=== PATIENT | male | born 1940 | race Caucasian/White ===

== ENCOUNTER 2022-02-01 17:57 | Inpatient (IN) | payer MEDICARE, OTHER ==
[~2022-02-01] VITALS: Ht 170.2 cm; Wt 46.7 kg
[~2022-02-01 17:57] MED LIST: TERA2CAP4 PO; VALS1TAB7 PO
[2022-02-01] MEDS ORDERED: ACETAMINOPHEN 650 MG/SUPP.RECT RC ONE ×2 (18:13→18:30)
--- NOTE | 2022-02-01 18:15 | NUR ---
Covid swab done and sent to lab.
[2022-02-01] MEDS ORDERED: COLL30OI TP (18:21)
[2022-02-01] MEDS ORDERED: MAGN400O6 GT (18:21)
[2022-02-01] MEDS ORDERED: HYDR-4077 GT (18:21)
[2022-02-01] MEDS ORDERED: ACET-868 GT (18:21)
[2022-02-01] MEDS ORDERED: NUT.237L31 GT (18:21)
[2022-02-01] MEDS ORDERED: ASCO-352 GT (18:21)
[2022-02-01] MEDS ORDERED: MULT-447 GT (18:21)
[2022-02-01] MEDS ORDERED: ZINC1CAP2 GT (18:21)
[2022-02-01] MEDS ORDERED: LEVA1.2528 IH (18:21)
[2022-02-01] MEDS ORDERED: LOSA100T31 GT (18:21)
[2022-02-01] MEDS ORDERED: BISA10SU11 RC (18:21)
[2022-02-01] MEDS ORDERED: CHOL100043 GT (18:21)
[2022-02-01] MEDS ORDERED: METO-295 GT (18:21)
[2022-02-01] MEDS ORDERED: NA P133E RC (18:21)
[2022-02-01] MEDS ORDERED: ASPI-1169 GT (18:21)
[2022-02-01] MEDS ORDERED: EZET10TA16 GT (18:21)
[2022-02-01 18:28] LABS: BASOPHILS # (AUTO) 0.1 K/uL (0.0-0.2); BASOPHILS % (AUTO) 0.5 % (0.0-2.0); EOSINOPHILS % (AUTO) 0.2 % (0.0-6.0); HEMATOCRIT 33 % (39-51); HEMOGLOBIN 9.9 g/dL (13.5-17.5); LYMPHOCYTES # (AUTO) 1.4 K/uL (0.8-4.8); LYMPHOCYTES % (AUTO) 11.2 % (20.0-44.0); MEAN CORPUSCULAR HGB CONC 31 g/dl (31.0-36.0); MEAN CORPUSCULAR VOLUME 81 fL (80-96); MONOCYTES # (AUTO) 0.7 K/uL (0.1-1.30); MONOCYTES % (AUTO) 5.7 % (2.0-12.0); NEUTROPHILS # (AUTO) 10.5 K/uL (1.8-8.9); NEUTROPHILS % (AUTO) 82.4 % (43.0-81.0); PLATELET COUNT (AUTO) 814 K/uL (150-450); RED BLOOD CELL COUNT(AUTO) 3.99 MIL/uL (4.5-6.0); WHITE BLOOD COUNT (AUTO) 12.7 K/uL (4.3-11.0)
[2022-02-01] MEDS ORDERED: VANCOMYCIN 1 GM in IV D5W 250 ML IV ONE (18:30)
[2022-02-01] MEDS ORDERED: CEFEPIME 1 GM in IV D5W 50 ML IV ONE (18:30)
--- NOTE | 2022-02-01 18:30 | NUR ---
IV LINE ESTABLISHED ON RFA #18, BLOOD DRAWN AND SENT TO LAB
--- NOTE | 2022-02-01 18:35 | NUR ---
URINE SAMPLE COLLECTED AND SENT TO LAB
[2022-02-01 18:42] LABS: CALCIUM, SERUM 9.4 mg/dL (8.5-10.1); CARBON DIOXIDE 26 mmol/L (21-32); CHLORIDE 110 mmol/L (98-107); CREATININE 1.5 mg/dL (0.6-1.3); GLUCOSE 131 mg/dL (74-106); POTASSIUM 5.7 mmol/L (3.5-5.1); SODIUM SERUM 146 mmol/L (136-145)
[2022-02-01 18:43] LABS: UREA NITROGEN, BLOOD 82 mg/dL (7-18)
[2022-02-01 18:53] LABS: ALANINE AMINOTRANSFERASE 55 U/L (12-78); ALBUMIN 2.1 g/dL (3.4-5.0); ALKALINE PHOSPHATASE 128 U/L (46-116); ASPARTATE AMINOTRANSFERASE 39 U/L (15-37); BILIRUBIN,DIRECT 0.1 mg/dL (0.0-0.2); BILIRUBIN,TOTAL 0.3 mg/dL (0.2-1.0); TOTAL PROTEIN, SERUM 7.4 g/dL (6.4-8.2)
[2022-02-01] MEDS ORDERED: CEFEPIME 1 GM VIAL ONE (19:12)
--- NOTE | 2022-02-01 19:30 | NUR ---
EMT AT BEDSIDE FOR EKG
--- NOTE | 2022-02-01 19:31 | NUR ---
[id number] FROM [facility] FOR DESATURATION (88% WITH 2L/MIN) AND FEVER 100.4F. PT ON MONITIOR AND PULSE OX , 15LPM NRB SATTING 98%.
--- NOTE | 2022-02-01 19:37 | NUR ---
RT AT BEDSIDE FOR ABG
[2022-02-01 19:47] LABS: ABG PCO2 30.7 mmHg (35.0-45.0); ABG PH 7.457 (7.350-7.450); ABG PO2 89.5 mmHg (75.0-100.0); COHb 0.3 % (0.5-1.5); MetHb 0.5 % (0.0-1.5); O2Hb 95.8 % (94.0-97.0); SITE, ABG Right Radial
[2022-02-01 19:53] LABS: BILIRUBIN,URINE NEGATIVE (NEGATIVE); COLOR,URINE YELLOW (YELLOW); LEUKOCYTE ESTERASE ,URINE NEGATIVE (NEGATIVE); NITRITE, URINE NEGATIVE (NEGATIVE); PROTEIN,URINE 30 mg/dl (NEGATIVE); UGLUCOSE NEGATIVE (NEGATIVE); UROBILINOGEN,URINE 0.2 EU/dL (0.2)
[2022-02-01] MEDS ORDERED: VANCOMYCIN 1 GM VIAL ONE (20:13)
--- NOTE | 2022-02-01 20:13 | NUR ---
EPIC PAGED PER DR NEGRO.
[2022-02-01] MEDS ORDERED: IV D5/0.45 NACL 1,000 ML IV ONE (21:00)
[2022-02-01] MEDS ORDERED: ACETAMINOPHEN 325 MG TABLET PO PRN ×2 (21:00)
[2022-02-01] MEDS ORDERED: BISACODYL SUPP (10 MG) 10 MG/SUPP.RECT SUPP.RECT RC PRN (21:00)
[2022-02-01] MEDS ORDERED: ACETAMINOPHEN 650 MG/SUPP.RECT RC PRN (21:00)
[2022-02-01] MEDS ORDERED: METOCLOPRAMIDE HCL 10 MG TABLET GT PRN (21:00)
[2022-02-01] MEDS ORDERED: ONDANSETRON HCL/PF 4 MG/2 ML VIAL IVP PRN (21:00)
--- NOTE | 2022-02-01 21:28 | NUR ---
CALLED FOR REPORT. RN WILL CALL BACK
--- NOTE | 2022-02-01 21:51 | NUR ---
REPORT GIVEN TO KATELYN
--- NOTE | 2022-02-01 22:19 | NUR ---
PT TRANSFERRED TO ROOM 113-1 ON ANIMAL SKINNER ACLS PROTCOL. ALL V/S WNL AT TIME OF TRANSFER.
[2022-02-01] MEDS ORDERED: LEVALBUTEROL HCL NEB 1.25 MG/0.5 ML VIAL.NEB IH PRN (22:30)
--- NOTE | 2022-02-01 22:30 | NUR ---
RN NOTE RECEIVED REPORT FOR PT DENITA FROM ER NURSE DIAMOND. ARRIVED AT 2210 IN EDD VIA GURNEY WITH THE DIAGNOSIS OF RESPIRATORY FAILURE SECONDARY TO SEPSIS. PT IN NRB MASK AT 100% WITH O2 SAT OF 100% UPON ASSESSMENT. PT IS AWAKE BUT DISORIENTED. UNABLE TO RESPOND TO QUESTIONS. TELE MONITOR SHOW SR WITH HR OF 77 BPM. IV ACCES NOTED IN RFA #18G, SL.GT IN PLACE, CLAMPED. FC NOTED DRAINING YELLOW URINE VIA GRAVITY. PT CURRENTLY NPO. WOUNDS NOTED IN LEFT FOREHEAD AND SACRUM. PHOTOS TAKEN AND IN PT'S CHART. ALL SAFETY PRECAUTIONS IN PLACE: BED LOCKED IN LOW POSITION, BED ALARM ON. SR X 3, CALL LIGHT WITHIN REACH. WILL CONTINUE TO MONITOR PT.
[2022-02-01] MEDS: EZETIMIBE 10 MG TABLET GT SCH (23:14)
[2022-02-02] VITALS: BP 125/69
[2022-02-02] MEDS ORDERED: methylPREDNISolone SOD SUCC 40 MG/ML VIAL IV ONE (00:30)
--- NOTE | 2022-02-02 02:15 | NUR ---
RN NOTE PT STARTED TO BE RESTLESS IN BED. PULLED OUT HIS NRB MASK AND PULSE OX SEVERAL TIMES. SOFT WRIST RESTRAINTS ON BILATERAL HANDS ORDERED AND CARRIED OUT. WILL CONTINUE TO MONITOR PT CLOSELY.
[2022-02-02 04:00] VITALS: BP 114/69
--- NOTE | 2022-02-02 06:14 | NUR ---
RN CLOSING NOTE NO SIGNIFICANT CHANGE THROUGHOUT THE NIGHT. VSS. PT REMAINS IN NPO STATUS. WILL ENDORSE TO AM SHIFT NURSE FOR CARLOS.
[2022-02-02 07:05] LABS: ALANINE AMINOTRANSFERASE 49 U/L (12-78); ALBUMIN 1.9 g/dL (3.4-5.0); ALKALINE PHOSPHATASE 106 U/L (46-116); ASPARTATE AMINOTRANSFERASE 31 U/L (15-37); BASOPHILS % (AUTO) 0.4 % (0.0-2.0); BILIRUBIN,TOTAL 0.4 mg/dL (0.2-1.0); CALCIUM, SERUM 8.6 mg/dL (8.5-10.1); CARBON DIOXIDE 25 mmol/L (21-32); CHLORIDE 111 mmol/L (98-107); CREATININE 1.4 mg/dL (0.6-1.3); EOSINOPHILS % (AUTO) 0.2 % (0.0-6.0); GLUCOSE 157 mg/dL (74-106); HEMATOCRIT 28 % (39-51); HEMOGLOBIN 8.7 g/dL (13.5-17.5); LYMPHOCYTES # (AUTO) 0.8 K/uL (0.8-4.8); LYMPHOCYTES % (AUTO) 9.2 % (20.0-44.0); MAGNESIUM 3.1 mg/dL (1.8-2.4); MEAN CORPUSCULAR HGB CONC 32 g/dl (31.0-36.0); MEAN CORPUSCULAR VOLUME 84 fL (80-96); MONOCYTES # (AUTO) 0.2 K/uL (0.1-1.30); MONOCYTES % (AUTO) 1.9 % (2.0-12.0); NEUTROPHILS # (AUTO) 7.8 K/uL (1.8-8.9); NEUTROPHILS % (AUTO) 88.3 % (43.0-81.0); PLATELET COUNT (AUTO) 691 K/uL (150-450); POTASSIUM 5.4 mmol/L (3.5-5.1); RED BLOOD CELL COUNT(AUTO) 3.27 MIL/uL (4.5-6.0); SODIUM SERUM 144 mmol/L (136-145); TOTAL PROTEIN, SERUM 6.6 g/dL (6.4-8.2); WHITE BLOOD COUNT (AUTO) 8.8 K/uL (4.3-11.0)
[2022-02-02 07:15] LABS: THYROID STIMULATING HORMONE 0.254 uIU/mL (0.358-3.74)
[2022-02-02 07:18] LABS: UREA NITROGEN, BLOOD 88 mg/dL (7-18)
[2022-02-02] MEDS ORDERED: ALBUTEROL FS 2.5 MG/0.5 ML VIAL.NEB IH PRN (07:30)
[2022-02-02] MEDS ORDERED: ALBUTEROL FS 2.5 MG/0.5 ML VIAL.NEB NEB SCH (07:35)
--- NOTE | 2022-02-02 07:35 | NUR ---
RN NOTE PT RECEIVED IN BED, LETHARGIC, EYES CLOSED. PT ON 15L NRB WITH SOME LABORED BREATHING, RR 28. DELA CRUZ CATH IN PLACE, PATENT. GTUBE IN PLACE, NO FEEDING RUNNING, PT NPO EXCEPT MEDS AT THIS TIME. RIGHT FA 18G IN PLACE RUNNING D51/2NS AT 50ML/HR. BILATERAL SOFT WRIST RESTRAINS IN PLACE, SKIN WARM AND INTACT. BED LOCKED AND IN LOWEST POSITION, CALL LIGHT WITHIN REACH, 3 SIDE RAILS UP.
[2022-02-02 08:00] VITALS: BP 129/47
[2022-02-02] MEDS: ZINC SULFATE 220 MG CAPSULE GT SCH (08:38)
[2022-02-02] MEDS: MULTIVIT W/MINERALS 1 TAB TABLET GT SCH (08:38)
[2022-02-02] MEDS: ASPIRIN 81 MG TAB.CHEW GT SCH (08:38)
[2022-02-02] MEDS: CEFEPIME 2 GM in IV D5W 100 ML IV SCH (08:38)
[2022-02-02] MEDS: THERAHONEY GEL 1.5 OZ TUBE TP SCH (08:38)
[2022-02-02] MEDS: ASCORBIC ACID 500 MG TABLET GT SCH (08:39)
[2022-02-02] MEDS: CHOLECALCIFEROL 1,000 UNIT TABLET (VIT D3) GT SCH (08:39)
[2022-02-02] MEDS ORDERED: PANTOPRAZOLE 40 MG VIAL IV SCH (09:00)
[2022-02-02] MEDS ORDERED: CEFEPIME 1 GM in IV D5W 50 ML IV SCH (09:00)
--- NOTE | 2022-02-02 11:13 | NUR ---
RN NOTE PT SATING 99% ON 5L O2 NC.
[2022-02-02 12:00] VITALS: BP 113/56
[2022-02-02] MEDS: ENOXAPARIN SODIUM 30 MG/0.3 ML DISP.SYRIN SQ SCH (12:42)
[2022-02-02] MEDS ORDERED: DEXTROSE 50%-WATER 50 ML DISP.SYRIN IV PRN (15:00)
[2022-02-02 16:00] VITALS: BP 137/47
[2022-02-02] MEDS ORDERED: VANCOMYCIN 0.75 GM in IV D5W 250 ML IV SCH (16:00)
[2022-02-02] MEDS: GLUCERNA 1.2 1,000 ML BOTTLE NG PRN (17:38)
[2022-02-02] MEDS: BLOOD SUGAR DIAGNOSTIC 1 EACH STRIP IN SCH ×2 (17:38→23:29)
[2022-02-02] MEDS: INSULIN REGULAR, HUMAN 100 UNIT/ML 3 ML VIAL SQ PRN ×2 (17:39→23:30)
--- NOTE | 2022-02-02 19:20 | NUR ---
RN NOTES RECEIVED PT FOR CONTINUITY OF CARE. PATIENT A/OX1 IN NO S/SX OF ACUTE DISTRESS AT THIS TIME; CURRENTLY ON 4L OF 02 VIA SIMPLE MASK; WITH 02 SAT >95% AT THIS TIME.WITH IV ACCESS ON R FA#18 PATENT, INTACT AND FLUSHING WELL. WITH GTUBE FEEDING RUNNING PRESCRIBED. WILL ENSURE SAFETY MEASURES WITHIN THE SHIFT. PATIENT BED ALARM IS ON. HEAD OF BED ELEVATED. BED IS LOCKED, IN LOWEST POSITION AND SIDE RAILS UP. CALL LIGHT WITHIN REACH OF THE PATIENT. APPLICABLE ISOLATION PRECAUTIONS IN PLACE. WILL CONTINUE TO MONITOR AND REASSESS FOR ANY CHANGES AND WILL CARRY OUT ANY ONGOING AND ACTIVE MD ORDER. Addendum: 02/02/22 at 2214 by BARBRA ORTIZ RN CORRECTION PT ON NASAL CANNULA
[2022-02-02] MEDS: ALBUTEROL FS 2.5 MG/0.5 ML VIAL.NEB NEB SCH (19:30)
[2022-02-02] MEDS: IPRATROPIUM NEB FS 0.5 MG/2.5 ML AMPUL.NEB NEB SCH (19:30)
[2022-02-02 20:00] VITALS: BP 125/50
[2022-02-02] MEDS: EZETIMIBE 10 MG TABLET GT SCH (21:18)
[2022-02-03] VITALS: BP 132/48
[2022-02-03 04:00] VITALS: BP 91/55
--- NOTE | 2022-02-03 04:00 | NUR ---
RN NOTES PATIENT REMAINED TO BE IN NO SIGNS OF ACUTE RESPIRATORY DISTRESS ,SAFE ENVIRONMENT MAINTAINED FOR PT. AM PATIENT CARE RENDERED. WILL CONTINUE TO MONITOR AND REASSESS FOR ANY CHANGES THROUGHOUT THE SHIFT.
[2022-02-03] MEDS: BLOOD SUGAR DIAGNOSTIC 1 EACH STRIP IN SCH ×4 (05:56→23:24)
[2022-02-03] MEDS: INSULIN REGULAR, HUMAN 100 UNIT/ML 3 ML VIAL SQ PRN ×2 (05:57→23:24)
[2022-02-03 05:58] LABS: BASOPHILS % (AUTO) 0.2 % (0.0-2.0); HEMATOCRIT 27 % (39-51); HEMOGLOBIN 8.4 g/dL (13.5-17.5); LYMPHOCYTES # (AUTO) 1.3 K/uL (0.8-4.8); LYMPHOCYTES % (AUTO) 15.6 % (20.0-44.0); MEAN CORPUSCULAR HGB CONC 32 g/dl (31.0-36.0); MEAN CORPUSCULAR VOLUME 83 fL (80-96); MONOCYTES # (AUTO) 0.8 K/uL (0.1-1.30); NEUTROPHILS # (AUTO) 6.3 K/uL (1.8-8.9); NEUTROPHILS % (AUTO) 75.2 % (43.0-81.0); PLATELET COUNT (AUTO) 701 K/uL (150-450); WHITE BLOOD COUNT (AUTO) 8.4 K/uL (4.3-11.0)
[2022-02-03 06:04] LABS: CALCIUM, SERUM 8.6 mg/dL (8.5-10.1); CARBON DIOXIDE 26 mmol/L (21-32); CHLORIDE 111 mmol/L (98-107); CREATININE 1.1 mg/dL (0.6-1.3); GLUCOSE 128 mg/dL (74-106); MAGNESIUM 2.9 mg/dL (1.8-2.4); POTASSIUM 4.7 mmol/L (3.5-5.1); SODIUM SERUM 145 mmol/L (136-145); UREA NITROGEN, BLOOD 73 mg/dL (7-18)
[2022-02-03 06:22] LABS: IRON, SERUM 33 ug/dl (50-175); TOTAL IRON BINDING CAPACITY 128 ug/dl (250-450)
[2022-02-03 06:36] LABS: FERRITIN 777 ng/mL (8-388)
--- NOTE | 2022-02-03 06:40 | NUR ---
RN CLOSING NOTE: PATIENT REMAINS IN ROOM IN NO SIGNS OF RESPIRATORY DISTRESS, PATIENT STILL A/OX1-2 MORE ALERT COMPARED FROM THE START OF THE SHIFT. NOW ON 3L OF 02 VIA NC ; TOLERATING WELL SATURATING @ >95% SP02. SAFETY MEASURES IMPLEMENTED, BED IN LOWEST POSITION, LOCKED, SIDE RAILS UP, CALL LIGHT WITHIN REACH. ALL NEEDS AND ORDERS ADDRESSED DURING THE SHIFT. IV ACCESS MAINTAINED INTACT, SECURED AND FLUSHING WELL. ALL DUE MEDS GIVEN ORDERED & SCHEDULED ; PATIENT TOLERATED WELL. PATIENT KEPT CLEAN AND COMFORTABLE WITHIN THE SHIFT. PATIENT ENDORSED TO INCOMING SHIFT RN WITH STABLE VITAL SIGN AND FOR CONTINUITY OF CARE.
--- NOTE | 2022-02-03 07:33 | NUR ---
EDD TELE OPENING NOTES: RECEIVED PATIENT IN BED, AWAKE,ALERT ORIENTED X 1 WITH PERIODS OF CONFUSION. NO SOB NOTED, ON OXYGEN @ 3 L/MN VIA N/C SATURATION OF 97%. SR ON TELE MONITOR WITH HR OF 67. IV ACCESS ON RIGHT FOREARM INTAC, FLUSHING WELL, NO S/S INFILTRATION. GTUBE INTACT, DRESSING CLEAN AND DRY, RUNNING WITH GLUCERNA 1.2 @ 70 CC/HR. DELA CRUZ CATHETER INTACT, DRAINING WELL, WITH YELLOW CLEAR URINE, NO HEMATURIA AND NO SEDIMENTATION PRESENT. HOB KEPT ELEVATED, BED LOCKED AND IN LOWEST POSITION, CALL LIGHT WITHIN REACH. ALL SAFETY MEASURES IMPLEMENTED. WILL CONTINUE TO MONITOR PATIENT THROUGHOUT SHIFT.
[2022-02-03] MEDS: IPRATROPIUM NEB FS 0.5 MG/2.5 ML AMPUL.NEB NEB SCH ×4 (07:35→20:05)
[2022-02-03] MEDS: ALBUTEROL FS 2.5 MG/0.5 ML VIAL.NEB NEB SCH ×4 (07:35→20:05)
--- NOTE | 2022-02-03 07:54 | NUR ---
RT NOTE HHN pending negative PCR for COVID-19
[2022-02-03 08:00] VITALS: BP 102/62
--- NOTE | 2022-02-03 08:23 | NUR ---
WOUND CARE CONSULT: REVIEWED CHART, NURSING DOCUMENTATION AND PHOTOS WHICH INDICATE LESION TO SCALP AND SACRAL DEEP TISSUE INJURY IN EVOLUTION, PRESENT ON ADMISSION. RECOMMENDATIONS MADE FOR SKIN PROTECTION AND WOUND CARE. DISCUSSED WITH NURSING STAFF. DR GONZALEZ NOTIFIED OF SURGICAL CONSULT REQUEST. MD IN AGREEMENT WITH PLAN OF CARE.
[2022-02-03] MEDS ORDERED: Z GUARD REMEDY 4 OZ OINT TP PRN (08:30)
[2022-02-03] MEDS: PANTOPRAZOLE 40 MG/PACK PACK GT SCH (09:59)
[2022-02-03] MEDS: ASPIRIN 81 MG TAB.CHEW GT SCH (09:59)
[2022-02-03] MEDS: CEFEPIME 2 GM in IV D5W 100 ML IV SCH (10:00)
[2022-02-03] MEDS: ZINC SULFATE 220 MG CAPSULE GT SCH (10:00)
[2022-02-03] MEDS: ASCORBIC ACID 500 MG TABLET GT SCH (10:00)
[2022-02-03] MEDS: MULTIVIT W/MINERALS 1 TAB TABLET GT SCH (10:00)
[2022-02-03] MEDS: CHOLECALCIFEROL 1,000 UNIT TABLET (VIT D3) GT SCH (10:00)
[2022-02-03] MEDS: Z GUARD REMEDY 4 OZ OINT TP SCH (10:01)
[2022-02-03] MEDS: THERAHONEY GEL 1.5 OZ TUBE TP SCH ×2 (10:01→21:40)
[2022-02-03] MEDS: ENOXAPARIN SODIUM 30 MG/0.3 ML DISP.SYRIN SQ SCH (10:51)
[2022-02-03 12:00] VITALS: BP 139/47
[2022-02-03 12:00] LABS: BASOPHILS % (MANUAL) 0 % (0.0-2.0); EOSINOPHILS % (MANUAL) 0 % (0-4); LYMPHOCYTES % (MANUAL) 16 % (16-48); MONOCYTES % (MANUAL) 8 % (0-11.0); NEUTROPHILS % (MANUAL) 76 (42-76)
--- NOTE | 2022-02-03 12:29 | NUR ---
RT NOTE Tx not given at this time due to COVID-19 test results still pending. Pt was assessed, SpO2 92% HR 71 and no SOB or resp distress noted and all WNL, breath sounds clear/diminished. Will continue to monitor.
[2022-02-03] MEDS: GLUCERNA 1.5 1,000 ML BOTTLE GT SCH (13:35)
[2022-02-03] MEDS: VANCOMYCIN 500 MG in IV D5W 100 ML IV SCH (14:53)
[2022-02-03 16:00] VITALS: BP 99/53
--- NOTE | 2022-02-03 19:05 | NUR ---
RN CLOSING NOTES: RECEIVED PATIENT IN BED, AWAKE, OBTUNDED. ON MECHANICAL VENT SETTING ORDERED. NO SOB NOTED. ON SR WITH HR OF 67. IV ACCESS ON LEFT THUMB RUNNING WITH 1/2 NS @ 100ML/HR. HAS SALINE LOCK ON RIGHT HAND. GTUBE INTACT, WITH GLUCERNA RUNNING AT 80 ML/HR. DELA CRUZ CATHETER DRAINING WITH YELLOW URINE, NO HEMATURIA AND NO SEDIMENTATION NOTED. HOB KEPT ELEVATED, BED LOCKED AND IN LOWEST POSITION. CALL LIGHT WITHIN REACH. WILL ENDORSE TO NEXT SHIFT NURSE.
--- NOTE | 2022-02-03 19:18 | NUR ---
RN NOTES RECEIVED PT FOR CONTINUITY OF CARE. PATIENT A/OX1 IN NO S/SX OF ACUTE DISTRESS AT THIS TIME; CURRENTLY ON 3L OF 02 VIA NC; WITH 02 SAT >95% AT THIS TIME.WITH IV ACCESS ON R FA#18 PATENT, INTACT AND FLUSHING WELL. WITH GTUBE FEEDING RUNNING PRESCRIBED; 70CC/HR, TOLERATING WELL. WILL ENSURE SAFETY MEASURES WITHIN THE SHIFT. PATIENT BED ALARM IS ON. HEAD OF BED ELEVATED. BED IS LOCKED, IN LOWEST POSITION AND SIDE RAILS UP. CALL LIGHT WITHIN REACH OF THE PATIENT. WILL CONTINUE TO MONITOR AND REASSESS FOR ANY CHANGES AND WILL CARRY OUT ANY ONGOING AND ACTIVE MD ORDER.
[2022-02-03 20:00] VITALS: BP 132/59
--- NOTE | 2022-02-03 20:10 | NUR ---
RN NOTES AUTHORIZATION/CONSENT OBTAINED FROM PT'S FAMILY KENNETH BARGER FOR SERIAL DEBRIDEMENT OF SACRUM VIA PHONE ([phone]), PHONE VERIFIED BY ANOTHER NURSE DIEGO LIMA. POLICE RADIO DISPATCHER MADE AWARE.
[2022-02-03] MEDS: EZETIMIBE 10 MG TABLET GT SCH (21:39)
[2022-02-04] VITALS: BP 122/60
--- NOTE | 2022-02-04 02:15 | NUR ---
RN NOTES VANCO 500MG IN IV D5W NOT AVAILABLE IN PT'S MEDICATION BOX, MEDICATION PULLED OUT BY CLIMATOLOGY TEACHER FROM [facility], 1GM IN 250ML, WILL GIVE DESIRED DOSE (500MG) ORDERED. CLIMATOLOGY TEACHER WELL AWARE.
[2022-02-04] MEDS: VANCOMYCIN 500 MG in IV D5W 100 ML IV SCH (02:22)
[2022-02-04] MEDS ORDERED: VANCOMYCIN 1 GM VIAL ONE (02:22)
[2022-02-04 04:00] VITALS: BP 131/57
--- NOTE | 2022-02-04 04:00 | NUR ---
RN NOTES PATIENT REMAINED TO BE IN NO SIGNS OF ACUTE RESPIRATORY DISTRESS 0O2 LEVEL DECREASED TO 2L; O2 SAT STILL >95%,SAFE ENVIRONMENT MAINTAINED FOR PT. AM PATIENT CARE AND WOUND CARE RENDERED. WILL CONTINUE TO MONITOR AND REASSESS FOR ANY CHANGES THROUGHOUT THE SHIFT.
[2022-02-04] MEDS: BLOOD SUGAR DIAGNOSTIC 1 EACH STRIP IN SCH ×4 (05:19→23:45)
[2022-02-04] MEDS: INSULIN REGULAR, HUMAN 100 UNIT/ML 3 ML VIAL SQ PRN ×2 (05:19→23:45)
[2022-02-04] MEDS: GLUCERNA 1.2 1,000 ML BOTTLE NG PRN (05:23)
--- NOTE | 2022-02-04 06:45 | NUR ---
RN CLOSING NOTE: PATIENT REMAINS IN ROOM IN NO SIGNS OF RESPIRATORY DISTRESS, PATIENT STILL A/OX1-2;CONFUSED. NOW ON 2L OF 02 VIA NC; TOLERATING WELL SATURATING @ >95% SP02. STILL ON TUBE FEEDING ORDERED; TOLERATING WELL. CONSENT SECURED FOR WOUND DEBRIDEMENT OF SACRAL WOUND; IN PT'S CHART. SAFETY MEASURES IMPLEMENTED, BED IN LOWEST POSITION, LOCKED, SIDE RAILS UP, CALL LIGHT WITHIN REACH. ALL NEEDS AND ORDERS ADDRESSED DURING THE SHIFT. IV ACCESS MAINTAINED INTACT, SECURED AND FLUSHING WELL. ALL DUE MEDS GIVEN ORDERED & SCHEDULED ; PATIENT TOLERATED WELL. PATIENT KEPT CLEAN AND COMFORTABLE WITHIN THE SHIFT. PATIENT ENDORSED TO INCOMING SHIFT RN WITH STABLE VITAL SIGN AND FOR CONTINUITY OF CARE.
[2022-02-04 06:48] LABS: BASOPHILS % (AUTO) 0.1 % (0.0-2.0); EOSINOPHILS % (AUTO) 0.2 % (0.0-6.0); HEMATOCRIT 31 % (39-51); HEMOGLOBIN 9.7 g/dL (13.5-17.5); LYMPHOCYTES # (AUTO) 1.2 K/uL (0.8-4.8); LYMPHOCYTES % (AUTO) 12.5 % (20.0-44.0); MEAN CORPUSCULAR HGB CONC 31 g/dl (31.0-36.0); MEAN CORPUSCULAR VOLUME 83 fL (80-96); MONOCYTES # (AUTO) 0.7 K/uL (0.1-1.30); MONOCYTES % (AUTO) 6.9 % (2.0-12.0); NEUTROPHILS # (AUTO) 7.8 K/uL (1.8-8.9); NEUTROPHILS % (AUTO) 80.3 % (43.0-81.0); PLATELET COUNT (AUTO) 818 K/uL (150-450); RED BLOOD CELL COUNT(AUTO) 3.79 MIL/uL (4.5-6.0); WHITE BLOOD COUNT (AUTO) 9.8 K/uL (4.3-11.0)
[2022-02-04 06:55] LABS: CALCIUM, SERUM 9.5 mg/dL (8.5-10.1); CARBON DIOXIDE 29 mmol/L (21-32); CHLORIDE 111 mmol/L (98-107); CREATININE 1.1 mg/dL (0.6-1.3); GLUCOSE 128 mg/dL (74-106); MAGNESIUM 2.8 mg/dL (1.8-2.4); POTASSIUM 4.8 mmol/L (3.5-5.1); SODIUM SERUM 146 mmol/L (136-145); UREA NITROGEN, BLOOD 58 mg/dL (7-18)
[2022-02-04] MEDS: IPRATROPIUM NEB FS 0.5 MG/2.5 ML AMPUL.NEB NEB SCH ×5 (07:23→19:35)
[2022-02-04] MEDS: ALBUTEROL FS 2.5 MG/0.5 ML VIAL.NEB NEB SCH ×5 (07:23→19:35)
[2022-02-04 08:00] VITALS: BP 128/65
[2022-02-04] MEDS: ASPIRIN 81 MG TAB.CHEW GT SCH (08:07)
[2022-02-04] MEDS: PANTOPRAZOLE 40 MG/PACK PACK GT SCH (08:09)
[2022-02-04] MEDS: CEFEPIME 2 GM in IV D5W 100 ML IV SCH (08:09)
[2022-02-04] MEDS: CHOLECALCIFEROL 1,000 UNIT TABLET (VIT D3) GT SCH (08:09)
[2022-02-04] MEDS: MULTIVIT W/MINERALS 1 TAB TABLET GT SCH (08:09)
[2022-02-04] MEDS: ZINC SULFATE 220 MG CAPSULE GT SCH (08:09)
[2022-02-04] MEDS: ASCORBIC ACID 500 MG TABLET GT SCH (08:09)
[2022-02-04] MEDS: ENOXAPARIN SODIUM 30 MG/0.3 ML DISP.SYRIN SQ SCH (08:12)
[2022-02-04] MEDS: THERAHONEY GEL 1.5 OZ TUBE TP SCH ×2 (08:59→09:00)
[2022-02-04] MEDS: Z GUARD REMEDY 4 OZ OINT TP SCH (08:59)
--- NOTE | 2022-02-04 11:45 | NUR ---
RN NOTE PT RECEIVED IN BED, RESPONSIVE TO STIMULI. CONT IN O2 VIA NC @2L. NOT IN DISTRESS. PT IS SR. GT IN PLACE WITH FEEDING GLUCERNA @70/HR. IV ACCESS ON RGA G18. PATENT AND INTACT. SAFETY MEASURES FOLLOWED. WILL CONT TO MONITOR.
[2022-02-04 12:00] VITALS: BP 125/62
--- NOTE | 2022-02-04 13:52 | NUR ---
RN NOTE VANCO TROUGH RESULT-21. PHARMACY MADE AWARE.
[2022-02-04 16:00] VITALS: BP 109/66
--- NOTE | 2022-02-04 19:25 | NUR ---
RN NOTES RECEIVED PT FOR CONTINUITY OF CARE. PATIENT A/OX1 IN NO S/SX OF ACUTE DISTRESS AT THIS TIME; CURRENTLY ON 2L OF 02 VIA NC; WITH 02 SAT >95% AT THIS TIME.WITH IV ACCESS ON R FA#18 PATENT, INTACT AND FLUSHING WELL. WITH GTUBE FEEDING RUNNING PRESCRIBED; 70CC/HR, TOLERATING WELL. WILL ENSURE SAFETY MEASURES WITHIN THE SHIFT. PATIENT BED ALARM IS ON. HEAD OF BED ELEVATED. BED IS LOCKED, IN LOWEST POSITION AND SIDE RAILS UP. CALL LIGHT WITHIN REACH OF THE PATIENT. WILL CONTINUE TO MONITOR AND REASSESS FOR ANY CHANGES AND WILL CARRY OUT ANY ONGOING AND ACTIVE MD ORDER.
--- NOTE | 2022-02-04 19:31 | NUR ---
RN NOTE PT RESTING IN BED, RESPONSIVE TO STIMULI. CONT IN O2 VIA NC @2L. NOT IN DISTRESS. PT IS SR. GT IN PLACE WITH FEEDING GLUCERNA @70/HR. IV ACCESS ON RGA G18. PATENT AND INTACT. SAFETY MEASURES FOLLOWED. WILL CONT TO MONITOR. DUE MEDICATIONS GIVEN, AM/PM CARE RENDERED.
--- NOTE | 2022-02-04 19:42 | NUR ---
RT NOTE RECEIVED PT ON ROOM AIR. PT REFUSED TX. NO SOB NOTED. NO INCREASED WOB NOTED. NO S/S OF ACUTE RESPIRATORY DISTRESS NOTED. RN NOTIFIED. Addendum: 02/04/22 at 2005 by CHASE MARSH RT PT CHANGED HIS MIND HE DECIDED TO TAKE TX.
[2022-02-04 20:00] VITALS: BP 122/56
--- NOTE | 2022-02-04 20:03 | NUR ---
RT NOTE. PT CHANGED HIS MIND AND TOOK TX. RASHEL TX WELL. NO S/S OF ACUTE RESPIRATORY DISTRESS NOTED. Addendum: 02/04/22 at 2006 by CHASE MARSH RT Amended: Links added.
[2022-02-04] MEDS: VANCOMYCIN 0.75 GM in IV D5W 250 ML IV SCH (21:02)
[2022-02-04] MEDS: EZETIMIBE 10 MG TABLET GT SCH (21:02)
--- NOTE | 2022-02-04 23:00 | NUR ---
RN NOTES NEW IV ACCESS SECURED ON THE L HAND #22, INTACT, PATENT AND FLUSHING WELL. SPECIAL NEEDS BABYSITTER MADE AWARE.
[2022-02-05] VITALS: BP 124/59
--- NOTE | 2022-02-05 04:00 | NUR ---
RN NOTES PATIENT REMAINED TO BE IN NO SIGNS OF ACUTE RESPIRATORY DISTRESS ,SAFE ENVIRONMENT MAINTAINED FOR PT. REGULAR REPOSITION DONE Q2H. AM PATIENT CARE RENDERED. WILL CONTINUE TO MONITOR AND REASSESS FOR ANY CHANGES THROUGHOUT THE SHIFT.
[2022-02-05] MEDS: GLUCERNA 1.5 1,000 ML BOTTLE GT SCH (04:16)
[2022-02-05 05:00] VITALS: BP 125/59
[2022-02-05] MEDS: BLOOD SUGAR DIAGNOSTIC 1 EACH STRIP IN SCH ×4 (05:36→23:22)
[2022-02-05] MEDS: INSULIN REGULAR, HUMAN 100 UNIT/ML 3 ML VIAL SQ PRN ×2 (05:36→23:33)
--- NOTE | 2022-02-05 06:39 | NUR ---
RN CLOSING NOTE: PATIENT REMAINS IN ROOM IN NO SIGNS OF RESPIRATORY DISTRESS, PATIENT STILL A/OX1-2;CONFUSED. NOW ON 2L OF 02 VIA NC; TOLERATING WELL SATURATING @ >95% SP02. STILL ON TUBE FEEDING ORDERED; TOLERATING WELL. CSAFETY MEASURES IMPLEMENTED, BED IN LOWEST POSITION, LOCKED, SIDE RAILS UP, CALL LIGHT WITHIN REACH. ALL NEEDS AND ORDERS ADDRESSED DURING THE SHIFT. IV ACCESS MAINTAINED INTACT, SECURED AND FLUSHING WELL. ALL DUE MEDS GIVEN ORDERED & SCHEDULED ; PATIENT TOLERATED WELL. PATIENT KEPT CLEAN AND COMFORTABLE WITHIN THE SHIFT. PATIENT ENDORSED TO INCOMING SHIFT RN WITH STABLE VITAL SIGN AND FOR CONTINUITY OF CARE.
[2022-02-05 06:53] LABS: BASOPHILS % (AUTO) 0.3 % (0.0-2.0); EOSINOPHILS % (AUTO) 0.3 % (0.0-6.0); HEMATOCRIT 30 % (39-51); HEMOGLOBIN 9.3 g/dL (13.5-17.5); LYMPHOCYTES # (AUTO) 1.8 K/uL (0.8-4.8); LYMPHOCYTES % (AUTO) 17.6 % (20.0-44.0); MEAN CORPUSCULAR HGB CONC 31 g/dl (31.0-36.0); MEAN CORPUSCULAR VOLUME 86 fL (80-96); MONOCYTES # (AUTO) 0.5 K/uL (0.1-1.30); MONOCYTES % (AUTO) 5.1 % (2.0-12.0); NEUTROPHILS # (AUTO) 7.7 K/uL (1.8-8.9); NEUTROPHILS % (AUTO) 76.7 % (43.0-81.0); PLATELET COUNT (AUTO) 745 K/uL (150-450); RED BLOOD CELL COUNT(AUTO) 3.45 MIL/uL (4.5-6.0)
[2022-02-05 07:07] LABS: CALCIUM, SERUM 8.9 mg/dL (8.5-10.1); CREATININE 1.1 mg/dL (0.6-1.3); MAGNESIUM 2.6 mg/dL (1.8-2.4); POTASSIUM 4.5 mmol/L (3.5-5.1)
--- NOTE | 2022-02-05 07:44 | NUR ---
RN NOTE PT RECEIVED IN BED, RESPONSIVE TO STIMULI. CONT IN O2 VIA NC @2L. NOT IN DISTRESS. PT IS SR. GT IN PLACE WITH FEEDING GLUCERNA @70/HR. IV ACCESS ON L HAND G22. PATENT AND INTACT. SAFETY MEASURES FOLLOWED. WILL CONT TO MONITOR.
[2022-02-05 08:00] VITALS: BP 132/54
[2022-02-05] MEDS: PANTOPRAZOLE 40 MG/PACK PACK GT SCH (09:45)
[2022-02-05] MEDS: ASPIRIN 81 MG TAB.CHEW GT SCH (09:45)
[2022-02-05] MEDS: ASCORBIC ACID 500 MG TABLET GT SCH (09:45)
[2022-02-05] MEDS: CEFEPIME 2 GM in IV D5W 100 ML IV SCH (09:45)
[2022-02-05] MEDS: ZINC SULFATE 220 MG CAPSULE GT SCH (09:45)
[2022-02-05] MEDS: CHOLECALCIFEROL 1,000 UNIT TABLET (VIT D3) GT SCH (09:46)
[2022-02-05] MEDS: MULTIVIT W/MINERALS 1 TAB TABLET GT SCH (09:46)
[2022-02-05] MEDS: ENOXAPARIN SODIUM 30 MG/0.3 ML DISP.SYRIN SQ SCH (09:49)
[2022-02-05 10:37] LABS: BASOPHILS % (MANUAL) 0 % (0.0-2.0); EOSINOPHILS % (MANUAL) 0 % (0-4); LYMPHOCYTES % (MANUAL) 19 % (16-48); MONOCYTES % (MANUAL) 2 % (0-11.0); NEUTROPHILS % (MANUAL) 79 (42-76)
[2022-02-05] MEDS: ALBUTEROL FS 2.5 MG/0.5 ML VIAL.NEB NEB SCH ×3 (11:30→19:53)
[2022-02-05] MEDS: IPRATROPIUM NEB FS 0.5 MG/2.5 ML AMPUL.NEB NEB SCH ×3 (11:30→19:53)
[2022-02-05 12:00] VITALS: BP 101/61
[2022-02-05] MEDS: Z GUARD REMEDY 4 OZ OINT TP SCH (13:10)
[2022-02-05] MEDS: THERAHONEY GEL 1.5 OZ TUBE TP SCH ×2 (13:11)
[2022-02-05 16:00] VITALS: BP 94/58
--- NOTE | 2022-02-05 18:18 | NUR ---
RN NOTE PT RESTING IN BED, RESPONSIVE TO STIMULI. IN ROOM AIR. NOT IN DISTRESS. PT IS SR. GT IN PLACE WITH FEEDING GLUCERNA @70/HR. IV ACCESS ON LHAND G22. PATENT AND INTACT. SAFETY MEASURES FOLLOWED. WILL CONT TO MONITOR. DUE MEDICATIONS GIVEN, AM/PM CARE RENDERED
--- NOTE | 2022-02-05 19:30 | NUR ---
RN OPENING NOTE RECEIVED PT FOR CONTINUITY OF CARE. PATIENT A/O X 1, CURRENTLY ON RA, TOLERATING WELL. NO S/SX OF ACUTE DISTRESS NOTED AT THIS TIME. 02 SAT >95%. IV ACCESS NOTED ON LEFT HAND, #22G, PATENT, INTACT AND FLUSHING WELL. SOFT WRIST RESTRAINS ON BILATERAL HANDS IN PLACE. NO CIRCULATION ISSUES AT THIS TIME. GTUBE FEEDING RUNNING PRESCRIBED; 70CC/HR, TOLERATING WELL. DELA CRUZ CATHETER IN PLACE, DRAINING YELLOW URINE BY GRAVITY. ALL SAFETY MEASURES IN PLACE: BED ALARM ON. HEAD OF BED ELEVATED. BED LOCKED, IN LOWEST POSITION. SIDE RAILS UP X 3. CALL LIGHT WITHIN REACH. WILL CONTINUE TO MONITOR AND REASSESS FOR ANY CHANGES AND WILL CARRY OUT ANY ONGOING AND ACTIVE MD ORDER.
[2022-02-05 20:00] VITALS: BP 110/50
[2022-02-05] MEDS: VANCOMYCIN 0.75 GM in IV D5W 250 ML IV SCH (21:05)
[2022-02-05] MEDS: EZETIMIBE 10 MG TABLET GT SCH (21:05)
[2022-02-06] VITALS: BP 106/60
[2022-02-06 04:00] VITALS: BP 116/65
[2022-02-06] MEDS: BLOOD SUGAR DIAGNOSTIC 1 EACH STRIP IN SCH ×4 (05:36→23:18)
[2022-02-06] MEDS: INSULIN REGULAR, HUMAN 100 UNIT/ML 3 ML VIAL SQ PRN ×2 (05:36→23:30)
[2022-02-06] MEDS: GLUCERNA 1.2 1,000 ML BOTTLE NG PRN ×2 (05:52→22:40)
--- NOTE | 2022-02-06 06:18 | NUR ---
RN CLOSING NOTE NO SIGNIFICANT CHANGE THROUGHOUT THE NIGHT. PT TOLERATING RA, O2 SAT >95%. TELE MONITOR SHOWS SR. ALL DUE MEDS GIVEN, NEEDS ATTENDED TO. AM/PM CARE DONE. TURNED AND REPOSITIONED. ALL SAFETY MEASURES IN PLACE. WILL ENDORSE TO AM SHIFT NURSE FOR CARLOS.
[2022-02-06 06:40] LABS: BASOPHILS % (AUTO) 0.4 % (0.0-2.0); EOSINOPHILS % (AUTO) 0.5 % (0.0-6.0); HEMATOCRIT 29 % (39-51); HEMOGLOBIN 9.2 g/dL (13.5-17.5); LYMPHOCYTES # (AUTO) 1.8 K/uL (0.8-4.8); LYMPHOCYTES % (AUTO) 14.4 % (20.0-44.0); MEAN CORPUSCULAR HGB CONC 32 g/dl (31.0-36.0); MEAN CORPUSCULAR VOLUME 82 fL (80-96); MONOCYTES # (AUTO) 0.9 K/uL (0.1-1.30); MONOCYTES % (AUTO) 7.2 % (2.0-12.0); NEUTROPHILS # (AUTO) 9.7 K/uL (1.8-8.9); NEUTROPHILS % (AUTO) 77.5 % (43.0-81.0); PLATELET COUNT (AUTO) 719 K/uL (150-450); RED BLOOD CELL COUNT(AUTO) 3.52 MIL/uL (4.5-6.0); WHITE BLOOD COUNT (AUTO) 12.5 K/uL (4.3-11.0)
[2022-02-06 07:06] LABS: MAGNESIUM 2.4 mg/dL (1.8-2.4); PHOSPHORUS 3.5 mg/dL (2.5-4.9); POTASSIUM 4.5 mmol/L (3.5-5.1)
--- NOTE | 2022-02-06 07:20 | NUR ---
director telemetry opening note patient is alert and oriented x1.patient is confused. patient is on tele monitor currently sinus rhythm.patient is on room air saturating at 93%. patient has Reddy catheter. yellow/guilherme color draining to gravity.patient has sacral wound and wound on forehead. patient is fall risk. patient has bilateral soft wrist restraints. no circulation issues noted at this time. patient is on Glucerna @ 70 cc/hr.gtube patent and intact. patient has left hand 22 gauge.iv patent and flushing well. all safety measures in place. call light with reach.bed locked at lowest position.side rails up x2.
[2022-02-06] MEDS: ALBUTEROL FS 2.5 MG/0.5 ML VIAL.NEB NEB SCH ×4 (07:44→19:23)
[2022-02-06] MEDS: IPRATROPIUM NEB FS 0.5 MG/2.5 ML AMPUL.NEB NEB SCH ×4 (07:44→19:23)
[2022-02-06 07:54] LABS: BAND % (MANUAL) 4 % (0.0-5.0); LYMPHOCYTES % (MANUAL) 12 % (16-48); METAMYELOCYTES % 1 % (0-0); MONOCYTES % (MANUAL) 4 % (0-11.0); MYELOCYTES % 1 % (0-0); NEUTROPHILS % (MANUAL) 78 (42-76)
[2022-02-06 08:00] VITALS: BP 115/53
[2022-02-06] MEDS: THERAHONEY GEL 1.5 OZ TUBE TP SCH ×2 (09:00→10:20)
[2022-02-06] MEDS: MULTIVIT W/MINERALS 1 TAB TABLET GT SCH (09:27)
[2022-02-06] MEDS: ASPIRIN 81 MG TAB.CHEW GT SCH (09:27)
[2022-02-06] MEDS: PANTOPRAZOLE 40 MG/PACK PACK GT SCH (09:27)
[2022-02-06] MEDS: ASCORBIC ACID 500 MG TABLET GT SCH (09:27)
[2022-02-06] MEDS: ZINC SULFATE 220 MG CAPSULE GT SCH (09:28)
[2022-02-06] MEDS: CHOLECALCIFEROL 1,000 UNIT TABLET (VIT D3) GT SCH (09:28)
[2022-02-06] MEDS: ENOXAPARIN SODIUM 30 MG/0.3 ML DISP.SYRIN SQ SCH (09:33)
[2022-02-06] MEDS: CEFEPIME 2 GM in IV D5W 100 ML IV SCH (09:34)
[2022-02-06] MEDS: Z GUARD REMEDY 4 OZ OINT TP SCH (10:19)
[2022-02-06 12:00] VITALS: BP 157/66
--- NOTE | 2022-02-06 12:00 | NUR ---
FAMILY AT BEDSIDE
[2022-02-06 16:00] VITALS: BP 146/69
--- NOTE | 2022-02-06 19:29 | NUR ---
SWEET DOUGH MIXER CLOSING NOTE PATIENT IS ALERT AND ORIENTED X1, CONFUSED ABLE TO OPEN EYES WHEN CALLING HIS NAME. PATIENT IS ON ROOM AIR CURRENT OXYGEN SATURATION AT 94%. PATIENT IS TELE MONITOR CURRENTLY SINUS RHYTHM AT 83. PATIENT HAS WOUND IN SACRAL AREA AND LEFT FOREHEAD. KEPT CLEAN AND DRY.PATIENT HAS BILATERAL SOFT RESTRAINTS. NO SKIN OR CIRCULATION ISSUES NOTED AT THIS TIME. PATIENT IS ON GLUCERNA AT 70ML/HR.GTUBE INTACT AND PATENT. PATIENT HAS IV ON LEFT HAND 22 GAUGE. IV PATENT AND FLUSHING WELL. ALL SAFETY MEASURES IN PLACE.CALL LIGHT WITH REACH. BED LOCKED AND IN LOWEST POSITION. SIDE RAILS UP X2. BED ALARM ON.
--- NOTE | 2022-02-06 19:30 | NUR ---
RN OPENING NOTE RECEIVED PT FOR CONTINUITY OF CARE. PATIENT A/O X 1, CURRENTLY ON RA, TOLERATING WELL. NO S/SX OF ACUTE DISTRESS NOTED AT THIS TIME. 02 SAT >95%. IV ACCESS NOTED ON LEFT HAND, #22G, SL, PATENT, INTACT AND FLUSHING WELL. SOFT WRIST RESTRAINTS ON BILATERAL HANDS IN PLACE. NO CIRCULATION ISSUES AT THIS TIME. GTUBE FEEDING RUNNING PRESCRIBED; NS AT 70CC/HR, TOLERATING WELL. DELA CRUZ CATHETER IN PLACE, DRAINING YELLOW URINE BY GRAVITY. ALL SAFETY MEASURES IN PLACE: BED ALARM ON. HEAD OF BED ELEVATED. BED LOCKED, IN LOWEST POSITION. SIDE RAILS UP X 3. CALL LIGHT WITHIN REACH. WILL CONTINUE TO MONITOR AND REASSESS FOR ANY CHANGES AND WILL CARRY OUT ANY ONGOING AND ACTIVE MD ORDER.
[2022-02-06 20:00] VITALS: BP 140/64
[2022-02-06] MEDS: EZETIMIBE 10 MG TABLET GT SCH (21:07)
[2022-02-06] MEDS: VANCOMYCIN 0.75 GM in IV D5W 250 ML IV SCH (21:07)
[2022-02-07] VITALS: BP 155/64
[2022-02-07 04:00] VITALS: BP 139/58
[2022-02-07] MEDS: BLOOD SUGAR DIAGNOSTIC 1 EACH STRIP IN SCH ×4 (05:17→23:56)
[2022-02-07] MEDS: INSULIN REGULAR, HUMAN 100 UNIT/ML 3 ML VIAL SQ PRN ×2 (05:18→23:57)
[2022-02-07] MEDS ORDERED: LIDOCAINE 1%-EPI 1:100,000 20 ML VIAL IJ ONE (06:00)
[2022-02-07] MEDS ORDERED: SILVER NITRATE APPLICATOR 1 EA BOX TP PRN (06:00)
[2022-02-07] MEDS: ALBUTEROL FS 2.5 MG/0.5 ML VIAL.NEB NEB SCH ×4 (07:12→19:49)
[2022-02-07] MEDS: IPRATROPIUM NEB FS 0.5 MG/2.5 ML AMPUL.NEB NEB SCH ×4 (07:12→19:49)
--- NOTE | 2022-02-07 07:15 | NUR ---
RN OPENING NOTES RECEIVED PATIENT RESTING IN BED, EASILY AROUSES ALERT/ORIENTED X 1, CURRENTLY ON RA, TOLERATING WELL. NO S/SX OF ACUTE DISTRESS NOTED AT THIS TIME. IV ACCESS NOTED ON LEFT HAND, #22G, SL, PATENT, INTACT AND FLUSHING WELL. SOFT WRIST RESTRAINTS ON BILATERAL HANDS IN PLACE. NO CIRCULATION/SKIN INTEGRITY ISSUES AT THIS TIME. GTUBE FEEDING RUNNING GLUCERNA AT 70CC/HR, TOLERATING WELL. DELA CRUZ CATHETER IN PLACE, DRAINING YELLOW URINE BY GRAVITY. ALL SAFETY MEASURES IN PLACE: BED ALARM ON. HEAD OF BED ELEVATED. BED LOCKED, IN LOWEST POSITION. SIDE RAILS UP X 3. CALL LIGHT WITHIN REACH. WILL CONTINUE TO MONITOR THROUGHOUT SHIFT.
[2022-02-07 07:20] LABS: BASOPHILS % (AUTO) 0.3 % (0.0-2.0); HEMATOCRIT 27 % (39-51); HEMOGLOBIN 8.4 g/dL (13.5-17.5); LYMPHOCYTES # (AUTO) 2.1 K/uL (0.8-4.8); LYMPHOCYTES % (AUTO) 16.9 % (20.0-44.0); MEAN CORPUSCULAR HGB CONC 31 g/dl (31.0-36.0); MEAN CORPUSCULAR VOLUME 82 fL (80-96); MONOCYTES # (AUTO) 0.8 K/uL (0.1-1.30); MONOCYTES % (AUTO) 6.2 % (2.0-12.0); NEUTROPHILS # (AUTO) 9.5 K/uL (1.8-8.9); NEUTROPHILS % (AUTO) 75.6 % (43.0-81.0); PLATELET COUNT (AUTO) 642 K/uL (150-450); RED BLOOD CELL COUNT(AUTO) 3.31 MIL/uL (4.5-6.0); WHITE BLOOD COUNT (AUTO) 12.6 K/uL (4.3-11.0)
[2022-02-07 07:49] LABS: CALCIUM, SERUM 8.9 mg/dL (8.5-10.1); CREATININE 0.9 mg/dL (0.6-1.3); MAGNESIUM 2.4 mg/dL (1.8-2.4); POTASSIUM 4.4 mmol/L (3.5-5.1)
[2022-02-07 08:00] VITALS: BP 142/61
[2022-02-07] MEDS: MULTIVIT W/MINERALS 1 TAB TABLET GT SCH (09:08)
[2022-02-07] MEDS: ASCORBIC ACID 500 MG TABLET GT SCH (09:08)
[2022-02-07] MEDS: ASPIRIN 81 MG TAB.CHEW GT SCH (09:08)
[2022-02-07] MEDS: CEFEPIME 2 GM in IV D5W 100 ML IV SCH (09:08)
[2022-02-07] MEDS: PANTOPRAZOLE 40 MG/PACK PACK GT SCH (09:09)
[2022-02-07] MEDS: CHOLECALCIFEROL 1,000 UNIT TABLET (VIT D3) GT SCH (09:09)
[2022-02-07] MEDS: ZINC SULFATE 220 MG CAPSULE GT SCH (09:09)
[2022-02-07] MEDS: ENOXAPARIN SODIUM 30 MG/0.3 ML DISP.SYRIN SQ SCH (09:11)
[2022-02-07] MEDS: Z GUARD REMEDY 4 OZ OINT TP SCH (09:11)
[2022-02-07] MEDS: THERAHONEY GEL 1.5 OZ TUBE TP SCH ×2 (09:11→09:12)
--- NOTE | 2022-02-07 10:50 | NUR ---
RN NOTE PATIENT LEFT UNIT FOR CT SCAN. PATIENT AWAKE, ALERT/ORIENTED. NO SOB OR ANY RESPIRATORY DISTRESS NOTED AT THE TIME.
--- NOTE | 2022-02-07 11:10 | NUR ---
RN NOTE PATIENT BACK IN UNIT FROM CT SCAN.
[2022-02-07 12:00] VITALS: BP 136/66
[2022-02-07 16:00] VITALS: BP 139/64
[2022-02-07 16:02] LABS: BAND % (MANUAL) 1 % (0.0-5.0)
[2022-02-07 16:03] LABS: EOSINOPHILS % (MANUAL) 1 % (0-4); MONOCYTES % (MANUAL) 4 % (0-11.0); NEUTROPHILS % (MANUAL) 76 (42-76)
[2022-02-07 16:05] LABS: LYMPHOCYTES % (MANUAL) 18 % (16-48)
--- NOTE | 2022-02-07 19:00 | NUR ---
RN CLOSING NOTES NO SIGNIFICANT CHANGES ON PATIENT CONDITION THROUGHOUT SHIFT. PATIENT RESTING IN BED, EASILY AROUSES ALERT/ORIENTED X 1, CURRENTLY ON RA, TOLERATING WELL. NO S/SX OF ACUTE DISTRESS NOTED AT THIS TIME. IV ACCESS NOTED ON LEFT HAND, #22G, SL, PATENT, INTACT AND FLUSHING WELL. SOFT WRIST RESTRAINTS ON BILATERAL HANDS IN PLACE. NO CIRCULATION/SKIN INTEGRITY ISSUES THROUGHOUT SHIFT. GTUBE FEEDING RUNNING GLUCERNA AT 70CC/HR, TOLERATING WELL. DELA CRUZ CATHETER IN PLACE, DRAINING YELLOW URINE BY GRAVITY. ALL DUE MEDS GIVEN ORDERED. KEPT PATIENT CLEAN DRY AND COMFORTABLE. WOUND CARE RENDERED AND TOLERATED WELL. ALL NEEDS ATTENDED. ALL SAFETY MEASURES IN PLACE: BED ALARM ON. HEAD OF BED ELEVATED. BED LOCKED, IN LOWEST POSITION. SIDE RAILS UP X 3. CALL LIGHT WITHIN REACH. WILL ENDORSE TO GLASS CHECKER NURSE FOR CONTINUITY OF CARE.
[2022-02-07] MEDS: GLUCERNA 1.2 1,000 ML BOTTLE NG PRN (19:33)
--- NOTE | 2022-02-07 19:47 | NUR ---
RN OPENING NOTES, RECEIVED PATIENT IN BED, EASILY AWAKE, ALERT/ORIENTED X 1, RESPONSIVE TO PAINFUL STIMULI. ON ROOM AIR AND TOLERATING WELL. BREATHING EVEN AND UNLABORED. IV ACCESS NOTED ON LEFT HAND, #22G, INTACT AND PATENT. NO S/S OF INFILTRATIONS. BILATERAL SOFT WRIST RESTRAINTS ON. GTUBE FEEDING RUNNING AT GLUCERNA 1.2 AT 70CC/HR X20 HOURS. PT TOLERATING WELL. DELA CRUZ CATHETER IN PLACE, DRAINING BY GRAVITY. NOTED YELLOW/CLEAR URINE. ALL SAFETY MEASURES IN PLACE. BED ALARM ON. HEAD OF BED ELEVATED. BED IN LOWEST POSITION AND LOCKED. SIDE RAILS UP X 3. PLACE CALL LIGHT WITHIN REACH. WILL CONTINUE TO MONITOR.
[2022-02-07 20:00] VITALS: BP 151/72
[2022-02-07] MEDS: VANCOMYCIN 0.75 GM in IV D5W 250 ML IV SCH (21:07)
[2022-02-07] MEDS: EZETIMIBE 10 MG TABLET GT SCH (21:07)
[2022-02-08] VITALS: BP 155/68
--- NOTE | 2022-02-08 00:02 | NUR ---
RN NOTES: PT'S BLOOD SUGAR 95. NO COVERAGE NEEDED. NO S/S OF INFILTRATIONS. WILL CONTINUE TO MONITOR
[2022-02-08 04:00] VITALS: BP 135/61
[2022-02-08] MEDS: BLOOD SUGAR DIAGNOSTIC 1 EACH STRIP IN SCH ×2 (05:54→12:01)
[2022-02-08] MEDS: INSULIN REGULAR, HUMAN 100 UNIT/ML 3 ML VIAL SQ PRN (05:55)
[2022-02-08] MEDS ORDERED: LIDOCAINE 1%-EPI 1:100,000 50 ML VIAL IJ ONE (06:00)
[2022-02-08] MEDS ORDERED: SILVER NITRATE APPLICATOR 1 EA BOX TP SCH (06:00)
[2022-02-08 06:20] LABS: BASOPHILS % (AUTO) 0.4 % (0.0-2.0); EOSINOPHILS % (AUTO) 0.8 % (0.0-6.0); HEMATOCRIT 29 % (39-51); HEMOGLOBIN 8.7 g/dL (13.5-17.5); LYMPHOCYTES # (AUTO) 1.9 K/uL (0.8-4.8); LYMPHOCYTES % (AUTO) 13.9 % (20.0-44.0); MEAN CORPUSCULAR HGB CONC 31 g/dl (31.0-36.0); MEAN CORPUSCULAR VOLUME 83 fL (80-96); MONOCYTES # (AUTO) 0.8 K/uL (0.1-1.30); MONOCYTES % (AUTO) 5.8 % (2.0-12.0); NEUTROPHILS # (AUTO) 10.6 K/uL (1.8-8.9); NEUTROPHILS % (AUTO) 79.1 % (43.0-81.0); PLATELET COUNT (AUTO) 662 K/uL (150-450); RED BLOOD CELL COUNT(AUTO) 3.45 MIL/uL (4.5-6.0); WHITE BLOOD COUNT (AUTO) 13.4 K/uL (4.3-11.0)
[2022-02-08 06:43] LABS: CALCIUM, SERUM 8.6 mg/dL (8.5-10.1); CREATININE 0.9 mg/dL (0.6-1.3); MAGNESIUM 2.3 mg/dL (1.8-2.4); PHOSPHORUS 3.1 mg/dL (2.5-4.9); POTASSIUM 4.6 mmol/L (3.5-5.1)
--- NOTE | 2022-02-08 06:46 | NUR ---
RN CLOSING NOTES, PATIENT IN BED, EASILY AWAKE, ALERT/ORIENTED X 1, RESPONSIVE TO PAINFUL STIMULI. ON ROOM AIR AND TOLERATING WELL. O2 SAT 95%. BREATHING EVEN AND UNLABORED. IV ACCESS NOTED ON LEFT HAND, #22G, INTACT AND PATENT. NO S/S OF INFILTRATIONS. BILATERAL SOFT WRIST RESTRAINTS ON. RELEASED Q 2 HOURS TO CHECK CIRCULATIONS. GTUBE FEEDING RUNNING AT GLUCERNA 1.2 AT 70CC/HR X20 HOURS. PT TOLERATING WELL. DELA CRUZ CATHETER IN PLACE, DRAINING BY GRAVITY. NOTED YELLOW/CLEAR URINE. ALL DUE MEDS GIVEN ORDERED. PT'S BLOOD SUGAR 109. NO COVERAGE GIVEN. NO S/S OF HYPER/HYPOGLYCEMIA. ALL SAFETY MEASURES IN PLACE. BED ALARM ON. HEAD OF BED ELEVATED. BED IN LOWEST POSITION AND LOCKED. SIDE RAILS UP X 3. PLACE CALL LIGHT WITHIN REACH. WILL ENDORSE TO MORNING SHIFT NURSE. Addendum: 02/08/22 at 0654 by OMEGA GARCIA RN IV ACCESS ON LEFT HAND#22G AND RAC#20G INTACT AND PATENT.
[2022-02-08] MEDS: ALBUTEROL FS 2.5 MG/0.5 ML VIAL.NEB NEB SCH ×3 (07:56→15:52)
[2022-02-08] MEDS: IPRATROPIUM NEB FS 0.5 MG/2.5 ML AMPUL.NEB NEB SCH ×3 (07:56→15:52)
[2022-02-08 08:00] VITALS: BP 130/63
--- NOTE | 2022-02-08 09:02 | NUR ---
RN /NOTE MEDICATION (XYLOCAINE 1% 1:100,000 20ML) WAS NOT GIVEN BECAUSE IT WAS FOR WOUND DEBRIDEMENT.
[2022-02-08] MEDS: ASPIRIN 81 MG TAB.CHEW GT SCH (09:05)
[2022-02-08] MEDS: ASCORBIC ACID 500 MG TABLET GT SCH (09:05)
[2022-02-08] MEDS: ZINC SULFATE 220 MG CAPSULE GT SCH (09:05)
[2022-02-08] MEDS: MULTIVIT W/MINERALS 1 TAB TABLET GT SCH (09:06)
[2022-02-08] MEDS: PANTOPRAZOLE 40 MG/PACK PACK GT SCH (09:06)
[2022-02-08] MEDS: CHOLECALCIFEROL 1,000 UNIT TABLET (VIT D3) GT SCH (09:07)
[2022-02-08] MEDS: CEFEPIME 2 GM in IV D5W 100 ML IV SCH (09:08)
[2022-02-08] MEDS: THERAHONEY GEL 1.5 OZ TUBE TP SCH ×4 (09:10→10:57)
[2022-02-08] MEDS: ENOXAPARIN SODIUM 30 MG/0.3 ML DISP.SYRIN SQ SCH (09:10)
[2022-02-08] MEDS: Z GUARD REMEDY 4 OZ OINT TP SCH ×2 (09:10→10:58)
[2022-02-08 09:50] LABS: BAND % (MANUAL) 2 % (0.0-5.0); BASOPHILS % (MANUAL) 0 % (0.0-2.0); EOSINOPHILS % (MANUAL) 0 % (0-4); LYMPHOCYTES % (MANUAL) 14 % (16-48); MONOCYTES % (MANUAL) 6 % (0-11.0); NEUTROPHILS % (MANUAL) 78 (42-76)
[2022-02-08] MEDS: GLUCERNA 1.2 1,000 ML BOTTLE NG PRN (11:30)
[2022-02-08] MEDS ORDERED: CEFE1PIG3 IV (12:22)
--- NOTE | 2022-02-08 14:15 | NUR ---
RN/NOTE [facility] WAS CALLED AND REPORT WAS GIVEN TO ELMER . PATIENT IS DUE TO BE TRANSFERRED AT 1600 VIA AMBULANCE.
[2022-02-08 16:08] VITALS: BP 135/70
--- NOTE | 2022-02-08 17:09 | NUR ---
RN/DISCHARGE NOTE PATIENT LEFT AT 1700 WITH THE AMBULANCE TO [facility] WAS CALLED AND REPORT WAS GIVEN TO ELMER . PATIENT'S VSS. NON LABORED BREATHING. NO SINGS OF DISTRESS..
== END 2022-02-08 16:55 | DRG 853 ==
LOC: ER 18:00 → TELE-TD 21:39 → TELE1 02-03 15:37 → MEDSG1 02-08 09:46
PROVIDERS: ADMIT Registered Nurse; ATTEND Student in an Organized Health Care Education/Training Program
PROC: 0KBP0ZZ Excision of Left Hip Muscle, Open Approach (ICD-10-PCS; principal; 2022-02-08)
PROC: 0KBN0ZZ Excision of Right Hip Muscle, Open Approach (ICD-10-PCS; 2022-02-08)
DX: A41.9 Sepsis, unspecified organism (principal); G92.8 Other toxic encephalopathy; L89.154 Pressure ulcer of sacral region, stage 4; J96.21 Acute and chronic respiratory failure with hypoxia; J69.0 Pneumonitis due to inhalation of food and vomit; N17.0 Acute kidney failure with tubular necrosis; E87.2 Acidosis; E87.0 Hyperosmolality and hypernatremia; E86.0 Dehydration; Z20.822 Contact with and (suspected) exposure to COVID-19; F03.90 Unspecified dementia, unspecified severity, without behavioral disturbance, psychotic disturbance, mood disturbance, and anxiety; I10 Essential (primary) hypertension; E11.9 Type 2 diabetes mellitus without complications; E78.5 Hyperlipidemia, unspecified; Z86.16 Personal history of COVID-19; D63.8 Anemia in other chronic diseases classified elsewhere; Z79.899 Other long term (current) drug therapy; Z79.82 Long term (current) use of aspirin; Z79.51 Long term (current) use of inhaled steroids; E87.5 Hyperkalemia; R13.10 Dysphagia, unspecified; Z93.1 Gastrostomy status; F09 Unspecified mental disorder due to known physiological condition; R65.20 Severe sepsis without septic shock; Y95 Nosocomial condition; Z87.442 Personal history of urinary calculi; D75.839 Thrombocytosis, unspecified
CPT/HCPCS: 36415; 36600; 71045-TC; 71250-TC; 76770-TC; 80048-TC; 80053-TC; 80076-TC; 80202-TC; 82607-TC; 82728-TC; 82803-TC; 82962-TC; 83540-TC; 83605-TC; 83735-TC; 83880; 84100-TC; 84443-TC; 84484-TC; 85025-TC; 85730-TC; 87040-TC; 87081-TC; 87086-TC; 94799-TC; A6253; C9113; C9803; G0378; J0692; J1650; J1815; J2920; J3370; J3490; J7050; J7060; J8597; U0003

== ENCOUNTER 2022-02-13 18:27 | Inpatient (IN) | payer MEDICARE, OTHER ==
[~2022-02-13] VITALS: Ht 170.2 cm; Wt 58.1 kg
[~2022-02-13 18:27] MED LIST changes: +ACET-868 GT; +ASCO-352 GT; +ASPI-1169 GT; +BISA10SU11 RC; +CEFE1PIG3 IV; +CHOL100043 GT; +COLL30OI TP; +EZET10TA16 GT; +HYDR-4077 GT; +LEVA1.2528 IH; +LOSA100T31 GT; +MAGN400O6 GT; +METO-295 GT; +MULT-447 GT; +NA P133E RC; +NUT.237L31 GT; -TERA2CAP4 PO; -VALS1TAB7 PO; +ZINC1CAP2 GT
--- NOTE | 2022-02-13 18:45 | NUR ---
bibpa, c/o sob 85% on 2lpm via NC, 94% on 6 lpm via NRB. PLACED ON BED, NOT RESPONDING TO VERBAL STIMULI, ON NON REBREATHING MASK AT 15LIT O2 SATURATING AT 98%
--- NOTE | 2022-02-13 19:00 | NUR ---
LINK WIRE FABRIC MACHINE OPERATOR AT BED SIDE
[2022-02-13] MEDS ORDERED: NUT.250L18 GT (19:06)
[2022-02-13] MEDS ORDERED: ACET-868 GT (19:06)
[2022-02-13] MEDS ORDERED: NYST15CR2 TP (19:06)
[2022-02-13] MEDS ORDERED: NEOM1OIN15 TP (19:06)
--- NOTE | 2022-02-13 19:25 | NUR ---
X-RAY TECH. AT BED SIDE
--- NOTE | 2022-02-13 19:35 | NUR ---
COVID SWAB COLLECTED AND SENT TO LAB
[2022-02-13 20:06] LABS: BASOPHILS # (AUTO) 0.1 K/uL (0.0-0.2); BASOPHILS % (AUTO) 0.4 % (0.0-2.0); EOSINOPHILS % (AUTO) 0.3 % (0.0-6.0); HEMATOCRIT 29 % (39-51); HEMOGLOBIN 8.6 g/dL (13.5-17.5); LYMPHOCYTES # (AUTO) 1.5 K/uL (0.8-4.8); LYMPHOCYTES % (AUTO) 8.8 % (20.0-44.0); MEAN CORPUSCULAR HGB CONC 30 g/dl (31.0-36.0); MEAN CORPUSCULAR VOLUME 82 fL (80-96); MONOCYTES # (AUTO) 0.5 K/uL (0.1-1.30); MONOCYTES % (AUTO) 2.8 % (2.0-12.0); NEUTROPHILS % (AUTO) 87.7 % (43.0-81.0); PLATELET COUNT (AUTO) 530 K/uL (150-450); RED BLOOD CELL COUNT(AUTO) 3.49 MIL/uL (4.5-6.0); WHITE BLOOD COUNT (AUTO) 17.1 K/uL (4.3-11.0)
[2022-02-13 20:40] LABS: ALANINE AMINOTRANSFERASE 44 U/L (12-78); ALBUMIN 1.7 g/dL (3.4-5.0); ALKALINE PHOSPHATASE 112 U/L (46-116); ASPARTATE AMINOTRANSFERASE 49 U/L (15-37); BILIRUBIN,DIRECT 0.1 mg/dL (0.0-0.2); BILIRUBIN,TOTAL 0.4 mg/dL (0.2-1.0); CALCIUM, SERUM 9.4 mg/dL (8.5-10.1); CARBON DIOXIDE 22 mmol/L (21-32); CHLORIDE 111 mmol/L (98-107); CREATININE 4.7 mg/dL (0.6-1.3); GLUCOSE 109 mg/dL (74-106); POTASSIUM 5.7 mmol/L (3.5-5.1); SODIUM SERUM 147 mmol/L (136-145); TOTAL PROTEIN, SERUM 6.9 g/dL (6.4-8.2)
[2022-02-13 20:44] LABS: UREA NITROGEN, BLOOD 140 mg/dL (7-18)
[2022-02-13] MEDS ORDERED: IV NS 0.9% 1,000 ML BAG IV ONE (21:00)
[2022-02-13] MEDS ORDERED: DEXTROSE 50%-WATER 50 ML DISP.SYRIN IV ONE (21:00)
[2022-02-13] MEDS ORDERED: CALCIUM CHLORIDE 1,000 MG/10 ML DISP.SYRIN IV ONE (21:00)
[2022-02-13] MEDS ORDERED: INSULIN REGULAR, HUMAN 100 UNIT/ML 10 ML VIAL IV ONE (21:00)
[2022-02-13] MEDS ORDERED: CEFEPIME 1 GM in IV D5W 50 ML IV ONE (21:00)
[2022-02-13] MEDS ORDERED: VANCOMYCIN 1 GM in IV D5W 250 ML IV ONE (21:00)
--- NOTE | 2022-02-13 21:13 | NUR ---
PATIENT TAKEN TO CT VIA [facility]
[2022-02-13] MEDS ORDERED: INSULIN REGULAR, HUMAN 100 UNIT/ML 10 ML VIAL ONE (21:19)
[2022-02-13] MEDS ORDERED: CALCIUM CHLORIDE 1,000 MG/10 ML DISP.SYRIN ONE (21:19)
[2022-02-13] MEDS ORDERED: DEXTROSE 50%-WATER 50 ML DISP.SYRIN ONE (21:19)
[2022-02-13] MEDS ORDERED: SODIUM BICARBONATE SYR 50 MEQ/50 ML DISP.SYRIN IV ONE (21:30)
--- NOTE | 2022-02-13 21:45 | NUR ---
FELISA CATH. INSERTED FR16 DRAINING TO YELLOW COLOR URINE OUPUT- CLEAR, URINE SAMPLE SENT TO LAB
[2022-02-13] MEDS ORDERED: CEFEPIME 1 GM VIAL ONE (21:50)
[2022-02-13] MEDS ORDERED: VANCOMYCIN 1 GM VIAL ONE (21:50)
[2022-02-13] MEDS ORDERED: ONDANSETRON HCL/PF 4 MG/2 ML VIAL IVP PRN (22:30)
[2022-02-13] MEDS ORDERED: DEXTROSE 50%-WATER 50 ML DISP.SYRIN IV PRN (22:30)
[2022-02-13] MEDS ORDERED: Z GUARD REMEDY 4 OZ OINT TP PRN (22:30)
[2022-02-13] MEDS ORDERED: ACETAMINOPHEN 325 MG TABLET PO PRN (22:30)
[2022-02-13 22:47] LABS: BILIRUBIN,URINE NEGATIVE (NEGATIVE); COLOR,URINE YELLOW (YELLOW); LEUKOCYTE ESTERASE ,URINE TRACE (NEGATIVE); NITRITE, URINE NEGATIVE (NEGATIVE); PROTEIN,URINE 100 mg/dl (NEGATIVE); UGLUCOSE NEGATIVE (NEGATIVE); UROBILINOGEN,URINE 0.2 EU/dL (0.2)
[2022-02-13 23:06] LABS: BACTERIA,URINE Moderate /HPF (None Seen); SQUAMOUS EPITHELIAL CELL,UR Rare /HPF (None Seen); WBC,URINE 51-80 /HPF (0-3)
--- NOTE | 2022-02-13 23:55 | NUR ---
ROOM 254
[2022-02-14] VITALS (47 sets, daily range): BP systolic 76–127; BP diastolic 39–72
--- NOTE | 2022-02-14 00:25 | NUR ---
REPORT GIVEN TO THEODORE CORTEZ FOR CARLOS
[2022-02-14 00:40] LABS: ABG OXYGEN SATURATION 92.9 % (92.0-98.5); ABG PCO2 27.7 mmHg (35.0-45.0); ABG PO2 66.4 mmHg (75.0-100.0); AaDO2 474.9 mmHg; COHb 0.1 % (0.5-1.5); MetHb 0.1 % (0.0-1.5); O2Hb 92.7 % (94.0-97.0); SITE, ABG Left Brachial; VENT MODE, BG 15L NRB
[2022-02-14] MEDS: IV NS 0.9% 1,000 ML IV PRN ×2 (01:18→14:02)
[2022-02-14] MEDS: EZETIMIBE 10 MG TABLET GT SCH ×2 (01:18→21:27)
--- NOTE | 2022-02-14 01:25 | NUR ---
PT TRANSPORTED TO ICU 235 ON CASCADE OPERATOR PER ACLS PROTOCOL. ICT PROJECT MANAGER AT BEDSIDE AT TIME OF TRANSFER.
--- NOTE | 2022-02-14 01:30 | NUR ---
RN/ICU-ADMITTED THIS 81 Y/O MALE FROM ER ACCOMPANIED BY ER STAFF PER ACLS PROTOCOL.DX:BRIDGER.ROUTINE ICU ADMISSION CARE INITIATED. OPENS EYES TO PAIN ,NON-INTERACTIVE W/ GENERALIZED WEAKNESS. EKG ST W/ HR-113, BP-104/53, BREATHING COMES EASY W/ O2 SUPPORT OF NRB, SATS.-100%, PT. WITH MULTIPLE WDS. SEE SKIN PROBLEM ASSESSMENT INTERVENTION AND WD. PHOTO FOR DETAIL. INITIAL WOUND CARE INITIATED PER PROTOCOL. WOUND NURSE CONSULTED. FIRST STEP MATTRESS ORDERED PER MD. REPOSITIONED TO SIDE NOW AND Q2HRS PT. CONDITION PERMITS, PHILIPPE. HEELS OFFLOADED.FEVERISH, TEMPT. 100.5, COOLING MEASURES INITIATED.NO S/S OF PAIN OR DISTRESS. PT. NOTED TO HAVE POLST STATED"DNR". WILL NOTIFY .
[2022-02-14] MEDS: BLOOD SUGAR DIAGNOSTIC 1 EACH STRIP IN SCH ×4 (01:35→17:33)
[2022-02-14 03:40] LABS: BASOPHILS % (AUTO) 0.1 % (0.0-2.0); HEMATOCRIT 25 % (39-51); HEMOGLOBIN 7.6 g/dL (13.5-17.5); LYMPHOCYTES # (AUTO) 0.9 K/uL (0.8-4.8); LYMPHOCYTES % (AUTO) 2.7 % (20.0-44.0); MEAN CORPUSCULAR HGB CONC 31 g/dl (31.0-36.0); MEAN CORPUSCULAR VOLUME 82 fL (80-96); MONOCYTES # (AUTO) 1.2 K/uL (0.1-1.30); MONOCYTES % (AUTO) 3.7 % (2.0-12.0); NEUTROPHILS # (AUTO) 30.2 K/uL (1.8-8.9); NEUTROPHILS % (AUTO) 93.5 % (43.0-81.0); PLATELET COUNT (AUTO) 452 K/uL (150-450); RED BLOOD CELL COUNT(AUTO) 3.04 MIL/uL (4.5-6.0)
[2022-02-14 03:49] LABS: WHITE BLOOD COUNT (AUTO) 32.3 K/uL (4.3-11.0)
[2022-02-14 03:54] LABS: BAND % (MANUAL) 4 % (0.0-5.0); LYMPHOCYTES % (MANUAL) 4 % (16-48)
[2022-02-14 03:55] LABS: MONOCYTES % (MANUAL) 3 % (0-11.0); NEUTROPHILS % (MANUAL) 79 (42-76)
[2022-02-14 03:59] LABS: CALCIUM, SERUM 9.4 mg/dL (8.5-10.1); CARBON DIOXIDE 22 mmol/L (21-32); CHLORIDE 111 mmol/L (98-107); CREATININE 4.2 mg/dL (0.6-1.3); GLUCOSE 120 mg/dL (74-106); PHOSPHORUS 4.9 mg/dL (2.5-4.9); SODIUM SERUM 145 mmol/L (136-145)
[2022-02-14 04:10] LABS: UREA NITROGEN, BLOOD 123 mg/dL (7-18)
--- NOTE | 2022-02-14 06:08 | NUR ---
RN/ICU-PT. AHMET OPEN, NON-INTERACTIVE, REMAINS ON NRB, NO S/S OF PAIN OR DISTRESS. FULL CODE FOR NOW. LATEST TEMPT.97.2/F.
--- NOTE | 2022-02-14 07:08 | NUR ---
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 PT IS CACHECTIC. RECOMMENDATIONS MADE FOR SKIN PROTECTION. DISCUSSED WITH NURSING STAFF. DR GONZALEZ TO BE CALLED THIS AM FOR SURGICAL CONSULT. FIRST STEP LOW AIRLOSS MATTRESS IS ON ORDER. IN AGREEMENT WITH PLAN OF CARE. Addendum: 02/14/22 at 0710 by MONICA VAZQUEZ WNDNU Amended: Links added.
[2022-02-14] MEDS ORDERED: ZOSYN IVPB 2.25 G in IV D5W 50ml IV SCH (07:24)
--- NOTE | 2022-02-14 08:00 | NUR ---
rn notes Received patient confused, not responding name, aphasiac when rubbing in the chest, gag reflex is present, unable to open eyes. patient has multiple wounds, very skinny, on non-rebreather mask 15L. Bedside monitor shows FIO2-100%, HR-80 sinus rhythm. GT intact, get order from tank car cleaner Glucerna 1.2 @70ml/hr within 20hr, order taken and carried out. Reddy draining via gravity. lab values reviewed, MD aware of lab values. assist turn and reposition q 2 hr. due medication administered. iv access on LAC, and LFA, and right hand intact infusing ns @ 100ml/hr intact. will follow up.
[2022-02-14] MEDS: NEOMY SULF/BACITRAC ZN/POLY 15 GM TUBE TP SCH ×2 (08:42→09:14)
[2022-02-14] MEDS: THERAHONEY GEL 1.5 OZ TUBE TP SCH ×2 (08:42→09:14)
[2022-02-14] MEDS: hydrALAZINE HCL 50 MG TABLET GT SCH ×3 (09:00→17:00)
[2022-02-14] MEDS: ZOSYN IVPB 2.25 G in IV D5W 50ml IV SCH ×4 (09:10→23:55)
[2022-02-14] MEDS: MULTIVITAMIN/LUTEIN/MINERALS 1 TAB PO SCH (09:11)
[2022-02-14] MEDS: CHOLECALCIFEROL 1,000 UNIT TABLET (VIT D3) PO SCH (09:11)
[2022-02-14] MEDS: ASPIRIN 81 MG TAB.CHEW GT SCH (09:11)
[2022-02-14] MEDS: ZINC SULFATE 220 MG CAPSULE PO SCH (09:11)
[2022-02-14] MEDS: ASCORBIC ACID 500 MG TABLET GT SCH (09:13)
[2022-02-14] MEDS: GLUCERNA 1.2 1,000 ML BOTTLE NG SCH (10:11)
[2022-02-14] MEDS: HEPARIN SODIUM, PORCINE 5000 UNITS/1 ML VIAL SQ SCH ×2 (12:52→17:32)
--- NOTE | 2022-02-14 13:00 | NUR ---
rn notes bs-136mg/dl, coverage given, due medication administered, patient still confused, family next to the bed. Dr Tovar speaking with the family about patient condition, and progresses. patient DNR/DNI at this time.
[2022-02-14] MEDS: NYSTATIN/TRIAMCIN CREAM 15 GM TUBE TP SCH (14:01)
[2022-02-14] MEDS: INSULIN REGULAR, HUMAN 100 UNIT/ML 3 ML VIAL SQ PRN (14:02)
--- NOTE | 2022-02-14 14:21 | NUR ---
rn notes per hospitalist Dr Paz get new order to get patient H/P from [facility], and [facility]. order taken and carried out.
--- NOTE | 2022-02-14 18:30 | NUR ---
RN NOTES PM CARE DONE, MOUTH CARE, DUE MEDICATION ADMINISTERED, VSS, NO ACUTE RESPIRATORY DISTRESS. PATIENT TOLERATING FEEDING WELL, NOT RESPONDING CALLS, EYES IS CLOSE ALL THE TIME, URINE OUTPUT WAS 440 ML, BMX1. FAMILY NEXT TO THE BED. ENDORSED ONCOMING NURSE CARLOS.
--- NOTE | 2022-02-14 19:51 | NUR ---
RN NOTE RECEIVED PT IN BED, NON INTERACTIVE. NOT IN ANY DISTRESS. ON O2 AT 5L VIA NC SATING 95%. NO SIGNS OF PAIN NOTED. SR ON TELE MONITOR. GT PATENT AND INPLACE, ON GLUCERNA AT 70ML/HR, NO RESIDUALS NOTED. KEPT HOB ELEVATED. NS AT 100ML/HR. IV LINES ON RH LFA LAC PATENT AND INTACT. DELA CRUZ DRAINING YELLOW URINE. AFEBRILE. WILL CONTINUE TO MONITOR.
[2022-02-14] MEDS: DAKINS QUARTER STRENGTH (0.125%) 480 ML BOTTLE TOP SCH (22:00)
[2022-02-15] VITALS (54 sets, daily range): BP systolic 104–146; BP diastolic 36–73
[2022-02-15] MEDS: BLOOD SUGAR DIAGNOSTIC 1 EACH STRIP IN SCH ×4 (00:01→18:12)
[2022-02-15] MEDS: INSULIN REGULAR, HUMAN 100 UNIT/ML 3 ML VIAL SQ PRN ×3 (00:15→12:19)
[2022-02-15] MEDS: IV NS 0.9% 1,000 ML IV PRN (01:09)
[2022-02-15] MEDS: GLUCERNA 1.2 1,000 ML BOTTLE NG SCH (03:34)
[2022-02-15 05:09] LABS: CALCIUM, SERUM 8.7 mg/dL (8.5-10.1); CARBON DIOXIDE 23 mmol/L (21-32); CHLORIDE 116 mmol/L (98-107); CREATININE 3.8 mg/dL (0.6-1.3); GLUCOSE 165 mg/dL (74-106); POTASSIUM 4.7 mmol/L (3.5-5.1); SODIUM SERUM 149 mmol/L (136-145)
[2022-02-15] MEDS: ZOSYN IVPB 2.25 G in IV D5W 50ml IV SCH ×4 (05:20→23:59)
[2022-02-15 05:39] LABS: UREA NITROGEN, BLOOD 134 mg/dL (7-18)
--- NOTE | 2022-02-15 05:40 | NUR ---
RN NOTE BUN 134. REPORTED TO MAIL SORTER AND DELIVERY ARCHANA. PT WITH URINE OUTPUT.
--- NOTE | 2022-02-15 07:20 | NUR ---
REMOTE RECRUITER OPENING NOTE: RECEIVED PT. IN BED, AOX0, OPENS EYES TO PAINFUL STIMULI. NO S/S OF DISTRESS AT THIS TIME. ON 5L NC. SATURATING AT 100%. NO S/S OF RESPIRATORY DISTRESS. CREDIT PORTFOLIO ADVISOR READS NSR AT 78 BPM AT THIS TIME. PT. IS ON G-TUBE FEEDING BUT OFF AT THIS TIME. WILL RESUME AT 1000. ON DELA CRUZ CATH DRAINING CLEAR YELLOW URINE VIA GRAVITY.IV ACCESS IN L AC #20G WITH NS RUNNING AT 100 ML/HR. ALSO HAS R HAND #20G AND L WRIST #20G, BOTH PATENT AND SALINE LOCKED. IV SITE DRESSINGS C/D/I. NO S/S OF INFILTRATION. MULTIPLE SKIN ISSUES NOTED, WILL DO WOUND TREATMENT ORDERED. SAFETY MEASURES IN PLACE: BED IN LOWEST AND LOCKED POSITION, HOB ELEVATED AT 30 DEGREES, CALL LIGHT WITHIN REACH, BED ALARM ON, WILL TURN AND REPOSITION AT LEAST Q2H. WILL CONTINUE TO MONITOR PT. FOR ANY CHANGES.
[2022-02-15 07:34] LABS: BASOPHILS % (AUTO) 0.3 % (0.0-2.0); EOSINOPHILS % (AUTO) 0.1 % (0.0-6.0); HEMATOCRIT 23 % (39-51); LYMPHOCYTES # (AUTO) 1.3 K/uL (0.8-4.8); LYMPHOCYTES % (AUTO) 8.2 % (20.0-44.0); MEAN CORPUSCULAR HGB CONC 30 g/dl (31.0-36.0); MEAN CORPUSCULAR VOLUME 84 fL (80-96); MONOCYTES # (AUTO) 1.2 K/uL (0.1-1.30); MONOCYTES % (AUTO) 7.8 % (2.0-12.0); NEUTROPHILS # (AUTO) 12.8 K/uL (1.8-8.9); NEUTROPHILS % (AUTO) 83.6 % (43.0-81.0); PLATELET COUNT (AUTO) 386 K/uL (150-450); RED BLOOD CELL COUNT(AUTO) 2.73 MIL/uL (4.5-6.0); WHITE BLOOD COUNT (AUTO) 15.3 K/uL (4.3-11.0)
--- NOTE | 2022-02-15 07:36 | NUR ---
RN NOTE' NO SIGNIFICANT CHANGES NOTED. PT OPEN EYES, NOT FOLLOWING ANY COMMANDS, NOT IN ANY DISTRESS. TOLERATES O2 AT 5L, NO SOB NOTED. TOLERATES TUBE FEEDING. STOPPED AT 0600 FOR ORDER OF TUBE FEEDING FOR 20HOURS. NO RESIDUALS NOTED. DELA CRUZ DRAINING WELL. CONTINUE ON NS AT 100ML/HR. REMAIN AFEBRILE. ENDORSE TO NEXT SHIFT NURSE FOR CARLOS.
[2022-02-15 07:52] LABS: HEMOGLOBIN 6.9 g/dL (13.5-17.5)
--- NOTE | 2022-02-15 08:10 | NUR ---
TEAM MANAGER NOTE: LAB REPORTED HGB OF 6.[address] ARCOS AT 0800 AND ORDERED 1 UNIT OF PRBC AND TO STOP ANTICOAGULATION. WILL CONTINUE TO MONITOR PT.'S HEMODYNAMIC STATUS.
[2022-02-15] MEDS: HEPARIN SODIUM, PORCINE 5000 UNITS/1 ML VIAL SQ SCH ×2 (08:20→17:00)
[2022-02-15] MEDS: hydrALAZINE HCL 50 MG TABLET GT SCH ×2 (08:42→17:54)
[2022-02-15] MEDS: ASPIRIN 81 MG TAB.CHEW GT SCH (08:43)
[2022-02-15] MEDS: NYSTATIN/TRIAMCIN CREAM 15 GM TUBE TP SCH (08:43)
[2022-02-15] MEDS: DAKINS QUARTER STRENGTH (0.125%) 480 ML BOTTLE TOP SCH (08:43)
[2022-02-15] MEDS: CHOLECALCIFEROL 1,000 UNIT TABLET (VIT D3) PO SCH (08:44)
[2022-02-15] MEDS: ZINC SULFATE 220 MG CAPSULE PO SCH (08:44)
[2022-02-15] MEDS: ASCORBIC ACID 500 MG TABLET GT SCH (08:44)
[2022-02-15] MEDS: MULTIVITAMIN/LUTEIN/MINERALS 1 TAB PO SCH (08:44)
[2022-02-15] MEDS: VANCOMYCIN 0.75 GM in IV D5W 250 ML IV SCH (10:43)
[2022-02-15 11:36] LABS: BAND % (MANUAL) 4 % (0.0-5.0); BASOPHILS % (MANUAL) 0 % (0.0-2.0); EOSINOPHILS % (MANUAL) 0 % (0-4); LYMPHOCYTES % (MANUAL) 9 % (16-48); MONOCYTES % (MANUAL) 4 % (0-11.0); NEUTROPHILS % (MANUAL) 83 (42-76)
[2022-02-15] MEDS ORDERED: PIPERACILLIN /TAZOBACTAM 3.375 G in IV D5W 100 ML IV SCH (13:00)
[2022-02-15] MEDS: IV 1/2NS 1000 ML 1,000 ML IV PRN (14:43)
--- NOTE | 2022-02-15 16:05 | NUR ---
HOMEOPATHIC DOCTOR NOTE: TRANSFUSION OF 1 UNIT PRBC STARTED AT 1301 AND NOW DONE. PT. VS REMAINED STABLE THROUGHOUT TRANSFUSION. WILL CONTINUE TO MONITOR FOR ANY S/S OF BLOOD TRANSFUSION REACTION.
--- NOTE | 2022-02-15 17:52 | NUR ---
LAY UP OPERATOR NOTE: HEPARIN SCHEDULED AT 1700 HELD DUE TO HGB OF 6.9 PER MED ORDER.
[2022-02-15] MEDS: EZETIMIBE 10 MG TABLET GT SCH (22:11)
--- NOTE | 2022-02-15 23:15 | NUR ---
EXTERMINATOR CLOSING NOTE: PT. REMAINS IN BED, AOX0, OPENS EYES TO PAINFUL STIMULI. NO S/S OF DISTRESS AT THIS TIME. ON 5L NC. SATURATING AT 100%. BREATHING EVEN AND UNLABORED. MARKETING ACCOUNT MANAGER READS NSR AT 74 BPM AT THIS TIME BUT HAD EPISODES OF TACHYCARDIA AT 120'S. PT. IS ON G-TUBE FEEDING WITH GLUCERNA RUNNING AT 70ML/HR X 20 HRS. WILL STOP AT 0600. NO GASTRIC RESIDUAL NOTED. ON DELA CRUZ CATH DRAINING CLEAR YELLOW URINE WITH SEDIMENTS VIA GRAVITY. U/O THROUGHOUT THE DAY SHIFT IS 650 ML. IV ACCESS IN L AC #20G WITH 1/2 NS RUNNING AT 100 ML/HR. ALSO HAS R HAND #20G AND L WRIST #20G, BOTH PATENT AND SALINE LOCKED. IV SITE DRESSINGS C/D/I. NO S/S OF INFILTRATION. WOUND TREATMENT DONE ORDERED. SAFETY MEASURES MAINTAINED: BED IN LOWEST AND LOCKED POSITION, HOB ELEVATED AT 30 DEGREES, CALL LIGHT WITHIN REACH, BED ALARM ON, TURNED AND REPOSITIONED AT LEAST Q2H. WILL ENDORSE CONTINUITY OF CARE TO LIGHTER RN.
[2022-02-16] VITALS (37 sets, daily range): BP systolic 115–162; BP diastolic 45–75
[2022-02-16] MEDS: BLOOD SUGAR DIAGNOSTIC 1 EACH STRIP IN SCH ×4 (00:02→17:56)
[2022-02-16] MEDS: GLUCERNA 1.2 1,000 ML BOTTLE NG SCH (01:10)
[2022-02-16] MEDS: IV 1/2NS 1000 ML 1,000 ML IV PRN ×2 (02:25→13:28)
[2022-02-16 05:23] LABS: CALCIUM, SERUM 8.4 mg/dL (8.5-10.1); CARBON DIOXIDE 25 mmol/L (21-32); CHLORIDE 112 mmol/L (98-107); CREATININE 2.9 mg/dL (0.6-1.3); GLUCOSE 120 mg/dL (74-106); POTASSIUM 4.3 mmol/L (3.5-5.1); SODIUM SERUM 144 mmol/L (136-145)
[2022-02-16] MEDS: ZOSYN IVPB 2.25 G in IV D5W 50ml IV SCH ×3 (05:45→17:56)
[2022-02-16] MEDS ORDERED: LIDOCAINE 1%-EPI 1:100,000 20 ML VIAL TP ONE (06:00)
[2022-02-16] MEDS ORDERED: SILVER NITRATE APPLICATOR 1 EA BOX TP PRN (06:00)
[2022-02-16 06:40] LABS: UREA NITROGEN, BLOOD 116 mg/dL (7-18)
--- NOTE | 2022-02-16 07:10 | NUR ---
RN NOTE PT REMAIN AFEBRILE. OPEN EYES TO STIMULI. GT FEEDING STOPPED AT 0600 TO RESTART AT 1000. ENDORSED TO NEST SHIFT NURSE FOR CARLOS.
[2022-02-16 07:29] LABS: BASOPHILS # (AUTO) 0.1 K/uL (0.0-0.2); BASOPHILS % (AUTO) 0.8 % (0.0-2.0); EOSINOPHILS % (AUTO) 0.7 % (0.0-6.0); HEMATOCRIT 29 % (39-51); LYMPHOCYTES # (AUTO) 1.6 K/uL (0.8-4.8); LYMPHOCYTES % (AUTO) 14.1 % (20.0-44.0); MEAN CORPUSCULAR HGB CONC 31 g/dl (31.0-36.0); MEAN CORPUSCULAR VOLUME 84 fL (80-96); MONOCYTES # (AUTO) 0.9 K/uL (0.1-1.30); MONOCYTES % (AUTO) 8.2 % (2.0-12.0); NEUTROPHILS # (AUTO) 8.5 K/uL (1.8-8.9); NEUTROPHILS % (AUTO) 76.2 % (43.0-81.0); PLATELET COUNT (AUTO) 378 K/uL (150-450); RED BLOOD CELL COUNT(AUTO) 3.49 MIL/uL (4.5-6.0); WHITE BLOOD COUNT (AUTO) 11.1 K/uL (4.3-11.0)
[2022-02-16] MEDS: CHOLECALCIFEROL 1,000 UNIT TABLET (VIT D3) PO SCH (08:39)
[2022-02-16] MEDS: ASPIRIN 81 MG TAB.CHEW GT SCH (08:39)
[2022-02-16] MEDS: ZINC SULFATE 220 MG CAPSULE PO SCH (08:39)
[2022-02-16] MEDS: MULTIVITAMIN/LUTEIN/MINERALS 1 TAB PO SCH (08:39)
[2022-02-16] MEDS: ASCORBIC ACID 500 MG TABLET GT SCH (08:39)
[2022-02-16] MEDS: hydrALAZINE HCL 50 MG TABLET GT SCH ×2 (08:40→17:25)
[2022-02-16] MEDS: HEPARIN SODIUM, PORCINE 5000 UNITS/1 ML VIAL SQ SCH ×2 (08:45→17:00)
[2022-02-16] MEDS: DAKINS QUARTER STRENGTH (0.125%) 480 ML BOTTLE TOP SCH (08:46)
[2022-02-16] MEDS: NYSTATIN/TRIAMCIN CREAM 15 GM TUBE TP SCH (08:46)
[2022-02-16] MEDS: THERAHONEY GEL 1.5 OZ TUBE TP SCH (08:47)
[2022-02-16] MEDS: NEOMY SULF/BACITRAC ZN/POLY 15 GM TUBE TP SCH (08:47)
--- NOTE | 2022-02-16 14:00 | NUR ---
icu transferred to varun tele grout sewer line repairer note patient is stable. patient is awake, alert and oriented. patient can open eyes. patient is on nasal cannula 2-4 L tolerating at 100%. patient has iv intact and patent. flushing well. patient has amador cathehter. yellow/red color draining to gravity. bed locked in lowest position. call light within reach.bed locked at lowest position. side rails up x2
--- NOTE | 2022-02-16 17:26 | NUR ---
held heparin due to bloody urine from blood transfusion
--- NOTE | 2022-02-16 19:40 | NUR ---
RN NOTES RECEIVED REPORT FROM MORNING SHIFT. PATIENT IN BED RESPONSIVE TO TACTILE STIMULI. WITH OXYGEN INHALATION AT 5 LPM VIA NASAL CANULA TOLERATING WELL SATING 98%. NO SOB NO DISTRESS NOTED AT THIS TIME. WITH GT PATENT CONNECTED TO CONTINUOS TF GLUCERNA AT 70ML/HR TOLERATING WELL NO GASTRIC RESIDUAL NOTED. WITH L AC #20 PATENT ON CONTINUOS IVF 1/2 NS @ 100CC/HR. DELA CRUZ CATHETER CONNECTED TO URINE BAG WITH PINKISH URINE OUTPUT. ALL SAFETY MEASURES IN PLACE AT ALL TIMES. HOB ELEVATED. CALL LIGHT WITHIN REACH. WILL CLOSELY MONITOR THE PATIENT
--- NOTE | 2022-02-16 20:21 | NUR ---
RN NOTE TELEPHONE CALL FROM LAB, STATED PT POSITIVE FOR MRSA AT [facility]. DR MAGAÑA NOTIFIED, ORDER RECEIVED FOR BACTROBAN 2% OINTMENT AT [facility] BID FOR 7 DAYS. PHARMACY MADE AWARE.
--- NOTE | 2022-02-16 21:09 | NUR ---
supervisor telephone information closing note patient is stable. patient is awake, alert and oriented. patient can open eyes. patient is on nasal cannula 2-4 L tolerating at 100%. changed wounds. kept clean and dry. gtube intact and patent. patient has iv intact and patent. flushing well. patient has Amador catheter. yellow/red color draining to gravity. bed locked in lowest position. call light within reach.bed locked at lowest position. side rails up x2 Addendum: 02/16/22 at 2110 by JULIEN MCCOLLUM RN amador cathether is back to yellow/orange draining to gravity
[2022-02-16] MEDS: MUPIROCIN OINT 2% 22 GM TUBE NS SCH (21:31)
[2022-02-16] MEDS: EZETIMIBE 10 MG TABLET GT SCH (21:31)
[2022-02-16] MEDS: MEROPENEM 500 MG in IV NS 0.9% 100 ML IV SCH (21:31)
[2022-02-16] MEDS: VANCOMYCIN 0.75 GM in IV D5W 250 ML IV SCH (22:27)
[2022-02-17] VITALS: BP 148/59
[2022-02-17] MEDS: BLOOD SUGAR DIAGNOSTIC 1 EACH STRIP IN SCH ×4 (01:18→18:09)
[2022-02-17] MEDS: INSULIN REGULAR, HUMAN 100 UNIT/ML 3 ML VIAL SQ PRN ×2 (01:19→06:07)
[2022-02-17] MEDS: GLUCERNA 1.2 1,000 ML BOTTLE NG SCH (01:33)
[2022-02-17 04:00] VITALS: BP 155/59
--- NOTE | 2022-02-17 06:56 | NUR ---
RN NOTES PT. REMAINS IN BED, AOX0, OPENS EYES TO PAINFUL STIMULI. NO S/S OF DISTRESS AT THIS TIME. ON 5L NC. SATURATING AT 100%. BREATHING EVEN AND UNLABORED. LINUX PROGRAMMER READS NSR AT 74 BPM AT THIS TIME BUT HAD EPISODES OF TACHYCARDIA AT 120'S. PT. IS ON G-TUBE FEEDING WITH GLUCERNA RUNNING AT 70ML/HR X 20 HRS. WILL STOP AT 0600. NO GASTRIC RESIDUAL NOTED. ON DELA CRUZ CATH DRAINING PINKISH URINE URINE WITH SEDIMENTS VIA GRAVITY. U/O THROUGHOUT THE DAY SHIFT IS 650 ML. IV ACCESS IN L AC #20G WITH 1/2 NS RUNNING AT 100 ML/HR. ALSO HAS R HAND #20G AND L WRIST #20G, BOTH PATENT AND SALINE LOCKED. IV SITE DRESSINGS C/D/I. NO S/S OF INFILTRATION. WOUND TREATMENT DONE ORDERED. SAFETY MEASURES MAINTAINED: BED IN LOWEST AND LOCKED POSITION, HOB ELEVATED AT 30 DEGREES, CALL LIGHT WITHIN REACH, BED ALARM ON, TURNED AND REPOSITIONED AT LEAST Q2H. WILL ENDORSE CONTINUITY OF CARE TO AM SHIFT RN.
--- NOTE | 2022-02-17 07:20 | NUR ---
television actor opening note patient is awake and alert. patient is nonverbal but can open eyes. patient is on nasal cannula 2-4 L tolerating at 100%. patient has iv on left arm. iv patent and intact patient has gtube intact and patent. flushing well. patient has Reddy catheter. patient has wounds on sacral area and both hips. yellow color draining to gravity. all safety measures in place. bed locked in lowest position. call light within reach.bed locked at lowest position. side rails up x2
[2022-02-17 07:26] LABS: CALCIUM, SERUM 8.2 mg/dL (8.5-10.1); CARBON DIOXIDE 22 mmol/L (21-32); CHLORIDE 110 mmol/L (98-107); CREATININE 2.4 mg/dL (0.6-1.3); GLUCOSE 124 mg/dL (74-106); POTASSIUM 4.2 mmol/L (3.5-5.1); SODIUM SERUM 142 mmol/L (136-145)
[2022-02-17 07:33] LABS: UREA NITROGEN, BLOOD 100 mg/dL (7-18)
[2022-02-17 08:00] VITALS: BP 158/71
[2022-02-17] MEDS: ASPIRIN 81 MG TAB.CHEW GT SCH (10:22)
[2022-02-17] MEDS: hydrALAZINE HCL 50 MG TABLET GT SCH ×2 (10:22→16:59)
[2022-02-17] MEDS: CHOLECALCIFEROL 1,000 UNIT TABLET (VIT D3) PO SCH (10:23)
[2022-02-17] MEDS: ZINC SULFATE 220 MG CAPSULE PO SCH (10:23)
[2022-02-17] MEDS: MEROPENEM 500 MG in IV NS 0.9% 100 ML IV SCH ×2 (10:23→21:17)
[2022-02-17] MEDS: MULTIVITAMIN/LUTEIN/MINERALS 1 TAB PO SCH (10:23)
[2022-02-17] MEDS: ASCORBIC ACID 500 MG TABLET GT SCH (10:23)
[2022-02-17] MEDS: HEPARIN SODIUM, PORCINE 5000 UNITS/1 ML VIAL SQ SCH ×2 (10:24→16:58)
[2022-02-17] MEDS: IV NS 0.9% 1,000 ML IV SCH (10:53)
[2022-02-17] MEDS: THERAHONEY GEL 1.5 OZ TUBE TP SCH (11:38)
[2022-02-17] MEDS: DAKINS QUARTER STRENGTH (0.125%) 480 ML BOTTLE TOP SCH (11:38)
[2022-02-17] MEDS: NYSTATIN/TRIAMCIN CREAM 15 GM TUBE TP SCH (11:39)
[2022-02-17] MEDS: NEOMY SULF/BACITRAC ZN/POLY 15 GM TUBE TP SCH (11:41)
[2022-02-17] MEDS: MUPIROCIN OINT 2% 22 GM TUBE NS SCH ×2 (11:47→21:20)
[2022-02-17 12:00] VITALS: BP 174/82
--- NOTE | 2022-02-17 12:00 | NUR ---
family at bedside. patient iv site swollen on left arm. elevated arm on pillows
--- NOTE | 2022-02-17 12:30 | NUR ---
telephone lines repairer note patient bp 174/82.notifed if order can be given for hydralazaline. said no new orders and asked about swelling. swelling elevated both extremites
--- NOTE | 2022-02-17 12:30 | NUR ---
said no new orders for hydralazine
--- NOTE | 2022-02-17 14:30 | NUR ---
notified nursing day care supervisor that family of patient requesting midline for patient for easier access for blood draws. patient is hard stick and has multiple bruises on arms. said they would try new iv line, nurse placed a new iv on right upper arm. iv patent and flushing well removed swollen iv site. and elevated arms with pillows
[2022-02-17 16:00] VITALS: BP 164/69
--- NOTE | 2022-02-17 19:10 | NUR ---
RN NOTES RECEIVED REPORT FROM MORNING SHIFT. PATIENT IN BED RESPONSIVE TO TACTILE STIMULI. WITH OXYGEN INHALATION AT 5 LPM VIA NASAL CANULA TOLERATING WELL SATING 98%. NO SOB NO DISTRESS NOTED AT THIS TIME. WITH GT PATENT CONNECTED TO CONTINUOS TF GLUCERNA AT 70ML/HR TOLERATING WELL NO GASTRIC RESIDUAL NOTED. WITH R FA #20 PATENT ON CONTINUOS IVF NS @ 100CC/HR. DELA CRUZ CATHETER CONNECTED TO URINE BAG WITH YELLOWISH URINE OUTPUT. ALL SAFETY MEASURES IN PLACE AT ALL TIMES. HOB ELEVATED. CALL LIGHT WITHIN REACH. WILL CLOSELY MONITOR THE PATIENT
[2022-02-17 20:00] VITALS: BP 143/59
--- NOTE | 2022-02-17 20:35 | NUR ---
teletype clerk closing note patient is awake and alert. patient is nonverbal but can open eyes. patient is on nasal cannula 2-4 L tolerating at 100%. patient has iv on left upper arm. iv patent and intact patient has gtube intact and patent. flushing well. patient has Reddy catheter yellow color draining to gravity. patient has wounds on sacral area and both hips. kept clean and dry. all safety measures in place. bed locked in lowest position. call light within reach.bed locked at lowest position. side rails up x2
[2022-02-17] MEDS: EZETIMIBE 10 MG TABLET GT SCH (21:19)
[2022-02-18] VITALS: BP 136/64
[2022-02-18] MEDS: BLOOD SUGAR DIAGNOSTIC 1 EACH STRIP IN SCH ×4 (00:22→17:42)
[2022-02-18] MEDS: GLUCERNA 1.2 1,000 ML BOTTLE NG SCH (00:23)
[2022-02-18] MEDS: IV NS 0.9% 1,000 ML IV SCH (03:22)
[2022-02-18 04:00] VITALS: BP 150/58
[2022-02-18] MEDS: INSULIN REGULAR, HUMAN 100 UNIT/ML 3 ML VIAL SQ PRN (06:15)
[2022-02-18 06:40] LABS: CALCIUM, SERUM 7.7 mg/dL (8.5-10.1); CARBON DIOXIDE 18 mmol/L (21-32); CHLORIDE 111 mmol/L (98-107); CREATININE 1.9 mg/dL (0.6-1.3); GLUCOSE 107 mg/dL (74-106); POTASSIUM 4.9 mmol/L (3.5-5.1); SODIUM SERUM 138 mmol/L (136-145)
[2022-02-18 06:47] LABS: UREA NITROGEN, BLOOD 80 mg/dL (7-18)
--- NOTE | 2022-02-18 06:48 | NUR ---
RN NOTES PT. REMAINS IN BED, AOX0, OPENS EYES TO PAINFUL STIMULI. NO S/S OF DISTRESS AT THIS TIME. ON 5L NC. SATURATING AT 100%. BREATHING EVEN AND UNLABORED. TRIAGE CLINICIAN READS NSR AT 74 BPM PT. IS ON G-TUBE FEEDING WITH GLUCERNA RUNNING AT 70ML/HR X 20 HRS. WILL STOP AT 0600. NO GASTRIC RESIDUAL NOTED. ON DELA CRUZ CATH DRAINING YELLOWISH URINE URINE WITH SEDIMENTS VIA GRAVITY. IV ACCESS IN R FA #20G WITH 1/2 NS RUNNING AT 100 ML/HR. ALSO HAS R HAND #20G AND L WRIST #20G, BOTH PATENT AND SALINE LOCKED. IV SITE DRESSINGS C/D/I. NO S/S OF INFILTRATION. WOUND TREATMENT DONE ORDERED. SAFETY MEASURES MAINTAINED: BED IN LOWEST AND LOCKED POSITION, HOB ELEVATED AT 30 DEGREES, CALL LIGHT WITHIN REACH, BED ALARM ON, TURNED AND REPOSITIONED AT LEAST Q2H. WILL ENDORSE CONTINUITY OF CARE TO AM SHIFT RN.
--- NOTE | 2022-02-18 07:25 | NUR ---
APPLICATION HELPER OPENING NOTE RECEIVED PATIENT IN BED, ALERT AND ORIENTED X0. OPENS EYES. NO SIGNS OF PAIN OR DISCOMFORT AT THIS TIME. PATIENT IS ON 5L NASAL CANNULA AT 98%. PATIENT ON TELE MONITOR AT SINUS RHYTHM. PATIENT HAS GTUBE. GTUBE INTACT AND PATENT. PATIENT HAS DELA CRUZ CATHETER. YELLOW COLOR DRAINING TO GRAVITY. PATIENT HAS IV ACCESS ON RIGHT FOREARM AND RIGHT HAND. IV PATENT AND FLUSHES WELL.. ALL SAFETY MEASURES IN PLACE. BED LOCKED AND AT LOWEST POSITION. BED ALARM ON.
[2022-02-18 08:00] VITALS: BP 144/55
[2022-02-18] MEDS: hydrALAZINE HCL 50 MG TABLET GT SCH ×2 (09:51→18:33)
[2022-02-18] MEDS: ASPIRIN 81 MG TAB.CHEW GT SCH (09:51)
[2022-02-18] MEDS: ASCORBIC ACID 500 MG TABLET GT SCH (09:51)
[2022-02-18] MEDS: CHOLECALCIFEROL 1,000 UNIT TABLET (VIT D3) PO SCH (09:52)
[2022-02-18] MEDS: MEROPENEM 500 MG in IV NS 0.9% 100 ML IV SCH ×2 (09:52→20:50)
[2022-02-18] MEDS: MULTIVITAMIN/LUTEIN/MINERALS 1 TAB PO SCH (09:52)
[2022-02-18] MEDS: ZINC SULFATE 220 MG CAPSULE PO SCH (09:52)
[2022-02-18] MEDS ORDERED: IV NS 0.9% 1,000 ML IV PRN (09:55)
[2022-02-18] MEDS: DAKINS QUARTER STRENGTH (0.125%) 480 ML BOTTLE TOP SCH (09:56)
[2022-02-18] MEDS: NYSTATIN/TRIAMCIN CREAM 15 GM TUBE TP SCH (09:56)
[2022-02-18] MEDS: THERAHONEY GEL 1.5 OZ TUBE TP SCH (09:57)
[2022-02-18] MEDS: MUPIROCIN OINT 2% 22 GM TUBE NS SCH ×2 (09:57→20:51)
[2022-02-18] MEDS: HEPARIN SODIUM, PORCINE 5000 UNITS/1 ML VIAL SQ SCH ×2 (10:07→18:34)
[2022-02-18] MEDS: VANCOMYCIN 0.75 GM in IV D5W 250 ML IV SCH (10:16)
[2022-02-18] MEDS: NEOMY SULF/BACITRAC ZN/POLY 15 GM TUBE TP SCH (10:54)
[2022-02-18 12:00] VITALS: BP 152/63
--- NOTE | 2022-02-18 15:50 | NUR ---
DOPPLER ULTRASOUND DONE NEGATIVE FOR DVT PER MANAGER INFRASTRUCTURE PRELIM REPORT.
[2022-02-18 16:00] VITALS: BP 151/69
--- NOTE | 2022-02-18 16:00 | NUR ---
telephoto engineer note notified dr. ku that patient has swelling on both feet and both arms. md ordered to decrease fluids and ordered DVT
--- NOTE | 2022-02-18 16:21 | NUR ---
PER LIDA PT. POSITIVE VRE BLOOD ,NERA ID NOTIFIED ,ON CONTACT PRECAUTION.
[2022-02-18 20:00] VITALS: BP 134/70
[2022-02-18] MEDS: LINEZOLID 600 MG TABLET PO SCH (20:50)
--- NOTE | 2022-02-18 21:08 | NUR ---
ENGINE WIPER CLOSING NOTE PATIENT IN BED. PATIENT ALERT AND ORIENTED X0. PATIENT IS ABLE TO OPEN EYES. NO SIGNS OF PAIN OR DISCOMFORT AT THIS TIME. PATIENT IS ON 5L NASAL CANNULA AT 95%. PATIENT ON TELE MONITOR AT [facility]. PATIENT HAS GTUBE. GTUBE INTACT AND PATENT. PATIENT HAS DELA CRUZ CATHETHER. YELLOW COLOR DRAINING TO GRAVITY. PATIENT HAS WOUNDS ON FOREHEAD, HIP AND SACRAL AREA. KEPT CLEAN AND DRY. PATIENT HAS SWELLING IN BOTH HANDS AND FEET. ELEVATED EXTREMITIES ON PILLOWS. PATIENT HAS IV ACCESS ON RIGHT FOREARM AND RIGHT HAND. IV PATENT AND FLUSHES WELL.. ALL SAFETY MEASURES IN PLACE. BED LOCKED AND AT LOWEST POSITION. BED ALARM ON.
[2022-02-18] MEDS: EZETIMIBE 10 MG TABLET GT SCH (21:09)
[2022-02-19] VITALS: BP 112/75
[2022-02-19] MEDS: BLOOD SUGAR DIAGNOSTIC 1 EACH STRIP IN SCH ×5 (00:24→23:50)
[2022-02-19] MEDS: GLUCERNA 1.2 1,000 ML BOTTLE NG SCH ×2 (03:26→23:49)
[2022-02-19 04:00] VITALS: BP 120/68
[2022-02-19] MEDS: INSULIN REGULAR, HUMAN 100 UNIT/ML 3 ML VIAL SQ PRN (06:07)
--- NOTE | 2022-02-19 06:33 | NUR ---
RN NOTES PT. REMAINS IN BED, AOX0, OPENS EYES TO PAINFUL STIMULI. NO S/S OF DISTRESS AT THIS TIME. ON 5L NC. SATURATING AT 100%. BREATHING EVEN AND UNLABORED. ASSOCIATE PROFESSOR OF MATHEMATICS READS NSR AT 74 BPM PT. IS ON G-TUBE FEEDING WITH GLUCERNA RUNNING AT 70ML/HR X 20 HRS. WILL STOP AT 0600. NO GASTRIC RESIDUAL NOTED. ON DELA CRUZ CATH DRAINING YELLOWISH URINE URINE WITH SEDIMENTS VIA GRAVITY. IV ACCESS IN L UA MIDLINE #20 WITH NS RUNNING AT 70 ML/HR. NO S/S OF INFILTRATION. WOUND TREATMENT DONE ORDERED. SAFETY MEASURES MAINTAINED: BED IN LOWEST AND LOCKED POSITION, HOB ELEVATED AT 30 DEGREES, CALL LIGHT WITHIN REACH, BED ALARM ON, TURNED AND REPOSITIONED AT LEAST Q2H. WILL ENDORSE CONTINUITY OF CARE TO AM SHIFT RN.
--- NOTE | 2022-02-19 07:20 | NUR ---
RN NOTE RECEIVED PATIENT IN BED A/O X1 OPEN EYES WHEN TALK TO HIM AND RESPONDING BY EYE BLINKING,ON 3L OXYGEN VIA NASAL CANNULA O2:96% BILATERAL UPPER EXTERMITIES AND PERIANAL AREA EDEMA,ON G-TUBE FEEDING GLUCERNA 1.2 70CC/HR FOR 20 HOURS WILL ON ON 1000 AM[address] IN PL[address] NO RESIDUAL NOTED,IV SITE IS ON RIGHT UPPER ARM MIDLINE,ON NS 70CC/HR.DELA CRUZ CATH IN PLACE URINE DRAINING YELLOW BY GRAVITY,SAFETY MEASURE IMPLEMENT BED IN LOW POSITION AND LOCKED HEAD OF THE BED ELEVATED,CONTINUE TO MONITOR
[2022-02-19 08:00] VITALS: BP 151/62
[2022-02-19 08:34] LABS: BASOPHILS # (AUTO) 0.1 K/uL (0.0-0.2); BASOPHILS % (AUTO) 0.7 % (0.0-2.0); HEMATOCRIT 29 % (39-51); HEMOGLOBIN 9.1 g/dL (13.5-17.5); LYMPHOCYTES # (AUTO) 1.5 K/uL (0.8-4.8); LYMPHOCYTES % (AUTO) 15.4 % (20.0-44.0); MEAN CORPUSCULAR HGB CONC 31 g/dl (31.0-36.0); MEAN CORPUSCULAR VOLUME 82 fL (80-96); MONOCYTES # (AUTO) 0.6 K/uL (0.1-1.30); NEUTROPHILS # (AUTO) 7.4 K/uL (1.8-8.9); NEUTROPHILS % (AUTO) 75.9 % (43.0-81.0); PLATELET COUNT (AUTO) 439 K/uL (150-450); RED BLOOD CELL COUNT(AUTO) 3.56 MIL/uL (4.5-6.0); WHITE BLOOD COUNT (AUTO) 9.7 K/uL (4.3-11.0)
[2022-02-19] MEDS: CHOLECALCIFEROL 1,000 UNIT TABLET (VIT D3) PO SCH (09:03)
[2022-02-19] MEDS: MEROPENEM 500 MG in IV NS 0.9% 100 ML IV SCH ×2 (09:03→21:22)
[2022-02-19] MEDS: MULTIVITAMIN/LUTEIN/MINERALS 1 TAB PO SCH (09:03)
[2022-02-19] MEDS: hydrALAZINE HCL 50 MG TABLET GT SCH ×2 (09:04→17:00)
[2022-02-19] MEDS: LINEZOLID 600 MG TABLET PO SCH ×2 (09:04→21:21)
[2022-02-19] MEDS: ASCORBIC ACID 500 MG TABLET GT SCH (09:04)
[2022-02-19] MEDS: ASPIRIN 81 MG TAB.CHEW GT SCH (09:04)
[2022-02-19 09:05] LABS: CALCIUM, SERUM 8.2 mg/dL (8.5-10.1); CARBON DIOXIDE 23 mmol/L (21-32); CHLORIDE 112 mmol/L (98-107); CREATININE 1.7 mg/dL (0.6-1.3); GLUCOSE 92 mg/dL (74-106); POTASSIUM 4.2 mmol/L (3.5-5.1); SODIUM SERUM 145 mmol/L (136-145); UREA NITROGEN, BLOOD 66 mg/dL (7-18)
[2022-02-19] MEDS: ZINC SULFATE 220 MG CAPSULE PO SCH (09:06)
[2022-02-19] MEDS: MUPIROCIN OINT 2% 22 GM TUBE NS SCH ×2 (09:07→21:22)
[2022-02-19] MEDS: THERAHONEY GEL 1.5 OZ TUBE TP SCH (09:08)
[2022-02-19] MEDS: DAKINS QUARTER STRENGTH (0.125%) 480 ML BOTTLE TOP SCH (09:08)
[2022-02-19] MEDS: NEOMY SULF/BACITRAC ZN/POLY 15 GM TUBE TP SCH (09:10)
[2022-02-19] MEDS: HEPARIN SODIUM, PORCINE 5000 UNITS/1 ML VIAL SQ SCH ×2 (09:11→17:01)
[2022-02-19] MEDS: NYSTATIN/TRIAMCIN CREAM 15 GM TUBE TP SCH (09:12)
[2022-02-19 12:00] VITALS: BP 120/57
[2022-02-19] MEDS: IV NS 0.9% 1,000 ML IV PRN (14:39)
[2022-02-19 16:00] VITALS: BP 131/60
--- NOTE | 2022-02-19 18:44 | NUR ---
RN NOTE PATIENT REMAINS ALERT ORIENTED X1 OPEN EYES,ANSWER QUESTION BY NOTED HEAD,ON 3L OXYGEN VIA NASAL CANNULA, O2;96% NO SOB NOT ACUTE DISTRESS NOTED,REPOSITIONED AND TURNED EVERY 2 HOURS,ON G-TUBE FEEDING GLUCERNA 1.2 70CC/HR FOR [address],HEAD OF THE BED ELEVATED ALL THE TIME,KEPT CLEAN AND DRY ALL THE TIME,ENDORSE NEXT COMING SHIFT FOR CONTINUATION OF CARE.
--- NOTE | 2022-02-19 19:45 | NUR ---
FIRST HELPER OPENING NOTE RECEIVED PATIENT IN BED. A/O X0, PATIENT IS ABLE TO OPEN EYES. NO SIGNS OF PAIN OR DISCOMFORT AT THIS TIME. PATIENT ON O2 VIA NC AT 5LPM. TOLERATING WELL, PATIENT ON TELE MONITORING CURRENTLY READING SINUS RHYTM. PATIENT HAS GTUBE IN PLACED RUNNING GLUCERNA AT 70 ML/HR. PATIENT HAS IV ACCESS ON ELLEN MIDLINE RUNNING NS AT 70 ML/HR. NOTED WITH DELA CRUZ CATHETER DRAINING TO GRAVITY WITH YELLOW COLORED URINE,PATIENT NOTED WITH SWELLING IN BOTH HANDS AND FEET. ELEVATED EXTREMITIES ON PILLOWS. ALL SAFETY MEASURES IN PLACE. BED LOCKED AND AT LOWEST POSITION. BED ALARM ON. CALL LIGHT WITHIN REACH, WILL CONTINUE TO MONITOR THROUGHOUT THE SHIFT.
[2022-02-19 20:00] VITALS: BP 151/80
[2022-02-19] MEDS: EZETIMIBE 10 MG TABLET GT SCH (21:21)
[2022-02-20] VITALS: BP 156/81
--- NOTE | 2022-02-20 | NUR ---
RN NOTE BS CHECKED AT 102 MG/DL, NO COVERAGE GIVEN PER SLIDING SCALE. WILL CONT TO MONITOR PATIENT.
[2022-02-20] MEDS: IV NS 0.9% 1,000 ML IV PRN ×2 (03:50→23:40)
[2022-02-20 04:00] VITALS: BP 114/70
[2022-02-20] MEDS: BLOOD SUGAR DIAGNOSTIC 1 EACH STRIP IN SCH ×4 (06:36→23:40)
--- NOTE | 2022-02-20 06:36 | NUR ---
RN NOTE BS CHECKED AT 84 MG/DL, NO COVERAGE GIVEN PER SLIDING SCALE. WILL CONT TO MONITOR PATIENT.
--- NOTE | 2022-02-20 06:37 | NUR ---
BUGGY OPERATOR CLOSING NOTE PATIENT REMAINS IN BED. A/O X0, PATIENT IS ABLE TO OPEN EYES RESPONSIVE TO TACTILE STIMULI. NO SIGNS OF PAIN OR DISCOMFORT AT THIS TIME. PATIENT ON O2 VIA NC AT 3LPM. TOLERATING WELL, PATIENT ON TELE MONITORING CURRENTLY READING SINUS RHYTM AT 67. PATIENT HAS GTUBE IN PLACED RUNNING GLUCERNA AT 70 ML/HR. OFF AT 0600, WILL BE RESUMED AT 1000, PATIENT HAS IV ACCESS ON ALEXSANDER MIDLINE RUNNING NS AT 70 ML/HR AND ELLEN SL #22G. NOTED WITH DELA CRUZ CATHETER DRAINING TO GRAVITY WITH YELLOW COLORED URINE,PATIENT NOTED WITH SWELLING IN BOTH HANDS AND FEET. ELEVATED EXTREMITIES ON PILLOWS. ALL SAFETY MEASURES IN PLACE. ALL DUE MEDS GIVEN, KEPT DRY AND CLEAN, BED LOCKED AND AT LOWEST POSITION. BED ALARM ON. CALL LIGHT WITHIN REACH, WILL ENDORSE TO AM SHIFT NURSE. .
[2022-02-20 06:41] LABS: CALCIUM, SERUM 7.7 mg/dL (8.5-10.1); CARBON DIOXIDE 23 mmol/L (21-32); CHLORIDE 116 mmol/L (98-107); CREATININE 1.5 mg/dL (0.6-1.3); GLUCOSE 104 mg/dL (74-106); POTASSIUM 4.3 mmol/L (3.5-5.1); SODIUM SERUM 147 mmol/L (136-145); UREA NITROGEN, BLOOD 57 mg/dL (7-18)
--- NOTE | 2022-02-20 07:10 | NUR ---
RECEPTIONIST AIRLINE LOUNGE OPENING NOTE RECEIVED PATIENT IN BED. PATIENT IS ALERT AND ORIENTED X 0. NO SIGNS OF PAIN OR DISCOMOFT. PATIENT IS ON 02 NASAL CANNULA VIA 3 l SATURATING AT 97%. PATIENT IS ON TELE MONITOR AT [facility]. PATIENT HAS GTUBE IN. GLUCERNA AT 70 ML/HR. PATIENT HAS RIGHT UPPER ARM MIDLINE. IV INTACT AND PATENT. PATIENT HAS DELA CRUZ CATHETHER DRAINING YELLOW COLOR OUTPUT. PATIENT HAS SWELLING IN BOTH HANDS AND FEET. ELEVATED EXTREMITIES ON PILLOWS.
[2022-02-20 08:00] VITALS: BP 180/73
[2022-02-20] MEDS: hydrALAZINE HCL 50 MG TABLET GT SCH ×2 (09:26→16:38)
[2022-02-20] MEDS: ASPIRIN 81 MG TAB.CHEW GT SCH (09:26)
[2022-02-20] MEDS: ASCORBIC ACID 500 MG TABLET GT SCH (09:26)
[2022-02-20] MEDS: MULTIVITAMIN/LUTEIN/MINERALS 1 TAB PO SCH (09:26)
[2022-02-20] MEDS: ZINC SULFATE 220 MG CAPSULE PO SCH (09:26)
[2022-02-20] MEDS: CHOLECALCIFEROL 1,000 UNIT TABLET (VIT D3) PO SCH (09:26)
[2022-02-20] MEDS: LINEZOLID 600 MG TABLET PO SCH ×2 (09:27→20:57)
[2022-02-20] MEDS: MEROPENEM 500 MG in IV NS 0.9% 100 ML IV SCH (09:54)
[2022-02-20] MEDS: HEPARIN SODIUM, PORCINE 5000 UNITS/1 ML VIAL SQ SCH ×2 (10:14→16:43)
[2022-02-20] MEDS: THERAHONEY GEL 1.5 OZ TUBE TP SCH (10:23)
[2022-02-20] MEDS: NYSTATIN/TRIAMCIN CREAM 15 GM TUBE TP SCH (10:23)
[2022-02-20] MEDS: MUPIROCIN OINT 2% 22 GM TUBE NS SCH ×2 (10:24→20:57)
[2022-02-20] MEDS: NEOMY SULF/BACITRAC ZN/POLY 15 GM TUBE TP SCH (10:29)
[2022-02-20] MEDS: DAKINS QUARTER STRENGTH (0.125%) 480 ML BOTTLE TOP SCH (10:30)
[2022-02-20 12:00] VITALS: BP 176/73
--- NOTE | 2022-02-20 12:00 | NUR ---
COMPLIANCE ASSISTANT NOTE NOTIFIED ABOUT PATIENT HYPERTENSION. MD ORDERED AMLODIPLINE 10 MG DAILY. MD ASKED TO CONSULT DR. SCHWARTZ ABOUT CONTRAINDICATIONS IF PATIENT HAS STENT AND ABLE TO GET MRI.
[2022-02-20] MEDS: AMLODIPINE BESYLATE 10 MG TABLET PO SCH (12:45)
--- NOTE | 2022-02-20 15:00 | NUR ---
NOTIFIED XRAY SAID TO FOLLOW UP WITH
[2022-02-20 16:00] VITALS: BP 169/64
--- NOTE | 2022-02-20 16:30 | NUR ---
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 NOTIFIED DR. DOOLEY'S OFFICE BUT NO CALL BACK.
--- NOTE | 2022-02-20 19:30 | NUR ---
POLICE OFFICER BOOKING CLOSING NOTE PATIENT IN BED ASLEEP. PATIENT IS ALERT AND ORIENTED X 0.PATIENT IS ABLE TO OPEN EYES. KEPT CLEAN AND DRY. ALL NEEDS MET. PATIENT GTUBE AND IV INTACT AND FLUSHING WELL. PATIENT HAS DELA CRUZ CATHETHER YELLOW COLOR DRAINING TO GRAVITY. ALL SAFETY MEASURES IN PLACE.BED LOCKED AT LOWEST POSITION.
--- NOTE | 2022-02-20 19:58 | NUR ---
GSA COORDINATOR OPENING NOTE RECEIVED PATIENT IN BED. A/O X0, PATIENT IS ABLE TO OPEN EYES. NO SIGNS OF PAIN OR DISCOMFORT AT THIS TIME. PATIENT ON O2 VIA NC AT 3LPM. TOLERATING WELL, PATIENT ON TELE MONITORING CURRENTLY READING SINUS RHYTM. PATIENT HAS GTUBE IN PLACED RUNNING GLUCERNA AT 70 ML/HR. PATIENT HAS IV ACCESS ON ELLEN MIDLINE RUNNING NS AT 70 ML/HR. NOTED WITH DELA CRUZ CATHETER DRAINING TO GRAVITY WITH YELLOW COLORED URINE,PATIENT NOTED WITH SWELLING IN BOTH HANDS AND FEET. ELEVATED EXTREMITIES ON PILLOWS. ALL SAFETY MEASURES IN PLACE. BED LOCKED AND AT LOWEST POSITION. BED ALARM ON. CALL LIGHT WITHIN REACH, WILL CONTINUE TO MONITOR THROUGHOUT THE SHIFT.
[2022-02-20 20:00] VITALS: BP 117/62
--- NOTE | 2022-02-20 20:13 | NUR ---
NOTIFIED XRAY SAID TO FOLLOW UP WITH
[2022-02-20] MEDS: MEROPENEM 1 G in IV NS 0.9% 100 ML IV SCH (20:57)
[2022-02-20] MEDS: EZETIMIBE 10 MG TABLET GT SCH (21:00)
[2022-02-20] MEDS: GLUCERNA 1.2 1,000 ML BOTTLE NG SCH (23:40)
[2022-02-21] VITALS: BP 157/85
--- NOTE | 2022-02-21 | NUR ---
RN NOTE BS CHECKED AT 91 MG/DL, NO COVERAGE GIVEN PER SLIDING SCALE. WILL CONT TO MONITOR PATIENT.
[2022-02-21 04:00] VITALS: BP 158/77
--- NOTE | 2022-02-21 05:49 | NUR ---
RN NOTE BS CHECKED AT 97 MG/DL, NO COVERAGE GIVEN PER SLIDING SCALE.
[2022-02-21] MEDS: BLOOD SUGAR DIAGNOSTIC 1 EACH STRIP IN SCH ×3 (06:12→17:46)
--- NOTE | 2022-02-21 06:35 | NUR ---
SUPPLY CHAIN DEVELOPMENT MANAGER CLOSING NOTE PATIENT REMAINS IN BED. A/O X0, PATIENT ABLE TO OPEN EYES AND RESPONSIVE TO TACTILE STIMULI. NO SIGNS OF PAIN OR DISCOMFORT AT THIS TIME. PATIENT ON O2 VIA NC AT 3LPM. TOLERATING WELL, PATIENT ON TELE MONITORING CURRENTLY READING SINUS RHYTM AT 64. PATIENT HAS GTUBE IN PLACED RUNNING GLUCERNA AT 70 ML/HR. OFF AT 0600, WILL BE RESUMED AT 1000, PATIENT HAS IV ACCESS ON ALEXSANDER MIDLINE RUNNING NS AT 70 ML/HR AND ELLEN SL #22G. NOTED WITH DELA CRUZ CATHETER DRAINING TO GRAVITY WITH YELLOW COLORED URINE, NOTED WITH SWELLING IN BOTH HANDS AND FEET. ELEVATED EXTREMITIES ON PILLOWS. ALL SAFETY MEASURES IN PLACE. ALL DUE MEDS GIVEN, KEPT DRY AND CLEAN, BED LOCKED AND AT LOWEST POSITION. BED ALARM ON. CALL LIGHT WITHIN REACH, WILL ENDORSE TO AM SHIFT NURSE. .
--- NOTE | 2022-02-21 07:10 | NUR ---
MI[employer] DY[employer] AX CONSULTANT OPENING NOTE: RECEIVED PT. AWAKE IN BED, A/O X 0, OPENS EYES WITH VOICE. NO VISIBLE SIGNS OF OF PAIN/DISCOMFORT AT THIS TIME. ON O2 VIA NC AT 3LPM, TOLERATING WELL, NO S/S OF RESPIRATORY DISTRESS, ON TELE MONITORING CURRENTLY READING NSR WITH HR AT 65 BPM AT THIS TIME. PT. HAS G-TUBE WITH GLUCERNA AT 70 ML/HR BUT OFF AT THIS TIME. DRESSING C/D/I. PT. HAS F/C WITH CLEAR YELLOW URINE DRAINING VIA GRAVITY. IV LINE AT ALEXSANDER MIDLINE RUNNING NS AT 40 ML/HR. ALSO HAS ELLEN #22G, PATENT AND SALINE LOCKED, BOTH IV SITE DRESSINGS C/D/I, NO S/S OF INFECTION OR INFILTRATION. SAFETY MEASURES IN PLACE: BED IN LOWEST AND LOCKED POSITION, BED ALARM ON, HOB ELEVATED AT 30 DEGREES, SIDE RAILS UP X 2, CALL LIGHT WITHIN REACH OF PATIENT. WILL CONTINUE TO MONITOR PT. FOR ANY CHANGES.
[2022-02-21 08:00] VITALS: BP 180/78
[2022-02-21] MEDS: MEROPENEM 1 G in IV NS 0.9% 100 ML IV SCH ×2 (08:41→20:30)
[2022-02-21] MEDS: MUPIROCIN OINT 2% 22 GM TUBE NS SCH ×2 (08:41→20:32)
[2022-02-21] MEDS: ASPIRIN 81 MG TAB.CHEW GT SCH (08:42)
[2022-02-21] MEDS: CHOLECALCIFEROL 1,000 UNIT TABLET (VIT D3) PO SCH (08:42)
[2022-02-21] MEDS: LINEZOLID 600 MG TABLET PO SCH ×2 (08:42→21:24)
[2022-02-21] MEDS: ASCORBIC ACID 500 MG TABLET GT SCH (08:42)
[2022-02-21] MEDS: ZINC SULFATE 220 MG CAPSULE PO SCH (08:42)
[2022-02-21] MEDS: MULTIVITAMIN/LUTEIN/MINERALS 1 TAB PO SCH (08:42)
[2022-02-21] MEDS: AMLODIPINE BESYLATE 10 MG TABLET PO SCH (08:43)
[2022-02-21] MEDS: hydrALAZINE HCL 50 MG TABLET GT SCH ×3 (08:44→17:45)
[2022-02-21] MEDS: HEPARIN SODIUM, PORCINE 5000 UNITS/1 ML VIAL SQ SCH (08:45)
[2022-02-21] MEDS: NYSTATIN/TRIAMCIN CREAM 15 GM TUBE TP SCH (08:46)
[2022-02-21] MEDS: DAKINS QUARTER STRENGTH (0.125%) 480 ML BOTTLE TOP SCH (08:46)
[2022-02-21] MEDS: THERAHONEY GEL 1.5 OZ TUBE TP SCH (08:47)
[2022-02-21] MEDS: NEOMY SULF/BACITRAC ZN/POLY 15 GM TUBE TP SCH (08:47)
[2022-02-21 12:00] VITALS: BP 144/77
[2022-02-21] MEDS ORDERED: HYDR-4077 GT (12:10)
[2022-02-21] MEDS ORDERED: MINOXIDIL (2.5MG) 2.5 MG TABLET GT ONE (12:30)
[2022-02-21 16:00] VITALS: BP 112/64
--- NOTE | 2022-02-21 19:10 | NUR ---
DIRECTOR LEARNING AND DEVELOPMENT CLOSING NOTE: PT. REMAINS IN BED, A/O X 0, AWAKE. OPENS EYES WITH VOICE. FAMILY AT BEDSIDE. NO VISIBLE SIGNS OF OF PAIN/DISCOMFORT AT THIS TIME. REMAINS ON O2 VIA NC AT 3LPM, TOLERATING WELL, NO S/S OF RESPIRATORY DISTRESS. TELE MONITORING READING THIS SHIFT IS NSR WITH HR 70-97 BPM. G-TUBE PRESENT WITH GLUCERNA RUNNING AT 70 ML/HR. NO GASTRIC RESIDUAL NOTED AND FLUSHED ORDERED. DRESSING C/D/I. PT. HAS F/C WITH OUTPUT OF 1,100 ML CLEAR YELLOW URINE THIS SHIFT. IV LINE AT ALEXSANDER MIDLINE WITH NS RUNNING AT 40 ML/HR. ALSO HAS ELLEN #22G, PATENT AND SALINE LOCKED, BOTH IV SITE DRESSINGS C/D/I, NO S/S OF INFECTION OR INFILTRATION.WOUND TREATMENT DONE ORDERED. SACRAL WOUND DEBRIDEMENT ALSO DONE AT BEDSIDE TODAY, PT. TOLERATED PROCEDURE WELL. SAFETY MEASURES MAINTAINED: BED IN LOWEST AND LOCKED POSITION, BED ALARM ON, HOB ELEVATED AT 30 DEGREES, SIDE RAILS UP X 2, CALL LIGHT WITHIN REACH OF PATIENT, TURNED AND REPOSITIONED Q2H. WILL ENDORSE CONTINUITY OF CARE TO CREDIT CONTROL OFFICER RN.
[2022-02-21 20:00] VITALS: BP 124/63
[2022-02-21] MEDS: EZETIMIBE 10 MG TABLET GT SCH (21:24)
[2022-02-21] MEDS: GLUCERNA 1.2 1,000 ML BOTTLE NG SCH (21:32)
[2022-02-22] VITALS: BP 152/63
[2022-02-22] MEDS: BLOOD SUGAR DIAGNOSTIC 1 EACH STRIP IN SCH ×5 (00:11→23:59)
[2022-02-22 04:00] VITALS: BP 154/67
[2022-02-22 06:40] LABS: CALCIUM, SERUM 8.3 mg/dL (8.5-10.1); CARBON DIOXIDE 25 mmol/L (21-32); CHLORIDE 116 mmol/L (98-107); CREATININE 1.3 mg/dL (0.6-1.3); GLUCOSE 135 mg/dL (74-106); POTASSIUM 4.9 mmol/L (3.5-5.1); SODIUM SERUM 148 mmol/L (136-145); UREA NITROGEN, BLOOD 50 mg/dL (7-18)
--- NOTE | 2022-02-22 06:47 | NUR ---
CLOSING NOTES: ALERT / ORIENTATED X1 S/P DEBRIDMENT SACRAL AREA 02/21 DRESSING CHANGED X3 NOTED CONTINOUS OOZING FROM THE BOTTOM OF THE WOUND, CHARGE NURSE IN TO SEE MADE A CALL TO ALANNAH GÓMEZ AND MADE HIM AWARE OF THE LARGE AMOUNT BLEEDING CONSTITE OOZING PACKED WITH A LARGE DRESSING AND ORDERED LABS FOR THE am 02/22
[2022-02-22 07:33] LABS: BASOPHILS # (AUTO) 0.1 K/uL (0.0-0.2); HEMATOCRIT 26 % (39-51); HEMOGLOBIN 7.9 g/dL (13.5-17.5); LYMPHOCYTES # (AUTO) 1.6 K/uL (0.8-4.8); MEAN CORPUSCULAR HGB CONC 31 g/dl (31.0-36.0); MEAN CORPUSCULAR VOLUME 84 fL (80-96); MONOCYTES # (AUTO) 0.4 K/uL (0.1-1.30); MONOCYTES % (AUTO) 3.2 % (2.0-12.0); NEUTROPHILS # (AUTO) 11.1 K/uL (1.8-8.9); NEUTROPHILS % (AUTO) 82.8 % (43.0-81.0); PLATELET COUNT (AUTO) 443 K/uL (150-450); RED BLOOD CELL COUNT(AUTO) 3.03 MIL/uL (4.5-6.0); WHITE BLOOD COUNT (AUTO) 13.4 K/uL (4.3-11.0)
[2022-02-22 08:00] VITALS: BP 135/81
--- NOTE | 2022-02-22 08:00 | NUR ---
RN OPENING NOTE PT IS A/O X 0, OPENS EYES. ON 3L VIA NC SATING AT 97%. TELE READS SR. GTF RUNNING GLUCERNA AT 70ML/HR. IV ACCESS AT ALEXSANDER MIDLINE RUNNING NS AT 40ML/HR. ALSO NOTED RA 22G SL. ALL SAFETY MEASURES IN PLACE, FALL PRECAUTIONS IN PLACE. WILL CONT. TO MONITOR THROUGHOUT SHIFT.
[2022-02-22] MEDS: ASPIRIN 81 MG TAB.CHEW GT SCH (08:13)
[2022-02-22] MEDS: CHOLECALCIFEROL 1,000 UNIT TABLET (VIT D3) PO SCH (08:13)
[2022-02-22] MEDS: MULTIVITAMIN/LUTEIN/MINERALS 1 TAB PO SCH (08:14)
[2022-02-22] MEDS: LINEZOLID 600 MG TABLET PO SCH ×2 (08:14→21:37)
[2022-02-22] MEDS: ZINC SULFATE 220 MG CAPSULE PO SCH (08:14)
[2022-02-22] MEDS: ASCORBIC ACID 500 MG TABLET GT SCH (08:14)
[2022-02-22] MEDS: AMLODIPINE BESYLATE 10 MG TABLET PO SCH (08:15)
[2022-02-22] MEDS: hydrALAZINE HCL 50 MG TABLET GT SCH ×3 (08:15→16:11)
[2022-02-22] MEDS: MUPIROCIN OINT 2% 22 GM TUBE NS SCH ×2 (08:16→21:38)
[2022-02-22] MEDS: NEOMY SULF/BACITRAC ZN/POLY 15 GM TUBE TP SCH (08:16)
[2022-02-22] MEDS: DAKINS QUARTER STRENGTH (0.125%) 480 ML BOTTLE TOP SCH (08:16)
[2022-02-22] MEDS: NYSTATIN/TRIAMCIN CREAM 15 GM TUBE TP SCH (08:16)
[2022-02-22] MEDS: THERAHONEY GEL 1.5 OZ TUBE TP SCH (08:17)
[2022-02-22] MEDS: MEROPENEM 1 G in IV NS 0.9% 100 ML IV SCH ×2 (08:18→21:37)
[2022-02-22] MEDS: INSULIN REGULAR, HUMAN 100 UNIT/ML 3 ML VIAL SQ PRN ×2 (11:32→23:59)
[2022-02-22 12:00] VITALS: BP 156/68
--- NOTE | 2022-02-22 12:46 | NUR ---
Pt is Covid positive, currently asymptomatic. Dr. Ab Sarah agrees to cont dc with decadron included in med list.
[2022-02-22 16:00] VITALS: BP 146/65
--- NOTE | 2022-02-22 18:42 | NUR ---
RN CLOSING NOTE PT IS A/O X 0, OPENS EYES. ON 3L VIA NC SATING AT 97%. TELE READS SR. GTF RUNNING GLUCERNA AT 70ML/HR. IV ACCESS AT ALEXSANDER MIDLINE RUNNING NS AT 40ML/HR. ALSO NOTED RA 22G SL. ALL SAFETY MEASURES IN PLACE, FALL PRECAUTIONS IN PLACE. PT TO BE D/C' D TO [facility] TOMORROW 02/23/22 AT 10AM. WILL ENDORSE TO HOTEL CLERK RN FOR CARLOS.
--- NOTE | 2022-02-22 19:54 | NUR ---
RN OPENING NOTES: RECEIVED PT IN BED, A/O X 0, OPENS BOTH EYES. ON O2 AT 3L/MIN VIA N/C AND PT TOLERATED WELL. IV ACCESS ON ALEXSANDER MIDLINE AND RT UPPER ARM#22G INTACT AND PATENT. NO S/S OF INFILTRATIONS. RUNNING NS AT 40ML/HR. G-TUBE FEEDING WELL TOLERATED WELL. RUNNING GLUCERNA AT 70ML/HR X20 HOURS. NO FACIAL GRIMACING NOTED. NO ACUTE DISTRESS0. ALL SAFETY MEASURES IN PLACE. SIDE RAILS UP X3, BED IN LOWEST POSITION AND LOCKED. PLACE CALL LIGHT WITH IN REACH. WILL CONTINUE TO MONITOR.
[2022-02-22 20:00] VITALS: BP 139/53
[2022-02-22] MEDS: EZETIMIBE 10 MG TABLET GT SCH (21:37)
[2022-02-22] MEDS: GLUCERNA 1.2 1,000 ML BOTTLE NG SCH (21:38)
[2022-02-23] VITALS: BP 134/64
--- NOTE | 2022-02-23 | NUR ---
RN NOTES: PT'S BLOOD SUGAR 104. NO COVERAGE GIVEN. NO S/S OF HYPER/HYPOGLYCEMIA. WILL CONTINUE TO MONITOR
[2022-02-23 04:00] VITALS: BP 123/97
[2022-02-23] MEDS: INSULIN REGULAR, HUMAN 100 UNIT/ML 3 ML VIAL SQ PRN (05:49)
[2022-02-23] MEDS: BLOOD SUGAR DIAGNOSTIC 1 EACH STRIP IN SCH (05:49)
[2022-02-23] MEDS: IV NS 0.9% 1,000 ML IV PRN (06:01)
--- NOTE | 2022-02-23 06:35 | NUR ---
RN CLOSING NOTES: PT IN BED, A/O X 0, OPENS BOTH EYES. ON O2 AT 3L/MIN VIA N/C AND PT TOLERATED WELL. O2 SAT 98%. IV ACCESS ON ALEXSANDER MIDLINE AND RT UPPER ARM#22G INTACT AND PATENT. NO S/S OF INFILTRATIONS. RUNNING NS AT 40ML/HR. G-TUBE FEEDING WELL TOLERATED WELL. RUNNING GLUCERNA AT 70ML/HR X20 HOURS. NO FACIAL GRIMACING NOTED. NO ACUTE DISTRESS. WOUND CARE DONE. ALL DUE MEDS GIVEN ORDERED. ALL SAFETY MEASURES IN PLACE. SIDE RAILS UP X3, BED IN LOWEST POSITION AND LOCKED. PLACE CALL LIGHT WITH IN REACH. WILL ENDORSE TO MORNING SHIFT NURSE.
--- NOTE | 2022-02-23 08:00 | NUR ---
RN Opening Note Not able to assess pts mental status, only opens eyes but does not try communicating. Using FLACC, pts pain is 1/10. Patient shows no signs of distress or discomfort. Repositioned pt assured Mid Line is working properly. No signs of infiltration or pain reported at line site. Fluids running as ordered. All safety precautions taken call light and table within reach, bed at lowest position.
[2022-02-23 09:00] VITALS: BP 100/61
[2022-02-23] MEDS: hydrALAZINE HCL 50 MG TABLET GT SCH (09:00)
[2022-02-23] MEDS: MUPIROCIN OINT 2% 22 GM TUBE NS SCH (09:00)
[2022-02-23] MEDS: AMLODIPINE BESYLATE 10 MG TABLET PO SCH (09:00)
[2022-02-23] MEDS: DAKINS QUARTER STRENGTH (0.125%) 480 ML BOTTLE TOP SCH (09:00)
[2022-02-23] MEDS: THERAHONEY GEL 1.5 OZ TUBE TP SCH (09:00)
[2022-02-23] MEDS: NEOMY SULF/BACITRAC ZN/POLY 15 GM TUBE TP SCH (09:00)
[2022-02-23] MEDS: NYSTATIN/TRIAMCIN CREAM 15 GM TUBE TP SCH (09:00)
[2022-02-23] MEDS: CHOLECALCIFEROL 1,000 UNIT TABLET (VIT D3) PO SCH (10:01)
[2022-02-23] MEDS: MULTIVITAMIN/LUTEIN/MINERALS 1 TAB PO SCH (10:01)
[2022-02-23] MEDS: ASPIRIN 81 MG TAB.CHEW GT SCH (10:01)
[2022-02-23] MEDS: ZINC SULFATE 220 MG CAPSULE PO SCH (10:02)
[2022-02-23] MEDS: ASCORBIC ACID 500 MG TABLET GT SCH (10:02)
[2022-02-23] MEDS: LINEZOLID 600 MG TABLET PO SCH (10:02)
[2022-02-23] MEDS: MEROPENEM 1 G in IV NS 0.9% 100 ML IV SCH (10:11)
--- NOTE | 2022-02-23 11:15 | NUR ---
weatherization director Note. Not able to assess pts mental status, not able to communicate his needs. Transportation in unit picking up pt, per CM family and facility aware. Pt transporting to [facility] [phone], called and spoke with Brendan, provided nursing report. Pt stable BP 105/57, RR 20, HR 82, T 98.2, O2 99, on 3 lt/min. Pt shows no signs of distress, provided report to transportation crew and pts current status. All safety precautions taken, pt left unit safely,no incidents to report.
== END 2022-02-23 11:00 | DRG 853 ==
LOC: ER 18:29 → TRANSITION 23:08 → ICU 23:57 → TELE1 02-16 12:25
PROVIDERS: ADMIT Nurse Practitioner Acute Care; ATTEND Nurse Practitioner Acute Care
PROC: 30233N1 Transfusion of Nonautologous Red Blood Cells into Peripheral Vein, Percutaneous Approach (ICD-10-PCS; 2022-02-15)
PROC: 05HA33Z Insertion of Infusion Device into Left Brachial Vein, Percutaneous Approach (ICD-10-PCS; 2022-02-19)
PROC: 0KBP0ZZ Excision of Left Hip Muscle, Open Approach (ICD-10-PCS; principal; 2022-02-21)
PROC: 0KBN0ZZ Excision of Right Hip Muscle, Open Approach (ICD-10-PCS; 2022-02-21)
DX: A41.51 Sepsis due to Escherichia coli [E. coli] (principal); G92.8 Other toxic encephalopathy; L89.154 Pressure ulcer of sacral region, stage 4; J69.0 Pneumonitis due to inhalation of food and vomit; J96.21 Acute and chronic respiratory failure with hypoxia; N17.0 Acute kidney failure with tubular necrosis; U07.1 COVID-19; E87.0 Hyperosmolality and hypernatremia; N13.6 Pyonephrosis; Z16.12 Extended spectrum beta lactamase (ESBL) resistance; B95.2 Enterococcus as the cause of diseases classified elsewhere; R65.20 Severe sepsis without septic shock; D64.9 Anemia, unspecified; E86.0 Dehydration; F03.90 Unspecified dementia, unspecified severity, without behavioral disturbance, psychotic disturbance, mood disturbance, and anxiety; R13.10 Dysphagia, unspecified; Z66 Do not resuscitate; Z86.16 Personal history of COVID-19; Z93.1 Gastrostomy status; E11.9 Type 2 diabetes mellitus without complications; Z79.51 Long term (current) use of inhaled steroids; Z79.82 Long term (current) use of aspirin; Z79.899 Other long term (current) drug therapy; E78.5 Hyperlipidemia, unspecified; B96.89 Other specified bacterial agents as the cause of diseases classified elsewhere; E87.5 Hyperkalemia; I10 Essential (primary) hypertension; F09 Unspecified mental disorder due to known physiological condition; L89.616 Pressure-induced deep tissue damage of right heel; M62.50 Muscle wasting and atrophy, not elsewhere classified, unspecified site; Z87.442 Personal history of urinary calculi; L89.216 Pressure-induced deep tissue damage of right hip
CPT/HCPCS: 36410; 36415; 36600; 70450-TC; 71045-TC; 76770-TC; 80048-TC; 80076-TC; 80202-TC; 81001; 82803-TC; 82962-TC; 83605-TC; 83735-TC; 84100-TC; 84484-TC; 85025-TC; 85730-TC; 86850-TC; 87040-TC; 87081-TC; 87086-TC; 87186-TC; 93970-TC; 94760-TC; 94799-TC; A6253; A6403; C9803; G0378; J0692; J1644; J1815; J2185; J2405; J2543; J3370; J3490; J7030; J7050; J7060; P9016

== ENCOUNTER 2022-03-02 08:58 | Inpatient (IN) | payer MEDICARE, OTHER ==
[~2022-03-02] VITALS: Ht 165.1 cm; Wt 58.1 kg
[~2022-03-02 08:58] MED LIST changes: -CEFE1PIG3 IV; +NEOM1OIN15 TP; -NUT.237L31 GT; +NUT.250L18 GT; +NYST15CR2 TP
--- NOTE | 2022-03-02 09:10 | NUR ---
TECH AT BEDSIDE FOR EKG
--- NOTE | 2022-03-02 09:20 | NUR ---
RECEVED PT 81 YRS MALE came from SNF BY JESUS FOR LOW O2 SAT AND ELEVATED TEMP AWAKE CONFUSED NOT FALLOW COMMAND RESPIRTION SPONT AND EASY fio2 100% NRM O2 SAT 96% HOB 45 % ALL TIME
--- NOTE | 2022-03-02 09:25 | NUR ---
BLOOD DROW BY LAB TACH BLOOD CUTLURE
[2022-03-02] MEDS ORDERED: INSU100V3 IJ (09:27)
[2022-03-02] MEDS ORDERED: IV NS 0.9% 1,000 ML BAG IV ONE ×2 (09:30→11:30)
--- NOTE | 2022-03-02 09:30 | NUR ---
COVED SWAB SENT TO LAB
--- NOTE | 2022-03-02 09:35 | NUR ---
ADITI SWAB SEENT TO LAB
[2022-03-02 10:04] LABS: BASOPHILS # (AUTO) 0.1 K/uL (0.0-0.2); BASOPHILS % (AUTO) 0.4 % (0.0-2.0); EOSINOPHILS % (AUTO) 0.6 % (0.0-6.0); HEMATOCRIT 24 % (39-51); HEMOGLOBIN 7.2 g/dL (13.5-17.5); LYMPHOCYTES # (AUTO) 2.6 K/uL (0.8-4.8); LYMPHOCYTES % (AUTO) 11.7 % (20.0-44.0); MEAN CORPUSCULAR HGB CONC 30 g/dl (31.0-36.0); MEAN CORPUSCULAR VOLUME 88 fL (80-96); MONOCYTES # (AUTO) 1.1 K/uL (0.1-1.30); MONOCYTES % (AUTO) 4.8 % (2.0-12.0); NEUTROPHILS # (AUTO) 18.5 K/uL (1.8-8.9); NEUTROPHILS % (AUTO) 82.5 % (43.0-81.0); PLATELET COUNT (AUTO) 641 K/uL (150-450); RED BLOOD CELL COUNT(AUTO) 2.68 MIL/uL (4.5-6.0); WHITE BLOOD COUNT (AUTO) 22.5 K/uL (4.3-11.0)
[2022-03-02 10:08] LABS: BILIRUBIN,URINE NEGATIVE (NEGATIVE); COLOR,URINE YELLOW (YELLOW); LEUKOCYTE ESTERASE ,URINE LARGE (NEGATIVE); NITRITE, URINE NEGATIVE (NEGATIVE); PH,URINE 6.5 (5.0-8.0); PROTEIN,URINE 30 mg/dl (NEGATIVE); UGLUCOSE NEGATIVE (NEGATIVE); UROBILINOGEN,URINE 0.2 EU/dL (0.2)
[2022-03-02 10:18] LABS: CALCIUM, SERUM 9.4 mg/dL (8.5-10.1); CARBON DIOXIDE 24 mmol/L (21-32); CHLORIDE 119 mmol/L (98-107); CREATININE 1.3 mg/dL (0.6-1.3); GLUCOSE 106 mg/dL (74-106); POTASSIUM 5.9 mmol/L (3.5-5.1); SODIUM SERUM 151 mmol/L (136-145); UREA NITROGEN, BLOOD 52 mg/dL (7-18)
[2022-03-02 10:31] LABS: ALANINE AMINOTRANSFERASE 34 U/L (12-78); ALBUMIN 2.1 g/dL (3.4-5.0); ALKALINE PHOSPHATASE 130 U/L (46-116); ASPARTATE AMINOTRANSFERASE 22 U/L (15-37); BILIRUBIN,DIRECT 0.1 mg/dL (0.0-0.2); BILIRUBIN,TOTAL 0.3 mg/dL (0.2-1.0); TOTAL PROTEIN, SERUM 7.1 g/dL (6.4-8.2)
--- NOTE | 2022-03-02 10:40 | NUR ---
[facility] LACTIC ACID 3.0 DR. ELI NUNNFED
[2022-03-02] MEDS ORDERED: DEXTROSE 50%-WATER 50 ML DISP.SYRIN IV ONE (11:30)
[2022-03-02] MEDS ORDERED: INSULIN REGULAR, HUMAN 100 UNIT/ML 10 ML VIAL IV ONE (11:30)
[2022-03-02] MEDS ORDERED: Calcium Gluconate 1GM/10ML 4.65 MEQ in IV NS 0.9% 100 ML IV ONE (11:30)
[2022-03-02] MEDS ORDERED: ALBUTEROL FS 2.5 MG/3 ML VIAL.NEB NEB ONE (11:30)
[2022-03-02] MEDS ORDERED: AZITHROMYCIN 500 MG in IV D5W 250 ML IV ONE (11:30)
[2022-03-02] MEDS ORDERED: CEFTRIAXONE 1GM BAG (ER ONLY) 50 ML IV ONE (11:30)
[2022-03-02 11:48] LABS: RBC,URINE 0-2 /HPF (0-2); WBC,URINE 21-50 /HPF (0-3)
[2022-03-02 11:49] LABS: BACTERIA,URINE Moderate /HPF (None Seen); SQUAMOUS EPITHELIAL CELL,UR Moderate /HPF (None Seen)
--- NOTE | 2022-03-02 12:00 | NUR ---
CONTRERAS HINES VS
[2022-03-02] MEDS ORDERED: DEXTROSE 50%-WATER 50 ML DISP.SYRIN ONE (12:04)
[2022-03-02] MEDS ORDERED: INSULIN REGULAR, HUMAN 100 UNIT/ML 10 ML VIAL ONE (12:04)
[2022-03-02] MEDS ORDERED: CALCIUM CHLORIDE 1,000 MG/10 ML DISP.SYRIN ONE (12:04)
--- NOTE | 2022-03-02 13:00 | NUR ---
CHANGE FIO2 TO 10 L SIMPLE FACE MASK
[2022-03-02] MEDS ORDERED: ALBUTEROL FS 2.5 MG/3 ML VIAL.NEB ONE (13:02)
[2022-03-02 13:11] LABS: ABG BASE EXCESS -3.1 mmol/L; ABG PCO2 36.7 mmHg (35.0-45.0); ABG PH 7.386 (7.350-7.450); ABG PO2 26.2 mmHg (75.0-100.0); COHb 0.2 % (0.5-1.5); MetHb 0.8 % (0.0-1.5); O2Hb 39.3 % (94.0-97.0); SITE, ABG Right Radial; VENT MODE, BG 15L NRB
--- NOTE | 2022-03-02 13:23 | NUR ---
TX AND ABG NOT DONE TIME DUE MY LUNCH BREAK. Addendum: 03/02/22 at 1323 by ABBY CHIANG RT Amended: Links added.
[2022-03-02] MEDS ORDERED: ACETAMINOPHEN 650 MG/SUPP.RECT RC PRN (14:00)
[2022-03-02] MEDS ORDERED: IV D5/ 0.9% NACL 1,000 ML IV PRN (14:00)
[2022-03-02] MEDS ORDERED: ONDANSETRON HCL/PF 4 MG/2 ML VIAL IVP PRN (14:00)
--- NOTE | 2022-03-02 14:00 | NUR ---
SON AT BED SIDE MENDY [phone]
[2022-03-02] MEDS ORDERED: MAGNESIUM HYDROXIDE 30 ML UDC GT PRN (14:30)
[2022-03-02] MEDS ORDERED: DEXTROSE 50%-WATER 50 ML DISP.SYRIN IV PRN (14:30)
[2022-03-02] MEDS ORDERED: ACETAMINOPHEN 325 MG TABLET PO PRN ×2 (14:30)
[2022-03-02] MEDS ORDERED: BISACODYL SUPP (10 MG) 10 MG/SUPP.RECT SUPP.RECT RC PRN (14:30)
[2022-03-02] MEDS ORDERED: INSULIN REGULAR, HUMAN 100 UNIT/ML 3 ML VIAL SQ PRN (14:30)
[2022-03-02] MEDS ORDERED: METOCLOPRAMIDE HCL 10 MG TABLET GT PRN (14:30)
--- NOTE | 2022-03-02 14:30 | NUR ---
WATING FOR TELMETRY BED
--- NOTE | 2022-03-02 15:19 | NUR ---
pt going to rm 105
--- NOTE | 2022-03-02 15:23 | NUR ---
Report given to DIEGO Simms, continue plan of care
--- NOTE | 2022-03-02 16:15 | NUR ---
PATIENT WAS ADMITTED TO THE TELE UNIT FROM ER WITH PRIMARY DIAGNOSIS OF SOB AND DESATURATION ,UPON ADMISSION PATIENT IS ON O2 10 L SIMPLE MASK, O2 SAT 97%.PATIENT HAS IV ACCESS ON THE RIGHT WRIST 20 G , RIGHT FOREARM 22 G , FLUSHED FREELY , PATIENT ALSO HAS G TUBE IN PLACE , MULTIPLE SATGE 1 PRESSURE SORE AND STAGE 3 PRESSURE SORE ON THE SACRUM AREA ,WOUND CONSULT ORDERED . BED IS AT LOWEST POSITION , SIDE RAILS ARE UP , CALL LIGHT WITHIN REACH.WILL CONTINUE TO MONITOR
[2022-03-02] MEDS ORDERED: CEFEPIME 1 GM in IV D5W 50 ML IV SCH (17:00)
[2022-03-02] MEDS ORDERED: ALBUTEROL HALF STRENGTH 1.25 MG/3 ML VIAL.NEB NEB PRN (17:00)
[2022-03-02 17:05] VITALS: BP 138/70
[2022-03-02 17:26] LABS: BAND % (MANUAL) 4 % (0.0-5.0); EOSINOPHILS % (MANUAL) 1 % (0-4); LYMPHOCYTES % (MANUAL) 13 % (16-48); MONOCYTES % (MANUAL) 6 % (0-11.0); NEUTROPHILS % (MANUAL) 76 (42-76)
[2022-03-02] MEDS: HEPARIN SODIUM, PORCINE 5000 UNITS/1 ML VIAL SQ SCH (17:51)
[2022-03-02] MEDS: BLOOD SUGAR DIAGNOSTIC 1 EACH STRIP IN SCH ×2 (18:03→21:33)
[2022-03-02] MEDS: THERAHONEY GEL 1.5 OZ TUBE TP SCH (18:04)
--- NOTE | 2022-03-02 18:37 | NUR ---
RN CLOSING NOTE PATIENT IS ON O2 10 L SIMPLE MASK, O2 SAT 97%.PATIENT HAS IV ACCESS ON THE RIGHT WRIST 20 G , RIGHT FOREARM 22 G , FLUSHED FREELY , PATIENT ALSO HAS G TUBE IN PLACE , MULTIPLE STAGE 1 PRESSURE SORE AND STAGE 3 PRESSURE SORE ON THE SACRUM AREA ,WOUND CONSULT ORDERED .ALL MEDICATION WERE ADMINISTERD ALL NEEDS WERE MET .BED IS AT LOWEST POSITION , SIDE RAILS ARE UP , CALL LIGHT WITHIN REACH.WILL CONTINUE TO MONITOR
[2022-03-02] MEDS: ACETAMINOPHEN 325 MG TABLET PO PRN (18:40)
--- NOTE | 2022-03-02 19:10 | NUR ---
RN NOTE Patient in bed, lethargic, family at bedside, in no acute distress, saturation at 100% on 10L via simple mask, SR on the monitor, HR is 98. IV line at LAC 20g, and L hand 20g patent and flushing well with D5NS infusing at 75 ml/hr. Reddy catheter draining to a clear yellow output. Safety measures in place, bed is locked and at lowest position, bed alarm is on, side rails up x 2, call light within reach of patient. Will cont to monitor and reassess
[2022-03-02 20:00] VITALS: BP 132/66
[2022-03-02] MEDS ORDERED: VANCOMYCIN 1 GM in IV D5W 250 ML IV ONE (20:00)
[2022-03-02] MEDS ORDERED: LINEZOLID 600 MG TABLET PO SCH (21:00)
[2022-03-02] MEDS: MEROPENEM 500 MG in IV NS 0.9% 50 ML IV SCH (21:30)
[2022-03-02] MEDS: EZETIMIBE 10 MG TABLET GT SCH (21:31)
[2022-03-02] MEDS: LINEZOLID 600 MG TABLET GT SCH (21:31)
[2022-03-03] VITALS (9 sets, daily range): BP systolic 100–136; BP diastolic 46–90
--- NOTE | 2022-03-03 02:20 | NUR ---
RN NOTE NOTED CRACKLES AND CONGESTION ON PATIENT'S RESPIRATION, SUCTIONED ORALLY, SMALL AMOUNT OF SECRETIONS NOTED, RT WAS NOTIFIED, RT REMOVED A LARGE MUCUS PLUG AND LARGE AMOUNT OF SECRETIONS ON NASOPHARYNGEAL SUCTION. WILL CONT TO MONITOR PATIENT
--- NOTE | 2022-03-03 04:53 | NUR ---
RN NOTE SACRAL WOUND AND PCR SWAB COLLECTED, SENT TO LAB
[2022-03-03] MEDS: MEROPENEM 500 MG in IV NS 0.9% 50 ML IV SCH ×3 (05:04→21:08)
[2022-03-03] MEDS: BLOOD SUGAR DIAGNOSTIC 1 EACH STRIP IN SCH ×3 (05:11→18:30)
[2022-03-03] MEDS ORDERED: DEXTROSE 50%-WATER 50 ML DISP.SYRIN IV PRN (06:00)
[2022-03-03 06:57] LABS: BASOPHILS # (AUTO) 0.1 K/uL (0.0-0.2); BASOPHILS % (AUTO) 0.3 % (0.0-2.0); LYMPHOCYTES # (AUTO) 1.4 K/uL (0.8-4.8); LYMPHOCYTES % (AUTO) 9.1 % (20.0-44.0); MEAN CORPUSCULAR HGB CONC 30 g/dl (31.0-36.0); MEAN CORPUSCULAR VOLUME 88 fL (80-96); MONOCYTES # (AUTO) 0.4 K/uL (0.1-1.30); MONOCYTES % (AUTO) 2.6 % (2.0-12.0); NEUTROPHILS # (AUTO) 13.7 K/uL (1.8-8.9); PLATELET COUNT (AUTO) 469 K/uL (150-450); WHITE BLOOD COUNT (AUTO) 15.6 K/uL (4.3-11.0)
[2022-03-03 07:17] LABS: ALBUMIN 1.6 g/dL (3.4-5.0); BILIRUBIN,TOTAL 0.4 mg/dL (0.2-1.0); CALCIUM, SERUM 8.8 mg/dL (8.5-10.1); CREATININE 1.3 mg/dL (0.6-1.3); MAGNESIUM 2.1 mg/dL (1.8-2.4); PHOSPHORUS 3.9 mg/dL (2.5-4.9); POTASSIUM 4.4 mmol/L (3.5-5.1)
[2022-03-03 07:40] LABS: HEMOGLOBIN 6.2 g/dL (13.5-17.5)
[2022-03-03 07:41] LABS: HEMATOCRIT 20 % (39-51)
[2022-03-03] MEDS ORDERED: VANCOMYCIN 500 MG in IV D5W 100 ML IV SCH (08:00)
--- NOTE | 2022-03-03 08:22 | NUR ---
RN NOTE RECEIVED A CALL FROM LAB PATIENT HEMOGLOBIN 6.2 DR AYALA NOTIFIED. STAT H&H ORDERED ASKED DR. AYALA BY TEXT TO HOLD THE ASPIRIN AND HEPARIN SHE REPLIED YES.
[2022-03-03 08:31] LABS: THYROID STIMULATING HORMONE 0.646 uIU/mL (0.358-3.74)
--- NOTE | 2022-03-03 08:40 | NUR ---
WOUND CARE CONSULT: REVIEWED CHART, NURSING DOCUMENTATION AND PHOTOS WHICH INDICATE SACRAL PRESSURE ULCER, RT HIP DEEP TISSUE INJURY, AREAS OF DISCOLORATION AND HEEL/ANKLE DEEP TISSUE INJURIES, ALL PRESENT ON ADMISSION. RECOMMENDATIONS MADE FOR SKIN PROTECTION. DISCUSSED WITH NURSING STAFF. PT IS ON ALEXANDRA ISOFLEX LOW AIRLOSS BED. DR GONZALEZ CALLED FOR SURGICAL/DPM CONSULT REQUESTS. IN AGREEMENT WITH PLAN OF CARE.
[2022-03-03] MEDS ORDERED: LINEZOLID 600 MG TABLET GT SCH ×2 (09:00→21:00)
[2022-03-03] MEDS: HEPARIN SODIUM, PORCINE 5000 UNITS/1 ML VIAL SQ SCH ×2 (09:00→17:00)
[2022-03-03] MEDS: ASPIRIN 81 MG TAB.CHEW GT SCH (09:00)
[2022-03-03] MEDS: MULTIVIT W/MINERALS 1 TAB TABLET GT SCH (09:07)
[2022-03-03] MEDS: ZINC SULFATE 220 MG CAPSULE GT SCH (09:07)
[2022-03-03] MEDS: CHOLECALCIFEROL 1,000 UNIT TABLET (VIT D3) GT SCH (09:07)
[2022-03-03] MEDS: PANTOPRAZOLE 40 MG VIAL IV SCH (09:07)
[2022-03-03] MEDS: LINEZOLID 600 MG TABLET GT SCH ×2 (09:07→21:09)
[2022-03-03] MEDS: ASCORBIC ACID 500 MG TABLET GT SCH (09:07)
[2022-03-03] MEDS: THERAHONEY GEL 1.5 OZ TUBE TP SCH (09:08)
[2022-03-03] MEDS: Z GUARD REMEDY 4 OZ OINT TP SCH (09:08)
[2022-03-03] MEDS ORDERED: IV D5/0.45 NACL 1,000 ML IV ONE (10:30)
[2022-03-03] MEDS: IPRATROPIUM NEB FS 0.5 MG/2.5 ML AMPUL.NEB NEB SCH ×3 (11:30→19:30)
[2022-03-03] MEDS: ALBUTEROL FS 2.5 MG/0.5 ML VIAL.NEB NEB SCH ×3 (11:30→19:30)
[2022-03-03] MEDS: METOPROLOL TARTRATE 25 MG TABLET PO SCH ×2 (12:35→21:10)
--- NOTE | 2022-03-03 13:56 | NUR ---
RT 1130 breathing tx not given Addendum: 03/03/22 at 1401 by TANNER PEREA RT Breathing tx deferred, due to heavy workload.
[2022-03-03 13:58] LABS: HEMOGLOBIN 6.2 g/dL (13.5-17.5)
--- NOTE | 2022-03-03 17:30 | NUR ---
RN NOTE PATIENT HGB 6.2 AND GOING TO HAVE A BLOOD TRANSFUSION, HEPARIN FOR 1700 IS HELD.
[2022-03-03] MEDS ORDERED: COLLAGENASE 30 GM TUBE TP SCH (18:00)
--- NOTE | 2022-03-03 19:00 | NUR ---
RN CLOSING NOTE PATIENT IS ON O2 10 L SIMPLE MASK, O2 SAT 92%.PATIENT HAS IV ACCESS ON THE RIGHT WRIST 20 G , RIGHT FOREARM 22 G , FLUSHED FREELY , PATIENT ALSO HAS G TUBE IN PLACE, BUT NPO DUE TO ASPIRATION BY DR'S ORDER, MULTIPLE STAGE 1 PRESSURE SORE AND STAGE 3 PRESSURE SORE ON THE SACRUM AREA .ALL MEDICATION WERE ADMINISTERD VIA G TUBE. ALL NEEDS WERE MET .BED IS AT LOWEST POSITION , SIDE RAILS ARE UP , CALL LIGHT WITHIN REACH.WILL ENDORSE THE PATIENT TO THE SENIOR CORE JAVA DEVELOPER NURSE TO CARLOS.
--- NOTE | 2022-03-03 19:15 | NUR ---
RN NOTE Patient in bed, AO x 1, fin no acute distress, saturation at 100% on 15L via non rebreather mask, ST on the monitor, HR is 103. IV line at LAC 20g, and R wrist 22g patent and flushing well with D51/2NS infusing at 50 ml/hr. Reddy catheter draining to a clear yellow output. Safety measures in place, bed is locked and at lowest position, bed alarm is on, side rails up x 2, call light within reach of patient. Will cont to monitor and reassess
--- NOTE | 2022-03-03 19:57 | NUR ---
breathing tx not given due to pending pcr covid test result. hunter gandhi notified.
[2022-03-03] MEDS: DAKINS QUARTER STRENGTH (0.125%) 480 ML BOTTLE TOP SCH (21:09)
[2022-03-03] MEDS: EZETIMIBE 10 MG TABLET GT SCH (21:09)
[2022-03-03 21:50] LABS: BAND % (MANUAL) 8 % (0.0-5.0); LYMPHOCYTES % (MANUAL) 11 % (16-48); MONOCYTES % (MANUAL) 5 % (0-11.0); NEUTROPHILS % (MANUAL) 76 (42-76)
[2022-03-04] VITALS (8 sets, daily range): BP systolic 119–148; BP diastolic 48–94
[2022-03-04] MEDS: BLOOD SUGAR DIAGNOSTIC 1 EACH STRIP IN SCH ×4 (00:48→17:47)
[2022-03-04] MEDS: MEROPENEM 500 MG in IV NS 0.9% 50 ML IV SCH ×3 (05:40→21:45)
[2022-03-04] MEDS: IPRATROPIUM NEB FS 0.5 MG/2.5 ML AMPUL.NEB NEB SCH ×4 (07:35→19:30)
[2022-03-04] MEDS: ALBUTEROL FS 2.5 MG/0.5 ML VIAL.NEB NEB SCH ×4 (07:35→19:30)
[2022-03-04 07:41] LABS: BASOPHILS # (AUTO) 0.1 K/uL (0.0-0.2); BASOPHILS % (AUTO) 0.5 % (0.0-2.0); EOSINOPHILS % (AUTO) 0.1 % (0.0-6.0); HEMATOCRIT 22 % (39-51); LYMPHOCYTES # (AUTO) 1.5 K/uL (0.8-4.8); LYMPHOCYTES % (AUTO) 11.2 % (20.0-44.0); MEAN CORPUSCULAR HGB CONC 31 g/dl (31.0-36.0); MEAN CORPUSCULAR VOLUME 89 fL (80-96); MONOCYTES # (AUTO) 0.5 K/uL (0.1-1.30); NEUTROPHILS % (AUTO) 84.2 % (43.0-81.0); PLATELET COUNT (AUTO) 415 K/uL (150-450); RED BLOOD CELL COUNT(AUTO) 2.46 MIL/uL (4.5-6.0)
--- NOTE | 2022-03-04 07:47 | NUR ---
RN CLOSING NOTE PATIENT IS ON O2 10 L SIMPLE MASK, O2 SAT 92%.PATIENT HAS IV ACCESS ON THE RIGHT WRIST 20 G , RIGHT FOREARM 22 G , FLUSHED FREELY , PATIENT ALSO HAS G TUBE IN PLACE, BUT NPO DUE TO ASPIRATION BY DR'S ORDER, MULTIPLE STAGE 1 PRESSURE SORE AND STAGE 3 PRESSURE SORE ON THE SACRUM AREA .ALL MEDICATION WERE ADMINISTERD VIA G TUBE. ALL NEEDS WERE MET .BED IS AT LOWEST POSITION , SIDE RAILS ARE UP , CALL LIGHT WITHIN REACH.WILL WILL CONTINUE TO MONITOR
[2022-03-04 07:49] LABS: HEMOGLOBIN 6.8 g/dL (13.5-17.5)
--- NOTE | 2022-03-04 08:00 | NUR ---
PT RECEIVED STABLE ON NRB. PT IS COVID PENDING AND TX HAS BEEN PUT ON HOLD UNTIL NEGATIVE RESULT. RECOMMENDED MDI TO NURSE FOR FUTURE TX.
[2022-03-04 08:32] LABS: CALCIUM, SERUM 8.8 mg/dL (8.5-10.1); CARBON DIOXIDE 22 mmol/L (21-32); CHLORIDE 125 mmol/L (98-107); CREATININE 1.5 mg/dL (0.6-1.3); GLUCOSE 94 mg/dL (74-106); MAGNESIUM 2.2 mg/dL (1.8-2.4); PHOSPHORUS 4.2 mg/dL (2.5-4.9); POTASSIUM 4.2 mmol/L (3.5-5.1); SODIUM SERUM 155 mmol/L (136-145); UREA NITROGEN, BLOOD 49 mg/dL (7-18)
[2022-03-04] MEDS: ZINC SULFATE 220 MG CAPSULE GT SCH (08:35)
[2022-03-04] MEDS: LINEZOLID 600 MG TABLET GT SCH ×2 (08:35→21:45)
[2022-03-04] MEDS: ASPIRIN 81 MG TAB.CHEW GT SCH (08:36)
[2022-03-04] MEDS: MULTIVIT W/MINERALS 1 TAB TABLET GT SCH (08:37)
[2022-03-04] MEDS: PANTOPRAZOLE 40 MG VIAL IV SCH (08:37)
[2022-03-04] MEDS: METOPROLOL TARTRATE 25 MG TABLET PO SCH ×2 (08:37→21:46)
[2022-03-04] MEDS: CHOLECALCIFEROL 1,000 UNIT TABLET (VIT D3) GT SCH (08:39)
[2022-03-04] MEDS: ASCORBIC ACID 500 MG TABLET GT SCH (08:39)
[2022-03-04] MEDS: HEPARIN SODIUM, PORCINE 5000 UNITS/1 ML VIAL SQ SCH (08:41)
[2022-03-04] MEDS: Z GUARD REMEDY 4 OZ OINT TP PRN (08:54)
[2022-03-04] MEDS: DAKINS QUARTER STRENGTH (0.125%) 480 ML BOTTLE TOP SCH (08:55)
[2022-03-04] MEDS: Z GUARD REMEDY 4 OZ OINT TP SCH (08:55)
[2022-03-04] MEDS: THERAHONEY GEL 1.5 OZ TUBE TP SCH ×2 (08:56→12:00)
[2022-03-04 10:06] LABS: LYMPHOCYTES % (MANUAL) 16 % (16-48); MONOCYTES % (MANUAL) 3 % (0-11.0); NEUTROPHILS % (MANUAL) 81 (42-76)
[2022-03-04 14:18] LABS: ABG BASE EXCESS -4.9 mmol/L; ABG OXYGEN SATURATION 96.4 % (92.0-98.5); ABG PCO2 28.5 mmHg (35.0-45.0); ABG PH 7.433 (7.350-7.450); ABG PO2 88.2 mmHg (75.0-100.0); AaDO2 596.3 mmHg; COHb 0.3 % (0.5-1.5); MetHb 0.3 % (0.0-1.5); O2Hb 95.8 % (94.0-97.0); SITE, ABG Right Radial; VENT MODE, BG NRB 100%
[2022-03-04] MEDS: AZITHROMYCIN 500 MG in IV D5W 250 ML IV SCH (17:35)
[2022-03-04] MEDS: DEXAMETHASONE SOD PHOSPHATE 10 MG/ML VIAL IV SCH (17:35)
[2022-03-04 18:25] LABS: HEMOGLOBIN 8.2 g/dL (13.5-17.5)
--- NOTE | 2022-03-04 18:45 | NUR ---
RN CLOSING NOTE PATIENT IS ON O2 15 L NRB MASK O2 SAT 100%.PATIENT HAS IV ACCESS ON THE RIGHT WRIST 20 G , RIGHT FOREARM 22 G , FLUSHED FREELY , PATIENT ALSO HAS G TUBE IN PLACE, BUT NPO DUE TO ASPIRATION BY DR'S ORDER, MULTIPLE STAGE 1 PRESSURE SORE AND STAGE 3 PRESSURE SORE ON THE SACRUM AREA .ONE UNIT OF BLOOD WAS TRANSFUSED .ALL MEDICATION WERE ADMINISTER VIA G TUBE. ALL NEEDS WERE MET .BED IS AT LOWEST POSITION , SIDE RAILS ARE UP , CALL LIGHT WITHIN REACH.WILL WILL CONTINUE TO MONITOR
--- NOTE | 2022-03-04 19:20 | NUR ---
RN NOTE Patient in bed, AO x 1, in no acute distress, saturation at 100% on 15L via non rebreather mask, SR on the monitor, HR is 72. IV line at LAC 20g, LFA 20g and R wrist 22g patent and flushing well with D5 1/2NS infusing at 50 ml/hr. Reddy catheter draining to a clear yellow output. Safety measures in place, bed is locked and at lowest position, bed alarm is on, side rails up x 2, call light within reach of patient. Will cont to monitor and reassess
[2022-03-04] MEDS ORDERED: GLUCERNA 1.2 1,000 ML BOTTLE GT SCH (19:30)
[2022-03-04] MEDS: EZETIMIBE 10 MG TABLET GT SCH (21:45)
[2022-03-05] VITALS: BP 128/68
[2022-03-05] MEDS: BLOOD SUGAR DIAGNOSTIC 1 EACH STRIP IN SCH ×4 (00:15→17:17)
[2022-03-05] MEDS: INSULIN REGULAR, HUMAN 100 UNIT/ML 3 ML VIAL SQ PRN ×4 (00:16→17:28)
[2022-03-05 04:00] VITALS: BP 115/61
[2022-03-05] MEDS: MEROPENEM 500 MG in IV NS 0.9% 50 ML IV SCH ×3 (05:06→21:10)
[2022-03-05 07:00] LABS: BASOPHILS % (AUTO) 0.1 % (0.0-2.0); HEMATOCRIT 33 % (39-51); LYMPHOCYTES # (AUTO) 0.8 K/uL (0.8-4.8); LYMPHOCYTES % (AUTO) 10.6 % (20.0-44.0); MEAN CORPUSCULAR HGB CONC 32 g/dl (31.0-36.0); MEAN CORPUSCULAR VOLUME 88 fL (80-96); MONOCYTES # (AUTO) 0.2 K/uL (0.1-1.30); MONOCYTES % (AUTO) 1.9 % (2.0-12.0); NEUTROPHILS # (AUTO) 6.9 K/uL (1.8-8.9); NEUTROPHILS % (AUTO) 87.4 % (43.0-81.0); PLATELET COUNT (AUTO) 527 K/uL (150-450); RED BLOOD CELL COUNT(AUTO) 3.71 MIL/uL (4.5-6.0)
[2022-03-05 07:22] LABS: HEMOGLOBIN 10.4 g/dL (13.5-17.5)
[2022-03-05 07:29] LABS: CALCIUM, SERUM 9.3 mg/dL (8.5-10.1); CARBON DIOXIDE 21 mmol/L (21-32); CHLORIDE 118 mmol/L (98-107); CREATININE 1.4 mg/dL (0.6-1.3); GLUCOSE 195 mg/dL (74-106); MAGNESIUM 2.3 mg/dL (1.8-2.4); PHOSPHORUS 4.4 mg/dL (2.5-4.9); POTASSIUM 4.3 mmol/L (3.5-5.1); SODIUM SERUM 152 mmol/L (136-145); UREA NITROGEN, BLOOD 51 mg/dL (7-18)
--- NOTE | 2022-03-05 07:34 | NUR ---
RN OPENING NOTE Patient in bed, AO x 1, in no acute distress, saturation at 100% on 15L via non rebreather mask, SR on the monitor, HR is 72. IV line at LAC 20g, LFA 20g and R wrist 22g patent and flushing well with D5 1/2NS infusing at 50 ml/hr. Reddy catheter draining to a clear yellow output. Safety measures in place, bed is locked and at lowest position, bed alarm is on, side rails up x 2, call light within reach of patient. Will continue plan of care and anticipate needs.
[2022-03-05] MEDS: IPRATROPIUM NEB FS 0.5 MG/2.5 ML AMPUL.NEB NEB SCH ×4 (07:35→19:30)
[2022-03-05] MEDS: ALBUTEROL FS 2.5 MG/0.5 ML VIAL.NEB NEB SCH ×4 (07:35→19:30)
[2022-03-05 08:00] VITALS: BP 143/88
[2022-03-05] MEDS: PANTOPRAZOLE 40 MG VIAL IV SCH (09:11)
[2022-03-05] MEDS: MULTIVIT W/MINERALS 1 TAB TABLET GT SCH (09:11)
[2022-03-05] MEDS: DEXAMETHASONE SOD PHOSPHATE 10 MG/ML VIAL IV SCH (09:11)
[2022-03-05] MEDS: ASPIRIN 81 MG TAB.CHEW GT SCH (09:11)
[2022-03-05] MEDS: ZINC SULFATE 220 MG CAPSULE GT SCH (09:11)
[2022-03-05] MEDS: LINEZOLID 600 MG TABLET GT SCH ×2 (09:12→21:11)
[2022-03-05] MEDS: CHOLECALCIFEROL 1,000 UNIT TABLET (VIT D3) GT SCH (09:12)
[2022-03-05] MEDS: ASCORBIC ACID 500 MG TABLET GT SCH (09:12)
[2022-03-05] MEDS: METOPROLOL TARTRATE 25 MG TABLET PO SCH ×2 (09:12→21:11)
[2022-03-05] MEDS: DAKINS QUARTER STRENGTH (0.125%) 480 ML BOTTLE TOP SCH (09:13)
[2022-03-05] MEDS: Z GUARD REMEDY 4 OZ OINT TP SCH (09:13)
[2022-03-05] MEDS: THERAHONEY GEL 1.5 OZ TUBE TP SCH (09:14)
[2022-03-05 12:00] VITALS: BP 134/66
[2022-03-05] MEDS: FLUCONAZOLE (100 MG) 100 MG TABLET PO SCH (12:41)
--- NOTE | 2022-03-05 15:47 | NUR ---
TX NOT GIVEN DUE TO PATIENT TESTED POSITIVE FOR COVID. Addendum: 03/05/22 at 1548 by ABBY CHIANG RT Amended: Links added.
[2022-03-05 16:00] VITALS: BP 129/66
[2022-03-05] MEDS: AZITHROMYCIN 500 MG in IV D5W 250 ML IV SCH (17:17)
[2022-03-05] MEDS: GLUCERNA 1.2 1,000 ML BOTTLE GT PRN (18:10)
--- NOTE | 2022-03-05 18:44 | NUR ---
RN CLOSING NOTE Patient in bed, AO x 1, in no acute distress, saturation ranging from 97-99% on 6L via non rebreather mask, SR on the monitor. IV line at LAC 20g, LFA 20g and R wrist 22g patent and flushing well. Reddy catheter draining to a clear yellow output. Safety measures in place, bed is locked and at lowest position, bed alarm is on, side rails up x 2, call light within reach of patient. Will endorse to nightshift rn for continuation of care.
--- NOTE | 2022-03-05 19:48 | NUR ---
CISTERN ROOM WORKING SUPERVISOR OPENING NOTE RECEIVED PATIENT AWAKE ON BED, A/O X1, FRENCH SPEAKING, ON O2 VIA SIMPLE MASK AT 6L SAT 98%. PATIENT HAS IV ACCESS ON THE RIGHT WRIST #20 G AND LAC #20G INTACT, PATENT AND FLUSHING WELL, PATIENT ALSO HAS G TUBE IN PLACE RUNNING GLUCERNA AT 70 ML/ HR. ALL MEDICATION WERE ADMINISTER VIA G TUBE. SAFETY PRECAUTIONS IN PLACE; BED IS AT LOWEST AND LOCKED POSITION , SIDE RAILS UP, CALL LIGHT WITHIN REACH. WILL CONTINUE TO MONITOR THROUGHOUT THE SHIFT.
[2022-03-05 20:00] VITALS: BP 133/62
[2022-03-05] MEDS: EZETIMIBE 10 MG TABLET GT SCH (21:11)
[2022-03-06] VITALS (7 sets, daily range): BP systolic 106–160; BP diastolic 57–78
--- NOTE | 2022-03-06 | NUR ---
RN NOTE BS CHECKED AT 130 MG/DL, NO COVERAGE GIVEN PER SLIDING SCALE, WILL CONT TO MONITOR.
[2022-03-06] MEDS: BLOOD SUGAR DIAGNOSTIC 1 EACH STRIP IN SCH ×5 (00:44→23:06)
[2022-03-06] MEDS: MEROPENEM 500 MG in IV NS 0.9% 50 ML IV SCH ×2 (04:10→16:50)
[2022-03-06] MEDS: INSULIN REGULAR, HUMAN 100 UNIT/ML 3 ML VIAL SQ PRN (05:37)
--- NOTE | 2022-03-06 05:54 | NUR ---
RN NOTE BS CHECKED AT 155 MG/DL, 2 UNITS OF INSULIN GIVEN PER SLIDING SCALE, WILL CONT TO MONITOR.
[2022-03-06 06:13] LABS: BASOPHILS % (AUTO) 0.2 % (0.0-2.0); HEMATOCRIT 30 % (39-51); HEMOGLOBIN 9.4 g/dL (13.5-17.5); LYMPHOCYTES # (AUTO) 1.1 K/uL (0.8-4.8); LYMPHOCYTES % (AUTO) 17.2 % (20.0-44.0); MEAN CORPUSCULAR HGB CONC 31 g/dl (31.0-36.0); MEAN CORPUSCULAR VOLUME 91 fL (80-96); MONOCYTES # (AUTO) 0.3 K/uL (0.1-1.30); MONOCYTES % (AUTO) 4.7 % (2.0-12.0); NEUTROPHILS # (AUTO) 5.1 K/uL (1.8-8.9); NEUTROPHILS % (AUTO) 77.9 % (43.0-81.0); PLATELET COUNT (AUTO) 473 K/uL (150-450); RED BLOOD CELL COUNT(AUTO) 3.33 MIL/uL (4.5-6.0); WHITE BLOOD COUNT (AUTO) 6.5 K/uL (4.3-11.0)
--- NOTE | 2022-03-06 06:36 | NUR ---
YARD CLEANER CLOSING NOTE PT REMAINS ON BED SLEEPING BUT EASILY AROUSABLE TO TOUCH AND VOICE, A/O X1, SOMALI SPEAKING, ON O2 VIA NC AT 5L TOLERATING WELL, CURRENTLY SATING SAT 99%. ON TELEMONITORING CURRENTLY READING SR AT 75. PATIENT HAS IV ACCESS ON THE RIGHT WRIST #20 G, LAC #20G AND LFA #20G INTACT, PATENT AND FLUSHING WELL, PATIENT ALSO HAS G TUBE IN PLACE RUNNING GLUCERNA AT 70 ML/ HR. ALL DUE MEDS GIVEN, KEPT DRY AND CLEAN. SAFETY PRECAUTIONS IN PLACE; BED AT LOWEST AND LOCKED POSITION , SIDE RAILS UP X3, CALL LIGHT WITHIN REACH. WILL ENDORSE TO AM SHIFT NURSE FOR CONTINUITY OF CARE.
[2022-03-06 06:37] LABS: CALCIUM, SERUM 8.7 mg/dL (8.5-10.1); CREATININE 1.2 mg/dL (0.6-1.3); MAGNESIUM 2.3 mg/dL (1.8-2.4); PHOSPHORUS 3.7 mg/dL (2.5-4.9); POTASSIUM 4.7 mmol/L (3.5-5.1)
[2022-03-06] MEDS: ALBUTEROL FS 2.5 MG/0.5 ML VIAL.NEB NEB SCH ×4 (07:29→19:30)
[2022-03-06] MEDS: IPRATROPIUM NEB FS 0.5 MG/2.5 ML AMPUL.NEB NEB SCH ×4 (07:29→19:30)
--- NOTE | 2022-03-06 07:29 | NUR ---
RT Tx not given due to positive COVID-19 test
--- NOTE | 2022-03-06 07:31 | NUR ---
MOLD CAR PUSHER OPEN NOTE PT REMAINS ON BED SLEEPING BUT EASILY AROUSALS TO TOUCH AND VOICE, A/O X1, GREEK SPEAKING, ON O2 VIA NC AT 5L TOLERATING WELL, CURRENTLY SATING SAT 99%. ON TELEMONITORING CURRENTLY READING SR AT 76 PATIENT HAS IV ACCESS ON THE RIGHT WRIST #20 G, LAC #20G AND LFA #20G INTACT, PATENT AND FLUSHING WELL, PATIENT ALSO HAS G TUBE IN PLACE RUNNING GLUCERNA AT 70 ML/ HR. ALL DUE MEDS GIVEN, KEPT DRY AND CLEAN. SAFETY PRECAUTIONS IN PLACE; BED AT LOWEST AND LOCKED POSITION , SIDE RAILS UP X3, CALL LIGHT WITHIN REACH. WILL CONTINUE TO FALLOW CARLOS
[2022-03-06] MEDS: DEXAMETHASONE SOD PHOSPHATE 10 MG/ML VIAL IV SCH (08:35)
[2022-03-06] MEDS: PANTOPRAZOLE 40 MG VIAL IV SCH (08:35)
[2022-03-06] MEDS: MULTIVIT W/MINERALS 1 TAB TABLET GT SCH (08:35)
[2022-03-06] MEDS: METOPROLOL TARTRATE 25 MG TABLET PO SCH ×2 (08:36→21:27)
[2022-03-06] MEDS: FLUCONAZOLE (100 MG) 100 MG TABLET PO SCH (08:37)
[2022-03-06] MEDS: ZINC SULFATE 220 MG CAPSULE GT SCH (08:37)
[2022-03-06] MEDS: CHOLECALCIFEROL 1,000 UNIT TABLET (VIT D3) GT SCH (08:37)
[2022-03-06] MEDS: LINEZOLID 600 MG TABLET GT SCH ×2 (08:37→21:27)
[2022-03-06] MEDS: ASCORBIC ACID 500 MG TABLET GT SCH (08:37)
[2022-03-06] MEDS: ASPIRIN 81 MG TAB.CHEW GT SCH (08:39)
[2022-03-06] MEDS: DAKINS QUARTER STRENGTH (0.125%) 480 ML BOTTLE TOP SCH (08:48)
[2022-03-06] MEDS: Z GUARD REMEDY 4 OZ OINT TP PRN (08:48)
[2022-03-06] MEDS: Z GUARD REMEDY 4 OZ OINT TP SCH (08:49)
[2022-03-06] MEDS: THERAHONEY GEL 1.5 OZ TUBE TP SCH (08:55)
[2022-03-06] MEDS: GLUCERNA 1.2 1,000 ML BOTTLE GT PRN (15:35)
[2022-03-06] MEDS: AZITHROMYCIN 500 MG in IV D5W 250 ML IV SCH (16:51)
--- NOTE | 2022-03-06 18:24 | NUR ---
RN CLOSING NOTE Patient in bed, AO x 1, in no acute distress, saturation ranging from 97-99% on 5 LOF O2 via N/C, SR on the monitor. IV line at LAC 20g, LFA 20g and R wrist 22g patent and flushing well. Reddy catheter draining to a clear yellow output. All medications were administered, all needs are met . Safety measures in place, bed is locked and at lowest position, bed alarm is on, side rails up x 2, call light within reach of patient. Will endorse to nightshift rn for continuation of care.
--- NOTE | 2022-03-06 19:40 | NUR ---
MANAGER TRANSFUSION OPENING NOTE RECEIVED PATIENT AWAKE ON BED, A/O X1, NON-VERBAL, ON O2 VIA NC AT 5L SAT 98%. PATIENT HAS IV ACCESS ON THE RIGHT WRIST #20 G AND LAC #20G AND LFA #20G INTACT, PATENT AND FLUSHING WELL, WITH G TUBE IN PLACE RUNNING GLUCERNA AT 70 ML/ HR. ALL MEDICATION WERE ADMINISTER VIA G TUBE. SAFETY PRECAUTIONS IN PLACE; BED AT LOWEST AND LOCKED POSITION , SIDE RAILS UP, CALL LIGHT WITHIN REACH. WILL CONTINUE TO MONITOR THROUGHOUT THE SHIFT.
[2022-03-06] MEDS: EZETIMIBE 10 MG TABLET GT SCH (21:27)
--- NOTE | 2022-03-06 23:06 | NUR ---
RN NOTE BS CHECKED AT 106 MG/DL, NO COVERAGE GIVEN PER SLIDING SCALE, WILL CONT TO MONITOR.
[2022-03-07] VITALS: BP 176/79
--- NOTE | 2022-03-07 00:26 | NUR ---
RN NOTE NOTED PT BP AT 176/79, INFORMED COP DOC GIRMA, NO PRN ORDER FOR HIGH BP, HE THEN ORDERED 10 MG IV HYDRALAZINE Q4H PRN FOR BP >160. ORDER TAKEN AND CARRIED OUT, WILL CONT TO MONITOR.
[2022-03-07] MEDS: hydrALAZINE HCL IV 20 MG VIAL IV PRN ×2 (00:39→20:58)
[2022-03-07 04:00] VITALS: BP 132/65
[2022-03-07] MEDS: MEROPENEM 500 MG in IV NS 0.9% 50 ML IV SCH ×2 (05:03→17:56)
[2022-03-07] MEDS: GLUCERNA 1.2 1,000 ML BOTTLE GT PRN (05:03)
[2022-03-07] MEDS: BLOOD SUGAR DIAGNOSTIC 1 EACH STRIP IN SCH ×3 (05:03→18:10)
[2022-03-07] MEDS: INSULIN REGULAR, HUMAN 100 UNIT/ML 3 ML VIAL SQ PRN ×2 (05:23→18:10)
--- NOTE | 2022-03-07 05:45 | NUR ---
RN NOTE BS CHECKED AT 142 MG/DL, 2 UNITS OF INSULIN GIVEN PER SLIDING SCALE, BP GOES DOWN TO 132/65, WILL CONT TO MONITOR.
--- NOTE | 2022-03-07 06:34 | NUR ---
ICT SUPPORT TECHNICIANS CLOSING NOTE PT AWAKE SITTING ON BED , A/O X1, NON VERBAL, ON O2 VIA NC AT 5L TOLERATING WELL, CURRENTLY SATING SAT 95%. ON TELEMONITORING CURRENTLY READING SR AT 70. PATIENT HAS IV ACCESS ON THE RIGHT WRIST #20 G AND LAC #20G INTACT, PATENT AND FLUSHING WELL, PATIENT ALSO HAS G TUBE IN PLACE RUNNING GLUCERNA AT 70 ML/ HR. ALL DUE MEDS GIVEN, KEPT DRY AND CLEAN. SAFETY PRECAUTIONS IN PLACE; BED AT LOWEST AND LOCKED POSITION , SIDE RAILS UP X3, CALL LIGHT WITHIN REACH. WILL ENDORSE TO AM SHIFT NURSE FOR CONTINUITY OF CARE.
[2022-03-07 07:11] LABS: CALCIUM, SERUM 8.6 mg/dL (8.5-10.1); CHLORIDE 117 mmol/L (98-107); CREATININE 1.1 mg/dL (0.6-1.3); GLUCOSE 150 mg/dL (74-106); POTASSIUM 4.9 mmol/L (3.5-5.1); SODIUM SERUM 148 mmol/L (136-145); UREA NITROGEN, BLOOD 62 mg/dL (7-18)
[2022-03-07 07:16] LABS: CARBON DIOXIDE 23 mmol/L (21-32)
--- NOTE | 2022-03-07 07:27 | NUR ---
AM BODY SHOP MANAGER OPENING NOTES: RECEIVED PATIENT IN BED, ASLEEP BUT EASILY AROUSES TO VOICE AND SOUND. NO SOB NOTED, BREATHING EVEN AND UNLABORED. ON OXYGEN @ 5L/MIN VIA N/C WITH OXYGEN SATURATION OF 100%. ON SR WITH HR OF 62 ON TELE MONITOR. IV ACCESS ON RIGHT WRIST INTACT, FLUSHES WELL AND ALSO ON LEFT ANTECUBITAL AREA, SALINE LOCK, PATENT AND NO S/S INFILTRATION NOTED. G-TUBE FEEDING OF GLUCERNA @ 70 ML/HR, G-TUBE SITE PATENT, IN PLACE, NO RESIDUAL NOTED, FLUSHES WELL. DELA CRUZ CATHETER IN PLACE, DRAINING WITH YELLOW COLORED URINE, NO BLOOD AND NO SEDIMENTATION NOTED. HOB KEPT ELEVATED. CALL LIGHT WITHIN REACH. BED LOCKED AND IN LOWEST POSITION. ALL SAFETY MEASURES IN PLACE. WILL CONTINUE TO MONITOR PATIENT THROUGHOUT SHIFT.
[2022-03-07] MEDS: ALBUTEROL FS 2.5 MG/0.5 ML VIAL.NEB NEB SCH ×5 (07:35→19:30)
[2022-03-07] MEDS: IPRATROPIUM NEB FS 0.5 MG/2.5 ML AMPUL.NEB NEB SCH ×5 (07:35→19:30)
[2022-03-07] MEDS: PANTOPRAZOLE 40 MG/PACK PACK GT SCH (07:47)
[2022-03-07 08:00] VITALS: BP 144/69
[2022-03-07 08:07] LABS: OCCULT BLOOD STOOL NEGATIVE (NEGATIVE)
[2022-03-07] MEDS: THERAHONEY GEL 1.5 OZ TUBE TP SCH (09:00)
[2022-03-07] MEDS: DAKINS QUARTER STRENGTH (0.125%) 480 ML BOTTLE TOP SCH (09:00)
[2022-03-07] MEDS: Z GUARD REMEDY 4 OZ OINT TP SCH (09:00)
[2022-03-07] MEDS: DEXAMETHASONE SOD PHOSPHATE 10 MG/ML VIAL IV SCH (10:15)
[2022-03-07] MEDS: ZINC SULFATE 220 MG CAPSULE GT SCH (10:15)
[2022-03-07] MEDS: MULTIVIT W/MINERALS 1 TAB TABLET GT SCH (10:15)
[2022-03-07] MEDS: FLUCONAZOLE (100 MG) 100 MG TABLET PO SCH (10:15)
[2022-03-07] MEDS: ASCORBIC ACID 500 MG TABLET GT SCH (10:16)
[2022-03-07] MEDS: LINEZOLID 600 MG TABLET GT SCH ×2 (10:16→20:58)
[2022-03-07] MEDS: CHOLECALCIFEROL 1,000 UNIT TABLET (VIT D3) GT SCH (10:16)
[2022-03-07] MEDS: ASPIRIN 81 MG TAB.CHEW GT SCH (10:16)
[2022-03-07] MEDS: METOPROLOL TARTRATE 25 MG TABLET PO SCH ×2 (10:19→20:59)
[2022-03-07 12:00] VITALS: BP 156/70
[2022-03-07 16:00] VITALS: BP 155/76
[2022-03-07] MEDS: AZITHROMYCIN 250 MG TABLET PO SCH (17:56)
[2022-03-07] MEDS: PROSOURCE / PROSTAT (PYXIS) 30 ML UDC GT SCH (17:56)
--- NOTE | 2022-03-07 18:51 | NUR ---
QUALITY ASSURANCE AUDITOR CLOSING NOTES: PATIENT IN BED, ASLEEP BUT EASILY AROUSES TO VOICE AND TACTILE STIMULI. NO RESPIRATORY DISTRESS AT THIS TIME. ON OXYGEN @ 5L/MIN VIA N/C WITH OXYGEN SATURATION OF 100%. ON SB WITH HR OF 58 PER TELE MONITOR. PATIENT HAS SALINE LOCKS ON RIGHT WRIST INTACT, AND ON LEFT ANTECUBITAL AREA, BOTH FLUSHES WELL, INTACT AND NO S/S INFILTRATION NOTED. G-TUBE FEEDING OF GLUCERNA ON HOLD PER MD'S ORDER G-TUBE PATENT AND INPLACE, NO RESIDUAL NOTED. DELA CRUZ CATHETER IN PLACE, EMPTIED 1000 ML OF YELLOW COLORED URINE, NO BLOOD AND NO SEDIMENTATION NOTED. BED LOCKED AND IN LOWEST POSITION. HOB KEPT ELEVATED. CALL LIGHT WITHIN REACH. ALL SAFETY MEASURES IN PLACE. WILL ENDORSE TO NEXT SHIFT NURSE FOR CONTINUATION OF CARE.
--- NOTE | 2022-03-07 19:30 | NUR ---
DIRECT MAIL MARKETER OPEN NOTE: AWAKE AND RESPONSIVE TO VERBAL STIMULI. MOIST ORAL MUCOSA. UNLABORED BREATHING WITH O2 5 LITERS NASAL CANNULA. IV ON RT WRIST 22G WITH NO S/S OF COMPLICATIONS SALINE LOCKED. IV ON LEFT AC DISLODGED. GT IN PLACE PATENT NO RESIDUAL TELE MONITOR ON WITH A READING OF SINUS RHYTHM PARVEZ. REPOSITIONED WITH PILLOWS. CLEAN DRESSINGS ON RIGHT MALLEOLUS AND LEFT HEEL. PRESSURE OFF AND OFFLOADING. HOB ELEVATED AT SEMI-FOWLERS POSITION. BILATERAL HALF SIDE RAILS UPX2. BED IN LOW POSITION, LOCKED, EXIT ALARM ON AND CALL LIGHT IN REACH. KEPT CLEAN AND COMFORTABLE. NO S/S OF PAIN OR DISCOMFORT.
[2022-03-07 20:00] VITALS: BP 169/74
[2022-03-07] MEDS: EZETIMIBE 10 MG TABLET GT SCH (22:55)
[2022-03-08] VITALS: BP 155/70
[2022-03-08] MEDS: BLOOD SUGAR DIAGNOSTIC 1 EACH STRIP IN SCH ×4 (01:05→18:45)
[2022-03-08] MEDS: INSULIN REGULAR, HUMAN 100 UNIT/ML 3 ML VIAL SQ PRN ×2 (01:10→18:47)
[2022-03-08] MEDS: GLUCERNA 1.2 1,000 ML BOTTLE GT PRN (03:56)
[2022-03-08 04:00] VITALS: BP 156/74
--- NOTE | 2022-03-08 07:00 | NUR ---
HEAD START TEACHER CLOSE NOTE: AWAKE AND RESPONSIVE TO VERBAL STIMULI. MOIST ORAL MUCOSA. UNLABORED BREATHING WITH O2 5 LITERS NASAL CANNULA. IV ON RT WRIST 22G NOT PATENT. NO IV ACCESS, WITH ORDERS FOR MIDLINE INSERTION, MERREN 0500 DOSE IV NOT ABLE TO GIVE DUE TO NO IV ACCESS. ATTEMPTED TO INSERT IV TIMES TIMES BY CHARGE WITH NO SUCCESS. CLINICAL ACADEMIC ALLERGIST UNABLE TO DRAW BLOOD DUE TO POOR IV ACCESS. GT IN PLACE PATENT NO RESIDUAL TELE MONITOR ON WITH A READING OF SINUS 60. WOUND CARE PROVIDED. TOTAL CARE PROVIDED. BLOOD GLUCOSE CHECKED WITH NO S/S OF COMPLICATIONS. REPOSITIONED WITH PILLOWS. CLEAN DRESSINGS ON RIGHT MALLEOLUS AND LEFT HEEL. PRESSURE OFF AND OFFLOADING. HOB ELEVATED AT SEMI-FOWLERS POSITION. BILATERAL HALF SIDE RAILS UPX2. BED IN LOW POSITION, LOCKED, EXIT ALARM ON AND CALL LIGHT IN REACH. KEPT CLEAN AND COMFORTABLE. NO S/S OF PAIN OR DISCOMFORT.
--- NOTE | 2022-03-08 07:15 | NUR ---
RN OPENING NOTE RECEIVED PATIENT IN BED, ALERT AND ORIENTED X1. PATIENT HAS NO IV ACCESS CURRENTLY. MD AWARE. WAITING FOR MIDLINE INSERTION. GTUBE IN PLACE, INTACT, NO RESIDUAL VOLUME NOTED. NO SIGNS OF PAIN OR DISCOMOFRT NOTED AT THIS TIME. PATIENT IS ON TELE MONITOR CURRENTLY SINUS RHYTM. PATIENT IS ON O2 NASAL CANNULA 5 L TOLERATING AT ABOVE 94%. PATIENT IS ISOLATION PRECAUTIONS DUE TO COVID.
[2022-03-08] MEDS: ALBUTEROL FS 2.5 MG/0.5 ML VIAL.NEB NEB SCH ×4 (07:35→19:30)
[2022-03-08] MEDS: IPRATROPIUM NEB FS 0.5 MG/2.5 ML AMPUL.NEB NEB SCH ×4 (07:35→19:30)
[2022-03-08 08:00] VITALS: BP 151/75
--- NOTE | 2022-03-08 09:00 | NUR ---
DR. GODINEZ MADE ROUNDS AND REDUCED TO 02 TO 3 L TO SEE IF PATIENT CAN TOLERATE IT AND POSSIBLE DISCHARGE
--- NOTE | 2022-03-08 10:00 | NUR ---
MIDLINE INSERTED ON LEFT UPPER ARM.
[2022-03-08] MEDS: ASPIRIN 81 MG TAB.CHEW GT SCH (10:28)
[2022-03-08] MEDS: PANTOPRAZOLE 40 MG/PACK PACK GT SCH (10:28)
[2022-03-08] MEDS: PROSOURCE / PROSTAT (PYXIS) 30 ML UDC GT SCH ×2 (10:29→16:40)
[2022-03-08] MEDS: MULTIVIT W/MINERALS 1 TAB TABLET GT SCH (10:29)
[2022-03-08] MEDS: FLUCONAZOLE (100 MG) 100 MG TABLET PO SCH (10:30)
[2022-03-08] MEDS: CHOLECALCIFEROL 1,000 UNIT TABLET (VIT D3) GT SCH (10:30)
[2022-03-08] MEDS: ZINC SULFATE 220 MG CAPSULE GT SCH (10:31)
[2022-03-08] MEDS: DEXAMETHASONE SOD PHOSPHATE 10 MG/ML VIAL IV SCH (10:31)
[2022-03-08] MEDS: METOPROLOL TARTRATE 25 MG TABLET PO SCH ×2 (10:31→21:00)
[2022-03-08] MEDS: LINEZOLID 600 MG TABLET GT SCH ×2 (10:35→21:58)
[2022-03-08] MEDS: MEROPENEM 500 MG in IV NS 0.9% 50 ML IV SCH ×2 (10:36→16:40)
[2022-03-08] MEDS: ASCORBIC ACID 500 MG TABLET GT SCH (10:36)
[2022-03-08 12:00] VITALS: BP 170/78
[2022-03-08] MEDS: DAKINS QUARTER STRENGTH (0.125%) 480 ML BOTTLE TOP SCH (12:17)
[2022-03-08 15:17] LABS: CALCIUM, SERUM 8.5 mg/dL (8.5-10.1); CREATININE 0.9 mg/dL (0.6-1.3); POTASSIUM 5.3 mmol/L (3.5-5.1)
[2022-03-08 15:38] LABS: BASOPHILS % (AUTO) 0.1 % (0.0-2.0); EOSINOPHILS % (AUTO) 0.7 % (0.0-6.0); HEMATOCRIT 37 % (39-51); HEMOGLOBIN 10.8 g/dL (13.5-17.5); LYMPHOCYTES # (AUTO) 1.2 K/uL (0.8-4.8); LYMPHOCYTES % (AUTO) 13.4 % (20.0-44.0); MEAN CORPUSCULAR HGB CONC 29 g/dl (31.0-36.0); MEAN CORPUSCULAR VOLUME 94 fL (80-96); MONOCYTES # (AUTO) 0.3 K/uL (0.1-1.30); MONOCYTES % (AUTO) 3.6 % (2.0-12.0); NEUTROPHILS # (AUTO) 7.6 K/uL (1.8-8.9); NEUTROPHILS % (AUTO) 82.2 % (43.0-81.0); PLATELET COUNT (AUTO) 405 K/uL (150-450); RED BLOOD CELL COUNT(AUTO) 3.93 MIL/uL (4.5-6.0); WHITE BLOOD COUNT (AUTO) 9.3 K/uL (4.3-11.0)
[2022-03-08 16:00] VITALS: BP 154/75
[2022-03-08] MEDS: AZITHROMYCIN 250 MG TABLET PO SCH (16:40)
[2022-03-08] MEDS: THERAHONEY GEL 1.5 OZ TUBE TP SCH (16:40)
[2022-03-08] MEDS: Z GUARD REMEDY 4 OZ OINT TP SCH (16:54)
--- NOTE | 2022-03-08 19:32 | NUR ---
RT NOTE TX WITHHELD DUE TO POSITIVE PCR RESULTS. SPO2 99%, HR 57, RR 18 AT THIS TIME. NO RESPIRATORY DISTRESS NOTED. WILL MONITOR.
[2022-03-08 20:00] VITALS: BP 153/74
--- NOTE | 2022-03-08 20:15 | NUR ---
RN CLOSING NOTE PATIENT AWAKE, ALERT AND ORIENTED X1. PATIENT HAS LEFT UPPER ARM MIDLINE, INTACT AND PATENT. PATIENT IS ON 3 NASAL CANNULA TOLERATING AT 99%. PATIENT IS ON TELE MONITOR SINUS RHYTM. NO SIGNS OF PAIN OR DISCOMOFRT. KEPT CLEAN AND DRY. GTUBE INTACT AND PATENT. ALL SAFETY MEASURES IN PLACE. CALL LIGHT WITHIN REACH.BED LOCKED AT LOWEST POSITION.
[2022-03-08 21:21] LABS: BAND % (MANUAL) 1 % (0.0-5.0); LYMPHOCYTES % (MANUAL) 19 % (16-48); MONOCYTES % (MANUAL) 1 % (0-11.0); NEUTROPHILS % (MANUAL) 79 (42-76)
[2022-03-08] MEDS: ACETAMINOPHEN 325 MG TABLET PO PRN (21:58)
[2022-03-08] MEDS: EZETIMIBE 10 MG TABLET GT SCH (22:03)
[2022-03-09] VITALS (7 sets, daily range): BP systolic 144–171; BP diastolic 71–79
[2022-03-09] MEDS: BLOOD SUGAR DIAGNOSTIC 1 EACH STRIP IN SCH ×5 (01:19→23:58)
[2022-03-09] MEDS: GLUCERNA 1.2 1,000 ML BOTTLE GT PRN ×2 (01:22→16:15)
[2022-03-09] MEDS: hydrALAZINE HCL IV 20 MG VIAL IV PRN (04:57)
[2022-03-09] MEDS: MEROPENEM 500 MG in IV NS 0.9% 50 ML IV SCH ×2 (04:57→16:31)
--- NOTE | 2022-03-09 06:00 | NUR ---
TRAFFIC WORKFORCE REPRESENTATIVE CLOSE NOTE: AWAKE AND RESPONSIVE TO VERBAL STIMULI. MOIST ORAL MUCOSA. UNLABORED BREATHING WITH O2 3 LITERS NASAL CANNULA. LEFT UPPER ARM MIDLINE PATENT WITH NO S/S OF COMPLICATIONS. GT IN PLACE PATENT NO RESIDUAL TELE MONITOR ON WITH A READING OF SINUS PARVEZ 57-60 THROUGHOUT SHIFT. CONTINUES ON ABX IV ORDERED WITH NO A/R. WOUND CARE PROVIDED. TOTAL CARE PROVIDED. BLOOD GLUCOSE CHECKED WITH NO S/S HYPO OR HYPERGLYCEMIA. REPOSITIONED WITH PILLOWS. CLEAN DRESSINGS ON RIGHT MALLEOLUS AND LEFT HEEL. PRESSURE OFF AND OFFLOADING. HOB ELEVATED AT SEMI-FOWLERS POSITION. ASPIRATION PRECAUTION MAINTAINED AT ALL TIMES. BILATERAL HALF SIDE RAILS UPX2. BED IN LOW POSITION, LOCKED, EXIT ALARM ON AND CALL LIGHT IN REACH. KEPT CLEAN AND COMFORTABLE. NO S/S OF PAIN OR DISCOMFORT.
[2022-03-09 07:19] LABS: BASOPHILS % (AUTO) 0.1 % (0.0-2.0); EOSINOPHILS % (AUTO) 0.8 % (0.0-6.0); HEMATOCRIT 29 % (39-51); HEMOGLOBIN 9.1 g/dL (13.5-17.5); LYMPHOCYTES # (AUTO) 1.9 K/uL (0.8-4.8); LYMPHOCYTES % (AUTO) 15.9 % (20.0-44.0); MEAN CORPUSCULAR HGB CONC 32 g/dl (31.0-36.0); MEAN CORPUSCULAR VOLUME 87 fL (80-96); MONOCYTES # (AUTO) 0.8 K/uL (0.1-1.30); MONOCYTES % (AUTO) 6.3 % (2.0-12.0); NEUTROPHILS # (AUTO) 9.4 K/uL (1.8-8.9); NEUTROPHILS % (AUTO) 76.9 % (43.0-81.0); PLATELET COUNT (AUTO) 496 K/uL (150-450); RED BLOOD CELL COUNT(AUTO) 3.33 MIL/uL (4.5-6.0); WHITE BLOOD COUNT (AUTO) 12.2 K/uL (4.3-11.0)
[2022-03-09] MEDS: ALBUTEROL FS 2.5 MG/0.5 ML VIAL.NEB NEB SCH ×4 (07:35→19:30)
[2022-03-09] MEDS: IPRATROPIUM NEB FS 0.5 MG/2.5 ML AMPUL.NEB NEB SCH ×4 (07:35→19:30)
[2022-03-09 07:40] LABS: CALCIUM, SERUM 8.5 mg/dL (8.5-10.1); CREATININE 0.9 mg/dL (0.6-1.3); POTASSIUM 4.8 mmol/L (3.5-5.1)
--- NOTE | 2022-03-09 07:49 | NUR ---
RN OPENING NOTE RECEIVED PATIENT IN BED, ALERT AND ORIENTED X1. PATIENT HAS RIGHT UPPER ARM MIDLINE .IV PATENT AND INTACT .GTUBE IN PLACE, INTACT, NO RESIDUAL VOLUME NOTED. NO SIGNS OF PAIN OR DISCOMFORT NOTED AT THIS TIME. PATIENT IS ON TELE MONITOR CURRENTLY SINUS RHYTHM. PATIENT IS ON O2 NASAL CANNULA 3 L TOLERATING AT ABOVE 94%. PATIENT IS ISOLATION.ALL SAFETY MEASURES IN PLACE. CALL LIGHT WITHIN REACH. BED LOCKED AT LOWEST POSITION. SIDE RAILS UP X2.BED ALARM ON
--- NOTE | 2022-03-09 07:54 | NUR ---
TX NOT GIVEN DUE TO COVID POSITIVE Addendum: 03/09/22 at 0755 by ABBY CHIANG RT Amended: Links added.
[2022-03-09] MEDS: PANTOPRAZOLE 40 MG/PACK PACK GT SCH (08:08)
[2022-03-09] MEDS: ASPIRIN 81 MG TAB.CHEW GT SCH (08:08)
[2022-03-09] MEDS: LINEZOLID 600 MG TABLET GT SCH ×2 (08:09→21:01)
[2022-03-09] MEDS: ZINC SULFATE 220 MG CAPSULE GT SCH (08:09)
[2022-03-09] MEDS: FLUCONAZOLE (100 MG) 100 MG TABLET PO SCH (08:09)
[2022-03-09] MEDS: ASCORBIC ACID 500 MG TABLET GT SCH (08:09)
[2022-03-09] MEDS: CHOLECALCIFEROL 1,000 UNIT TABLET (VIT D3) GT SCH (08:09)
[2022-03-09] MEDS: DEXAMETHASONE SOD PHOSPHATE 10 MG/ML VIAL IV SCH (08:09)
[2022-03-09] MEDS: MULTIVIT W/MINERALS 1 TAB TABLET GT SCH (08:09)
[2022-03-09] MEDS: METOPROLOL TARTRATE 25 MG TABLET PO SCH ×2 (08:10→21:02)
[2022-03-09] MEDS: Z GUARD REMEDY 4 OZ OINT TP SCH (09:00)
[2022-03-09] MEDS: PROSOURCE / PROSTAT (PYXIS) 30 ML UDC GT SCH ×2 (11:47→16:15)
[2022-03-09] MEDS: THERAHONEY GEL 1.5 OZ TUBE TP SCH (11:56)
[2022-03-09] MEDS: DAKINS QUARTER STRENGTH (0.125%) 480 ML BOTTLE TOP SCH (11:56)
[2022-03-09 13:11] LABS: BAND % (MANUAL) 1 % (0.0-5.0); LYMPHOCYTES % (MANUAL) 17 % (16-48); MONOCYTES % (MANUAL) 7 % (0-11.0); MYELOCYTES % 3 % (0-0); NEUTROPHILS % (MANUAL) 72 (42-76)
--- NOTE | 2022-03-09 16:00 | NUR ---
RN NOTE PROVIDED FAMILY WITH UPDATES.
--- NOTE | 2022-03-09 17:00 | NUR ---
RN NOTE NOTIFIED THAT PATIENT SON WANTS DISCHARGE TO BE HELD. DOESN'T LIKE THE FACILITY CAME FROM. SON WANTS PCR TEST, SPEECH EVAL TO BE ORDERED, AND WANTS TO SPEAK WITH MD. CHARGE NURSE NOTIFIED. PAYABLE MANAGER NOTFIED.
[2022-03-09] MEDS ORDERED: Linezolid GT (17:26)
[2022-03-09] MEDS ORDERED: FLUC100T8 PO (17:26)
[2022-03-09] MEDS ORDERED: MERO500V23 IV (17:26)
[2022-03-09] MEDS ORDERED: DEXA4TAB68 PO (17:27)
[2022-03-09] MEDS: INSULIN REGULAR, HUMAN 100 UNIT/ML 3 ML VIAL SQ PRN (17:51)
--- NOTE | 2022-03-09 19:00 | NUR ---
RN NOTE Patient in bed, AO x 1, in no acute distress, saturation at 100% on 3L via nc, SR on the monitor, HR is 62. ALEXSANDER midline patent and flushing well, saline locked. Gtube in place, positive placement noted, clamped at the moment, will resume tube feeding of Glucerna at 70 ml/hr at 2100. Reddy catheter draining to a clear yellow output. Safety measures in place, bed is locked and at lowest position, bed alarm is on, side rails up x 2, call light within reach of patient. Will cont to monitor and reassess
--- NOTE | 2022-03-09 20:40 | NUR ---
RN CLOSING NOTE PATIENT IN BED, ALERT AND ORIENTED X1. PATIENT HAS RIGHT UPPER ARM MIDLINE .IV PATENT AND INTACT .GTUBE IN PLACE, INTACT, NO RESIDUAL VOLUME NOTED. NO SIGNS OF PAIN OR DISCOMFORT NOTED AT THIS TIME. PATIENT IS ON TELE MONITOR CURRENTLY SINUS RHYTHM. ALL NEEDS MET. KEPT WOUND CLEAN AND DRY. PATIENT IS ON O2 NASAL CANNULA 3 L TOLERATING AT ABOVE 96%. PATIENT IS ISOLATION.ALL SAFETY MEASURES IN PLACE. CALL LIGHT WITHIN REACH. BED LOCKED AT LOWEST POSITION. SIDE RAILS UP X2.BED ALARM ON
[2022-03-09] MEDS: EZETIMIBE 10 MG TABLET GT SCH (21:01)
[2022-03-10] VITALS: BP 156/85
[2022-03-10 04:00] VITALS: BP 159/82
[2022-03-10] MEDS: MEROPENEM 500 MG in IV NS 0.9% 50 ML IV SCH ×2 (06:06→16:32)
[2022-03-10] MEDS: BLOOD SUGAR DIAGNOSTIC 1 EACH STRIP IN SCH ×3 (06:15→18:01)
[2022-03-10 07:01] LABS: BASOPHILS # (AUTO) 0.1 K/uL (0.0-0.2); BASOPHILS % (AUTO) 0.5 % (0.0-2.0); EOSINOPHILS % (AUTO) 0.6 % (0.0-6.0); HEMATOCRIT 30 % (39-51); HEMOGLOBIN 9.4 g/dL (13.5-17.5); LYMPHOCYTES # (AUTO) 2.6 K/uL (0.8-4.8); LYMPHOCYTES % (AUTO) 19.3 % (20.0-44.0); MEAN CORPUSCULAR HGB CONC 32 g/dl (31.0-36.0); MEAN CORPUSCULAR VOLUME 87 fL (80-96); MONOCYTES # (AUTO) 0.8 K/uL (0.1-1.30); MONOCYTES % (AUTO) 5.9 % (2.0-12.0); NEUTROPHILS # (AUTO) 9.8 K/uL (1.8-8.9); NEUTROPHILS % (AUTO) 73.7 % (43.0-81.0); PLATELET COUNT (AUTO) 486 K/uL (150-450); RED BLOOD CELL COUNT(AUTO) 3.39 MIL/uL (4.5-6.0); WHITE BLOOD COUNT (AUTO) 13.3 K/uL (4.3-11.0)
--- NOTE | 2022-03-10 07:15 | NUR ---
RN OPENING NOTE PATIENT IN BED, ALERT AND ORIENTED X1. PATIENT HAS RIGHT UPPER ARM MIDLINE .IV PATENT AND INTACT .GTUBE IN PLACE, INTACT, NO RESIDUAL VOLUME NOTED. NO SIGNS OF PAIN OR DISCOMFORT NOTED AT THIS TIME. TELE MONITOR CURRENTLY SINUS RHYTHM. PATIENT IS BREATHING ON 2L NASAL CANNULA WITH 02SAT OF 97%. PATIENT IS ON ISOLATION PRECAUTIONS. ALL SAFETY MEASURES IN PLACE. CALL LIGHT WITHIN REACH. BED LOCKED AT LOWEST POSITION. SIDE RAILS UP X2.BED ALARM ON. WILL CONTINUE TO MONITOR THROUGHOUT SHIFT.
[2022-03-10 07:32] LABS: CALCIUM, SERUM 8.5 mg/dL (8.5-10.1); CREATININE 0.8 mg/dL (0.6-1.3); POTASSIUM 5.3 mmol/L (3.5-5.1)
[2022-03-10] MEDS: ALBUTEROL FS 2.5 MG/0.5 ML VIAL.NEB NEB SCH ×3 (07:35→15:30)
[2022-03-10] MEDS: IPRATROPIUM NEB FS 0.5 MG/2.5 ML AMPUL.NEB NEB SCH ×3 (07:35→15:30)
[2022-03-10] MEDS: Z GUARD REMEDY 4 OZ OINT TP SCH (09:00)
[2022-03-10] MEDS: ASPIRIN 81 MG TAB.CHEW GT SCH (09:21)
[2022-03-10] MEDS: PROSOURCE / PROSTAT (PYXIS) 30 ML UDC GT SCH ×2 (09:21→16:32)
[2022-03-10] MEDS: PANTOPRAZOLE 40 MG/PACK PACK GT SCH (09:21)
[2022-03-10] MEDS: ZINC SULFATE 220 MG CAPSULE GT SCH (09:22)
[2022-03-10] MEDS: LINEZOLID 600 MG TABLET GT SCH (09:22)
[2022-03-10] MEDS: CHOLECALCIFEROL 1,000 UNIT TABLET (VIT D3) GT SCH (09:22)
[2022-03-10] MEDS: METOPROLOL TARTRATE 25 MG TABLET PO SCH (09:23)
[2022-03-10] MEDS: DEXAMETHASONE SOD PHOSPHATE 10 MG/ML VIAL IV SCH (09:23)
[2022-03-10] MEDS: MULTIVIT W/MINERALS 1 TAB TABLET GT SCH (09:23)
[2022-03-10] MEDS: FLUCONAZOLE (100 MG) 100 MG TABLET PO SCH (09:23)
[2022-03-10] MEDS: ASCORBIC ACID 500 MG TABLET GT SCH (09:39)
[2022-03-10] MEDS ORDERED: AMLO-212 PO (09:57)
[2022-03-10] MEDS ORDERED: SODIUM POLYSTYRENE SULFONATE 15 G/60 ML BOTTLE PO ONE (10:00)
[2022-03-10] MEDS ORDERED: AMLODIPINE BESYLATE 5 MG TABLET PO SCH (10:00)
[2022-03-10] MEDS: Z GUARD REMEDY 4 OZ OINT TP PRN (10:02)
[2022-03-10] MEDS: THERAHONEY GEL 1.5 OZ TUBE TP SCH (10:02)
[2022-03-10] MEDS: DAKINS QUARTER STRENGTH (0.125%) 480 ML BOTTLE TOP SCH (10:02)
[2022-03-10 13:19] VITALS: BP 160/66
[2022-03-10] MEDS: GLUCERNA 1.2 1,000 ML BOTTLE GT PRN ×2 (13:55→15:35)
== END 2022-03-10 20:22 | DRG 871 ==
LOC: ER 09:04 → TELE1 15:22
PROVIDERS: ADMIT Registered Nurse; ATTEND Internal Medicine
PROC: 30233N1 Transfusion of Nonautologous Red Blood Cells into Peripheral Vein, Percutaneous Approach (ICD-10-PCS; 2022-03-03)
PROC: 05HC33Z Insertion of Infusion Device into Left Basilic Vein, Percutaneous Approach (ICD-10-PCS; principal; 2022-03-08)
DX: A41.89 Other specified sepsis (principal); G92.8 Other toxic encephalopathy; L89.154 Pressure ulcer of sacral region, stage 4; J96.01 Acute respiratory failure with hypoxia; U07.1 COVID-19; J15.9 Unspecified bacterial pneumonia; N17.0 Acute kidney failure with tubular necrosis; J69.0 Pneumonitis due to inhalation of food and vomit; E87.29 Other acidosis; E87.0 Hyperosmolality and hypernatremia; N39.0 Urinary tract infection, site not specified; E78.5 Hyperlipidemia, unspecified; Z93.1 Gastrostomy status; Z79.4 Long term (current) use of insulin; Z79.51 Long term (current) use of inhaled steroids; Z79.82 Long term (current) use of aspirin; Z79.899 Other long term (current) drug therapy; I48.91 Unspecified atrial fibrillation; N18.9 Chronic kidney disease, unspecified; I12.9 Hypertensive chronic kidney disease with stage 1 through stage 4 chronic kidney disease, or unspecified chronic kidney disease; R13.10 Dysphagia, unspecified; D63.1 Anemia in chronic kidney disease; E11.22 Type 2 diabetes mellitus with diabetic chronic kidney disease; E86.0 Dehydration; E87.5 Hyperkalemia; F03.90 Unspecified dementia, unspecified severity, without behavioral disturbance, psychotic disturbance, mood disturbance, and anxiety; Z66 Do not resuscitate; Z86.19 Personal history of other infectious and parasitic diseases; Z87.442 Personal history of urinary calculi; Y95 Nosocomial condition; E88.09 Other disorders of plasma-protein metabolism, not elsewhere classified; L89.516 Pressure-induced deep tissue damage of right ankle; L89.616 Pressure-induced deep tissue damage of right heel; B96.89 Other specified bacterial agents as the cause of diseases classified elsewhere; Z86.16 Personal history of COVID-19
CPT/HCPCS: 36410; 36415; 36600; 71045-TC; 80048-TC; 80053-TC; 80076-TC; 80202-TC; 81001; 82272-TC; 82803-TC; 82962-TC; 83605-TC; 83735-TC; 84100-TC; 84443-TC; 84484-TC; 85025-TC; 85027-TC; 85730-TC; 86850-TC; 87040-TC; 87070-TC; 87081-TC; 87086-TC; 87186-TC; 93970-TC; 94762-TC; 94799-TC; A6403; C9113; C9803; G0378; J0360; J0456; J0610; J0692; J0696; J1100; J1644; J1815; J2185; J3370; J3490; J7030; J7042; J7050; J7060; P9016; U0003

== ENCOUNTER 2022-03-29 10:29 | Inpatient (IN) | payer MEDICARE, OTHER ==
[~2022-03-29] VITALS: Ht 165.1 cm; Wt 56.7 kg
[~2022-03-29 10:29] MED LIST changes: +AMLO-212 PO; +DEXA4TAB68 PO; +FLUC100T8 PO; +INSU100V3 SQ; +Linezolid GT; +MERO500V23 IV; -NEOM1OIN15 TP; -NYST15CR2 TP
--- NOTE | 2022-03-29 10:45 | NUR ---
CHEST X RAY TAKEN
--- NOTE | 2022-03-29 10:59 | NUR ---
COVID SWAB AND URINE COLLECTED AND SENT TO LAB
[2022-03-29] MEDS ORDERED: IV NS 0.9% 1,000 ML IV ONE ×2 (11:00→12:00)
[2022-03-29] MEDS ORDERED: VANCOMYCIN 1 GM in IV D5W 250 ML IV ONE (11:00)
--- NOTE | 2022-03-29 11:00 | NUR ---
LAB COLLECTED BLOOD CULTURES
--- NOTE | 2022-03-29 11:15 | NUR ---
WOUNDS DRESSING CHANGED ANC CLEAN
[2022-03-29 11:35] LABS: CALCIUM, SERUM 8.7 mg/dL (8.5-10.1); CARBON DIOXIDE 25 mmol/L (21-32); CHLORIDE 98 mmol/L (98-107); CREATININE 0.9 mg/dL (0.6-1.3); GLUCOSE 135 mg/dL (74-106); POTASSIUM 5.3 mmol/L (3.5-5.1); SODIUM SERUM 129 mmol/L (136-145); UREA NITROGEN, BLOOD 46 mg/dL (7-18)
[2022-03-29 11:39] LABS: BASOPHILS % (AUTO) 0.4 % (0.0-2.0); EOSINOPHILS % (AUTO) 0.1 % (0.0-6.0); HEMATOCRIT 26 % (39-51); HEMOGLOBIN 8.3 g/dL (13.5-17.5); LYMPHOCYTES # (AUTO) 1.6 K/uL (0.8-4.8); LYMPHOCYTES % (AUTO) 14.2 % (20.0-44.0); MEAN CORPUSCULAR HGB CONC 32 g/dl (31.0-36.0); MEAN CORPUSCULAR VOLUME 90 fL (80-96); MONOCYTES # (AUTO) 0.3 K/uL (0.1-1.30); NEUTROPHILS # (AUTO) 9.2 K/uL (1.8-8.9); NEUTROPHILS % (AUTO) 82.3 % (43.0-81.0); PLATELET COUNT (AUTO) 397 K/uL (150-450); RED BLOOD CELL COUNT(AUTO) 2.87 MIL/uL (4.5-6.0); WHITE BLOOD COUNT (AUTO) 11.2 K/uL (4.3-11.0)
[2022-03-29 11:41] LABS: ALANINE AMINOTRANSFERASE 24 U/L (12-78); ALKALINE PHOSPHATASE 130 U/L (46-116); ASPARTATE AMINOTRANSFERASE 18 U/L (15-37); BILIRUBIN,DIRECT 0.1 mg/dL (0.0-0.2); BILIRUBIN,TOTAL 0.3 mg/dL (0.2-1.0); TOTAL PROTEIN, SERUM 6.6 g/dL (6.4-8.2)
[2022-03-29 11:42] LABS: BILIRUBIN,URINE NEGATIVE (NEGATIVE); COLOR,URINE YELLOW (YELLOW); LEUKOCYTE ESTERASE ,URINE NEGATIVE (NEGATIVE); NITRITE, URINE NEGATIVE (NEGATIVE); PROTEIN,URINE TRACE mg/dl (NEGATIVE); UGLUCOSE NEGATIVE (NEGATIVE); UROBILINOGEN,URINE 0.2 EU/dL (0.2)
[2022-03-29] MEDS ORDERED: ACETAMINOPHEN 650 MG/20.3 ML UDC ONE (11:42)
[2022-03-29] MEDS ORDERED: CRAN3875 GT (11:47)
[2022-03-29] MEDS ORDERED: ACET-868 GT (11:47)
[2022-03-29] MEDS ORDERED: AMLO-213 GT (11:47)
[2022-03-29] MEDS ORDERED: CLON0.1T GT ×2 (11:47)
[2022-03-29] MEDS ORDERED: LACT1CAP7 GT (11:47)
[2022-03-29] MEDS ORDERED: NUT.237L30 GT (11:47)
[2022-03-29] MEDS ORDERED: POVI480S2 TP (11:47)
[2022-03-29] MEDS ORDERED: LOPE-195 TD (11:47)
[2022-03-29] MEDS ORDERED: CRAN425C6 GT (11:47)
[2022-03-29] MEDS ORDERED: CLOT15CR5 TP (11:47)
[2022-03-29] MEDS ORDERED: ACET-2605 GT (11:47)
[2022-03-29] MEDS ORDERED: HYDR100T27 GT (11:47)
[2022-03-29] MEDS ORDERED: AMIN30LI2 GT (11:47)
--- NOTE | 2022-03-29 11:59 | NUR ---
LAC ACID 3.5; DR HUERTA MADE AWARE
[2022-03-29] MEDS ORDERED: PIPERACILLIN /TAZOBACTAM 3.375 G in IV D5W 50 ML IV SCH (12:00)
[2022-03-29] MEDS ORDERED: ACETAMINOPHEN ES 500 MG TABLET GT ONE (12:00)
--- NOTE | 2022-03-29 12:27 | NUR ---
[facility] PAGED
[2022-03-29] MEDS ORDERED: IOHEXOL-300 100 ML VIAL IV ONE (12:38)
[2022-03-29] MEDS ORDERED: IV NS 0.9% 250 ML IV ONE (12:38)
[2022-03-29] MEDS ORDERED: CT SWABBABLE VALVE TRANS SET 1 EA INFUS.SET MC ONE (12:38)
--- NOTE | 2022-03-29 12:57 | NUR ---
BED 103
--- NOTE | 2022-03-29 13:10 | NUR ---
REPORT GIVEN TO RUT CORTEZ FOR CARLOS
--- NOTE | 2022-03-29 13:42 | NUR ---
PT TRANSFERRED TO 103 VIA [facility] ACLS PROTOCOL. WARM HANDOFF GIVEN TO DIEGO MORALES
--- NOTE | 2022-03-29 14:00 | NUR ---
RN OPENING NOTES PATIENT ARRIVED FROM EMERGENCY DEPARTMENT. ON 6 LITERS SUPPLEMENTAL OXYGEN VIA NASAL CANULA, OXYGEN SATURATION IN THE HIGH 90S. ON TELEMETRY MONITORING READING NORMAL SINUS WITH HEART RATE IN THE 70S. IV ACCESS ON RIGHT FOREARM 20 GAUGE, AND LEFT UPPER ARM MIDLINE A8 GAUGE RUNNING FLUIDS PRESCRIBED. GASTRIC TUBE NOTED, CLAMPED. DELA CRUZ CATHETER DRAINING URINE BY GRAVITY. SAFETY MEASURES IMPLEMENTED. WILL CONTINUE PLAN OF CARE AND ANTICIPATE NEEDS.
[2022-03-29] MEDS ORDERED: MAGNESIUM HYDROXIDE 30 ML UDC PO PRN (14:30)
[2022-03-29] MEDS ORDERED: ONDANSETRON HCL/PF 4 MG/2 ML VIAL IVP PRN (14:30)
[2022-03-29] MEDS ORDERED: ACETAMINOPHEN 325 MG TABLET PO PRN (14:30)
[2022-03-29] MEDS ORDERED: MAG HYDROX/AL HYDROX/SIMETH 30 ML UDC PO PRN (14:30)
[2022-03-29] MEDS ORDERED: Z GUARD REMEDY 4 OZ OINT TP PRN (14:30)
[2022-03-29] MEDS: IV NS 0.9% 1,000 ML IV PRN (14:45)
[2022-03-29] MEDS ORDERED: LOPERAMIDE HCL (2 MG CAP) 2 MG CAPSULE GT PRN (15:00)
[2022-03-29] MEDS ORDERED: GLUCERNA 1.2 1,000 ML BOTTLE NG PRN (15:00)
[2022-03-29] MEDS ORDERED: CLONIDINE HCL 0.1 MG TABLET GT PRN (15:00)
[2022-03-29] MEDS ORDERED: MAGNESIUM HYDROXIDE 30 ML UDC GT PRN (15:00)
[2022-03-29] MEDS ORDERED: METOCLOPRAMIDE HCL 10 MG TABLET GT PRN (15:00)
[2022-03-29] MEDS ORDERED: ACETAMINOPHEN ES 500 MG TABLET GT PRN (15:00)
[2022-03-29] MEDS ORDERED: NA PHOS,M-B/NA PHOS,DI-BA 1 EA ENEMA RC PRN (15:00)
[2022-03-29] MEDS ORDERED: ACETAMINOPHEN 325 MG TABLET MC PRN (15:00)
[2022-03-29] MEDS ORDERED: BISACODYL SUPP (10 MG) 10 MG/SUPP.RECT SUPP.RECT RC PRN (15:00)
[2022-03-29 16:00] VITALS: BP 120/56
[2022-03-29] MEDS: CLONIDINE HCL 0.1 MG TABLET GT SCH (17:33)
[2022-03-29] MEDS: hydrALAZINE HCL 50 MG TABLET GT SCH (17:33)
--- NOTE | 2022-03-29 18:50 | NUR ---
RN CLOSING NOTES PATIENT ARRIVED FROM EMERGENCY DEPARTMENT. ON 6 LITERS SUPPLEMENTAL OXYGEN VIA NASAL CANULA, OXYGEN SATURATION IN THE HIGH 90S. ON TELEMETRY MONITORING READING NORMAL SINUS WITH HEART RATE IN THE 70S. IV ACCESS ON RIGHT FOREARM 20 GAUGE, AND LEFT UPPER ARM MIDLINE A8 GAUGE RUNNING FLUIDS PRESCRIBED. GASTRIC TUBE RUNNING FEEDING ORDERED. DELA CRUZ CATHETER DRAINING URINE BY GRAVITY. SAFETY MEASURES IMPLEMENTED. WILL ENDORSE TO NIGHTSHIFT RN FOR CONTINUATION OF CARE.
[2022-03-29] MEDS ORDERED: PIPERACILLIN /TAZOBACTAM 3.375 G in IV D5W 100 ML IV SCH (19:00)
--- NOTE | 2022-03-29 19:49 | NUR ---
RN NOTE RECEIVED PT, OPEN EYES TO STIMULI, IS NONVERBAL, REPORTED PTS BASELINE. ON O2 AT 6L VIA NC, NO SIGNS OF DISTRESS NOTED. GT PATENT AND IN PLACE, ON GLUCERNA AT 50ML/HR, NO RESIDUALS NOTED. KEPT HOB ELEVATED. WOUND DRESSING INTACT. TURNED AND REPOSITIONED. WILL CONTINUE TO MONITOR.
[2022-03-29 20:00] VITALS: BP 111/47
[2022-03-29] MEDS ORDERED: MEROPENEM 500 MG in IV NS 0.9% 50 ML IV SCH (21:00)
[2022-03-29] MEDS: EZETIMIBE 10 MG TABLET GT SCH (21:19)
[2022-03-29] MEDS: MEROPENEM 1 G in IV NS 0.9% 100 ML IV SCH (21:19)
[2022-03-29] MEDS: DAKINS QUARTER STRENGTH (0.125%) 480 ML BOTTLE TOP SCH (22:00)
[2022-03-29] MEDS: THERAHONEY GEL 1.5 OZ TUBE TP SCH (22:00)
[2022-03-29] MEDS: VANCOMYCIN HCL 0.75 GM in IV D5W 250 ML IV SCH (23:41)
[2022-03-30] VITALS (10 sets, daily range): BP systolic 105–134; BP diastolic 41–58
[2022-03-30] MEDS: IV NS 0.9% 1,000 ML IV PRN (06:16)
--- NOTE | 2022-03-30 06:46 | NUR ---
RN NOTE TITRATED O2 TO 2L, TOLERATING. NOT IN ANY DISTRESS. NO SOB NOTED. PT TOLERATES GT FEEDING, NO RESIDUALS NOTED. HOB REMAIN ELEVATED. CONTINUE WITH NS AT 75ML/HR. AFEBRILE. DELA CRUZ DRAINING URINE BY GRAVITY WITH 200ML OUTPUT. 2 BM. PLACED ON LOW AIRLOSS MATTRESS. TURNED AND REPOSITIONED. WILL ENDORSE TO AM SHIFT NURSE FOR CARLOS.
[2022-03-30 06:49] LABS: BASOPHILS % (AUTO) 0.5 % (0.0-2.0); EOSINOPHILS % (AUTO) 1.4 % (0.0-6.0); LYMPHOCYTES # (AUTO) 1.1 K/uL (0.8-4.8); LYMPHOCYTES % (AUTO) 13.7 % (20.0-44.0); MEAN CORPUSCULAR HGB CONC 33 g/dl (31.0-36.0); MEAN CORPUSCULAR VOLUME 88 fL (80-96); MONOCYTES # (AUTO) 0.3 K/uL (0.1-1.30); MONOCYTES % (AUTO) 3.8 % (2.0-12.0); NEUTROPHILS # (AUTO) 6.5 K/uL (1.8-8.9); NEUTROPHILS % (AUTO) 80.6 % (43.0-81.0); PLATELET COUNT (AUTO) 310 K/uL (150-450); RED BLOOD CELL COUNT(AUTO) 2.16 MIL/uL (4.5-6.0); WHITE BLOOD COUNT (AUTO) 8.1 K/uL (4.3-11.0)
--- NOTE | 2022-03-30 07:10 | NUR ---
[employer] FIELD COORDINATOR OPENING NOTES: RECEIVED PT IN BED AWAKE ONLY OPEN HIS EYES AND LOOK AT THE NURSE, ON 2 LITERS SUPPLEMENTAL OXYGEN VIA NASAL CANULA, OXYGEN SATURATION IN THE HIGH 90S. ON TELEMETRY MONITORING READING NORMAL SINUS WITH HEART RATE IN THE 70S. IV ACCESS ON RIGHT FOREARM 20 GAUGE, AND LEFT UPPER ARM MIDLINE A8 GAUGE RUNNING FLUIDS PRESCRIBED. GT FEEDING RUNNING ORDERED. DELA CRUZ CATHETER DRAINING URINE BY GRAVITY. SAFETY MEASURES IMPLEMENTED. WILL CONTINUE PLAN OF CARE AND ANTICIPATE NEEDS.
[2022-03-30 07:26] LABS: HEMATOCRIT 19 % (39-51); HEMOGLOBIN 6.3 g/dL (13.5-17.5)
[2022-03-30 07:38] LABS: CALCIUM, SERUM 8.3 mg/dL (8.5-10.1); CREATININE 0.7 mg/dL (0.6-1.3); MAGNESIUM 2.1 mg/dL (1.8-2.4); PHOSPHORUS 2.9 mg/dL (2.5-4.9); POTASSIUM 3.8 mmol/L (3.5-5.1)
--- NOTE | 2022-03-30 07:59 | NUR ---
RN NOTES: CALLED THE SON YESI COOPER TO OBTAIN CONSENT FOR BLOOD TRANSFUSION SON AGREED, ALSO ASKED FOR CONSENT FOR WOUND DEBRIDEMENT HE REFUSED
[2022-03-30] MEDS: hydrALAZINE HCL 50 MG TABLET GT SCH ×3 (09:00→16:49)
[2022-03-30] MEDS: CLONIDINE HCL 0.1 MG TABLET GT SCH ×2 (09:00→16:50)
[2022-03-30] MEDS: MEROPENEM 1 G in IV NS 0.9% 100 ML IV SCH ×2 (09:11→21:06)
[2022-03-30] MEDS: DAKINS QUARTER STRENGTH (0.125%) 480 ML BOTTLE TOP SCH (09:12)
[2022-03-30] MEDS: THERAHONEY GEL 1.5 OZ TUBE TP SCH (09:12)
[2022-03-30] MEDS: CLOTRIMAZOLE/BETAMETASONE DIPROPIONATE 15 GM TUBE TP SCH (09:12)
[2022-03-30] MEDS: ASPIRIN 81 MG TAB.CHEW GT SCH (09:13)
[2022-03-30] MEDS: AMLODIPINE BESYLATE 10 MG TABLET GT SCH (09:13)
--- NOTE | 2022-03-30 09:42 | NUR ---
WOUND CARE CONSULT: PT FOLLOWED BY SURGICAL TEAM FOR MULTIPLE PRESSURE ULCERS, PRESENT ON ADMISSION. RECOMMEND DPM CONSULT FOR DEEP TISSUE INJURIES (INTACT) TO BILATERAL FEET, PRESENT ON ADMISSION. DR MAY CALLED. DISCUSSED SKIN PRORTECTION WITH NURSING STAFF. PT IS ON FIRST STEP [facility].
[2022-03-30] MEDS: VANCOMYCIN HCL 0.75 GM in IV D5W 250 ML IV SCH (11:04)
[2022-03-30 12:59] LABS: BAND % (MANUAL) 20 % (0.0-5.0); EOSINOPHILS % (MANUAL) 3 % (0-4); LYMPHOCYTES % (MANUAL) 14 % (16-48); MONOCYTES % (MANUAL) 8 % (0-11.0); NEUTROPHILS % (MANUAL) 53 (42-76)
--- NOTE | 2022-03-30 19:10 | NUR ---
RN NOTE PATIENT IN BED, AO X 1, IN NO ACUTE DISTRESS, SATURATION AT 99% ON 2L VIA NC, SR ON THE MONITOR HR IS 82. RFA 20G AND ALEXSANDER MIDLINE PATENT AND FLUSHING WELL, WITH NS AT 75 ML/HR. DELA CRUZ CATHETER DRAINING TO A CLEAR, YELLOW OUTPUT. GTUBE IN PLACE, PLACEMENT VERIFIED, NO RESIDUAL, WITH GLUCERNA AT 70 ML/HR. SAFETY MEASURES IN PLACE, BED IS LOCKED AND AT LOWEST POSITION, HOB ELEVATED, WILL CONT TO MONITOR AND REASSESS.
[2022-03-30] MEDS: GLUCERNA 1.2 1,000 ML BOTTLE NG PRN (19:26)
--- NOTE | 2022-03-30 20:06 | NUR ---
IAP DISPLAYS ANALYST CLOSING NOTE: PT IN BED AWAKE OPEN HIS EYES, NO VERBAL . O2 AT 2L VIA NASAL CANULA, TOLERATING. NOT IN ANY DISTRESS. NO SOB NOTED. PT TOLERATES GT FEEDING, NO RESIDUALS NOTED. HOB REMAIN ELEVATED. CONTINUE WITH NS AT 75ML/HR. AFEBRILE. DELA CRUZ DRAINING URINE BY GRAVITY WITH 900ML OUTPUT. 2 BM. PLACED ON LOW AIRLOSS MATTRESS. TURNED AND REPOSITIONED. WILL ENDORSE TO MEDICAL CHARGE ENTRY SPECIALIST NURSE FOR CARLOS.
[2022-03-30] MEDS: EZETIMIBE 10 MG TABLET GT SCH (21:05)
[2022-03-31] VITALS (7 sets, daily range): BP systolic 106–154; BP diastolic 46–72
[2022-03-31] MEDS: IV NS 0.9% 1,000 ML IV PRN (02:49)
[2022-03-31] MEDS: VANCOMYCIN HCL 0.75 GM in IV D5W 250 ML IV SCH ×3 (03:50→22:27)
[2022-03-31 07:04] LABS: BASOPHILS % (AUTO) 0.3 % (0.0-2.0); HEMATOCRIT 28 % (39-51); HEMOGLOBIN 9.3 g/dL (13.5-17.5); LYMPHOCYTES % (AUTO) 13.8 % (20.0-44.0); MEAN CORPUSCULAR HGB CONC 34 g/dl (31.0-36.0); MEAN CORPUSCULAR VOLUME 88 fL (80-96); MONOCYTES # (AUTO) 0.4 K/uL (0.1-1.30); MONOCYTES % (AUTO) 5.9 % (2.0-12.0); NEUTROPHILS # (AUTO) 5.5 K/uL (1.8-8.9); PLATELET COUNT (AUTO) 364 K/uL (150-450); RED BLOOD CELL COUNT(AUTO) 3.16 MIL/uL (4.5-6.0)
[2022-03-31 07:25] LABS: CALCIUM, SERUM 8.5 mg/dL (8.5-10.1); CARBON DIOXIDE 23 mmol/L (21-32); CHLORIDE 106 mmol/L (98-107); CREATININE 0.6 mg/dL (0.6-1.3); GLUCOSE 137 mg/dL (74-106); POTASSIUM 3.9 mmol/L (3.5-5.1); SODIUM SERUM 137 mmol/L (136-145); UREA NITROGEN, BLOOD 29 mg/dL (7-18)
[2022-03-31] MEDS: MEROPENEM 1 G in IV NS 0.9% 100 ML IV SCH ×2 (08:52→21:18)
[2022-03-31] MEDS: CLONIDINE HCL 0.1 MG TABLET GT SCH ×2 (08:53→16:49)
[2022-03-31] MEDS: ASPIRIN 81 MG TAB.CHEW GT SCH (08:53)
[2022-03-31] MEDS: AMLODIPINE BESYLATE 10 MG TABLET GT SCH (08:54)
[2022-03-31] MEDS: hydrALAZINE HCL 50 MG TABLET GT SCH ×3 (08:54→16:48)
--- NOTE | 2022-03-31 09:00 | NUR ---
AEROTRIANGULATION SPECIALIST OPENING NOTES: RECEIVED PT IN BED AWAKE ONLY OPEN HIS EYES AND LOOK AT THE NURSE, ON 2 LITERS SUPPLEMENTAL OXYGEN VIA NASAL CANULA, OXYGEN SATURATION 96%. ON TELEMETRY MONITORING READING NORMAL SINUS WITH HEART RATE OF 77. IV ACCESS ON RIGHT FOREARM 20 GAUGE, AND LEFT UPPER ARM MIDLINE RUNNING FLUIDS @75ML/HR 0.9 NS, TOLERATING WELL, PATENT AND INTACT, FLUSHES WELL. ON GT FEEDING TURN ON AND RUNNING ORDERED, TOLERATING WELL, NO N/V/D NOTED. DELA CRUZ CATHETER DRAINING URINE BY GRAVITY. SAFETY MEASURES IMPLEMENTED. CALL LIGHT WITHIN REACH. WILL CONTINUE PLAN OF CARE.
[2022-03-31] MEDS: CLOTRIMAZOLE/BETAMETASONE DIPROPIONATE 15 GM TUBE TP SCH (09:16)
[2022-03-31] MEDS: THERAHONEY GEL 1.5 OZ TUBE TP SCH (09:16)
[2022-03-31] MEDS: DAKINS QUARTER STRENGTH (0.125%) 480 ML BOTTLE TOP SCH (09:17)
[2022-03-31] MEDS: PROSOURCE / PROSTAT (PYXIS) 30 ML UDC GT SCH (09:23)
--- NOTE | 2022-03-31 11:28 | NUR ---
HOT OILER NOTES NOTED PATIENT SATURATION 83% @2L 02 VIA NASAL CANNULA, INCREASED TO 4L STILL NOTED 02 SATURATION 83-85%. CALLED RT AT BEDSIDE, CHANGED TO NON REBREATHER MASK AT 15L 02 SAT=96 %, DR. GODINEZ NOTIFIED. NOT IN DISTRESS. WILL CONTINUE PLAN OF CARE.
[2022-03-31] MEDS ORDERED: FUROSEMIDE 40 MG/4 ML VIAL IV STA (11:33)
--- NOTE | 2022-03-31 11:35 | NUR ---
TUNNEL ELASTIC OPERATOR CHAINSTITCH NOTES RECEIVED NEW ORDER FROM DR. GODINEZ, TO D/C IV FLUIDS, LASIX 40MG X1 AND STAT CHEST XRAY NOTED AND CARRIED OUT, WILL CONTINUE PLAN OF CARE.
--- NOTE | 2022-03-31 11:56 | NUR ---
MANIFEST CLERK NOTES BP= 118/50 HR=76 WILL CONTINUE PLAN OF CARE.
--- NOTE | 2022-03-31 12:00 | NUR ---
AUTOMOTIVE MANUFACTURER NOTES CALLED XRAY AND INFORMED OF THE STAT CHEST XRAY. WILL CONTINUE PLAN OF CARE.
--- NOTE | 2022-03-31 12:41 | NUR ---
SHOP FIRER/FIREMAN NOTES CALLED XRAY SPOKE TO MYRTLE AND FOLLOW UP THE STAT CHEST XRAY, PER MYRTLE THEY ARE COMING. WILL CONTINUE PLAN OF CARE.
--- NOTE | 2022-03-31 14:30 | NUR ---
ROAD ADVISOR NOTES XRAY RESULTS RECEIVED, NOTIFIED, PATIENT ON 3L NON REBREATHER 02 SAT=98%, NO SOB NOTED, NOT IN DISTRESS, SON AT THE BEDSIDE, WOUND CARE RENDERED. WILL CONTINUE PLAN OF CARE.
--- NOTE | 2022-03-31 14:46 | NUR ---
FLIGHT TECHNICIAN NOTES RT ON THE BEDSIDE PATIENT ON 3L 02 VIA NASAL CANNULA SATING @97-98%, NO SOB NOTED, NOT IN DISTRESS, SON AT THE BEDSIDE. SON IS REQUESTING FOR BED CHANGE TO AIR MATTRESS, CALLED SUPPLY DEPT. PER SUPPLY PERSONNEL [employer] MATTRESS IS NOT AVAILABLE AND THEY WILL ORDER IT, INFORMED SON. WILL CONTINUE PLAN OF CARE.
[2022-03-31] MEDS: GLUCERNA 1.2 1,000 ML BOTTLE NG PRN (16:56)
--- NOTE | 2022-03-31 18:41 | NUR ---
TELE CLOSING NOTES: PATIENT ALERT AND RESPONSIVE, ON 3 LITERS SUPPLEMENTAL OXYGEN VIA NASAL CANULA, OXYGEN SATURATION 97%, NO SON NOTED, RESPIRATION EVEN AND UNLABORED, NOT IN DISTRESS, NO FACIAL GRIMACING NOTED. ON TELEMETRY MONITORING READING NORMAL SINUS WITH HEART RATE OF 74. IV ACCESS ON RIGHT FOREARM 20 GAUGE, AND LEFT UPPER ARM MIDLINE PATENT AND INTACT, FLUSHES WELL. ON GT FEEDING, TOLERATING WELL, NO N/V/D NOTED. F/C DRAINING URINE BY GRAVITY WITH 2000 CC CLEAR YELLOW URINE. SAFETY MEASURES IMPLEMENTED. CALL LIGHT WITHIN REACH. BED IN LOWEST POSITION.WILL ENDORSE TO HAND CHAIN MAKER NURSE FOR CARLOS.
--- NOTE | 2022-03-31 20:00 | NUR ---
RN OPENING NOTE PT FOUND RESTING COMFORTABLY IN BED. PT IS NONVERBAL BUT AWAKE. RESPIRATIONS EVEN AND UNLABORED ON NC 3 LPM WITH O2 SAST OF 95%. POSITION CHANGE PERFORMED AND TOLERATED WELL. SAFETY MEASURES IN PLACE.
[2022-03-31] MEDS: EZETIMIBE 10 MG TABLET GT SCH (22:27)
[2022-04-01] VITALS: BP 115/51
[2022-04-01 04:00] VITALS: BP 123/48
[2022-04-01 07:39] LABS: BASOPHILS % (AUTO) 0.5 % (0.0-2.0); EOSINOPHILS % (AUTO) 1.6 % (0.0-6.0); HEMATOCRIT 27 % (39-51); HEMOGLOBIN 8.9 g/dL (13.5-17.5); LYMPHOCYTES # (AUTO) 1.4 K/uL (0.8-4.8); LYMPHOCYTES % (AUTO) 18.2 % (20.0-44.0); MEAN CORPUSCULAR HGB CONC 33 g/dl (31.0-36.0); MEAN CORPUSCULAR VOLUME 87 fL (80-96); MONOCYTES # (AUTO) 0.5 K/uL (0.1-1.30); MONOCYTES % (AUTO) 6.6 % (2.0-12.0); NEUTROPHILS # (AUTO) 5.8 K/uL (1.8-8.9); NEUTROPHILS % (AUTO) 73.1 % (43.0-81.0); PLATELET COUNT (AUTO) 426 K/uL (150-450)
--- NOTE | 2022-04-01 08:00 | NUR ---
AIRBORNE ELECTRONICS ANALYST OPENING NOTES: PT IN BED.AWAKE, ALERT AND ORIENTED X1-2. PT ON 2 L O2 VIA NASAL CANNULA TOLERATING AT ABOVE 92%. PT SR RHYTM ON TELE MONITOR. ALEXSANDER MIDLINE. GTUBE INTACT AND IN PLACE. NO SIGNS OF PAIN OR DISCOMFORT. PT HAS DELA CRUZ CATHETHER YELLOW COLOR DRANING TO GRAVITY. ALL SAFETY MEASURES IN PLACE.CALL LIGHT WITHIN REACH. BED LOCKED AT LOWEST POSITION. PT HAS GTUBE FEEDING. GLUCERNA. GTUBE INTACT AND PATENT. ALL SAFETY MEASURES IMPLEMENTED. CALL LIGHT WITHIN REACH.BED LOCKED AT LOWEST POSITION. SIDE RAILS UP X2.
[2022-04-01 08:22] LABS: CALCIUM, SERUM 8.5 mg/dL (8.5-10.1); CARBON DIOXIDE 25 mmol/L (21-32); CHLORIDE 105 mmol/L (98-107); CREATININE 0.5 mg/dL (0.6-1.3); GLUCOSE 105 mg/dL (74-106); POTASSIUM 4.1 mmol/L (3.5-5.1); SODIUM SERUM 137 mmol/L (136-145); UREA NITROGEN, BLOOD 27 mg/dL (7-18)
[2022-04-01 08:30] VITALS: BP 130/55
[2022-04-01] MEDS: MEROPENEM 1 G in IV NS 0.9% 100 ML IV SCH ×2 (08:55→20:17)
[2022-04-01] MEDS: hydrALAZINE HCL 50 MG TABLET GT SCH ×2 (08:56→13:01)
[2022-04-01] MEDS: ASPIRIN 81 MG TAB.CHEW GT SCH (08:56)
[2022-04-01] MEDS: AMLODIPINE BESYLATE 10 MG TABLET GT SCH (08:57)
[2022-04-01] MEDS: CLONIDINE HCL 0.1 MG TABLET GT SCH ×2 (09:00→17:00)
[2022-04-01] MEDS: PROSOURCE / PROSTAT (PYXIS) 30 ML UDC GT SCH (09:06)
[2022-04-01] MEDS: DAKINS QUARTER STRENGTH (0.125%) 480 ML BOTTLE TOP SCH (10:15)
[2022-04-01] MEDS: THERAHONEY GEL 1.5 OZ TUBE TP SCH (10:15)
--- NOTE | 2022-04-01 10:18 | NUR ---
rn note called central supply to follow up on with matress should be delivered. said it should be delivered today and will call the company for update
[2022-04-01] MEDS: GLUCERNA 1.2 1,000 ML BOTTLE NG PRN (10:30)
[2022-04-01] MEDS: VANCOMYCIN HCL 0.75 GM in IV D5W 250 ML IV SCH ×2 (10:58→23:00)
[2022-04-01] MEDS ORDERED: FUROSEMIDE 40 MG/4 ML VIAL IV ONE (11:00)
[2022-04-01 12:00] VITALS: BP 129/56
--- NOTE | 2022-04-01 12:56 | NUR ---
rn note notified that bp is 129/56 and if okay to give. said okay to give. pt home med
[2022-04-01 13:11] LABS: MAGNESIUM 1.9 mg/dL (1.8-2.4); PHOSPHORUS 2.9 mg/dL (2.5-4.9)
[2022-04-01] MEDS ORDERED: ACETAMINOPHEN 650 MG/20.3 ML UDC GT PRN (13:30)
[2022-04-01] MEDS: CLOTRIMAZOLE/BETAMETASONE DIPROPIONATE 15 GM TUBE TP SCH (13:32)
[2022-04-01 16:00] VITALS: BP 117/54
--- NOTE | 2022-04-01 17:20 | NUR ---
rn note notified if hydralazine and catapres can be held due to current 117/54 and if parameters can be given. clarified with md if wants hydralazine to be discontinued not held due to bp 117/54 said to dc hydralazine. no orders given about catapres
--- NOTE | 2022-04-01 18:48 | NUR ---
COUNSELING SPECIALIST CLOSING NOTES: PT IN BED.AWAKE, ALERT AND ORIENTED X1-2. PT ON 2 L O2 VIA NASAL CANNULA TOLERATING AT ABOVE 98%. PT SR RHYTHM 83 ON TELE MONITOR. ALEXSANDER MIDLINE. GTUBE INTACT AND IN PLACE. NO SIGNS OF PAIN OR DISCOMFORT. PT HAS DELA CRUZ CATHETER YELLOW COLOR DRAINING TO GRAVITY. ALL SAFETY MEASURES IN PLACE.CALL LIGHT WITHIN REACH. BED LOCKED AT LOWEST POSITION. PT HAS GTUBE FEEDING. GLUCERNA. GTUBE INTACT AND PATENT. NO RESIDUAL VOLUME NOTED. ALL SAFETY MEASURES IMPLEMENTED. CALL LIGHT WITHIN REACH.BED LOCKED AT LOWEST POSITION. SIDE RAILS UP X2.
[2022-04-01 20:00] VITALS: BP 142/65
--- NOTE | 2022-04-01 20:00 | NUR ---
RN NOTE PT FOUND AWAKE AND RESTING COMFORTABLY IN BED. PT REAMINS NONVERBAL. RESPIRATIONS EVEN AND UNLABORED. O2 AT 98% ON 3 LPM NC. NO SIGNS OF ACUTE DISTRESS. PT RESPOSITIONED AND WILL BE REPOSITIONED Q2 HRS. PT HAD 1 BM AND CLEANED. SAFETY MEASURESE IN PLACE.
[2022-04-01] MEDS: EZETIMIBE 10 MG TABLET GT SCH (22:03)
[2022-04-02] VITALS: BP 135/63
[2022-04-02 04:00] VITALS: BP 132/61
[2022-04-02 06:09] LABS: BASOPHILS % (AUTO) 0.3 % (0.0-2.0); EOSINOPHILS % (AUTO) 1.3 % (0.0-6.0); HEMATOCRIT 27 % (39-51); LYMPHOCYTES # (AUTO) 1.5 K/uL (0.8-4.8); LYMPHOCYTES % (AUTO) 16.5 % (20.0-44.0); MEAN CORPUSCULAR HGB CONC 33 g/dl (31.0-36.0); MEAN CORPUSCULAR VOLUME 87 fL (80-96); MONOCYTES # (AUTO) 0.6 K/uL (0.1-1.30); MONOCYTES % (AUTO) 6.4 % (2.0-12.0); NEUTROPHILS # (AUTO) 6.9 K/uL (1.8-8.9); NEUTROPHILS % (AUTO) 75.5 % (43.0-81.0); PLATELET COUNT (AUTO) 489 K/uL (150-450); RED BLOOD CELL COUNT(AUTO) 3.09 MIL/uL (4.5-6.0); WHITE BLOOD COUNT (AUTO) 9.1 K/uL (4.3-11.0)
[2022-04-02 06:33] LABS: CALCIUM, SERUM 8.4 mg/dL (8.5-10.1); CREATININE 0.7 mg/dL (0.6-1.3); POTASSIUM 4.2 mmol/L (3.5-5.1)
--- NOTE | 2022-04-02 07:23 | NUR ---
RN OPENING NOTE RECEIVED PATIENT IN BED, AWAKE, ALERT TO SELF, NO SIGNS OF ACUTE DISTRESS NOTED. NON-VERBAL. ON O2 @ 2LPM VIA N/S,NO SOB NOTED, BREATHING EVEN AND UNLABORED. ON TELE MONITORING, SHOWING SR, HR @85. NO S/SX OF PAIN NOTED. WITH IV ACCESS ON LEFT UPPER ARM MIDLINE, INTACT AND PATENT, SALINE LOCKED. WITH G-TUBE INTACT AND PATENT, NO RESIDUAL. WITH GT FEEDING OF GLUCERNA 1.2 @ 70 ML/HR . HOB ELEVATED AT ALL TIMES. SAFETY MEASURE IN PLACE BED IN LOWEST AND LOCKED POSITION, SIDE RAILS UP, CALL LIGHT PLACED WITHIN EASY REACH. WILL CONTINUE TO MONITOR PATIENT.
[2022-04-02 08:00] VITALS: BP 138/61
[2022-04-02] MEDS: MEROPENEM 1 G in IV NS 0.9% 100 ML IV SCH (08:19)
[2022-04-02] MEDS: ASPIRIN 81 MG TAB.CHEW GT SCH (08:20)
[2022-04-02] MEDS: PROSOURCE / PROSTAT (PYXIS) 30 ML UDC GT SCH (08:20)
[2022-04-02] MEDS: CLONIDINE HCL 0.1 MG TABLET GT SCH (08:20)
[2022-04-02] MEDS: AMLODIPINE BESYLATE 10 MG TABLET GT SCH (08:20)
[2022-04-02] MEDS: DAKINS QUARTER STRENGTH (0.125%) 480 ML BOTTLE TOP SCH (08:21)
[2022-04-02] MEDS: CLOTRIMAZOLE/BETAMETASONE DIPROPIONATE 15 GM TUBE TP SCH (08:21)
[2022-04-02] MEDS: THERAHONEY GEL 1.5 OZ TUBE TP SCH (08:22)
[2022-04-02] MEDS: GLUCERNA 1.2 1,000 ML BOTTLE NG PRN (08:30)
[2022-04-02] MEDS ORDERED: MERO1VIA23 IV (09:20)
[2022-04-02 12:00] VITALS: BP 118/54
[2022-04-02] MEDS ORDERED: VANCOMYCIN HCL 0.75 GM in IV D5W 250 ML IV SCH ×2 (12:00→23:00)
--- NOTE | 2022-04-02 16:58 | NUR ---
ENGINEERING TECHNICAL WRITER NOTE [facility]. pATIENT ALERT TO SELF, NO SIGNS OF ACUTE DISTRESS NOTED. ON O2 @ 2LPM VIA N/C, SATTING @99%. F/C INTACT, DRAINING YELLOW COLORED URINE TO DRAINAGE BAG VIA GRAVITY. MIDLINE ON LEFT UPPER ARM MAINTAINED, PT TO CONTINUE IV ABX IN SN[facility]. PHOTOS OF SKIN ISSUES TAKEN. TREATMENT DONE PRIOR TO DISCHARGE. PATIENT'S SON MENDY AWARE OF DISCHARGE ORDER AND AT BEDSIDE. REPORT GIVEN TO DANIAL VIVEROS RN FROM [facility]. EXITCARE FOLDER GIVEN TO [facility], HANDOFF REPORT GIVEN. PATIENT LEFT UNIT @1645 [facility] CN AWARE OF DISCHARGE.
== END 2022-04-02 17:10 | DRG 871 ==
LOC: ER 10:44 → TELE1 13:28
PROVIDERS: ADMIT Internal Medicine; ATTEND Internal Medicine
PROC: 30233N1 Transfusion of Nonautologous Red Blood Cells into Peripheral Vein, Percutaneous Approach (ICD-10-PCS; principal; 2022-03-30)
DX: A41.9 Sepsis, unspecified organism (principal); G92.8 Other toxic encephalopathy; J96.01 Acute respiratory failure with hypoxia; J15.6 Pneumonia due to other Gram-negative bacteria; L89.154 Pressure ulcer of sacral region, stage 4; E87.1 Hypo-osmolality and hyponatremia; N17.9 Acute kidney failure, unspecified; Z16.12 Extended spectrum beta lactamase (ESBL) resistance; M84.454A Pathological fracture, pelvis, initial encounter for fracture; E87.20 Acidosis, unspecified; M46.28 Osteomyelitis of vertebra, sacral and sacrococcygeal region; C64.1 Malignant neoplasm of right kidney, except renal pelvis; E86.0 Dehydration; E87.5 Hyperkalemia; E78.5 Hyperlipidemia, unspecified; E88.09 Other disorders of plasma-protein metabolism, not elsewhere classified; Z79.4 Long term (current) use of insulin; Z87.440 Personal history of urinary (tract) infections; R13.10 Dysphagia, unspecified; Z87.442 Personal history of urinary calculi; Z93.1 Gastrostomy status; D63.1 Anemia in chronic kidney disease; Z20.822 Contact with and (suspected) exposure to COVID-19; N18.9 Chronic kidney disease, unspecified; R53.1 Weakness; L89.216 Pressure-induced deep tissue damage of right hip; L89.220 Pressure ulcer of left hip, unstageable; E11.22 Type 2 diabetes mellitus with diabetic chronic kidney disease; I48.91 Unspecified atrial fibrillation; F03.90 Unspecified dementia, unspecified severity, without behavioral disturbance, psychotic disturbance, mood disturbance, and anxiety; I12.9 Hypertensive chronic kidney disease with stage 1 through stage 4 chronic kidney disease, or unspecified chronic kidney disease; N28.1 Cyst of kidney, acquired; E11.69 Type 2 diabetes mellitus with other specified complication; L89.526 Pressure-induced deep tissue damage of left ankle; L89.516 Pressure-induced deep tissue damage of right ankle; L89.626 Pressure-induced deep tissue damage of left heel
CPT/HCPCS: 36415; 71045-TC; 80048-TC; 80076-TC; 80202-TC; 83605-TC; 83735-TC; 84100-TC; 84484-TC; 85025-TC; 85730-TC; 86850-TC; 87040-TC; 87081-TC; 87086-TC; 94799-TC; A6253; A6403; C9803; G0378; J1940; J2185; J2543; J3370; J7030; J7050; J7060; P9016; Q9967

== ENCOUNTER 2022-04-05 06:54 | Inpatient (IN) | payer MEDICARE, OTHER ==
[~2022-04-05] VITALS: Ht 167.6 cm; Wt 49.9 kg
[2022-04-05] VITALS (15 sets, daily range): BP systolic 90–172; BP diastolic 54–90
[~2022-04-05 06:54] MED LIST changes: +ACET-2605 GT; +AMIN30LI2 GT; -AMLO-212 PO; +AMLO-213 GT; +CLON0.1T GT; +CLOT15CR5 TP; +CRAN3875 GT; +CRAN425C6 GT; -DEXA4TAB68 PO; -FLUC100T8 PO; -HYDR-4077 GT; +HYDR100T27 GT; +LACT1CAP7 GT; +LOPE-195 TD; -LOSA100T31 GT; -Linezolid GT; +MERO1VIA23 IV; -MERO500V23 IV; +NUT.237L30 GT; -NUT.250L18 GT; +POVI480S2 TP
--- NOTE | 2022-04-05 06:57 | NUR ---
[id number] [facility] C/O OF SOB SATTING 80% ON R/A [id number]. UPON TRIAGE SATTING 55% ON NRB 15LPM. PT NONVERBAL. GTUBE INTACT. F/C DRAINING URINE. CONNECTED PT TO POX AND MONITOR.
[2022-04-05] MEDS ORDERED: IV NS 0.9% 1,000 ML BAG IV ONE (07:00)
--- NOTE | 2022-04-05 07:00 | NUR ---
RT AT PT'S BEDSIDE
--- NOTE | 2022-04-05 07:03 | NUR ---
COVID ANTIGEN AND URINE COLLECTED VIA F/C AND SENT TO LAB
--- NOTE | 2022-04-05 07:05 | NUR ---
ONION TOPPER AT PT'S BEDSIDE
--- NOTE | 2022-04-05 07:13 | NUR ---
BRICK SHADER AT PT'S BEDSIDE
--- NOTE | 2022-04-05 07:15 | NUR ---
DR RENDON DISCUSSING CODE STATUS WITH THE FAMILY OVER THE PHONE
--- NOTE | 2022-04-05 07:19 | NUR ---
DR. RENDON ON PHINE CALL WITH KENNETH (SON) [phone] & DECIDED PT TO REMAIN DNR
--- NOTE | 2022-04-05 07:26 | NUR ---
recieved report from greyson .
[2022-04-05 07:44] LABS: CALCIUM, SERUM 9.3 mg/dL (8.5-10.1); CARBON DIOXIDE 25 mmol/L (21-32); CHLORIDE 102 mmol/L (98-107); CREATININE 0.6 mg/dL (0.6-1.3); GLUCOSE 142 mg/dL (74-106); POTASSIUM 4.8 mmol/L (3.5-5.1); SODIUM SERUM 134 mmol/L (136-145); UREA NITROGEN, BLOOD 29 mg/dL (7-18)
[2022-04-05 07:58] LABS: ALANINE AMINOTRANSFERASE 29 U/L (12-78); ALBUMIN 2.2 g/dL (3.4-5.0); ALKALINE PHOSPHATASE 148 U/L (46-116); ASPARTATE AMINOTRANSFERASE 22 U/L (15-37); BILIRUBIN,DIRECT 0.1 mg/dL (0.0-0.2); BILIRUBIN,TOTAL 0.2 mg/dL (0.2-1.0); TOTAL PROTEIN, SERUM 6.9 g/dL (6.4-8.2)
[2022-04-05] MEDS ORDERED: MEROPENEM 1,000 MG in IV NS 0.9% 100 ML IV ONE (08:00)
[2022-04-05] MEDS ORDERED: VANCOMYCIN 1 GM in IV D5W 250 ML IV ONE (08:00)
[2022-04-05] MEDS ORDERED: MORPHINE SULFATE INJ 2 MG/ML DISP.SYRIN IM ONE (08:00)
--- NOTE | 2022-04-05 08:10 | NUR ---
SPOKE TO DR RENDON ABOUT SEPSIS PROTOCOL FOR FLUID REPLACEMENT , DOESNT WANT TO REPLACE RIGHT NOW BEC PT HAS NO FEVER AND NOT HYPOTENSIVE.
[2022-04-05 08:15] LABS: BASOPHILS # (AUTO) 0.1 K/uL (0.0-0.2); BASOPHILS % (AUTO) 0.7 % (0.0-2.0); EOSINOPHILS % (AUTO) 0.7 % (0.0-6.0); HEMATOCRIT 32 % (39-51); HEMOGLOBIN 10.2 g/dL (13.5-17.5); LYMPHOCYTES # (AUTO) 2.1 K/uL (0.8-4.8); MEAN CORPUSCULAR HGB CONC 32 g/dl (31.0-36.0); MEAN CORPUSCULAR VOLUME 90 fL (80-96); MONOCYTES # (AUTO) 0.9 K/uL (0.1-1.30); MONOCYTES % (AUTO) 5.8 % (2.0-12.0); NEUTROPHILS # (AUTO) 12.9 K/uL (1.8-8.9); NEUTROPHILS % (AUTO) 79.8 % (43.0-81.0); PLATELET COUNT (AUTO) 782 K/uL (150-450); RED BLOOD CELL COUNT(AUTO) 3.52 MIL/uL (4.5-6.0); WHITE BLOOD COUNT (AUTO) 16.2 K/uL (4.3-11.0)
--- NOTE | 2022-04-05 08:25 | NUR ---
SPOKE WITH THE SON REGARDING CONSENT OF US GUIDED THORACENTESIS , HE WANTS TO THINK ABOUT IT FIRST AND CONSULT FAMILY
--- NOTE | 2022-04-05 08:35 | NUR ---
pt signed the consent for us guided thoracentesis
[2022-04-05] MEDS ORDERED: TRIA80OI TP (08:50)
--- NOTE | 2022-04-05 08:53 | NUR ---
Alice dunbar in [facility] - 04/05/22 at 0854 by SONU [place] [id number]
[2022-04-05] MEDS ORDERED: INSULIN REGULAR, HUMAN 100 UNIT/ML 3 ML VIAL SQ PRN (09:00)
[2022-04-05] MEDS ORDERED: DEXTROSE 50%-WATER 50 ML DISP.SYRIN IV PRN (09:00)
[2022-04-05] MEDS ORDERED: ONDANSETRON HCL/PF 4 MG/2 ML VIAL IVP PRN (09:00)
[2022-04-05] MEDS ORDERED: ACETAMINOPHEN 325 MG TABLET PO PRN (09:00)
[2022-04-05] MEDS ORDERED: BISACODYL SUPP (10 MG) 10 MG/SUPP.RECT SUPP.RECT RC PRN (09:00)
[2022-04-05] MEDS: CLOTRIMAZOLE/BETAMETASONE DIPROPIONATE 15 GM TUBE TP SCH (09:00)
[2022-04-05] MEDS ORDERED: hydrALAZINE HCL IV 20 MG VIAL IV PRN (09:00)
[2022-04-05] MEDS ORDERED: Z GUARD REMEDY 4 OZ OINT TP PRN (09:00)
[2022-04-05] MEDS ORDERED: MORPHINE SULFATE INJ 2 MG/ML DISP.SYRIN IV PRN (09:00)
--- NOTE | 2022-04-05 09:11 | NUR ---
instrument tech at bed side
--- NOTE | 2022-04-05 09:20 | NUR ---
left lower effusion thoracentesis started by Dr. Rangel, 300ml output serosanguenous to be sent to lab , chest Xray stat post procedure per .
--- NOTE | 2022-04-05 09:35 | NUR ---
aeronautical engineering technologist at bedside
[2022-04-05 09:54] LABS: BILIRUBIN,URINE NEGATIVE (NEGATIVE); COLOR,URINE YELLOW (YELLOW); LEUKOCYTE ESTERASE ,URINE NEGATIVE (NEGATIVE); NITRITE, URINE NEGATIVE (NEGATIVE); PROTEIN,URINE 30 mg/dl (NEGATIVE); UGLUCOSE NEGATIVE (NEGATIVE); UROBILINOGEN,URINE 0.2 EU/dL (0.2)
--- NOTE | 2022-04-05 10:05 | NUR ---
THORACENTESIS FLUID SPECIMEN SENT TO LAB.
[2022-04-05 10:14] LABS: BACTERIA,URINE None seen /HPF (None Seen); RBC,URINE 0-2 /HPF (0-2); SQUAMOUS EPITHELIAL CELL,UR None Seen /HPF (None Seen); WBC,URINE 0-2 /HPF (0-3)
--- NOTE | 2022-04-05 10:23 | NUR ---
ROOM GIVEN 254
--- NOTE | 2022-04-05 10:24 | NUR ---
Dr. Rico at bedside for eval
--- NOTE | 2022-04-05 10:40 | NUR ---
PT REPORT GIVEN TO DIEGO REIS
--- NOTE | 2022-04-05 10:41 | NUR ---
pt taken to CT with emt and Rn
[2022-04-05] MEDS ORDERED: LEVALBUTEROL HCL NEB 1.25 MG/0.5 ML VIAL.NEB IH PRN (11:00)
--- NOTE | 2022-04-05 11:04 | NUR ---
PT TRANSFERRED TO 254 VIA [facility] ACLS PROTOCOL. WARM HANDOFF GIVEN TO DIEGO REIS.
[2022-04-05] MEDS: BLOOD SUGAR DIAGNOSTIC 1 EACH STRIP VI SCH ×4 (11:40→22:00)
[2022-04-05] MEDS: ASCORBIC ACID 500 MG TABLET GT SCH (11:41)
[2022-04-05] MEDS: ASPIRIN 81 MG TAB.CHEW GT SCH (11:41)
[2022-04-05] MEDS: POLYETHYLENE GLYCOL 3350 17 GM POWD.PACK PO SCH (11:41)
[2022-04-05] MEDS: AMLODIPINE BESYLATE 10 MG TABLET GT SCH (11:41)
[2022-04-05] MEDS: DOCUSATE SODIUM LIQ 100 MG/10 ML UDC GT SCH ×2 (11:41→16:36)
[2022-04-05] MEDS: HEPARIN SODIUM, PORCINE 5000 UNITS/1 ML VIAL SQ SCH ×2 (11:42→22:45)
[2022-04-05] MEDS ORDERED: IPRATROPIUM/ALBUTEROL INHALER IH SCH (12:00)
[2022-04-05] MEDS: hydrALAZINE HCL 50 MG TABLET GT SCH ×2 (12:20→16:36)
[2022-04-05] MEDS: MEROPENEM 1 G in IV NS 0.9% 100 ML IV SCH ×2 (16:00→22:42)
[2022-04-05] MEDS ORDERED: GLUCERNA 1.2 1,000 ML BOTTLE NG PRN (16:00)
[2022-04-05] MEDS: IV NS 0.9% 250 ML IV PRN (16:54)
[2022-04-05] MEDS ORDERED: ALBUTEROL FS 2.5 MG/0.5 ML VIAL.NEB NEB PRN (19:30)
[2022-04-05] MEDS: IPRATROPIUM NEB FS 0.5 MG/2.5 ML AMPUL.NEB NEB SCH (19:39)
[2022-04-05] MEDS: ALBUTEROL FS 2.5 MG/0.5 ML VIAL.NEB NEB SCH (19:40)
--- NOTE | 2022-04-05 20:47 | NUR ---
VOICE INTERCEPT TECHNICIAN, INITIAL ASSESSMENT. RECEIVED THE PT REST IN BED. AWAKE, OPEN EYES. DOES NOT FOLLOW COMMANDS. NONVERBAL. OXYGEN 4L VIA NASAL CANNULA. SAT 98%. NO ACUTE DISTRESS NOTED. FEED IN WORKER SHOWING NSR. IV RT UPPER ARM MID LINE, TKO RUNNING. HOB ELEVATED. GT INTACT. FEEDING GLUCERNA 30 ML/H. FC PATENT. WILL CONTINUE TO MONITOR VITALS.
[2022-04-05 21:35] LABS: BAND % (MANUAL) 4 % (0.0-5.0); LYMPHOCYTES % (MANUAL) 12 % (16-48); MONOCYTES % (MANUAL) 2 % (0-11.0); NEUTROPHILS % (MANUAL) 82 (42-76)
[2022-04-05] MEDS: EZETIMIBE 10 MG TABLET GT SCH (22:42)
[2022-04-06] VITALS (25 sets, daily range): BP systolic 88–153; BP diastolic 52–74
[2022-04-06] MEDS: ALBUTEROL FS 2.5 MG/0.5 ML VIAL.NEB NEB SCH ×4 (01:25→19:57)
[2022-04-06] MEDS: IPRATROPIUM NEB FS 0.5 MG/2.5 ML AMPUL.NEB NEB SCH ×4 (01:25→19:57)
[2022-04-06 04:59] LABS: BASOPHILS # (AUTO) 0.1 K/uL (0.0-0.2); BASOPHILS % (AUTO) 0.5 % (0.0-2.0); EOSINOPHILS % (AUTO) 0.9 % (0.0-6.0); HEMATOCRIT 27 % (39-51); HEMOGLOBIN 9.1 g/dL (13.5-17.5); LYMPHOCYTES # (AUTO) 1.9 K/uL (0.8-4.8); LYMPHOCYTES % (AUTO) 18.4 % (20.0-44.0); MEAN CORPUSCULAR HGB CONC 33 g/dl (31.0-36.0); MEAN CORPUSCULAR VOLUME 88 fL (80-96); MONOCYTES # (AUTO) 0.6 K/uL (0.1-1.30); MONOCYTES % (AUTO) 5.6 % (2.0-12.0); NEUTROPHILS # (AUTO) 7.5 K/uL (1.8-8.9); NEUTROPHILS % (AUTO) 74.6 % (43.0-81.0); PLATELET COUNT (AUTO) 615 K/uL (150-450); RED BLOOD CELL COUNT(AUTO) 3.12 MIL/uL (4.5-6.0); WHITE BLOOD COUNT (AUTO) 10.1 K/uL (4.3-11.0)
--- NOTE | 2022-04-06 05:17 | NUR ---
horticultural nursery assistant. am care given. remaining same oxygen tolerated well. sat 98%. no acute distress noted. front desk monitor showing nsr. iv rt upper arm mid line. tko running. fc patent. urine draining. turn and reposition q2h. gt feeding tolerated well.
[2022-04-06 05:36] LABS: ALANINE AMINOTRANSFERASE 25 U/L (12-78); ALBUMIN 1.8 g/dL (3.4-5.0); ALKALINE PHOSPHATASE 111 U/L (46-116); ASPARTATE AMINOTRANSFERASE 17 U/L (15-37); BILIRUBIN,TOTAL 0.3 mg/dL (0.2-1.0); CALCIUM, SERUM 8.6 mg/dL (8.5-10.1); CARBON DIOXIDE 25 mmol/L (21-32); CHLORIDE 106 mmol/L (98-107); CREATININE 0.5 mg/dL (0.6-1.3); GLUCOSE 103 mg/dL (74-106); MAGNESIUM 2.1 mg/dL (1.8-2.4); PHOSPHORUS 3.3 mg/dL (2.5-4.9); POTASSIUM 4.3 mmol/L (3.5-5.1); SODIUM SERUM 138 mmol/L (136-145); UREA NITROGEN, BLOOD 22 mg/dL (7-18)
--- NOTE | 2022-04-06 07:22 | NUR ---
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 RECOMMENDATIONS MADE FOR SKIN PROTECTION. DISCUSSED WITH NURSING STAFF. FIRST STEP LOW AIRLOSS MATTRESS IS ON ORDER. MD IN AGREEMENT WITH PLAN OF CARE.
[2022-04-06] MEDS: BLOOD SUGAR DIAGNOSTIC 1 EACH STRIP VI SCH ×3 (08:01→17:21)
[2022-04-06] MEDS: MEROPENEM 1 G in IV NS 0.9% 100 ML IV SCH ×2 (08:02→16:47)
[2022-04-06] MEDS: AMLODIPINE BESYLATE 10 MG TABLET GT SCH (08:23)
[2022-04-06] MEDS: ASCORBIC ACID 500 MG TABLET GT SCH (08:23)
[2022-04-06] MEDS: MULTIVITAMIN/LUTEIN/MINERALS 1 TAB GT SCH (08:23)
[2022-04-06] MEDS: ASPIRIN 81 MG TAB.CHEW GT SCH (08:23)
[2022-04-06] MEDS: POLYETHYLENE GLYCOL 3350 17 GM POWD.PACK PO SCH (08:23)
[2022-04-06] MEDS: HEPARIN SODIUM, PORCINE 5000 UNITS/1 ML VIAL SQ SCH ×2 (08:25→21:35)
[2022-04-06] MEDS: CLOTRIMAZOLE/BETAMETASONE DIPROPIONATE 15 GM TUBE TP SCH ×2 (09:00→09:31)
[2022-04-06] MEDS: THERAHONEY GEL 1.5 OZ TUBE TP SCH ×2 (09:00→09:31)
[2022-04-06] MEDS: hydrALAZINE HCL 50 MG TABLET GT SCH ×2 (09:03→16:47)
[2022-04-06] MEDS: DOCUSATE SODIUM LIQ 100 MG/10 ML UDC GT SCH ×2 (09:03→21:34)
[2022-04-06] MEDS: DAKINS QUARTER STRENGTH (0.125%) 480 ML BOTTLE TOP SCH (09:30)
[2022-04-06 11:12] LABS: BAND % (MANUAL) 4 % (0.0-5.0); EOSINOPHILS % (MANUAL) 1 % (0-4); LYMPHOCYTES % (MANUAL) 14 % (16-48); MONOCYTES % (MANUAL) 6 % (0-11.0); NEUTROPHILS % (MANUAL) 75 (42-76)
--- NOTE | 2022-04-06 11:46 | NUR ---
O2 Sat 70's. RT @ bedside assisting with deep suctionig to help improve aeration. Stat CXR ordered. Cont to mon. Will notify Dr. Rico
--- NOTE | 2022-04-06 12:11 | NUR ---
Currently on HiFlow and Non Rebreather Mask. O2 Sat improve to mid 80's. CXR done. Awaiting for CXR results.
[2022-04-06] MEDS: *INSULIN REGULAR(HUMULIN R)HUM 100 UNIT/ML VIAL SQ PRN (13:00)
[2022-04-06] MEDS: ACETYLCYSTEINE 10% SOLN 400 MG/4 ML VIAL NEB SCH ×2 (13:30→15:21)
--- NOTE | 2022-04-06 17:54 | NUR ---
Pt remains hypoxic respiratory failure. CXR today shows left lung atelectasis vs PNA with plueral effusion improved after thoracentesis 04/05/22. Currently on Hiflow with NRM @ 60%. Pt remains awake, opens eyes spontaneously, non verbal Remains DNR/DNI code status Held transfer to lower level of care secondary to desaturation episode and respiratory distress. Pt acutely desaturated to 60% to 70%. deep suctioning provided and encourage pt to CDB. placed on double oxygen set up with follow-up chest x-ray showing opacification of left hemithorax with midline shift of trachea consistent with major atelectasis. Continue pulmonary toilet/CPT. Continue with oxygen titration maintain. Patient placed on his right side in order to optimize oxygenation and minimize shunting. Cont to monitor closely and Cont Plan of care.
[2022-04-06 18:54] LABS: ABG BASE EXCESS -2.6 mmol/L; ABG OXYGEN SATURATION 94.8 % (92.0-98.5); ABG PCO2 17.9 mmHg (35.0-45.0); ABG PH 7.597 (7.350-7.450); ABG PO2 66.3 mmHg (75.0-100.0); AaDO2 628.8 mmHg; COHb 0.3 % (0.5-1.5); MetHb 0.3 % (0.0-1.5); O2Hb 94.2 % (94.0-97.0); SITE, ABG Right Radial; VENT MODE, BG 15L NRB
[2022-04-06 18:54] LABS: ABG BASE EXCESS -1.1 mmol/L; ABG PCO2 27.6 mmHg (35.0-45.0); ABG PH 7.503 (7.350-7.450); ABG PO2 338.9 mmHg (75.0-100.0); COHb 0.2 % (0.5-1.5); MetHb 0.5 % (0.0-1.5); O2Hb 98.7 % (94.0-97.0); SITE, ABG Right Radial; VENT MODE, BG HFNC 60L/100%
[2022-04-06 18:54] LABS: ABG BASE EXCESS 2.3 mmol/L; ABG PCO2 33.2 mmHg (35.0-45.0); ABG PH 7.498 (7.350-7.450); ABG PO2 28.1 mmHg (75.0-100.0); COHb 0.3 % (0.5-1.5); MetHb 0.2 % (0.0-1.5); O2Hb 53.9 % (94.0-97.0); SITE, ABG Right Radial; VENT MODE, BG NRB 100%
[2022-04-06 18:54] LABS: ABG BASE EXCESS 0.6 mmol/L; ABG OXYGEN SATURATION 95.5 % (92.0-98.5); ABG PCO2 32.8 mmHg (35.0-45.0); ABG PH 7.478 (7.350-7.450); ABG PO2 79.9 mmHg (75.0-100.0); COHb 0.3 % (0.5-1.5); MetHb 0.2 % (0.0-1.5); SITE, ABG Right Radial; VENT MODE, BG Nasal Cannula
[2022-04-06] MEDS: EZETIMIBE 10 MG TABLET GT SCH (21:34)
[2022-04-07] VITALS (25 sets, daily range): BP systolic 99–151; BP diastolic 47–94
[2022-04-07] MEDS: MEROPENEM 1 G in IV NS 0.9% 100 ML IV SCH ×3 (00:01→16:42)
[2022-04-07] MEDS: ACETYLCYSTEINE 10% SOLN 400 MG/4 ML VIAL NEB SCH ×4 (00:13→23:14)
[2022-04-07] MEDS: ALBUTEROL FS 2.5 MG/0.5 ML VIAL.NEB NEB SCH ×4 (00:13→19:51)
[2022-04-07] MEDS: IPRATROPIUM NEB FS 0.5 MG/2.5 ML AMPUL.NEB NEB SCH ×4 (00:13→19:51)
[2022-04-07] MEDS: BLOOD SUGAR DIAGNOSTIC 1 EACH STRIP VI SCH ×4 (00:27→18:30)
[2022-04-07] MEDS: hydrALAZINE HCL 50 MG TABLET GT SCH ×3 (00:55→17:27)
--- NOTE | 2022-04-07 01:17 | NUR ---
ICU/HEALTH DATA ANALYST PT APPEARS TO MAKE FACES WHEN TURNING, FLACC SCALE USED 4/10. GAVE TYLENOL GIVEN VIA G/TUBE. WILL MONITOR THIS PT.
[2022-04-07 07:57] LABS: BASOPHILS # (AUTO) 0.1 K/uL (0.0-0.2); BASOPHILS % (AUTO) 0.6 % (0.0-2.0); EOSINOPHILS % (AUTO) 0.8 % (0.0-6.0); HEMATOCRIT 26 % (39-51); HEMOGLOBIN 8.8 g/dL (13.5-17.5); LYMPHOCYTES # (AUTO) 1.8 K/uL (0.8-4.8); LYMPHOCYTES % (AUTO) 14.4 % (20.0-44.0); MEAN CORPUSCULAR HGB CONC 34 g/dl (31.0-36.0); MEAN CORPUSCULAR VOLUME 87 fL (80-96); MONOCYTES # (AUTO) 0.8 K/uL (0.1-1.30); MONOCYTES % (AUTO) 6.6 % (2.0-12.0); NEUTROPHILS # (AUTO) 9.7 K/uL (1.8-8.9); NEUTROPHILS % (AUTO) 77.6 % (43.0-81.0); PLATELET COUNT (AUTO) 693 K/uL (150-450); RED BLOOD CELL COUNT(AUTO) 3.02 MIL/uL (4.5-6.0); WHITE BLOOD COUNT (AUTO) 12.5 K/uL (4.3-11.0)
[2022-04-07 07:58] LABS: CALCIUM, SERUM 8.6 mg/dL (8.5-10.1); CREATININE 0.6 mg/dL (0.6-1.3); POTASSIUM 4.4 mmol/L (3.5-5.1)
[2022-04-07 08:04] LABS: ALBUMIN 1.8 g/dL (3.4-5.0); BILIRUBIN,TOTAL 0.2 mg/dL (0.2-1.0); TOTAL PROTEIN, SERUM 5.8 g/dL (6.4-8.2)
[2022-04-07] MEDS: ASCORBIC ACID 500 MG TABLET GT SCH (08:43)
[2022-04-07] MEDS: MULTIVITAMIN/LUTEIN/MINERALS 1 TAB GT SCH (08:43)
[2022-04-07] MEDS: ASPIRIN 81 MG TAB.CHEW GT SCH (08:43)
[2022-04-07] MEDS: AMLODIPINE BESYLATE 10 MG TABLET GT SCH (08:43)
[2022-04-07] MEDS: DOCUSATE SODIUM LIQ 100 MG/10 ML UDC GT SCH ×2 (08:43→21:43)
[2022-04-07] MEDS: POLYETHYLENE GLYCOL 3350 17 GM POWD.PACK PO SCH (08:44)
[2022-04-07] MEDS: DAKINS QUARTER STRENGTH (0.125%) 480 ML BOTTLE TOP SCH (08:44)
[2022-04-07] MEDS: HEPARIN SODIUM, PORCINE 5000 UNITS/1 ML VIAL SQ SCH ×2 (08:49→21:44)
[2022-04-07] MEDS: THERAHONEY GEL 1.5 OZ TUBE TP SCH (09:19)
[2022-04-07] MEDS: CLOTRIMAZOLE/BETAMETASONE DIPROPIONATE 15 GM TUBE TP SCH (09:19)
--- NOTE | 2022-04-07 13:02 | NUR ---
[employer] called to follow up Air Mattress. Central Director Business Systems states that "No order" was generated or received. Instructed to re-order in [facility] at this time
[2022-04-07] MEDS: EZETIMIBE 10 MG TABLET GT SCH (21:43)
[2022-04-08] VITALS (15 sets, daily range): BP systolic 104–157; BP diastolic 56–84
[2022-04-08] MEDS: MEROPENEM 1 G in IV NS 0.9% 100 ML IV SCH ×3 (00:13→16:45)
[2022-04-08] MEDS: hydrALAZINE HCL 50 MG TABLET GT SCH ×3 (00:16→18:00)
[2022-04-08] MEDS: BLOOD SUGAR DIAGNOSTIC 1 EACH STRIP VI SCH ×4 (00:16→18:00)
[2022-04-08] MEDS: ALBUTEROL FS 2.5 MG/0.5 ML VIAL.NEB NEB SCH ×4 (01:05→19:58)
[2022-04-08] MEDS: IPRATROPIUM NEB FS 0.5 MG/2.5 ML AMPUL.NEB NEB SCH ×4 (01:05→19:58)
[2022-04-08 05:02] LABS: BASOPHILS # (AUTO) 0.1 K/uL (0.0-0.2); BASOPHILS % (AUTO) 0.4 % (0.0-2.0); EOSINOPHILS % (AUTO) 1.1 % (0.0-6.0); HEMATOCRIT 30 % (39-51); HEMOGLOBIN 9.6 g/dL (13.5-17.5); LYMPHOCYTES # (AUTO) 2.1 K/uL (0.8-4.8); MEAN CORPUSCULAR HGB CONC 32 g/dl (31.0-36.0); MEAN CORPUSCULAR VOLUME 89 fL (80-96); MONOCYTES # (AUTO) 0.7 K/uL (0.1-1.30); NEUTROPHILS # (AUTO) 10.8 K/uL (1.8-8.9); NEUTROPHILS % (AUTO) 78.5 % (43.0-81.0); PLATELET COUNT (AUTO) 759 K/uL (150-450); WHITE BLOOD COUNT (AUTO) 13.8 K/uL (4.3-11.0)
[2022-04-08 05:29] LABS: ALANINE AMINOTRANSFERASE 26 U/L (12-78); ALKALINE PHOSPHATASE 124 U/L (46-116); ASPARTATE AMINOTRANSFERASE 25 U/L (15-37); BILIRUBIN,TOTAL 0.2 mg/dL (0.2-1.0); CALCIUM, SERUM 9.1 mg/dL (8.5-10.1); CARBON DIOXIDE 28 mmol/L (21-32); CHLORIDE 108 mmol/L (98-107); CREATININE 0.6 mg/dL (0.6-1.3); GLUCOSE 112 mg/dL (74-106); POTASSIUM 5.1 mmol/L (3.5-5.1); SODIUM SERUM 142 mmol/L (136-145); TOTAL PROTEIN, SERUM 6.5 g/dL (6.4-8.2); UREA NITROGEN, BLOOD 25 mg/dL (7-18)
[2022-04-08] MEDS: IV NS 0.9% 250 ML IV PRN (05:32)
--- NOTE | 2022-04-08 07:25 | NUR ---
RECEIVED REPORT FROM CELL CLEANER. PATIENT REMAINS IN ROOM ON HIGH FLOW O2. GASTRIC TUBE PATENT. IV ACCESS FLUSHING WITH NO RESISTANCE. SAFETY MEASURES IMPLEMENTED. WILL CONTINUE PLAN OF CARE AND ANTICIPATE NEEDS.
[2022-04-08] MEDS: ACETYLCYSTEINE 10% SOLN 400 MG/4 ML VIAL NEB SCH ×3 (07:41→23:19)
[2022-04-08] MEDS: MULTIVITAMIN/LUTEIN/MINERALS 1 TAB GT SCH (08:19)
[2022-04-08] MEDS: ASCORBIC ACID 500 MG TABLET GT SCH (08:20)
[2022-04-08] MEDS: AMLODIPINE BESYLATE 10 MG TABLET GT SCH (08:20)
[2022-04-08] MEDS: ASPIRIN 81 MG TAB.CHEW GT SCH (08:20)
[2022-04-08] MEDS: HEPARIN SODIUM, PORCINE 5000 UNITS/1 ML VIAL SQ SCH ×2 (08:22→21:16)
[2022-04-08] MEDS: DAKINS QUARTER STRENGTH (0.125%) 480 ML BOTTLE TOP SCH (08:22)
[2022-04-08] MEDS: CLOTRIMAZOLE/BETAMETASONE DIPROPIONATE 15 GM TUBE TP SCH (08:22)
[2022-04-08] MEDS: THERAHONEY GEL 1.5 OZ TUBE TP SCH (08:22)
[2022-04-08] MEDS: DOCUSATE SODIUM LIQ 100 MG/10 ML UDC GT SCH ×2 (08:22→21:15)
[2022-04-08] MEDS: POLYETHYLENE GLYCOL 3350 17 GM POWD.PACK PO SCH (08:23)
--- NOTE | 2022-04-08 08:23 | NUR ---
COLACE AND MIRALAX HELD DUE TO LOOSE STOOLS
--- NOTE | 2022-04-08 08:40 | NUR ---
pt. is awake and follow commands placed into simple mask @ 10 lpm o2 flow. spo2 94% rn notified Addendum: 04/08/22 at 0841 by MARBELLA CARDOSO RT Amended: Links added.
[2022-04-08] MEDS: JEVITY 1.2 CAL 1,000 ML BOTTLE GT SCH (10:43)
--- NOTE | 2022-04-08 10:50 | NUR ---
RN NOTE PATIENT TRANSFERRED FROM ICU VIA HIS BED ACCOMPANIED BY DIEGO BETTENCOURT. VS: BP 122/67, HR 90, RR 20, 97.3 ORAL TEMP, 02 SAT OF 97%, 10L ON SIMPLE MASK. ALEXSANDER MIDLINE INTACT AND PATENT. G-TUBE RUNNING JEVITY AT 65 MLS/HR. ENDORSED TO REPOSITION R THEN BACK, DESATURATES ON LEFT SIDE. ALL SAFETY MEASURES IN PLACE, BED LOCKED IN LOWEST POSITION, WILL ENDORSE CONTINUITY OF CARE TO CREDIT CARD CONTROL CLERK.
--- NOTE | 2022-04-08 19:20 | NUR ---
RN NOTE PATIENT IN BED, AO X1, ON SEMI CRONIN'S, IN NO ACUTE DISTRESS, SATURATION AT 100% ON 10L VIA SIMPLE MASK, SR ON THE MONITOR HR IS 84. ALEXSANDER MIDLINE PATENT AND FLUSHING WELL, NS AT TKO. DELA CRUZ CATHETER DRAINING TO A CLEAR, YELLOW OUTPUT. GTUBE IN PLACE, POSITIVE PLACEMENT NOTED, NO RESIDUAL, WITH JEVITY AT 65 ML/HR. SAFETY MEASURES IMPLEMENTED, WILL CONT TO MONITOR AND REASSESS.
[2022-04-08] MEDS: EZETIMIBE 10 MG TABLET GT SCH (21:15)
[2022-04-09] VITALS: BP 126/56
[2022-04-09] MEDS: BLOOD SUGAR DIAGNOSTIC 1 EACH STRIP VI SCH ×5 (00:05→23:39)
[2022-04-09] MEDS: MEROPENEM 1 G in IV NS 0.9% 100 ML IV SCH ×4 (00:05→23:33)
[2022-04-09] MEDS: *INSULIN REGULAR(HUMULIN R)HUM 100 UNIT/ML VIAL SQ PRN (00:06)
[2022-04-09] MEDS: hydrALAZINE HCL 50 MG TABLET GT SCH ×3 (00:15→16:31)
[2022-04-09] MEDS: IPRATROPIUM NEB FS 0.5 MG/2.5 ML AMPUL.NEB NEB SCH ×4 (02:12→20:12)
[2022-04-09] MEDS: ALBUTEROL FS 2.5 MG/0.5 ML VIAL.NEB NEB SCH ×4 (02:12→20:12)
--- NOTE | 2022-04-09 02:29 | NUR ---
RN NOTE RT PLACED PT ON NC 6 LPM. PT TOLERATING WELL WITH O2 SAT OF 98%.
[2022-04-09 04:00] VITALS: BP 131/59
[2022-04-09 07:26] LABS: ALANINE AMINOTRANSFERASE 27 U/L (12-78); ALBUMIN 1.8 g/dL (3.4-5.0); ALKALINE PHOSPHATASE 114 U/L (46-116); ASPARTATE AMINOTRANSFERASE 28 U/L (15-37); BILIRUBIN,TOTAL 0.2 mg/dL (0.2-1.0); CALCIUM, SERUM 8.8 mg/dL (8.5-10.1); CARBON DIOXIDE 25 mmol/L (21-32); CHLORIDE 109 mmol/L (98-107); CREATININE 0.5 mg/dL (0.6-1.3); GLUCOSE 105 mg/dL (74-106); POTASSIUM 4.9 mmol/L (3.5-5.1); SODIUM SERUM 140 mmol/L (136-145); TOTAL PROTEIN, SERUM 6.1 g/dL (6.4-8.2); UREA NITROGEN, BLOOD 27 mg/dL (7-18)
[2022-04-09 07:27] LABS: BASOPHILS # (AUTO) 0.1 K/uL (0.0-0.2); BASOPHILS % (AUTO) 0.6 % (0.0-2.0); EOSINOPHILS % (AUTO) 1.3 % (0.0-6.0); HEMATOCRIT 28 % (39-51); HEMOGLOBIN 8.9 g/dL (13.5-17.5); LYMPHOCYTES # (AUTO) 1.8 K/uL (0.8-4.8); MEAN CORPUSCULAR HGB CONC 32 g/dl (31.0-36.0); MEAN CORPUSCULAR VOLUME 88 fL (80-96); MONOCYTES # (AUTO) 0.8 K/uL (0.1-1.30); NEUTROPHILS % (AUTO) 78.1 % (43.0-81.0); PLATELET COUNT (AUTO) 743 K/uL (150-450); RED BLOOD CELL COUNT(AUTO) 3.14 MIL/uL (4.5-6.0); WHITE BLOOD COUNT (AUTO) 12.8 K/uL (4.3-11.0)
[2022-04-09] MEDS: ACETYLCYSTEINE 10% SOLN 400 MG/4 ML VIAL NEB SCH ×2 (07:38→13:59)
--- NOTE | 2022-04-09 07:52 | NUR ---
EDD RN notes Received patient in bed. Alert but non-verbal with confusion . On 6L oxygen via NC, SpO2 >95%, RR WNL. Telemetry showed SR with HR i87 ALEXSANDER midline was in place, patent, dry and intact. GT was in place with good absorption, continue Jevity at 65mL/hr.no residual noted No active complaint now keep hob elevated at all time . Call light placed within reach. All needs attended. Side rail x3, bed was locked and placed in the lowest position. Safety measures in place. Will continue to monitor. with Reddy cath to gravity with yellow color urine
[2022-04-09 08:00] VITALS: BP 140/70
[2022-04-09] MEDS: DOCUSATE SODIUM LIQ 100 MG/10 ML UDC GT SCH ×2 (08:20→21:47)
[2022-04-09] MEDS: MULTIVITAMIN/LUTEIN/MINERALS 1 TAB GT SCH (08:20)
[2022-04-09] MEDS: ASPIRIN 81 MG TAB.CHEW GT SCH (08:20)
[2022-04-09] MEDS: POLYETHYLENE GLYCOL 3350 17 GM POWD.PACK PO SCH (08:21)
[2022-04-09] MEDS: AMLODIPINE BESYLATE 10 MG TABLET GT SCH (08:21)
[2022-04-09] MEDS: HEPARIN SODIUM, PORCINE 5000 UNITS/1 ML VIAL SQ SCH ×2 (08:22→21:50)
[2022-04-09] MEDS: THERAHONEY GEL 1.5 OZ TUBE TP SCH (08:23)
[2022-04-09] MEDS: DAKINS QUARTER STRENGTH (0.125%) 480 ML BOTTLE TOP SCH (08:23)
[2022-04-09] MEDS: CLOTRIMAZOLE/BETAMETASONE DIPROPIONATE 15 GM TUBE TP SCH (08:23)
[2022-04-09] MEDS: ASCORBIC ACID 500 MG TABLET GT SCH (08:24)
--- NOTE | 2022-04-09 11:00 | NUR ---
EDD RN notes Dr. Cordoba ordered to tail down oxygen to 2L via NC. SpO2 96% with 2L. Will monitor.
[2022-04-09 12:13] VITALS: BP 101/40
--- NOTE | 2022-04-09 14:48 | NUR ---
pushcart peddler notes Patient rested well in bed. SpO2 95% with 2L oxygen via NC. Addendum: 04/09/22 at 1449 by SHARMAINE CABA RN EDD
[2022-04-09 16:00] VITALS: BP 146/59
--- NOTE | 2022-04-09 16:55 | NUR ---
EDD RN NOTE TOLERATING 2L NC WELL , 95% SATURATION . ALL NEEDS ATTENDED, CONT ON G TUBE FEEDING ORDERED ,KEEP HB ELEVATED AT ALL TIME, NOT IN DISTRESS AT THIS TIME
--- NOTE | 2022-04-09 18:29 | NUR ---
EDD RN notes Patient was resting in bed, opening eyes spontaneously. Afebrile this shift. Telemetry showed SR HR 85/min. Positioned right lateral or supine this shift with SpO2 95%. Reduced oxygen from 6L to 2L given via NC. Tolerated Gtube feeding well. Left UA midline was dry and intact. All needs were attended. Call light was placed. Bed was locked and placed in lowest position. Safety measures were implemented. Will endorse PM nurse to continue care and monitoring.
[2022-04-09 20:00] VITALS: BP 131/53
[2022-04-09] MEDS: EZETIMIBE 10 MG TABLET GT SCH (21:47)
--- NOTE | 2022-04-09 21:49 | NUR ---
EDD RN OPENING NOTE PT RECEIVED IN BED, OPENS EYES, NON-VERBAL BUT NODS HEAD WHEN ASKED YES OR NO QUESTIONS. PT ON 2L NC WITH CURRENT O2SAT OF 94%; NO S/S OF RESP DISTRESS, NO SOB OR COUGH, NON-LABORED AND EQUAL BREATHING. PT ATTACHED TO EXTERNAL MONITOR SR WITH HR OF 80. DELA CRUZ INTACT AND PATENT, DRAINING CLEAR AND YELLOW URINE. ALEXSANDER MIDLINE INTACT AND PATENT, FLUSHES EASILY WITH NO RESISTANCE; NO MEDS/FLUIDS INFUSING THROUGH IT. BED IN LOWEST POSITION, CALL LIGHT WITHIN REACH, SIDE RAILS UP X3. WILL CONTINUE TO MONITOR THROUGHOUT THE NIGHT.
[2022-04-10] VITALS: BP 130/63
[2022-04-10] MEDS: ACETYLCYSTEINE 10% SOLN 400 MG/4 ML VIAL NEB SCH ×3 (00:17→15:11)
[2022-04-10] MEDS: hydrALAZINE HCL 50 MG TABLET GT SCH ×3 (01:12→18:07)
[2022-04-10] MEDS: IPRATROPIUM NEB FS 0.5 MG/2.5 ML AMPUL.NEB NEB SCH ×4 (01:19→20:35)
[2022-04-10] MEDS: ALBUTEROL FS 2.5 MG/0.5 ML VIAL.NEB NEB SCH ×4 (01:19→20:31)
[2022-04-10] MEDS: JEVITY 1.2 CAL 1,000 ML BOTTLE GT SCH (03:02)
[2022-04-10 04:00] VITALS: BP 136/64
[2022-04-10] MEDS: BLOOD SUGAR DIAGNOSTIC 1 EACH STRIP VI SCH ×3 (05:23→18:07)
--- NOTE | 2022-04-10 06:56 | NUR ---
EDD RN CLOSING NOTE PT REMAINS IN BED, OPENS EYES, NOTED TO ANSWER SIMPLE QUESTIONS AND ALSO NODS HEAD WHEN ASKED YES OR NO QUESTIONS. CONTINUES TO BE ON 2L NC WITH O2SAT RANGING FROM 94%-96%; NO S/S OF RESP DISTRESS, NO SOB OR COUGH, NON-LABORED AND EQUAL BREATHING. PT ATTACHED TO EXTERNAL MONITOR SR WITH HR RANGING FROM 80-88. DELA CRUZ INTACT AND PATENT, DRAINING CLEAR AND YELLOW URINE. ALEXSANDER MIDLINE INTACT AND PATENT, FLUSHES EASILY WITH NO RESISTANCE; NO MEDS/FLUIDS INFUSING THROUGH IT. WOUNDS CLEANSED AND NEW DRESSINGS APPLIED. ALL DUE MEDS ADMINISTERED DURING THE NIGHT. BED IN LOWEST POSITION, CALL LIGHT WITHIN REACH, SIDE RAILS UP X3. WILL ENDORSE TO DAYSHIFT NURSE TO CONTINUE CARE.
[2022-04-10 07:02] LABS: BASOPHILS # (AUTO) 0.1 K/uL (0.0-0.2); BASOPHILS % (AUTO) 0.5 % (0.0-2.0); EOSINOPHILS % (AUTO) 1.6 % (0.0-6.0); HEMATOCRIT 30 % (39-51); HEMOGLOBIN 9.6 g/dL (13.5-17.5); LYMPHOCYTES # (AUTO) 1.4 K/uL (0.8-4.8); LYMPHOCYTES % (AUTO) 12.2 % (20.0-44.0); MEAN CORPUSCULAR HGB CONC 32 g/dl (31.0-36.0); MEAN CORPUSCULAR VOLUME 88 fL (80-96); MONOCYTES # (AUTO) 0.8 K/uL (0.1-1.30); NEUTROPHILS # (AUTO) 9.3 K/uL (1.8-8.9); NEUTROPHILS % (AUTO) 78.7 % (43.0-81.0); PLATELET COUNT (AUTO) 792 K/uL (150-450); RED BLOOD CELL COUNT(AUTO) 3.42 MIL/uL (4.5-6.0); WHITE BLOOD COUNT (AUTO) 11.8 K/uL (4.3-11.0)
[2022-04-10 07:10] LABS: ALBUMIN 1.9 g/dL (3.4-5.0); BILIRUBIN,TOTAL 0.2 mg/dL (0.2-1.0); CALCIUM, SERUM 9.2 mg/dL (8.5-10.1); CREATININE 0.6 mg/dL (0.6-1.3); POTASSIUM 5.1 mmol/L (3.5-5.1); TOTAL PROTEIN, SERUM 6.4 g/dL (6.4-8.2)
--- NOTE | 2022-04-10 07:42 | NUR ---
RN NOTE PT RECEIVED IN BED, ON O2 VIA NC @ 2L. NOT IN RESPIRATORY DISTRESS. PT ON GT FEEDING JEVITY @ 65CC/HR. ASPIRATION PRECAUTIONS FOLLOWED. WITH IV ACCESS ON ALEXSANDER MIDLINE WITH NO IVF. SAFETY MEASURES FOLLOWED. WILL CONTINUE TO MONITOR.
[2022-04-10 08:00] VITALS: BP 97/57
[2022-04-10] MEDS: AMLODIPINE BESYLATE 10 MG TABLET GT SCH (09:00)
[2022-04-10] MEDS: DOCUSATE SODIUM LIQ 100 MG/10 ML UDC GT SCH (09:02)
[2022-04-10] MEDS: ASPIRIN 81 MG TAB.CHEW GT SCH (09:02)
[2022-04-10] MEDS: POLYETHYLENE GLYCOL 3350 17 GM POWD.PACK PO SCH (09:02)
[2022-04-10] MEDS: MULTIVITAMIN/LUTEIN/MINERALS 1 TAB GT SCH (09:02)
[2022-04-10] MEDS: ASCORBIC ACID 500 MG TABLET GT SCH (09:02)
[2022-04-10] MEDS: HEPARIN SODIUM, PORCINE 5000 UNITS/1 ML VIAL SQ SCH (09:07)
[2022-04-10] MEDS: MEROPENEM 1 G in IV NS 0.9% 100 ML IV SCH ×2 (09:12→17:29)
[2022-04-10 09:43] LABS: BAND % (MANUAL) 2 % (0.0-5.0); EOSINOPHILS % (MANUAL) 1 % (0-4); LYMPHOCYTES % (MANUAL) 20 % (16-48); MONOCYTES % (MANUAL) 4 % (0-11.0); NEUTROPHILS % (MANUAL) 73 (42-76)
[2022-04-10] MEDS: CLOTRIMAZOLE/BETAMETASONE DIPROPIONATE 15 GM TUBE TP SCH (10:00)
[2022-04-10] MEDS: DAKINS QUARTER STRENGTH (0.125%) 480 ML BOTTLE TOP SCH (10:00)
[2022-04-10] MEDS: THERAHONEY GEL 1.5 OZ TUBE TP SCH (10:01)
[2022-04-10 12:00] VITALS: BP 128/60
[2022-04-10] MEDS ORDERED: MERO1VIA23 IV (12:00)
--- NOTE | 2022-04-10 15:25 | NUR ---
RT- PT. WAS PLACED ON 4 L NC DUE TO DESATURATION. PT. WAS BETTER. NO SOB OR RESPIRATORY DISTRESS NOTED. SPO2 WAS 95%.
[2022-04-10 16:00] VITALS: BP 144/58
[2022-04-10 18:07] VITALS: BP 144/58
--- NOTE | 2022-04-10 18:41 | NUR ---
RN NOTE SPOKE WITH JAE FROM [facility]. PT P/U TIME CHANGED TO 20:30 ESTIMATED.
--- NOTE | 2022-04-10 18:42 | NUR ---
RN NOTE UNABLE TO REACH RN FROM [facility] FOR REPORT. WILL CALL F/U.
--- NOTE | 2022-04-10 19:26 | NUR ---
RN NOTE PT RESTING IN BED, ON O2 VIA NC @ 2L. NOT IN RESPIRATORY DISTRESS. PT ON GT FEEDING JEVITY @ 65CC/HR. ASPIRATION PRECAUTIONS FOLLOWED. WITH IV ACCESS ON ALEXSANDER MIDLINE WITH NO IVF. SAFETY MEASURES FOLLOWED. DUE MEDICATIONS GIVEN, AM/PM CARE RENDERED. WILL CONTINUE TO MONITOR. ENDORSED TO NEXT SHIFT RN FOR D/C.
--- NOTE | 2022-04-10 19:41 | NUR ---
RN NOTE SPOKE WITH DIEGO HUGHES FOR CARLOS.
--- NOTE | 2022-04-10 21:40 | NUR ---
DC NOTE [facility] ARRIVED TO UNIT; REPORT GIVEN TO EMT CREW WITH MOST RECENT VITAL SIGNS: BP 100/58, HR 91, O2SAT 94%, TEMP 99.4, RR 20. TELE MONITOR AND WRIST BAND REMOVED. DELA CRUZ AND ALEXSANDER MIDLINE REMAIN IN PLACE PER [facility] REQUEST. DC PACKET GIVEN TO EMT CREW AND ALL PAPERWORKS SIGNED. PT LEFT UNIT VIA GURNEY IN STABLE CONDITION.
== END 2022-04-10 21:40 | DRG 871 ==
LOC: ER 06:55 → ICU 10:29 → TELE-TD 04-08 10:56
PROVIDERS: ADMIT Internal Medicine; ATTEND Internal Medicine
PROC: 0W9B3ZZ Drainage of Left Pleural Cavity, Percutaneous Approach (ICD-10-PCS; principal; 2022-04-05)
DX: A41.9 Sepsis, unspecified organism (principal); G92.8 Other toxic encephalopathy; L89.154 Pressure ulcer of sacral region, stage 4; J96.21 Acute and chronic respiratory failure with hypoxia; J90 Pleural effusion, not elsewhere classified; N17.9 Acute kidney failure, unspecified; J98.11 Atelectasis; M84.454A Pathological fracture, pelvis, initial encounter for fracture; M86.9 Osteomyelitis, unspecified; Z20.822 Contact with and (suspected) exposure to COVID-19; E78.5 Hyperlipidemia, unspecified; E11.22 Type 2 diabetes mellitus with diabetic chronic kidney disease; D63.1 Anemia in chronic kidney disease; I12.9 Hypertensive chronic kidney disease with stage 1 through stage 4 chronic kidney disease, or unspecified chronic kidney disease; N18.9 Chronic kidney disease, unspecified; Z86.16 Personal history of COVID-19; Z79.51 Long term (current) use of inhaled steroids; Z79.4 Long term (current) use of insulin; Z79.82 Long term (current) use of aspirin; I48.91 Unspecified atrial fibrillation; Z66 Do not resuscitate; F03.90 Unspecified dementia, unspecified severity, without behavioral disturbance, psychotic disturbance, mood disturbance, and anxiety; R13.10 Dysphagia, unspecified; Z93.1 Gastrostomy status; Z87.442 Personal history of urinary calculi; L89.526 Pressure-induced deep tissue damage of left ankle; L89.516 Pressure-induced deep tissue damage of right ankle; L89.626 Pressure-induced deep tissue damage of left heel; M62.50 Muscle wasting and atrophy, not elsewhere classified, unspecified site; E86.0 Dehydration; L89.216 Pressure-induced deep tissue damage of right hip; L89.210 Pressure ulcer of right hip, unstageable; N28.89 Other specified disorders of kidney and ureter; E11.69 Type 2 diabetes mellitus with other specified complication
CPT/HCPCS: 31720; 36415; 36600; 71045-TC; 71250-TC; 80048-TC; 80053-TC; 80076-TC; 81001; 82803-TC; 82962-TC; 83605-TC; 83735-TC; 83880; 84100-TC; 84484-TC; 85025-TC; 85730-TC; 87040-TC; 87070-TC; 87075-TC; 87081-TC; 87086-TC; 87102-TC; 87116; 87206; 89051-TC; 94760-TC; 94799-TC; A6253; A6403; C9803; G0378; J1644; J1815; J2185; J3370; J7030; J7050; J7060

== ENCOUNTER 2022-04-22 15:48 | Inpatient (IN) | payer MEDICARE, OTHER ==
[~2022-04-22] VITALS: Ht 165.1 cm; Wt 54.4 kg
[~2022-04-22 15:48] MED LIST changes: +LOPE-195 GT; -LOPE-195 TD; +TRIA80OI TP
--- NOTE | 2022-04-22 16:19 | NUR ---
DR AMAYA AT BEDSIDE FOR EVAL
--- NOTE | 2022-04-22 16:20 | NUR ---
RECTAL TEMP 102.4; DR AMAYA AWARE.
--- NOTE | 2022-04-22 16:22 | NUR ---
IV LINE ESTABLISHED ON RFA #20 AND LFA #20; BLOOD DRAWN AND COLLECTED BY PHLEB AT BEDSIDE
--- NOTE | 2022-04-22 16:22 | NUR ---
URINE SAMPLE COLLECTED AND SENT TO LAB
--- NOTE | 2022-04-22 16:23 | NUR ---
COVID SWAB COLLECTED AND SENT TO LAB
[2022-04-22] MEDS ORDERED: VANCOMYCIN 1 GM in IV D5W 250 ML IV ONE (16:30)
[2022-04-22] MEDS ORDERED: ACETAMINOPHEN ES 500 MG TABLET PO ONE (16:30)
[2022-04-22] MEDS ORDERED: PIPERACILLIN /TAZOBACTAM 3.375 G in IV D5W 50 ML IV ONE (16:30)
[2022-04-22] MEDS ORDERED: AZITHROMYCIN 500 MG in IV D5W 250 ML IV ONE (16:30)
[2022-04-22] MEDS ORDERED: IV NS 0.9% 500 ML BAG IV ONE (16:30)
[2022-04-22] MEDS ORDERED: ACETAMINOPHEN ES 500 MG TABLET ONE (16:36)
[2022-04-22 16:49] LABS: BASOPHILS % (AUTO) 0.2 % (0.0-2.0); EOSINOPHILS % (AUTO) 0.1 % (0.0-6.0); HEMATOCRIT 30 % (39-51); HEMOGLOBIN 9.3 g/dL (13.5-17.5); LYMPHOCYTES # (AUTO) 1.1 K/uL (0.8-4.8); LYMPHOCYTES % (AUTO) 7.3 % (20.0-44.0); MEAN CORPUSCULAR HGB CONC 32 g/dl (31.0-36.0); MEAN CORPUSCULAR VOLUME 88 fL (80-96); MONOCYTES # (AUTO) 0.8 K/uL (0.1-1.30); MONOCYTES % (AUTO) 5.2 % (2.0-12.0); NEUTROPHILS # (AUTO) 13.5 K/uL (1.8-8.9); NEUTROPHILS % (AUTO) 87.2 % (43.0-81.0); PLATELET COUNT (AUTO) 690 K/uL (150-450); RED BLOOD CELL COUNT(AUTO) 3.37 MIL/uL (4.5-6.0); WHITE BLOOD COUNT (AUTO) 15.5 K/uL (4.3-11.0)
--- NOTE | 2022-04-22 16:55 | NUR ---
MOVE SHEET SUBMITTED.
[2022-04-22 16:57] LABS: BILIRUBIN,URINE NEGATIVE (NEGATIVE); COLOR,URINE YELLOW (YELLOW); LEUKOCYTE ESTERASE ,URINE 1+ (NEGATIVE); NITRITE, URINE NEGATIVE (NEGATIVE); PROTEIN,URINE 1+ mg/dl (NEGATIVE); UGLUCOSE NEGATIVE (NEGATIVE); UROBILINOGEN,URINE 0.2 EU/dL (0.2)
--- NOTE | 2022-04-22 17:00 | NUR ---
rapid flu swab done sent to lab
[2022-04-22 17:29] LABS: ALANINE AMINOTRANSFERASE 34 U/L (12-78); ALBUMIN 2.1 g/dL (3.4-5.0); ALKALINE PHOSPHATASE 124 U/L (46-116); ASPARTATE AMINOTRANSFERASE 30 U/L (15-37); BILIRUBIN,DIRECT 0.2 mg/dL (0.0-0.2); BILIRUBIN,TOTAL 0.4 mg/dL (0.2-1.0); CALCIUM, SERUM 9.6 mg/dL (8.5-10.1); CARBON DIOXIDE 27 mmol/L (21-32); CHLORIDE 112 mmol/L (98-107); CREATININE 0.7 mg/dL (0.6-1.3); GLUCOSE 105 mg/dL (74-106); POTASSIUM 4.9 mmol/L (3.5-5.1); SODIUM SERUM 140 mmol/L (136-145); TOTAL PROTEIN, SERUM 7.4 g/dL (6.4-8.2); UREA NITROGEN, BLOOD 38 mg/dL (7-18)
[2022-04-22 17:44] LABS: BACTERIA,URINE Many /HPF (None Seen); RBC,URINE 0-2 /HPF (0-2); SQUAMOUS EPITHELIAL CELL,UR Few /HPF (None Seen); WBC,URINE 21-50 /HPF (0-3)
[2022-04-22 17:45] LABS: CALCIUM OXALATE CRYSTALS,UR Few /HPF (None Seen)
[2022-04-22] MEDS ORDERED: ZOLPIDEM TARTRATE 5 MG TABLET PO PRN (18:30)
[2022-04-22] MEDS ORDERED: MAG HYDROX/AL HYDROX/SIMETH 30 ML UDC PO PRN (18:30)
[2022-04-22] MEDS ORDERED: ONDANSETRON HCL/PF 4 MG/2 ML VIAL IVP PRN (18:30)
[2022-04-22] MEDS ORDERED: MAGNESIUM HYDROXIDE 30 ML UDC PO PRN (18:30)
[2022-04-22] MEDS ORDERED: Z GUARD REMEDY 4 OZ OINT TP PRN (18:30)
--- NOTE | 2022-04-22 21:29 | NUR ---
CALLED NURSING SUP FOR TELE BED
--- NOTE | 2022-04-22 21:40 | NUR ---
RECIEVED BED [id number]
--- NOTE | 2022-04-22 21:45 | NUR ---
PT TEMP 101.6. COOLING MEASURES APPLIED. 100% ON NONREBRETHER, PLACED ON 8L VIA SIMPLE MASK. TOLERATING. REPOSITIONED PT. SON AT BEDSIDE.
--- NOTE | 2022-04-22 23:18 | NUR ---
NEW ROOM 115
--- NOTE | 2022-04-22 23:23 | NUR ---
REPORT GIVEN TO DIEGO ELLIS
--- NOTE | 2022-04-22 23:29 | NUR ---
TRANSFERRED PT TO ROOM 115-1 PER ACLS PROTOCOL. NO DISTRESS NOTED. RECEIVING RN AT BEDSIDE.
--- NOTE | 2022-04-22 23:30 | NUR ---
RN NOTES, Received patient 81 Y/O male from [facility] .Admitted with Dx of respiratory failure /PNA On 8 liters simple mask sating 97-98%, no sob/acute distress noted, On tele ST on the monitor . Patient noted with multiple wounds ,initial treatment done , treatment dry intact no bleeding noted .iv site patent and intact, tolerated well,all due meds given as ordered no ase noted . Reddy cath in place draining by gravity yellow urine, bed locked and in lowest position, hob elevated at all times, will continue to monitor closely. pts is npo status , Son Leonidas at bedside updated with pts current condition .pts on gtube feeding ,endorse to morning shift to follow up with
[2022-04-23] VITALS: BP 165/62
[2022-04-23] MEDS ORDERED: PIPERACILLIN /TAZOBACTAM 3.375 G VIAL IV ONE (00:48)
[2022-04-23] MEDS: PIPERACILLIN /TAZOBACTAM 3.375 G in IV D5W 50 ML IV SCH ×5 (00:50→23:38)
[2022-04-23] MEDS: ACETAMINOPHEN 325 MG TABLET PO PRN (00:50)
[2022-04-23] MEDS: VANCOMYCIN 0.75 GM in IV D5W 250 ML IV SCH ×2 (05:09→16:20)
[2022-04-23 06:00] VITALS: BP 136/57
[2022-04-23 06:43] LABS: BASOPHILS % (AUTO) 0.3 % (0.0-2.0); HEMATOCRIT 22 % (39-51); HEMOGLOBIN 7.3 g/dL (13.5-17.5); LYMPHOCYTES # (AUTO) 1.3 K/uL (0.8-4.8); LYMPHOCYTES % (AUTO) 9.4 % (20.0-44.0); MEAN CORPUSCULAR HGB CONC 33 g/dl (31.0-36.0); MEAN CORPUSCULAR VOLUME 87 fL (80-96); MONOCYTES # (AUTO) 0.7 K/uL (0.1-1.30); MONOCYTES % (AUTO) 5.3 % (2.0-12.0); NEUTROPHILS # (AUTO) 11.8 K/uL (1.8-8.9); PLATELET COUNT (AUTO) 505 K/uL (150-450); RED BLOOD CELL COUNT(AUTO) 2.58 MIL/uL (4.5-6.0); WHITE BLOOD COUNT (AUTO) 13.8 K/uL (4.3-11.0)
--- NOTE | 2022-04-23 07:34 | NUR ---
varun rn note patient in bed sleeping at this time On 8 liters simple mask , no sob/acute distress noted, On tele Sr hr 74 at this time on the monitor . Patient noted with multiple wounds ,initial treatment done , dry dressing intact no bleeding noted .iv site patent and intact, tolerated well,all . Reddy cath to gravity in place draining by gravity yellow urine, bed locked and in lowest position, hob elevated at all times, will continue to monitor closely ,will order to g tube feeding
--- NOTE | 2022-04-23 07:47 | NUR ---
varun rn note per carlos eduardo rn merchandise team manager ok to start jevity j tube feeding
[2022-04-23 07:57] LABS: CALCIUM, SERUM 8.6 mg/dL (8.5-10.1); CREATININE 0.7 mg/dL (0.6-1.3); MAGNESIUM 2.1 mg/dL (1.8-2.4); PHOSPHORUS 3.7 mg/dL (2.5-4.9); POTASSIUM 3.8 mmol/L (3.5-5.1)
[2022-04-23 08:00] VITALS: BP 136/59
[2022-04-23] MEDS ORDERED: JEVITY 1.2 CAL 1,000 ML BOTTLE GT SCH (08:00)
[2022-04-23] MEDS: PANTOPRAZOLE 40 MG VIAL IV SCH (08:20)
[2022-04-23] MEDS ORDERED: CRAN3875 GT (09:23)
[2022-04-23] MEDS: JEVITY 1.2 CAL 1,000 ML BOTTLE GT SCH (09:25)
[2022-04-23] MEDS ORDERED: HONE15GE TP (09:29)
[2022-04-23] MEDS ORDERED: [UNRECOGNIZED DRUG - SUPPLY] TD (09:29)
--- NOTE | 2022-04-23 09:37 | NUR ---
varun harrison note started g tube feeding as ordered, keep hob elevated at all time , also titrate o2 to 6l nc, saturation 99% at this time ,turn reposition done Addendum: 04/23/22 at 0940 by SHARMAINE CABA RN 2d echo done will anabellau
[2022-04-23 12:00] VITALS: BP 132/52
--- NOTE | 2022-04-23 12:16 | NUR ---
varun rn note rounds made all needs attended ,turn reposition done , mouth care done, family at bedside
--- NOTE | 2022-04-23 13:00 | NUR ---
DIEGO notes Dressing is done to the sacral bedsore. Applied the protective dressing, Addendum: 04/23/22 at 1418 by SHARMAINE CABA RN await wound nurse consult. Continue repositioning. Patient tolerated G-tube feeding well, increase feeding rate to 35mL/hr. Will monitor.
[2022-04-23 16:00] VITALS: BP 128/45
--- NOTE | 2022-04-23 16:36 | NUR ---
EDD RN NOTE ROUNDS MADE , ALL NEEDS ATTENDED, KEEP CERN DRY, TURIN REPOSITION , NO SOB NOTED AT THIS TIME, WILL CONT TO MONITOR CLOSELY
--- NOTE | 2022-04-23 18:25 | NUR ---
ASSISTANT ACCOUNT EXECUTIVE NOTE PATIENT IN BED .ALL NEEDS ATTENDED, ON G TUBE FEEDING ORDERED ,KEEP HOB ELEVATED WITH DELA CRUZ CATH TO GRAVITY WITH YELLOW COLOR URINE, NEW HL INSERTED WITH GOOD BLOOD RETURN , SHANNAN 20, WILL CONT TO MONITOR B,ED IN LOWEST AND LOCKED POSITION,
--- NOTE | 2022-04-23 19:30 | NUR ---
EDD/SWAGE TOOLSETTER REPORT RECEIVED FROM DAY NURSE. SEE FLOWSHEET FOR ASSESSMENT. PT WAS TURNED AND REPOSIONED FOR COMFORT AND CARE. WILL CONTINUE TO MONITOR THIS PT.
[2022-04-23 20:00] VITALS: BP 141/65
--- NOTE | 2022-04-23 22:12 | NUR ---
EDD/ETCHER APPRENTICE RESTRAINT ORDER PLACED TO KEEP PT FROM PULLING OFF OXYGEN. LAST ADMISSION PT WAS A RAPID RESPONSE TO ICU DUE TO LOW OXYGEN AND PLACED ON HIGH FLOW. PT HAS MANY TIMES SINCE SHIFT STARTED TAKEN OFF OXYGEN.
[2022-04-24] VITALS: BP 147/57
[2022-04-24 04:00] VITALS: BP 149/56
[2022-04-24] MEDS: JEVITY 1.2 CAL 1,000 ML BOTTLE GT SCH (04:06)
[2022-04-24 04:28] LABS: BASOPHILS % (AUTO) 0.5 % (0.0-2.0); EOSINOPHILS % (AUTO) 1.3 % (0.0-6.0); HEMATOCRIT 27 % (39-51); HEMOGLOBIN 8.8 g/dL (13.5-17.5); LYMPHOCYTES % (AUTO) 10.9 % (20.0-44.0); MEAN CORPUSCULAR HGB CONC 33 g/dl (31.0-36.0); MEAN CORPUSCULAR VOLUME 86 fL (80-96); MONOCYTES # (AUTO) 0.7 K/uL (0.1-1.30); MONOCYTES % (AUTO) 7.9 % (2.0-12.0); NEUTROPHILS # (AUTO) 7.4 K/uL (1.8-8.9); NEUTROPHILS % (AUTO) 79.4 % (43.0-81.0); PLATELET COUNT (AUTO) 634 K/uL (150-450); RED BLOOD CELL COUNT(AUTO) 3.14 MIL/uL (4.5-6.0); WHITE BLOOD COUNT (AUTO) 9.3 K/uL (4.3-11.0)
[2022-04-24] MEDS: IV NS 0.9% 250 ML IV PRN (04:31)
--- NOTE | 2022-04-24 04:45 | NUR ---
EDD/INSTRUMENT LENS INSPECTOR THROUGHOUT THE NIGHT HAVE BEEN TITRATING THE G/TUBE FEEDING THE A GOAL OF 65ML/HR. THIS WAS REACHED OF THE MORNING. PT IS TOLERATING THE CURRENT FEEDING. WILL CONTINUE TO MONITOR THIS PT'S FEEDINGS.
[2022-04-24] MEDS: VANCOMYCIN 0.75 GM in IV D5W 250 ML IV SCH ×2 (04:53→16:41)
[2022-04-24 05:01] LABS: CALCIUM, SERUM 8.6 mg/dL (8.5-10.1); CREATININE 0.6 mg/dL (0.6-1.3); POTASSIUM 3.8 mmol/L (3.5-5.1)
--- NOTE | 2022-04-24 05:07 | NUR ---
EDD/REMEDIAL MASSEUR VANCO TROUGH IS 19, CHARGE NURSE SOFTWARE MANAGERLEVON FAIRBANKS GAVE THE 0500 VANCO IVPB.
[2022-04-24] MEDS: PIPERACILLIN /TAZOBACTAM 3.375 G in IV D5W 50 ML IV SCH ×3 (05:10→17:54)
--- NOTE | 2022-04-24 06:41 | NUR ---
EDD/CHIROPRACTIC CARE REPORT TO BE GIVEN TO DAY NURSE
--- NOTE | 2022-04-24 07:34 | NUR ---
RN OPENING NOTES RECEIVED PATIENT REPORT FROM [facility]. PATIENT IN BED ON 6 LITERS SUPPLEMENTAL OXYGEN NASAL CANULA. PEG TUBE RUNNING JEVITY 1.2 ORDERED. BILATERAL WRIST RESTRAINTS NOTED, CIRCULATION IS WNL. IV ACCESS ON RIGHT HAND 20 GAUGE FLUSHING EASILY WITHOUT RESISTANCE. SAFETY MEASURES IMPLEMENTED WILL CONTINUE PLAN OF CARE AND ANTICIPATE NEEDS.
[2022-04-24 08:00] VITALS: BP 151/67
[2022-04-24] MEDS: PANTOPRAZOLE 40 MG VIAL IV SCH (08:01)
--- NOTE | 2022-04-24 11:18 | NUR ---
WOUND CARE CONSULT: PT RESTING AT THIS TIME. REVIEWED CHART, NURSING DOCUMENTATION AND PHOTOS WHICH INDICATE MULTIPLE STAGE 4 PRESSURE ULCERS INCLUDING BILATERAL HIPS AND SACRUM WELL OPEN SKIN ON SCROTUM AND LOWER EXTREMITY WOUNDS, ALL PRESENT ON ADMISSION. DR GONZALEZ AND DR MAY CALLED FOR SURGICAL AND DPM CONSULTS. PT IS ON ALEXANDRA ISOFLEX LOW AIRLOSS BED. DISCUSSED SKIN PROTECTION WITH NURSING STAFF. MD IN AGREEMENT WITH PLAN OF CARE.
[2022-04-24 12:00] VITALS: BP 142/55
[2022-04-24] MEDS: ENOXAPARIN SODIUM 30 MG/0.3 ML DISP.SYRIN SQ SCH (15:03)
[2022-04-24] MEDS: IPRATROPIUM NEB FS 0.5 MG/2.5 ML AMPUL.NEB NEB SCH ×3 (15:30→23:51)
[2022-04-24 16:00] VITALS: BP 165/67
--- NOTE | 2022-04-24 16:07 | NUR ---
son requested the [facility] airflow mattress ,ff. up with central service,awaits delivery.
[2022-04-24] MEDS: DAKINS QUARTER STRENGTH (0.125%) 480 ML BOTTLE TOP SCH (18:17)
[2022-04-24] MEDS: THERAHONEY GEL 1.5 OZ TUBE TP SCH (18:17)
--- NOTE | 2022-04-24 18:47 | NUR ---
HAND OFF REPORT GIVEN TO NIGHTSHIFT NURSE.
[2022-04-24 20:00] VITALS: BP 144/64
[2022-04-24] MEDS: METOPROLOL TARTRATE 25 MG TABLET PO SCH (20:47)
--- NOTE | 2022-04-24 21:38 | NUR ---
SHEET METAL MECHANIC OPENING NOTE PT RECEIVED IN BED, AWAKE, UNABLE TO ANSWER WHEN ASSESSING FOR NEURO STATUS. PT ON 6L NC WITH CURRENT O2SAT OF 97%; NO S/S OF RESP DISTRESS, NO SOB OR COUGH, NON-LABORED AND EQUAL BREATHING; APPEARS COMFORTABLE OVERALL. PT ATTACHED TO EXTERNAL MONITOR, ST WITH HR OF 100. DELA CRUZ INTACT AND PATENT, DRAINING CLEAR AND YELLOW URINE. GTD C/D/I WITH JEVITY AT 65 ML/HR; NO RESIDUAL NOTED. IV ACCESS ON RIGHT HAND 20G AND LEFT WRIST 20G, INTACT AND PATENT, FLUSHES EASILY WITH NO RESISTANCE; NS TKO. BED IN LOWEST POSITION, CALL LIGHT WITHIN REACH, SIDE RAILS UP X3. WILL CONTINUE TO MONITOR THROUGHOUT THE NIGHT.
[2022-04-25] VITALS: BP 153/56
[2022-04-25] MEDS: PIPERACILLIN /TAZOBACTAM 3.375 G in IV D5W 50 ML IV SCH ×2 (00:34→05:04)
[2022-04-25 04:00] VITALS: BP 150/68
[2022-04-25] MEDS: IPRATROPIUM NEB FS 0.5 MG/2.5 ML AMPUL.NEB NEB SCH ×5 (04:08→19:52)
[2022-04-25] MEDS: VANCOMYCIN 0.75 GM in IV D5W 250 ML IV SCH ×2 (05:04→17:32)
[2022-04-25] MEDS: JEVITY 1.2 CAL 1,000 ML BOTTLE GT SCH (05:54)
--- NOTE | 2022-04-25 06:54 | NUR ---
TRANSIT MAN CLOSING NOTE PT REMAINS IN BED, AWAKE, UNABLE TO ANSWER WHEN ASSESSING FOR NEURO STATUS, BUT NOTED TO MAKE SOFT MUMBLING SOUNDS. RT TITRATED NC FROM 6L TO 4L WITH O2SAT RANGING FROM 97%-99%; NO S/S OF RESP DISTRESS, NO SOB OR COUGH, NON-LABORED AND EQUAL BREATHING. ATTACHED TO EXTERNAL MONITOR, ST-SR WITH HR RANGING FROM 84-100. DELA CRUZ INTACT AND PATENT, DRAINING CLEAR AND YELLOW URINE. GTD C/D/I WITH JEVITY AT 65 ML/HR; NO RESIDUAL NOTED. IV ACCESS ON RIGHT HAND 20G AND LEFT WRIST 20G, INTACT AND PATENT, FLUSHES EASILY WITH NO RESISTANCE; VANCOMYCIN INFUSING AT 250 ML/HR. WOUNDS CLEANSED, NEW DRESSINGS APPLIED. ALL DUE MEDS ADMINISTERED DURING THE NIGHT. BED IN LOWEST POSITION, CALL LIGHT WITHIN REACH, SIDE RAILS UP X3. WILL ENDORSE TO DAYSHIFT NURSE TO CONTINUE CARE.
[2022-04-25 07:17] LABS: BASOPHILS # (AUTO) 0.1 K/uL (0.0-0.2); BASOPHILS % (AUTO) 0.6 % (0.0-2.0); EOSINOPHILS % (AUTO) 0.3 % (0.0-6.0); HEMATOCRIT 24 % (39-51); HEMOGLOBIN 7.6 g/dL (13.5-17.5); LYMPHOCYTES # (AUTO) 1.3 K/uL (0.8-4.8); LYMPHOCYTES % (AUTO) 12.9 % (20.0-44.0); MEAN CORPUSCULAR HGB CONC 32 g/dl (31.0-36.0); MEAN CORPUSCULAR VOLUME 87 fL (80-96); MONOCYTES # (AUTO) 0.8 K/uL (0.1-1.30); MONOCYTES % (AUTO) 7.4 % (2.0-12.0); NEUTROPHILS # (AUTO) 8.1 K/uL (1.8-8.9); NEUTROPHILS % (AUTO) 78.8 % (43.0-81.0); PLATELET COUNT (AUTO) 574 K/uL (150-450); WHITE BLOOD COUNT (AUTO) 10.3 K/uL (4.3-11.0)
[2022-04-25 07:35] LABS: CALCIUM, SERUM 8.1 mg/dL (8.5-10.1); CARBON DIOXIDE 26 mmol/L (21-32); CHLORIDE 107 mmol/L (98-107); CREATININE 0.6 mg/dL (0.6-1.3); GLUCOSE 215 mg/dL (74-106); PHOSPHORUS 2.9 mg/dL (2.5-4.9); POTASSIUM 3.9 mmol/L (3.5-5.1); SODIUM SERUM 140 mmol/L (136-145); UREA NITROGEN, BLOOD 21 mg/dL (7-18)
[2022-04-25 08:00] VITALS: BP 151/63
[2022-04-25] MEDS: DAKINS QUARTER STRENGTH (0.125%) 480 ML BOTTLE TOP SCH (09:00)
[2022-04-25] MEDS: THERAHONEY GEL 1.5 OZ TUBE TP SCH (09:00)
[2022-04-25] MEDS: PANTOPRAZOLE 40 MG/PACK PACK GT SCH (09:54)
[2022-04-25] MEDS: METOPROLOL TARTRATE 25 MG TABLET PO SCH ×2 (09:54→21:12)
[2022-04-25 12:00] VITALS: BP 143/57
[2022-04-25] MEDS: TOBRAMYCIN 320 MG in IV D5W 100 ML IV SCH (12:04)
[2022-04-25] MEDS: ASCORBIC ACID 500 MG TABLET PO SCH (12:25)
[2022-04-25] MEDS: ZINC SULFATE 220 MG CAPSULE PO SCH (12:25)
[2022-04-25] MEDS: ENOXAPARIN SODIUM 30 MG/0.3 ML DISP.SYRIN SQ SCH (15:37)
[2022-04-25 16:00] VITALS: BP 125/73
--- NOTE | 2022-04-25 19:30 | NUR ---
RN OPENING NOTE PT ALERT BUT NONVERBAL. LYING IN R LATERAL POSITION. PT ON 4 LPM NC AND TOLERATING WELL. RT AT BEDSIDE ABOUT TO GIVE BREATHING TX. RESPIRATIONS EVEN AND UNLABORED. SKIN IS PALE, WARM, AND DRY. DELA CRUZ AND IV ACCESS INTACT. BILATERAL SOFT RESTRAINTS IN PLACE. SAFETY PRECAUTIONS IN PLACE. BED LOCKED AND AT LOWEST LEVEL. X2 RAILS UP, BED ALARM ON AND CALL LIGHT WITHIN REACH.
[2022-04-25 20:00] VITALS: BP 145/71
[2022-04-25] MEDS: IV D5/ 0.9% NACL 1,000 ML IV PRN (20:13)
[2022-04-26] VITALS: BP 151/63
[2022-04-26] MEDS: JEVITY 1.2 CAL 1,000 ML BOTTLE GT SCH ×2 (01:23→19:15)
[2022-04-26 04:00] VITALS: BP 138/56
[2022-04-26] MEDS: IPRATROPIUM NEB FS 0.5 MG/2.5 ML AMPUL.NEB NEB SCH ×7 (04:07→23:30)
[2022-04-26] MEDS: VANCOMYCIN 0.75 GM in IV D5W 250 ML IV SCH ×2 (05:03→17:47)
[2022-04-26 06:15] LABS: CALCIUM, SERUM 8.4 mg/dL (8.5-10.1); CREATININE 0.6 mg/dL (0.6-1.3); POTASSIUM 4.3 mmol/L (3.5-5.1)
--- NOTE | 2022-04-26 06:32 | NUR ---
RN CLOSING NOTE UNABLE TO ASSESS LOC BUT EYES OPEN SPONTANEOUSLY. SKIN IS PALE AND DRY. RESPIRATIONS EVEN ON 4 LPM NC. DELA CRUZ AND IV L WRIST 20G INTACT. GTUBE FEEDING OF JEVITY AT 65 ML/HR X24 HRS. SOFT RESTRAINTS IN PLACE. SAFETY PRECAUTIONS IN PLACE. BED LOCKED AND AT LOWEST LEVEL WITH 2 RAILS UP. CALL LIGHT WITHIN REACH.
--- NOTE | 2022-04-26 07:10 | NUR ---
PHYSICS PROFESSOR OPENING NOTES RECEIVED PATIENT IN BED ,ONLY OPEN HIS EYES DOES NOT FOLLOW COMMAND. ON 3 LITERS SUPPLEMENTAL OXYGEN NASAL CANULA. PEG TUBE RUNNING JEVITY 1.2 ORDERED. BILATERAL WRIST RESTRAINTS NOTED, CIRCULATION IS WNL. IV ACCESS ON LEFT WRIST 20 GAUGE FLUSHING EASILY WITHOUT RESISTANCE. SAFETY MEASURES IMPLEMENTED WILL CONTINUE PLAN OF CARE AND ANTICIPATE NEEDS.
[2022-04-26 08:00] VITALS: BP 147/72
[2022-04-26] MEDS: PANTOPRAZOLE 40 MG/PACK PACK GT SCH (09:06)
[2022-04-26] MEDS: ZINC SULFATE 220 MG CAPSULE PO SCH (09:06)
[2022-04-26] MEDS: METOPROLOL TARTRATE 25 MG TABLET PO SCH ×2 (09:06→21:20)
[2022-04-26] MEDS: ASCORBIC ACID 500 MG TABLET PO SCH (09:07)
[2022-04-26] MEDS: DAKINS QUARTER STRENGTH (0.125%) 480 ML BOTTLE TOP SCH (09:07)
[2022-04-26] MEDS: THERAHONEY GEL 1.5 OZ TUBE TP SCH (09:08)
[2022-04-26 12:00] VITALS: BP 140/67
[2022-04-26] MEDS: TOBRAMYCIN 320 MG in IV D5W 100 ML IV SCH (12:14)
[2022-04-26] MEDS: ACETAMINOPHEN 325 MG TABLET PO PRN (13:32)
[2022-04-26] MEDS: ENOXAPARIN SODIUM 30 MG/0.3 ML DISP.SYRIN SQ SCH (15:20)
[2022-04-26 16:00] VITALS: BP 132/55
--- NOTE | 2022-04-26 19:00 | NUR ---
MAGAZINE KEEPER closing notes: PT IN BED AWAKE AND ALERT X 1,NO S/S OF PAIN OR DISCOMFORT, ON OXYGEN 3 LITER VIA NASAL CANULA,O2 SAT REMAIN ABOVE 96%, IV OF RIGHT FOREARM PATENT AND INTACT AND FLUSHING WELL, CONTINUE GT OF JEVITY 1.2 AT 65 ML/H , NO RESIDUAL NOTED. KEPT HEAD OF BED ELEVATED, DELA CRUZ CATHETER PATENT AND DRAINING YELLOW CLEAR URINE, CONTINUE BILATERAL WRIST RESTRAINT, SKIN AND CIRCULATION CHECKED WITHIN NORMAL,ALL DUE MEDS GIVEN ORDERED, WOUND CARE DONE ORDERED, REPOSITION EVERY 2 HOURS, KEPT CLEAN AND DRY AND COMFORTABLE AT ALL TIMES, ALL SAFETY MEASURES RENDERED, CALL LIGHT WITHIN REACH, SIDE RAILS UP.ENDORSED TO ENGINEERING OFFICER RN FOR CARLOS
--- NOTE | 2022-04-26 19:15 | NUR ---
SKIDWAY WORKER OPENING NOTES RECEIVED PT IN BED, OPENS EYESS AND ABLE TO FOLLOW COMMANDS, MAINLY [place] SPEAKING.ON O2 VIA 3L NC, TELE MONITOR READING SR HR 77. IV ACCESS RFA #22G, INTACT AND PATENT TKO. G TUBE RUNNING JEVITY 1.2@ 65ML/HR.BILATERAL WRIST RESTRAINTS NOTED, CIRCULATION IS WNL. ALL SAFETY PRECAUTIONS IN PLACE. BED LOCKED AND AT LOWEST LEVEL. X2 RAILS UP. CALL LIGHT WITHIN REACH.WILL CONTINUE TO MONITOR THROUGH OUT SHIFT.
[2022-04-26 20:00] VITALS: BP 142/69
[2022-04-27] VITALS (7 sets, daily range): BP systolic 129–153; BP diastolic 44–69
[2022-04-27] MEDS: IPRATROPIUM NEB FS 0.5 MG/2.5 ML AMPUL.NEB NEB SCH ×6 (03:28→23:50)
[2022-04-27] MEDS: VANCOMYCIN 0.75 GM in IV D5W 250 ML IV SCH ×2 (05:10→17:37)
[2022-04-27 06:09] LABS: BASOPHILS # (AUTO) 0.1 K/uL (0.0-0.2); BASOPHILS % (AUTO) 0.4 % (0.0-2.0); EOSINOPHILS % (AUTO) 0.7 % (0.0-6.0); HEMATOCRIT 24 % (39-51); HEMOGLOBIN 7.7 g/dL (13.5-17.5); LYMPHOCYTES # (AUTO) 1.8 K/uL (0.8-4.8); LYMPHOCYTES % (AUTO) 9.2 % (20.0-44.0); MEAN CORPUSCULAR HGB CONC 32 g/dl (31.0-36.0); MEAN CORPUSCULAR VOLUME 85 fL (80-96); MONOCYTES # (AUTO) 0.9 K/uL (0.1-1.30); MONOCYTES % (AUTO) 4.8 % (2.0-12.0); NEUTROPHILS # (AUTO) 16.6 K/uL (1.8-8.9); NEUTROPHILS % (AUTO) 84.9 % (43.0-81.0); PLATELET COUNT (AUTO) 650 K/uL (150-450); RED BLOOD CELL COUNT(AUTO) 2.82 MIL/uL (4.5-6.0); WHITE BLOOD COUNT (AUTO) 19.5 K/uL (4.3-11.0)
--- NOTE | 2022-04-27 06:52 | NUR ---
COAT JOINER LOCKSTITCH CLOSING NOTES PT IN BED, EYES OPEN AND ABLE TO FOLLOW COMMANDS, MAINLY TURKMEN SPEAKING.ON O2 VIA 3L NC, TELE MONITOR READING SR HR 77. IV ACCESS RFA #22G, INTACT AND PATENT TKO. G TUBE RUNNING JEVITY 1.2@ 65ML/HR.BILATERAL WRIST RESTRAINTS NOTED, CIRCULATION IS WNL. ALL DUE MEDS GIVEN.ALL SAFETY PRECAUTIONS IN PLACE. BED LOCKED AND AT LOWEST LEVEL. X2 RAILS UP. CALL LIGHT WITHIN REACH.WILL ENDORSE TO MORNING SHIFT FOR CARLOS.
[2022-04-27 07:16] LABS: ALBUMIN 1.6 g/dL (3.4-5.0); BILIRUBIN,TOTAL 0.2 mg/dL (0.2-1.0); CALCIUM, SERUM 8.7 mg/dL (8.5-10.1); CREATININE 0.6 mg/dL (0.6-1.3); PHOSPHORUS 3.6 mg/dL (2.5-4.9); POTASSIUM 4.4 mmol/L (3.5-5.1); TOTAL PROTEIN, SERUM 6.3 g/dL (6.4-8.2)
--- NOTE | 2022-04-27 07:30 | NUR ---
TD RN AM NOTES RECEIVED PT IN BED, OPENS EYES AND ABLE TO FOLLOW COMMANDS, MAINLY SOLOMON ISLANDER SPEAKING.ON O2 VIA 3L NC, O2 SAT > 95%, SR HR 94, NO SIGN OF PAIN/DISCOMFORT. IV ACCESS RFA #22G, INTACT AND PATENT TKO. SITE CLEAR. G TUBE RUNNING JEVITY 1.2@ 65ML/HR.CHECKED FOR PLACEMENT, 0 RESIDUAL. BILATERAL WRIST RESTRAINTS NOTED, CHECKED FOR CIRCULATION, THEN EVERY [address]RS[address] DELA CRUZ CATH IN PLACE. SEE NURSING FLOWSHEET FOR SKIN ISSUES. WILL PERFORM WOUND CARE IN A WHILE. ALL SAFETY PRECAUTIONS IN PLACE. BED LOCKED AND AT LOWEST LEVEL. SR UPX 2. CALL LIGHT WITHIN REACH. WILL CONTINUE TO MONITOR.
[2022-04-27] MEDS: METOPROLOL TARTRATE 25 MG TABLET PO SCH ×2 (09:24→20:20)
[2022-04-27] MEDS: PANTOPRAZOLE 40 MG/PACK PACK GT SCH (09:24)
[2022-04-27] MEDS: ASCORBIC ACID 500 MG TABLET PO SCH (09:24)
[2022-04-27] MEDS: ZINC SULFATE 220 MG CAPSULE PO SCH (09:25)
[2022-04-27] MEDS: THERAHONEY GEL 1.5 OZ TUBE TP SCH (09:25)
[2022-04-27] MEDS: DAKINS QUARTER STRENGTH (0.125%) 480 ML BOTTLE TOP SCH (09:25)
--- NOTE | 2022-04-27 09:30 | NUR ---
RN NOTES DUE MEDS GIVEN
[2022-04-27] MEDS ORDERED: FUROSEMIDE 20 MG/2 ML VIAL IV ONE (11:30)
[2022-04-27] MEDS: JEVITY 1.2 CAL 1,000 ML BOTTLE GT SCH (12:24)
[2022-04-27] MEDS: IV NS 0.9% 250 ML IV PRN (12:25)
[2022-04-27] MEDS: IV D5/ 0.9% NACL 1,000 ML IV PRN (12:25)
[2022-04-27] MEDS: ENOXAPARIN SODIUM 30 MG/0.3 ML DISP.SYRIN SQ SCH (15:38)
--- NOTE | 2022-04-27 19:08 | NUR ---
TD RN CLOSING NOTES PT IN BED, OPENS EYES AND ABLE TO FOLLOW COMMANDS, MAINLY VATICAN CITIZEN SPEAKING.ON O2 VIA 3L NC, O2 SAT > 95%, SR HR 94, NO SIGN OF PAIN/DISCOMFORT. IV ACCESS RFA #22G, INTACT AND PATENT TKO. SITE CLEAR. G TUBE RUNNING JEVITY 1.2@ 65ML/HR.CHECKED FOR PLACEMENT, 0 RESIDUAL. BILATERAL WRIST RESTRAINTS NOTED, CHECKED FOR CIRCULATION, THEN EVERY [address] HOURS[address] DELA CRUZ CATH IN PLACE. SEE NURSING FLOWSHEET FOR SKIN ISSUES. WILL PERFORM WOUND CARE IN A WHILE. ALL SAFETY PRECAUTIONS IN PLACE. BED LOCKED AND AT LOWEST LEVEL. SR UPX 2. CALL LIGHT WITHIN REACH. WILL ENDORSE TO NEXT SHIFT FOR CARLOS. ALL NEEDS MET AT THIS TIME. PM CARE DONE AND PRESCRIBED WOUND TREATMENT DONE.
--- NOTE | 2022-04-27 19:15 | NUR ---
EMBOSSING MACHINE OPERATOR OPENING NOTES RECEIVED PT IN BED, OPENS EYES AND ABLE TO FOLLOW COMMANDS, MAINLY LAO SPEAKING.ON O2 VIA 3L NC, TELE MONITOR READING SR HR 79. IV ACCESS RFA #22G, INTACT AND PATENT TKO. G TUBE RUNNING JEVITY 1.2@ 65ML/HR.BILATERAL WRIST RESTRAINTS NOTED, CIRCULATION IS WNL. ALL SAFETY PRECAUTIONS IN PLACE. BED LOCKED AND AT LOWEST LEVEL. X2 RAILS UP. CALL LIGHT WITHIN REACH.WILL CONTINUE TO MONITOR THROUGH OUT SHIFT.
[2022-04-28] VITALS: BP 154/69
[2022-04-28] MEDS: TOBRAMYCIN 320 MG in IV D5W 100 ML IV SCH ×2
[2022-04-28] MEDS: IPRATROPIUM NEB FS 0.5 MG/2.5 ML AMPUL.NEB NEB SCH ×6 (03:23→23:12)
[2022-04-28 04:00] VITALS: BP 146/60
[2022-04-28] MEDS: VANCOMYCIN 0.75 GM in IV D5W 250 ML IV SCH ×2 (05:44→16:04)
[2022-04-28 06:10] LABS: BASOPHILS # (AUTO) 0.1 K/uL (0.0-0.2); BASOPHILS % (AUTO) 0.4 % (0.0-2.0); EOSINOPHILS % (AUTO) 0.9 % (0.0-6.0); HEMATOCRIT 25 % (39-51); HEMOGLOBIN 7.9 g/dL (13.5-17.5); LYMPHOCYTES # (AUTO) 1.5 K/uL (0.8-4.8); LYMPHOCYTES % (AUTO) 10.1 % (20.0-44.0); MEAN CORPUSCULAR HGB CONC 32 g/dl (31.0-36.0); MEAN CORPUSCULAR VOLUME 86 fL (80-96); MONOCYTES # (AUTO) 0.8 K/uL (0.1-1.30); MONOCYTES % (AUTO) 5.5 % (2.0-12.0); NEUTROPHILS # (AUTO) 12.5 K/uL (1.8-8.9); NEUTROPHILS % (AUTO) 83.1 % (43.0-81.0); PLATELET COUNT (AUTO) 600 K/uL (150-450); RED BLOOD CELL COUNT(AUTO) 2.91 MIL/uL (4.5-6.0)
[2022-04-28 06:38] LABS: ALBUMIN 1.5 g/dL (3.4-5.0); BILIRUBIN,TOTAL 0.2 mg/dL (0.2-1.0); CALCIUM, SERUM 8.6 mg/dL (8.5-10.1); CREATININE 0.6 mg/dL (0.6-1.3); POTASSIUM 4.1 mmol/L (3.5-5.1); TOTAL PROTEIN, SERUM 5.9 g/dL (6.4-8.2)
--- NOTE | 2022-04-28 06:44 | NUR ---
STRADDLE BUG CLOSING NOTES PT IN BED, OPENS EYES AND ABLE TO FOLLOW COMMANDS, MAINLY SALVADOREAN SPEAKING.ON O2 VIA 3L NC, TELE MONITOR READING SR HR 81. IV ACCESS RFA #22G, RUNNING D5NS@70ML/HR. G TUBE RUNNING JEVITY 1.2@ 65ML/HR.BILATERAL WRIST RESTRAINTS NOTED, CIRCULATION IS WNL.DELA CRUZ CATHETER INTACT AND PATENT OUTPUT WAS 1100ML CLEAR YELLOW URINE. WOUND CARE COMPLETED AND CURRENT PICS TAKEN AND PLACED IN CHART.ALL DUE MEDS GIVEN. ALL SAFETY PRECAUTIONS IN PLACE. BED LOCKED AND AT LOWEST LEVEL. X2 RAILS UP. CALL LIGHT WITHIN REACH.WILL ENDORSE TO MORNING SHIFT FOR CARLOS.
--- NOTE | 2022-04-28 07:35 | NUR ---
telephone order clerk note patient in bed, on 3l nc no sob noted at this time, alert with confusion, on g tube feeding as ordered no residual noted, keep hob elevated at all time,, rt fa hl intact and flushed well , on ivf as ordered, bed in lowest and locked position call light within reach , will cont to monitor closely
[2022-04-28 08:00] VITALS: BP 146/60
[2022-04-28] MEDS: PANTOPRAZOLE 40 MG/PACK PACK GT SCH (08:10)
[2022-04-28] MEDS: METOPROLOL TARTRATE 25 MG TABLET PO SCH ×2 (08:11→21:23)
[2022-04-28] MEDS: ASCORBIC ACID 500 MG TABLET PO SCH (08:11)
[2022-04-28] MEDS: ZINC SULFATE 220 MG CAPSULE PO SCH (08:11)
[2022-04-28] MEDS: DAKINS QUARTER STRENGTH (0.125%) 480 ML BOTTLE TOP SCH (08:12)
[2022-04-28] MEDS: THERAHONEY GEL 1.5 OZ TUBE TP SCH (08:15)
[2022-04-28] MEDS: IV D5/ 0.9% NACL 1,000 ML IV PRN ×2 (09:42→09:45)
--- NOTE | 2022-04-28 10:38 | NUR ---
SALES AND MARKETING EXECUTIVE NOTE ROUNDS MADE, ALL NEEDS ATTENDED, TURN REPOSITION, CALL LIGHT WITHIN REACH , WILL CONT TO MONITOR CLOSELY
--- NOTE | 2022-04-28 11:16 | NUR ---
outbound telemarketing representative note per dr Ab Singh ok to stop ivf and start free water flushing with 200 ml q8 hour via g tube , also aware of chest x ray result
[2022-04-28 12:00] VITALS: BP 138/57
--- NOTE | 2022-04-28 14:26 | NUR ---
AUTOMATION OPERATOR NOTE REPOSITION DONE, KEEP CLEAN DRY ABLE TO MAKE BM , WILL CONT TO MONITOR Addendum: 04/28/22 at 1548 by SHARMAINE CABA RN SPOKE WITH PHARMACIST AMISH NOTIFIED THAT NO SCHEDULE TO DO VANCO LEVEL AND VANCO DUE TO GIVE AT 1700TODAY , STATED ITS OK TO GIVE TODAY ,AND WILL DO TOMORROW VANCO LEVEL, WILL F\U
[2022-04-28] MEDS: ENOXAPARIN SODIUM 30 MG/0.3 ML DISP.SYRIN SQ SCH (15:01)
--- NOTE | 2022-04-28 15:52 | NUR ---
BLOWER AND COMPRESSOR ASSEMBLER NOTE UNABLE TO REMOVE SOFT RESTRAIN STILL AT RISK TO REMOVE ALL LINES ,WILL MONITOR CLOSELY
[2022-04-28 16:00] VITALS: BP 142/59
--- NOTE | 2022-04-28 17:11 | NUR ---
telesales manager note son at bedside requesting pt , per dr Ab Singh ok to order pt eval,order carried out
--- NOTE | 2022-04-28 18:28 | NUR ---
telephone clerks supervisor note patient in bed awake with confusion , on tele monitor sr , no sob noted at this time respiration even and unlabored, with g tube feeding as ordered ,no residual noted .tolerated well , keep hob elevated at all time , bed in lowest and locked position, will cont to monitor , safety measure implemented
--- NOTE | 2022-04-28 19:46 | NUR ---
BLOCK MECHANIC OPENING NOTES RECEIVED PT IN BED, OPENS EYES AND ABLE TO FOLLOW COMMANDS, MAINLY MOH[place]K SPEAKING.ON O2 VIA 3L NC, TELE MONITOR READING SR. IV ACCESS RFA #22G, INTACT AND PATENT RUNNING NS AT TKO. G TUBE RUNNING JEVITY 1.2 @ 65ML/HR. BILATERAL SOFT WRIST RESTRAINTS NOTED, CIRCULATION IS WNL. WITH DELA CRUZ CATHETER IN PLACE DRAINING URINE TO GRAVITY. ALL SAFETY PRECAUTIONS IN PLACE. BED LOCKED AND AT LOWEST LEVEL. X2 RAILS UP. CALL LIGHT WITHIN REACH.WILL CONTINUE TO MONITOR THROUGH OUT SHIFT.
[2022-04-28 20:00] VITALS: BP 159/64
[2022-04-28] MEDS: JEVITY 1.2 CAL 1,000 ML BOTTLE GT SCH (21:26)
[2022-04-29] VITALS: BP 156/65
[2022-04-29] MEDS: IPRATROPIUM NEB FS 0.5 MG/2.5 ML AMPUL.NEB NEB SCH ×7 (03:42→23:12)
--- NOTE | 2022-04-29 04:30 | NUR ---
RN NOTE VANCOMYCIN THROUGH LEVEL AT 29. WILL HOLD SCHEDULED DOSE AT 0500.
[2022-04-29 04:54] LABS: CALCIUM, SERUM 8.6 mg/dL (8.5-10.1); CREATININE 0.6 mg/dL (0.6-1.3); POTASSIUM 4.5 mmol/L (3.5-5.1)
[2022-04-29] MEDS: VANCOMYCIN 0.75 GM in IV D5W 250 ML IV SCH (05:00)
[2022-04-29 05:07] VITALS: BP 160/70
[2022-04-29 06:56] LABS: BASOPHILS # (AUTO) 0.1 K/uL (0.0-0.2); BASOPHILS % (AUTO) 0.3 % (0.0-2.0); EOSINOPHILS % (AUTO) 1.4 % (0.0-6.0); HEMATOCRIT 23 % (39-51); HEMOGLOBIN 7.5 g/dL (13.5-17.5); LYMPHOCYTES # (AUTO) 1.5 K/uL (0.8-4.8); LYMPHOCYTES % (AUTO) 9.4 % (20.0-44.0); MEAN CORPUSCULAR HGB CONC 33 g/dl (31.0-36.0); MEAN CORPUSCULAR VOLUME 86 fL (80-96); MONOCYTES # (AUTO) 0.9 K/uL (0.1-1.30); MONOCYTES % (AUTO) 5.3 % (2.0-12.0); NEUTROPHILS # (AUTO) 13.7 K/uL (1.8-8.9); NEUTROPHILS % (AUTO) 83.6 % (43.0-81.0); PLATELET COUNT (AUTO) 594 K/uL (150-450); RED BLOOD CELL COUNT(AUTO) 2.69 MIL/uL (4.5-6.0); WHITE BLOOD COUNT (AUTO) 16.4 K/uL (4.3-11.0)
--- NOTE | 2022-04-29 06:56 | NUR ---
ASSISTANT HEAD CASHIER CLOSING NOTES PT REMAINS IN BED, OPENS EYES AND ABLE TO FOLLOW COMMANDS, MAINLY BULGARIAN SPEAKING. ON O2 VIA 2L NC, TELE MONITOR READING SR AT 89. IV ACCESS RFA #22G, INTACT AND PATENT RUNNING NS AT TKO. G TUBE RUNNING JEVITY 1.2 @ 65ML/HR. BILATERAL SOFT WRIST RESTRAINTS NOTED, CIRCULATION IS WNL. WITH DELA CRUZ CATHETER IN PLACE DRAINING URINE TO GRAVITY. DUE MEDS GIVEN, KEPT DRY AND CLEAN, ALL SAFETY PRECAUTIONS IN PLACE. BED LOCKED AND AT LOWEST LEVEL. X2 RAILS UP. CALL LIGHT WITHIN REACH. WILL ENDORSE TO AM SHIFT NURSE FOR CONTINUITY OF CARE.
[2022-04-29 07:15] LABS: MAGNESIUM 1.9 mg/dL (1.8-2.4); PHOSPHORUS 3.9 mg/dL (2.5-4.9)
--- NOTE | 2022-04-29 07:53 | NUR ---
RN OPENING NOTE RECEIVED PATIENT RESTING IN BED, EASILY AROUSED, NON-VERBAL. ON O2 VIA 2L VIA N/C, ON TELE MONITOR READING SR, HR @81. NOTED WITH IV ACCESS RFA #22G, INTACT AND PATENT RUNNING NS AT TKO. WITH G-TUBE, INTACT AND PATENT RUNNING JEVITY 1.2 @ 65ML/HR. HOB ELEVATED. WITH BILATERAL SOFT WRIST RESTRAINTS NOTED, CHECKED CIRCULATION, WNL. WITH DELA CRUZ CATHETER IN PLACE DRAINING URINE TO GRAVITY. SAFETY PRECAUTIONS IN PLACE. BED LOCKED AND AT LOWEST POSITION, SIDE RAILS UP, CALL LIGHT PLACED WITHIN REACH. WILL CONTINUE TO MONITOR.
[2022-04-29 08:00] VITALS: BP 147/58
[2022-04-29] MEDS: ASCORBIC ACID 500 MG TABLET PO SCH (08:11)
[2022-04-29] MEDS: ZINC SULFATE 220 MG CAPSULE PO SCH (08:11)
[2022-04-29] MEDS: METOPROLOL TARTRATE 25 MG TABLET PO SCH ×2 (08:11→20:38)
[2022-04-29] MEDS: PANTOPRAZOLE 40 MG/PACK PACK GT SCH (08:11)
[2022-04-29] MEDS: DAKINS QUARTER STRENGTH (0.125%) 480 ML BOTTLE TOP SCH (08:12)
[2022-04-29] MEDS: THERAHONEY GEL 1.5 OZ TUBE TP SCH (08:12)
[2022-04-29 12:00] VITALS: BP 146/82
[2022-04-29] MEDS: TOBRAMYCIN 320 MG in IV D5W 100 ML IV SCH (12:53)
[2022-04-29] MEDS: ENOXAPARIN SODIUM 30 MG/0.3 ML DISP.SYRIN SQ SCH (15:39)
[2022-04-29 16:00] VITALS: BP 146/65
--- NOTE | 2022-04-29 18:55 | NUR ---
RN CLOSING NOTE PATIENT AWAKE IN BED. REMAINS NON-VERBAL. CONTINUE ON O2 @2L VIA N/C, NO SOB NOTED, BREATHING EVEN AND UNLABORED. ON TELE MONITOR READING SR, HR @77. NOTED WITH IV ACCESS RFA #20G, INTACT AND PATENT RUNNING NS AT TKO. WITH G-TUBE, INTACT AND PATENT RUNNING JEVITY 1.2 @ 65ML/HR. HOB ELEVATED. WITH BILATERAL SOFT WRIST RESTRAINTS NOTED, CIRCULATION CHECKED, WNL. WITH DELA CRUZ CATHETER IN PLACE DRAINING URINE TO GRAVITY. SAFETY PRECAUTIONS IN PLACE. BED LOCKED AND AT LOWEST POSITION, SIDE RAILS UP, CALL LIGHT PLACED WITHIN REACH. WILL ENDORSE TO NEXT SHIFT FOR CARLOS.
[2022-04-29] MEDS: JEVITY 1.2 CAL 1,000 ML BOTTLE GT SCH (19:16)
--- NOTE | 2022-04-29 19:30 | NUR ---
RN NOTE Received patient in bed, confused, in no acute distress, saturation at 99% on 2L via NC, SR on the monitor, HR is 89. IV line at RFA 20g patent and flushing well, with NS at TKO. B soft wrist restraints in place, skin and circulation are WNL. Gtube intact, positive placement noted, no residual, with jevity at 65 ml/hr, amador catheter draining to a clear, yellow output. Safety measures in place, bed is locked and at lowest position, call light within reach of patient. Will continue to monitor and reassess.
[2022-04-29 20:00] VITALS: BP 154/61
--- NOTE | 2022-04-29 23:12 | NUR ---
RT Meds not scanned due to scanner not working.
[2022-04-30] VITALS: BP 145/56
[2022-04-30] MEDS: IPRATROPIUM NEB FS 0.5 MG/2.5 ML AMPUL.NEB NEB SCH ×6 (03:48→23:25)
[2022-04-30 04:00] VITALS: BP 153/69
--- NOTE | 2022-04-30 04:31 | NUR ---
RT meds not scanned due to scanner not available.
[2022-04-30 07:17] LABS: CALCIUM, SERUM 8.4 mg/dL (8.5-10.1); CREATININE 0.6 mg/dL (0.6-1.3); MAGNESIUM 2.1 mg/dL (1.8-2.4); PHOSPHORUS 4.7 mg/dL (2.5-4.9); POTASSIUM 4.6 mmol/L (3.5-5.1)
--- NOTE | 2022-04-30 07:40 | NUR ---
RN NOTE RECEIVED PATIENT IN BED RESTING ALERT ORIENTED X0 NON VERBAL OPEN EYES,ON 2L OXYGEN VIA NASAL CANNULA O2:98% IV SITE IS ON RIGHT FOREARM INTACT PATENT,ON G-TUBE FEEDING,JEVITY 1.2 65CC/HR.CHECKED PLACEMENT IN PLACE,NO RESIDUAL NOTED,DELA CRUZ CATH IN PLACE URINE DRAINING BY GRAVITY,SOFT BILATERAL WRIST RESTRAINS IN PLACE WILL CHECK EVERY 15 MINS FOR SKIN BREAKDOWN,CIRCULATION,HEAD OF THE BED ELEVATED,CONTINUE TO MONITOR.
[2022-04-30 07:47] LABS: BASOPHILS # (AUTO) 0.1 K/uL (0.0-0.2); BASOPHILS % (AUTO) 0.6 % (0.0-2.0); EOSINOPHILS % (AUTO) 1.5 % (0.0-6.0); HEMATOCRIT 23 % (39-51); HEMOGLOBIN 7.6 g/dL (13.5-17.5); LYMPHOCYTES # (AUTO) 1.6 K/uL (0.8-4.8); LYMPHOCYTES % (AUTO) 11.6 % (20.0-44.0); MEAN CORPUSCULAR HGB CONC 33 g/dl (31.0-36.0); MEAN CORPUSCULAR VOLUME 86 fL (80-96); MONOCYTES # (AUTO) 0.7 K/uL (0.1-1.30); MONOCYTES % (AUTO) 5.1 % (2.0-12.0); NEUTROPHILS # (AUTO) 11.2 K/uL (1.8-8.9); NEUTROPHILS % (AUTO) 81.2 % (43.0-81.0); PLATELET COUNT (AUTO) 634 K/uL (150-450); RED BLOOD CELL COUNT(AUTO) 2.71 MIL/uL (4.5-6.0); WHITE BLOOD COUNT (AUTO) 13.8 K/uL (4.3-11.0)
[2022-04-30 08:00] VITALS: BP 112/67
[2022-04-30] MEDS ORDERED: VANCOMYCIN 500 MG in IV D5W 100 ML IV SCH (08:00)
[2022-04-30] MEDS: METOPROLOL TARTRATE 25 MG TABLET PO SCH ×2 (08:31→20:06)
[2022-04-30] MEDS: ASCORBIC ACID 500 MG TABLET PO SCH (08:31)
[2022-04-30] MEDS: PANTOPRAZOLE 40 MG/PACK PACK GT SCH (08:31)
[2022-04-30] MEDS: ZINC SULFATE 220 MG CAPSULE PO SCH (08:32)
[2022-04-30] MEDS: THERAHONEY GEL 1.5 OZ TUBE TP SCH (08:50)
[2022-04-30] MEDS: DAKINS QUARTER STRENGTH (0.125%) 480 ML BOTTLE TOP SCH (08:50)
[2022-04-30 12:00] VITALS: BP 138/56
[2022-04-30] MEDS: ACETAMINOPHEN 325 MG TABLET PO PRN ×2 (12:19→23:40)
--- NOTE | 2022-04-30 12:19 | NUR ---
RN NOTE ACETAMINOPHEN 650 MG GIVEN FOR PAIN CONTINUE TO MONITOR.
--- NOTE | 2022-04-30 14:00 | NUR ---
RN NOTE PATIENT NO PAIN AT THIS TIME,CONTINUE TO MONITOR.
[2022-04-30] MEDS: ENOXAPARIN SODIUM 30 MG/0.3 ML DISP.SYRIN SQ SCH (14:49)
[2022-04-30] MEDS: IV NS 0.9% 250 ML IV PRN (14:55)
[2022-04-30 16:00] VITALS: BP 133/56
--- NOTE | 2022-04-30 18:35 | NUR ---
RN NOTE PATIENT REMAINS ALERT ORIENTED X0 OPEN EYES,ON 2L OXYGEN VIA NASAL CANNULA,O2:99% NO SOB NOT ACUTE DISTRESS NOTED,ON G-TUBE FEEDING,JEVITY 1.2 65CC/HR,ALL DUE MED GIVEN MD ORDERED,KEPT CLEAN AND DRY ALL THE TIME,KEPT COMFORTABLE,TURNED AND REPOSITIONED EVERY 2HOURS,SOFT BILATERAL WRIST RESTRAINS IN PLACE,CHECKED EVERY 15 MINS FOR SKIN BREAKDOWN AND CIRCULATION,KEPT HEAD OF THE BED ELEVATED ALL THE TIME,DELA CRUZ CATH IN PLACE URINE DRAINING YELLOW/CLEAR BY GRAVITY,ALL NEEDS MET,ENDORSE NEXT COMING SHIFT FOR CONTINUATION OF CARE.
--- NOTE | 2022-04-30 19:30 | NUR ---
PT RECEIVED AWAKE IN BED. NON VERBAL. ON 2LPM VIA NC. NO SIGNS OF PAIN OR DISCOMFORT AT THIS TIME. IV ACCESS ON RFA G#20. GT FEEDING INFUSING JEVITY 1.2 AT 65ML/HR. DELA CRUZ CATHETER IN PLACE DRAINING CLEAR YELLOW URINE. SOFT WRIST RESTRAINT IN PLACE, CHECKED FOR CIRCULATION. SAFETY MEASURES IN PLACE. HOB ELEVATED, SIDERAILS UPX3, BED LOCKED IN LOWEST POSITION, BED ALARM ON, CALL LIGHT WITHIN REACH. WILL CONTINUE PLAN OF CARE.
[2022-04-30 20:00] VITALS: BP 151/62
[2022-04-30] MEDS: JEVITY 1.2 CAL 1,000 ML BOTTLE GT SCH (20:26)
[2022-04-30] MEDS: TOBRAMYCIN 320 MG in IV D5W 100 ML IV SCH (23:05)
[2022-05-01] VITALS: BP 147/55
[2022-05-01] MEDS: IPRATROPIUM NEB FS 0.5 MG/2.5 ML AMPUL.NEB NEB SCH ×4 (02:36→16:20)
[2022-05-01 04:00] VITALS: BP 141/56
--- NOTE | 2022-05-01 06:39 | NUR ---
PT ASLEEP IN BED. NON VERBAL. ON 2LPM VIA NC. NO SIGNS OF PAIN OR DISCOMFORT AT THIS TIME. IV ACCESS ON RFA G#20. GT FEEDING INFUSING JEVITY 1.2 AT 65ML/HR, FLUSHED WITH 200CC WATER Q8H ORDERED. DELA CRUZ CATHETER IN PLACE DRAINING CLEAR YELLOW URINE. SOFT WRIST RESTRAINT IN PLACE, CHECKED FOR CIRCULATION. DUE MEDS GIVEN ORDERED. NEEDS ATTENDED. SAFETY MEASURES MAINTAINED. HOB ELEVATED, SIDERAILS UPX3, BED LOCKED IN LOWEST POSITION, BED ALARM ON, CALL LIGHT WITHIN REACH. WILL ENDORSE TO NEXT NURSE ON DUTY FOR CONTINUITY OF CARE.
[2022-05-01 07:18] LABS: BASOPHILS # (AUTO) 0.1 K/uL (0.0-0.2); BASOPHILS % (AUTO) 0.4 % (0.0-2.0); EOSINOPHILS % (AUTO) 2.1 % (0.0-6.0); HEMATOCRIT 26 % (39-51); HEMOGLOBIN 8.3 g/dL (13.5-17.5); LYMPHOCYTES # (AUTO) 1.5 K/uL (0.8-4.8); MEAN CORPUSCULAR HGB CONC 33 g/dl (31.0-36.0); MEAN CORPUSCULAR VOLUME 86 fL (80-96); MONOCYTES # (AUTO) 0.6 K/uL (0.1-1.30); NEUTROPHILS # (AUTO) 12.5 K/uL (1.8-8.9); NEUTROPHILS % (AUTO) 83.5 % (43.0-81.0); PLATELET COUNT (AUTO) 688 K/uL (150-450); RED BLOOD CELL COUNT(AUTO) 2.98 MIL/uL (4.5-6.0)
--- NOTE | 2022-05-01 07:30 | NUR ---
SURGICAL CORSETIER AM NOTES RECEIVED PT IN BED, OPENS EYES AND ABLE TO FOLLOW COMMANDS, MAINLY [place]ZBE[place] SPEAKING.ON O2 VIA 3L NC, O2 SAT > 98%, SR HR 73, NO SIGN OF PAIN/DISCOMFORT. IV ACCESS RFA #22G, INTACT AND PATENT TKO. SITE CLEAR. G TUBE RUNNING JEVITY 1.2@ 65ML/HR.CHECKED FOR PLACEMENT, 0 RESIDUAL. BILATERAL WRIST RESTRAINTS NOTED, CHECKED FOR CIRCULATION, THEN EVERY [address]RS[address] DELA CRUZ CATH IN PLACE. SEE NURSING FLOWSHEET FOR SKIN ISSUES. WILL PERFORM WOUND CARE IN A WHILE. ALL SAFETY PRECAUTIONS IN PLACE. BED LOCKED AND AT LOWEST LEVEL. SR UPX 2. CALL LIGHT WITHIN REACH. WILL CONTINUE TO MONITOR.
[2022-05-01 07:48] LABS: MAGNESIUM 2.3 mg/dL (1.8-2.4)
[2022-05-01 07:57] LABS: CALCIUM, SERUM 8.9 mg/dL (8.5-10.1); CREATININE 0.7 mg/dL (0.6-1.3); POTASSIUM 5.1 mmol/L (3.5-5.1)
[2022-05-01 08:00] VITALS: BP 140/68
[2022-05-01 08:07] LABS: BAND % (MANUAL) 2 % (0.0-5.0); EOSINOPHILS % (MANUAL) 2 % (0-4); LYMPHOCYTES % (MANUAL) 12 % (16-48); MONOCYTES % (MANUAL) 4 % (0-11.0); NEUTROPHILS % (MANUAL) 80 (42-76)
[2022-05-01] MEDS: PANTOPRAZOLE 40 MG/PACK PACK GT SCH (08:51)
[2022-05-01] MEDS: ZINC SULFATE 220 MG CAPSULE PO SCH (08:52)
[2022-05-01] MEDS: ASCORBIC ACID 500 MG TABLET PO SCH (08:52)
[2022-05-01] MEDS: METOPROLOL TARTRATE 25 MG TABLET PO SCH (08:53)
[2022-05-01] MEDS: THERAHONEY GEL 1.5 OZ TUBE TP SCH (08:54)
[2022-05-01] MEDS: DAKINS QUARTER STRENGTH (0.125%) 480 ML BOTTLE TOP SCH (08:55)
--- NOTE | 2022-05-01 09:30 | NUR ---
RN NOTES DUE MEDS GIVEN
[2022-05-01] MEDS ORDERED: TOBR40VI2 IV (09:45)
[2022-05-01] MEDS ORDERED: COLL30OI TP (09:45)
[2022-05-01] MEDS ORDERED: METO25TA20 PO (09:45)
[2022-05-01 12:00] VITALS: BP 139/55
[2022-05-01] MEDS: JEVITY 1.2 CAL 1,000 ML BOTTLE GT SCH (12:44)
[2022-05-01] MEDS: ENOXAPARIN SODIUM 30 MG/0.3 ML DISP.SYRIN SQ SCH (15:51)
--- NOTE | 2022-05-01 15:57 | NUR ---
RN NOTES ATTEMPTED TO GIVE REPORT MAIN CHARGE NURSE AT FACILITY. RAZOR SHARPENER TIME BY AMBULANCE AT 1700.
[2022-05-01 16:00] VITALS: BP 140/61
--- NOTE | 2022-05-01 18:12 | NUR ---
SOLDERING TECHNICIAN NOTES PATIENT DISCHARGED TO [facility] PER MD IN STABLE CONDITION. ON O2 2L VIA NASAL CANULA. PROVIDED DC INSTRUCTIONS, HEALTH TEACHINGS AND MED RECON LIST. CALLED IN REPORT TO FACILITY, SPOKE WITH MAIN CHARGE NURSE. IV ACCESS ON RT FOREARM IN SITU FOR CONTINUATION OF ANTIBIOTICS, G TUBE, FLUSHED AND CLAMPED. PM CARE AND WOUND CARE DONE EARLIER. PICTURES OF SKIN ISSUES TAKEN AND PLACED IN CHART. NO BELONGINGS. WILL FOLLOW UP WITH PCP PER FACILITY PROTOCOL. ALL PAPER WORKS SIGNED. REPORT GIVEN TO AMBULANCE CREW. AND WILL TRANSPORT PATIENT TO FACILITY.
[2022-05-03] MEDS ORDERED: TOBRAMYCIN 320 MG in IV D5W 100 ML IV SCH (08:00)
== END 2022-05-01 19:38 | DRG 871 ==
LOC: ER 16:06 → TRANSITION 18:47 → TELE 21:54 → TELE-TD 23:24 → TELE1 04-24 09:38
PROVIDERS: ADMIT Student in an Organized Health Care Education/Training Program; ATTEND Nurse Practitioner Acute Care
DX: A41.9 Sepsis, unspecified organism (principal); I50.31 Acute diastolic (congestive) heart failure; L89.154 Pressure ulcer of sacral region, stage 4; J96.01 Acute respiratory failure with hypoxia; J15.6 Pneumonia due to other Gram-negative bacteria; I13.0 Hypertensive heart and chronic kidney disease with heart failure and stage 1 through stage 4 chronic kidney disease, or unspecified chronic kidney disease; G93.40 Encephalopathy, unspecified; D68.59 Other primary thrombophilia; E46 Unspecified protein-calorie malnutrition; E87.20 Acidosis, unspecified; N39.0 Urinary tract infection, site not specified; Z16.24 Resistance to multiple antibiotics; E86.0 Dehydration; I48.91 Unspecified atrial fibrillation; Z20.822 Contact with and (suspected) exposure to COVID-19; Z66 Do not resuscitate; F03.90 Unspecified dementia, unspecified severity, without behavioral disturbance, psychotic disturbance, mood disturbance, and anxiety; N18.9 Chronic kidney disease, unspecified; E11.22 Type 2 diabetes mellitus with diabetic chronic kidney disease; E78.5 Hyperlipidemia, unspecified; Z86.16 Personal history of COVID-19; Z93.1 Gastrostomy status; Z79.4 Long term (current) use of insulin; Z79.899 Other long term (current) drug therapy; Z79.51 Long term (current) use of inhaled steroids; Z79.82 Long term (current) use of aspirin; D75.839 Thrombocytosis, unspecified; R79.89 Other specified abnormal findings of blood chemistry; R62.7 Adult failure to thrive; R13.10 Dysphagia, unspecified; Z74.01 Bed confinement status; L89.526 Pressure-induced deep tissue damage of left ankle; L89.516 Pressure-induced deep tissue damage of right ankle; L89.626 Pressure-induced deep tissue damage of left heel; L89.616 Pressure-induced deep tissue damage of right heel; M62.50 Muscle wasting and atrophy, not elsewhere classified, unspecified site; S31.31XA Laceration without foreign body of scrotum and testes, initial encounter; X58.XXXA Exposure to other specified factors, initial encounter; Y92.9 Unspecified place or not applicable; L89.220 Pressure ulcer of left hip, unstageable; L89.210 Pressure ulcer of right hip, unstageable; E88.09 Other disorders of plasma-protein metabolism, not elsewhere classified; B96.5 Pseudomonas (aeruginosa) (mallei) (pseudomallei) as the cause of diseases classified elsewhere; D64.9 Anemia, unspecified; Y95 Nosocomial condition; Z87.440 Personal history of urinary (tract) infections; Z87.442 Personal history of urinary calculi; N28.89 Other specified disorders of kidney and ureter
CPT/HCPCS: 36415; 71045-TC; 80048-TC; 80053-TC; 80076-TC; 80202-TC; 81001; 82962-TC; 83605-TC; 83735-TC; 83880; 84100-TC; 84484-TC; 85025-TC; 85730-TC; 87040-TC; 87081-TC; 87086-TC; 87186-TC; 93307-TC; 94799-TC; 97530-TC; A6253; A6403; C9113; C9803; G0378; J0456; J1650; J1940; J2405; J2543; J3260; J3370; J7040; J7042; J7050; J7060

== ENCOUNTER 2022-05-11 10:37 | Inpatient (IN) | payer MEDICARE, OTHER ==
[~2022-05-11] VITALS: Ht 167.6 cm; Wt 56.4 kg
[~2022-05-11 10:37] MED LIST changes: -ACET-2605 GT; -CLOT15CR5 TP; -CRAN425C6 GT; +HONE15GE TP; -LOPE-195 GT; -MAGN400O6 GT; -MERO1VIA23 IV; +METO25TA20 PO; -POVI480S2 TP; +TOBR40VI2 IV; -TRIA80OI TP; +[UNRECOGNIZED DRUG - SUPPLY] TD
--- NOTE | 2022-05-11 10:41 | NUR ---
[id number] from [facility] for noted hypoxia/ o2 desaturation. on non rebreather correctional officer captain
--- NOTE | 2022-05-11 10:57 | NUR ---
URINE COLLECTED AND SENT TO LAB
--- NOTE | 2022-05-11 11:00 | NUR ---
non rebreather mask on 15L/min. o2sat at 76% , RT and MD aware
--- NOTE | 2022-05-11 11:25 | NUR ---
RT NOTE PLACED PATIENT ON BIPAP PER MD ORDER. SETTINGS: ST 15/5, BUR 18, 100% O2. RN NOTIFIED AND AWARE. WILL CONTINUE TO MONITOR FOR ANY CHANGES.
--- NOTE | 2022-05-11 11:37 | NUR ---
MOVE SHEET SUBMITTED
[2022-05-11] MEDS ORDERED: CLON0.1T GT (11:59)
[2022-05-11 12:13] LABS: BASOPHILS # (AUTO) 0.1 K/uL (0.0-0.2); BASOPHILS % (AUTO) 0.4 % (0.0-2.0); EOSINOPHILS % (AUTO) 0.4 % (0.0-6.0); HEMATOCRIT 28 % (39-51); HEMOGLOBIN 8.4 g/dL (13.5-17.5); LYMPHOCYTES # (AUTO) 2.3 K/uL (0.8-4.8); LYMPHOCYTES % (AUTO) 10.3 % (20.0-44.0); MEAN CORPUSCULAR HGB CONC 30 g/dl (31.0-36.0); MEAN CORPUSCULAR VOLUME 88 fL (80-96); MONOCYTES # (AUTO) 0.9 K/uL (0.1-1.30); NEUTROPHILS # (AUTO) 19.2 K/uL (1.8-8.9); NEUTROPHILS % (AUTO) 84.9 % (43.0-81.0); PLATELET COUNT (AUTO) 868 K/uL (150-450); RED BLOOD CELL COUNT(AUTO) 3.14 MIL/uL (4.5-6.0); WHITE BLOOD COUNT (AUTO) 22.7 K/uL (4.3-11.0)
[2022-05-11 12:38] LABS: ALANINE AMINOTRANSFERASE 104 U/L (12-78); ALBUMIN 2.1 g/dL (3.4-5.0); ALKALINE PHOSPHATASE 137 U/L (46-116); ASPARTATE AMINOTRANSFERASE 86 U/L (15-37); BILIRUBIN,DIRECT 0.1 mg/dL (0.0-0.2); BILIRUBIN,TOTAL 0.3 mg/dL (0.2-1.0); CALCIUM, SERUM 9.8 mg/dL (8.5-10.1); CARBON DIOXIDE 27 mmol/L (21-32); CHLORIDE 103 mmol/L (98-107); GLUCOSE 164 mg/dL (74-106); POTASSIUM 4.3 mmol/L (3.5-5.1); SODIUM SERUM 134 mmol/L (136-145); TOTAL PROTEIN, SERUM 7.6 g/dL (6.4-8.2); UREA NITROGEN, BLOOD 55 mg/dL (7-18)
[2022-05-11 12:40] LABS: BILIRUBIN,URINE NEGATIVE (NEGATIVE); COLOR,URINE YELLOW (YELLOW); LEUKOCYTE ESTERASE ,URINE 1+ (NEGATIVE); NITRITE, URINE NEGATIVE (NEGATIVE); PH,URINE 6.5 (5.0-8.0); PROTEIN,URINE TRACE mg/dl (NEGATIVE); UGLUCOSE NEGATIVE (NEGATIVE); UROBILINOGEN,URINE 0.2 EU/dL (0.2)
--- NOTE | 2022-05-11 13:00 | NUR ---
[facility] PAGED
[2022-05-11] MEDS ORDERED: CEFTRIAXONE 1GM BAG (ER ONLY) 50 ML IV ONE (13:30)
[2022-05-11] MEDS ORDERED: AZITHROMYCIN 500 MG in IV D5W 250 ML IV ONE (13:30)
[2022-05-11] MEDS ORDERED: CEFTRIAXONE 1 G in IV D5W 50 ML IV ONE (13:41)
[2022-05-11 13:50] LABS: ABG PCO2 42.9 mmHg (35.0-45.0); ABG PH 7.339 (7.350-7.450); ABG PO2 82.1 mmHg (75.0-100.0); COHb 0.3 % (0.5-1.5); MetHb 0.4 % (0.0-1.5); O2Hb 94.2 % (94.0-97.0); SITE, ABG Right Radial
--- NOTE | 2022-05-11 14:00 | NUR ---
RT NOTE INCREASE IPAP TO 20 PER MD ORDER. RN NOTIFIED AND AWARE. WILL CONTINUE TO MONITOR THE PATIENT CLOSELY.
[2022-05-11 14:03] LABS: BACTERIA,URINE Few /HPF (None Seen); SQUAMOUS EPITHELIAL CELL,UR Few /HPF (None Seen); YEAST,URINE Many /HPF (None Seen)
[2022-05-11 14:04] LABS: MUCUS,URINE Few /LPF (None Seen)
[2022-05-11] MEDS: ENOXAPARIN SODIUM 30 MG/0.3 ML DISP.SYRIN SQ SCH (14:20)
[2022-05-11] MEDS ORDERED: ENOXAPARIN SODIUM 30 MG/0.3 ML DISP.SYRIN ONE (14:22)
--- NOTE | 2022-05-11 14:49 | NUR ---
[facility] [employer]
--- NOTE | 2022-05-11 15:44 | NUR ---
REPORT GIVEN TO SHARMAINE CORTEZ FOR CARLOS
[2022-05-11] MEDS ORDERED: TOBRAMYCIN 80 MG in IV NS 0.9% 100 ML IV SCH (16:00)
[2022-05-11] MEDS ORDERED: IPRATROPIUM NEB FS 0.5 MG/2.5 ML AMPUL.NEB ONE (16:53)
[2022-05-11] MEDS ORDERED: BISACODYL SUPP (10 MG) 10 MG/SUPP.RECT SUPP.RECT RC PRN (17:00)
[2022-05-11] MEDS ORDERED: ENOXAPARIN SODIUM 40 MG/0.4 ML DISP.SYRIN SQ SCH (17:00)
[2022-05-11] MEDS: NS 0.9% IV ONE ×2 (17:00→19:58)
[2022-05-11] MEDS ORDERED: ONDANSETRON HCL/PF 4 MG/2 ML VIAL IVP PRN (17:00)
[2022-05-11] MEDS: TOBRAMYCIN IV ONE ×2 (17:00→19:58)
[2022-05-11] MEDS ORDERED: [UNRECOGNIZED DRUG - REMARK] IV PRN (17:00)
[2022-05-11] MEDS ORDERED: Z GUARD REMEDY 4 OZ OINT TP PRN (17:00)
--- NOTE | 2022-05-11 17:00 | NUR ---
TRANSFERRED TO BED 102 IN STABLE CONDITION
[2022-05-11] MEDS ORDERED: DEXTROSE 50%-WATER 50 ML DISP.SYRIN IV PRN (17:30)
[2022-05-11] MEDS: IPRATROPIUM NEB FS 0.5 MG/2.5 ML AMPUL.NEB NEB SCH ×3 (17:42→23:47)
[2022-05-11 17:48] VITALS: BP 112/80
[2022-05-11] MEDS: BLOOD SUGAR DIAGNOSTIC 1 EACH STRIP IN SCH (18:00)
--- NOTE | 2022-05-11 18:06 | NUR ---
EDD RN NOTE RECEIVED PATENT FROM ER WITH DX HYPOXIA UNDER CARE ELMER MAGAÑA RN ,ALERT WITH CONFUSION , ON BY PAP ORDERED SATURATION 95% AT SHAN TIME SETTING IS 20/5 RR 18, FAMILY AT BEDSIDE. PLACED ON TELE MONITOR HR 95 AT THIS TIME, LT FA HL INTACT , ALL NEEDS ATTENDED BED IN LOWEST AND LOCKED POSITION CALL LIGHT WITHIN REACH , WILL CONT TO MONITOR CLOSELY
[2022-05-11] MEDS ORDERED: JEVITY 1.2 CAL 1,000 ML BOTTLE GT PRN (19:00)
--- NOTE | 2022-05-11 19:29 | NUR ---
RN OPENING NOTE PT AWAKE AND NONVERBAL LYING R LATERAL POSITION. FAMILY AT BEDSIDE. SKIN IS WARM AND DRY. RESPIRATIONS EVEN ON BIPAP. EXTREMITIES ARE RIGID. MULTIPLE WOUNDS PRESENT ON SACRUM AND LOWER EXTREMITIES. L ARM IV 20 G PATENT AND INTACT. BED LOCKED AND AT LOWEST POSITION. X2 SIDE RAILS UP AND CALL LIGHT WITHIN REACH.
[2022-05-11] MEDS: FLUCONAZOLE (100 MG) 100 MG TABLET PO SCH (19:59)
[2022-05-11] MEDS: INSULIN REGULAR, HUMAN 100 UNIT/ML 3 ML VIAL SQ PRN (20:04)
[2022-05-11] MEDS: IV D5/ 0.9% NACL 1,000 ML IV PRN (20:21)
[2022-05-11 20:46] VITALS: BP 119/60
[2022-05-11 20:46] LABS: BAND % (MANUAL) 1 % (0.0-5.0); LYMPHOCYTES % (MANUAL) 13 % (16-48); MONOCYTES % (MANUAL) 5 % (0-11.0); NEUTROPHILS % (MANUAL) 81 (42-76)
[2022-05-11] MEDS: MEROPENEM 500 MG in IV NS 0.9% 50 ML IV SCH (21:20)
[2022-05-11] MEDS: METOPROLOL TARTRATE 25 MG TABLET PO SCH (21:22)
[2022-05-11] MEDS: ACETAMINOPHEN 650 MG/20.3 ML UDC PEG PRN (21:33)
[2022-05-11] MEDS ORDERED: VANCOMYCIN 1 GM in IV D5W 250 ML IV ONE (22:00)
--- NOTE | 2022-05-11 23:27 | NUR ---
RN NOTE DID NOT ADMINISTER TOBRAMYCIN DUE TO MEDICATION HAVING TO BE USED BEFORE 1829. NOTIFIED PHARMACY AND THEY STATED THAT THE ORDER HAS BEEN CANCELLED AND NOT TO ADMINISTER MEDICATION.
[2022-05-12] VITALS: BP 111/46
[2022-05-12] MEDS: BLOOD SUGAR DIAGNOSTIC 1 EACH STRIP IN SCH ×5 (00:19→23:18)
[2022-05-12] MEDS: INSULIN REGULAR, HUMAN 100 UNIT/ML 3 ML VIAL SQ PRN ×4 (00:21→23:18)
[2022-05-12 04:00] VITALS: BP 120/59
[2022-05-12] MEDS: IPRATROPIUM NEB FS 0.5 MG/2.5 ML AMPUL.NEB NEB SCH ×6 (04:15→23:41)
[2022-05-12] MEDS: MEROPENEM 500 MG in IV NS 0.9% 50 ML IV SCH ×3 (04:54→21:40)
[2022-05-12 07:16] LABS: BASOPHILS # (AUTO) 0.1 K/uL (0.0-0.2); BASOPHILS % (AUTO) 0.2 % (0.0-2.0); EOSINOPHILS % (AUTO) 0.1 % (0.0-6.0); HEMATOCRIT 22 % (39-51); HEMOGLOBIN 7.1 g/dL (13.5-17.5); LYMPHOCYTES % (AUTO) 9.4 % (20.0-44.0); MEAN CORPUSCULAR HGB CONC 32 g/dl (31.0-36.0); MEAN CORPUSCULAR VOLUME 85 fL (80-96); MONOCYTES # (AUTO) 0.8 K/uL (0.1-1.30); MONOCYTES % (AUTO) 3.9 % (2.0-12.0); NEUTROPHILS # (AUTO) 18.3 K/uL (1.8-8.9); NEUTROPHILS % (AUTO) 86.4 % (43.0-81.0); PLATELET COUNT (AUTO) 833 K/uL (150-450); RED BLOOD CELL COUNT(AUTO) 2.64 MIL/uL (4.5-6.0); WHITE BLOOD COUNT (AUTO) 21.2 K/uL (4.3-11.0)
--- NOTE | 2022-05-12 07:27 | NUR ---
RN CLOSING NOTE PT AWAKE BUT NONVERBAL. SKIN IS PALE AND DRY. EXTREMITIES ARE RIGID. RESPIRATIONS ARE TACHYPNIC BUT UNLABORED ON BIPAP WITH O2 SAT OF 100%. L WRIST IV 20G INTACT AND RUNNING MAINTENANCE FLUIDS. GTUBE FEEDING OF JEVITY AT 60 ML/HR X20 HRS IN PROGRESS. WOUNDS NOTED ON SACRUM AND BILAT HIPS. PT AWAITING SPECIALTY MATTRESS PER FAMILY REQUEST. BED LOCKED AND AT LOWEST LEVEL WITH X2 RAILS UP. CALL LIGHT WITHIN REACH.
[2022-05-12 07:55] LABS: CALCIUM, SERUM 9.6 mg/dL (8.5-10.1); MAGNESIUM 2.5 mg/dL (1.8-2.4); PHOSPHORUS 4.4 mg/dL (2.5-4.9); POTASSIUM 4.7 mmol/L (3.5-5.1)
--- NOTE | 2022-05-12 07:57 | NUR ---
RN NOTE PT RECEIVED IN BED, WITH BIPAP IN PLACE, SETTINGS TOLERATED WELL. PT RESPONSIVE. GT IN PLACE WITH FEEDING JEVITY 1.2 @ 60/HR. ASPIRATION PREC MAINTAINED. WITH IV ACCESS ON L WRIST G20. SAFETY MEASURES FOLLOWED. WILL CONTINUE TO MONITOR.
[2022-05-12 08:00] VITALS: BP 101/56
[2022-05-12] MEDS: MULTIVIT W/MINERALS 1 TAB TABLET GT SCH (08:29)
[2022-05-12] MEDS: ACIDOPHILUS/BULGARICUS 1 EACH TAB.CHEW GT SCH (08:30)
[2022-05-12] MEDS: CHOLECALCIFEROL 1,000 UNIT TABLET (VIT D3) GT SCH (08:30)
[2022-05-12] MEDS: PANTOPRAZOLE 40 MG/PACK PACK GT SCH (08:30)
[2022-05-12] MEDS: ASPIRIN 81 MG TAB.CHEW GT SCH (08:30)
[2022-05-12] MEDS: ASCORBIC ACID 500 MG TABLET GT SCH (08:31)
[2022-05-12] MEDS: FLUCONAZOLE (100 MG) 100 MG TABLET PO SCH (08:31)
[2022-05-12] MEDS: PROSOURCE / PROSTAT (PYXIS) 30 ML UDC GT SCH ×2 (08:38→17:28)
[2022-05-12] MEDS: hydrALAZINE HCL 50 MG TABLET GT SCH ×3 (09:00→17:00)
[2022-05-12] MEDS: AMLODIPINE BESYLATE 10 MG TABLET GT SCH (09:00)
[2022-05-12] MEDS: METOPROLOL TARTRATE 25 MG TABLET PO SCH ×2 (09:00→21:43)
--- NOTE | 2022-05-12 09:06 | NUR ---
WOUND CARE CONSULT: PT PRESENTS WITH MULTIPLE PRESSURE ULCERS PRESENT ON ADMISSION INCLUDING RT AND LEFT HIP UNSTAGEABLE ULCERS, SACRAL STAGE 4 ULCER AND LOWER EXTREMITY WOUNDS, ALL PRESENT ON ADMISSION. PT IS CACHECTIC. LOW AIRLOSS MATTRESS IS ON ORDER. RECOMMENDATIONS MADE FOR SKIN PROTECTION. DISCUSSED WITH NURSING STAFF. DR GONZALEZ AND DR JIMENEZ CALLED FOR SURGICAL AND DPM CONSULTS. MD IN AGREEMENT WITH PLAN OF CARE. Addendum: 05/12/22 at 0908 by MONICA VAZQUEZ WNDNU Amended: Links added.
[2022-05-12] MEDS ORDERED: IV NS 0.9% 1,000 ML IV ONE (10:00)
[2022-05-12] MEDS: VANCOMYCIN 500 MG in IV D5W 100 ML IV SCH ×2 (11:32→21:49)
[2022-05-12 11:35] LABS: ABG BASE EXCESS -0.1 mmol/L; ABG OXYGEN SATURATION 99.3 % (92.0-98.5); ABG PCO2 35.2 mmHg (35.0-45.0); ABG PH 7.448 (7.350-7.450); ABG PO2 222.2 mmHg (75.0-100.0); AaDO2 455.6 mmHg; COHb 0.2 % (0.5-1.5); MetHb 0.4 % (0.0-1.5); O2Hb 98.7 % (94.0-97.0); SITE, ABG Right Radial; VENT MODE, BG 15L NRB
--- NOTE | 2022-05-12 11:45 | NUR ---
RN NOTE PT HGB LVL 7.1 HVT 22. PMD MADE AWARE, WITH T.O. TO GIVE LOVENOX 30MG ORDERED LONG NO ACTIVE BLEEDING NOTED.
[2022-05-12] MEDS: ENOXAPARIN SODIUM 30 MG/0.3 ML DISP.SYRIN SQ SCH (11:48)
[2022-05-12 12:00] VITALS: BP 118/62
[2022-05-12 16:00] VITALS: BP 118/62
--- NOTE | 2022-05-12 19:20 | NUR ---
RN NOTES RECEIVED PT FOR CONTINUITY OF CARE. PATIENT NON VERBAL, IN NO S/SX OF ACUTE DISTRESS AT THIS TIME; CURRENTLY ON 2-3L OF 02 VIA NC; WITH 02 SAT >95% AT THIS TIME. WITH IV ACCESS ON L UA MIDLINE #18 PATENT, INTACT AND FLUSHING WELL. WITH RUNNING FLUID ORDERED AND TUBE FEEDING PRESCRIBED. WILL ENSURE SAFETY MEASURES WITHIN THE SHIFT. PATIENT BED ALARM IS ON. HEAD OF BED ELEVATED. BED IS LOCKED, IN LOWEST POSITION AND SIDE RAILS UP. CALL LIGHT WITHIN REACH OF THE PATIENT. WILL CONTINUE TO MONITOR AND REASSESS FOR ANY CHANGES AND WILL CARRY OUT ANY ONGOING AND ACTIVE MD ORDER.
--- NOTE | 2022-05-12 19:58 | NUR ---
RN NOTE PT RESTING IN BED, WITH CONTINUOUS O2 VIA NC @ 2.5L, TOLERATING WELL. PT RESPONSIVE. GT IN PLACE WITH FEEDING JEVITY 1.2 @ 60/HR. ASPIRATION PREC MAINTAINED. WITH IV ACCESS ON ALEXSANDER MIDLINE WITH IVF NS @75/HR. SAFETY MEASURES FOLLOWED. DUE MEDS GIVEN. AM/PM CARE RENDERED. WILL CONTINUE TO MONITOR.
[2022-05-12 20:00] VITALS: BP 145/61
[2022-05-12] MEDS: GLUCERNA 1.2 1,000 ML BOTTLE NG PRN (21:05)
[2022-05-12] MEDS ORDERED: DAKINS QUARTER STRENGTH (0.125%) 480 ML BOTTLE ONE (23:22)
[2022-05-12] MEDS: DAKINS QUARTER STRENGTH (0.125%) 480 ML BOTTLE TOP SCH (23:26)
[2022-05-13] VITALS: BP 129/96
[2022-05-13] MEDS: IPRATROPIUM NEB FS 0.5 MG/2.5 ML AMPUL.NEB NEB SCH ×6 (03:43→23:19)
[2022-05-13 04:00] VITALS: BP 145/58
--- NOTE | 2022-05-13 04:00 | NUR ---
RN NOTES PATIENT REMAINED TO BE IN NO SIGNS OF ACUTE RESPIRATORY DISTRESS , VITAL SIGNS STABLE AT THIS TIME. REGULAR TURNING AND REPOSITIONING DONE, WOUND CARE AND AM PATIENT CARE RENDERED WILL CONTINUE TO MONITOR AND REASSESS FOR ANY CHANGES THROUGHOUT THE SHIFT.
[2022-05-13] MEDS: MEROPENEM 500 MG in IV NS 0.9% 50 ML IV SCH ×3 (04:17→21:48)
[2022-05-13] MEDS: IV D5/ 0.9% NACL 1,000 ML IV PRN (04:41)
[2022-05-13] MEDS: BLOOD SUGAR DIAGNOSTIC 1 EACH STRIP IN SCH ×4 (05:13→23:37)
[2022-05-13] MEDS: INSULIN REGULAR, HUMAN 100 UNIT/ML 3 ML VIAL SQ PRN (05:14)
[2022-05-13 05:51] LABS: BASOPHILS % (AUTO) 0.2 % (0.0-2.0); EOSINOPHILS % (AUTO) 0.2 % (0.0-6.0); HEMATOCRIT 23 % (39-51); HEMOGLOBIN 7.2 g/dL (13.5-17.5); LYMPHOCYTES # (AUTO) 1.4 K/uL (0.8-4.8); LYMPHOCYTES % (AUTO) 8.4 % (20.0-44.0); MEAN CORPUSCULAR HGB CONC 31 g/dl (31.0-36.0); MEAN CORPUSCULAR VOLUME 86 fL (80-96); MONOCYTES # (AUTO) 0.6 K/uL (0.1-1.30); MONOCYTES % (AUTO) 3.8 % (2.0-12.0); NEUTROPHILS # (AUTO) 14.1 K/uL (1.8-8.9); NEUTROPHILS % (AUTO) 87.4 % (43.0-81.0); PLATELET COUNT (AUTO) 794 K/uL (150-450); RED BLOOD CELL COUNT(AUTO) 2.72 MIL/uL (4.5-6.0); WHITE BLOOD COUNT (AUTO) 16.1 K/uL (4.3-11.0)
[2022-05-13 06:24] LABS: CALCIUM, SERUM 9.2 mg/dL (8.5-10.1); CREATININE 0.9 mg/dL (0.6-1.3); MAGNESIUM 2.2 mg/dL (1.8-2.4); PHOSPHORUS 3.5 mg/dL (2.5-4.9); POTASSIUM 4.3 mmol/L (3.5-5.1)
--- NOTE | 2022-05-13 06:38 | NUR ---
RN CLOSING NOTE: PATIENT REMAINS IN ROOM IN NO SIGNS OF RESPIRATORY DISTRESS, PATIENT STILL ON COOL AEROSOL OF 5L OF O2 AND 28% FIO2 VIA T-PIECE ;TOLERATING WELL SATURATING @ >95% SP02. SAFETY MEASURES IMPLEMENTED, BED IN LOWEST POSITION, LOCKED, SIDE RAILS UP, CALL LIGHT WITHIN REACH. ALL NEEDS AND ORDERS ADDRESSED DURING THE SHIFT. IV ACCESS MAINTAINED INTACT, SECURED AND FLUSHING WELL. ALL DUE MEDS GIVEN ORDERED & SCHEDULED ; PATIENT TOLERATED WELL. PATIENT KEPT CLEAN AND COMFORTABLE WITHIN THE SHIFT. PATIENT ENDORSED TO INCOMING SHIFT RN WITH STABLE VITAL SIGN AND FOR CONTINUITY OF CARE. Addendum: 05/13/22 at 0640 by BARBRA ORTIZ RN PLS DISREGARD NOTES; WRONG PATIENT ENTRY
--- NOTE | 2022-05-13 06:42 | NUR ---
RN CLOSING NOTE: PATIENT REMAINS IN ROOM IN NO SIGNS OF RESPIRATORY DISTRESS, PATIENT NOW ON 2L OF O2 VIA NC;TOLERATING WELL SATURATING @ >95% SP02. SAFETY MEASURES IMPLEMENTED, BED IN LOWEST POSITION, LOCKED, SIDE RAILS UP, CALL LIGHT WITHIN REACH. ALL NEEDS AND ORDERS ADDRESSED DURING THE SHIFT. IV ACCESS MAINTAINED INTACT, SECURED AND FLUSHING WELL. ALL DUE MEDS GIVEN ORDERED & SCHEDULED ; PATIENT TOLERATED WELL. PATIENT KEPT CLEAN AND COMFORTABLE WITHIN THE SHIFT. PATIENT ENDORSED TO INCOMING SHIFT RN WITH STABLE VITAL SIGN AND FOR CONTINUITY OF CARE.
--- NOTE | 2022-05-13 07:32 | NUR ---
RN NOTE PT RECEIVED IN BED, WITH O2 VIA NC @2L. PT RESPONSIVE. GT IN PLACE WITH FEEDING GLUCERNA 1.2 @ 70/HR. ASPIRATION PREC MAINTAINED. WITH IV ACCESS ON ALEXSANDER MIDLINE. SAFETY MEASURES FOLLOWED. WILL CONTINUE TO MONITOR.
[2022-05-13 08:00] VITALS: BP 153/56
[2022-05-13] MEDS: MULTIVIT W/MINERALS 1 TAB TABLET GT SCH (08:52)
[2022-05-13] MEDS: ASPIRIN 81 MG TAB.CHEW GT SCH (08:52)
[2022-05-13] MEDS: FLUCONAZOLE (100 MG) 100 MG TABLET PO SCH (08:53)
[2022-05-13] MEDS: PROSOURCE / PROSTAT (PYXIS) 30 ML UDC GT SCH ×2 (08:55→17:26)
[2022-05-13] MEDS: CHOLECALCIFEROL 1,000 UNIT TABLET (VIT D3) GT SCH (08:55)
[2022-05-13] MEDS: PANTOPRAZOLE 40 MG/PACK PACK GT SCH (08:55)
[2022-05-13] MEDS: ACIDOPHILUS/BULGARICUS 1 EACH TAB.CHEW GT SCH (08:55)
[2022-05-13] MEDS: ASCORBIC ACID 500 MG TABLET GT SCH (08:55)
[2022-05-13] MEDS: hydrALAZINE HCL 50 MG TABLET GT SCH ×3 (08:58→17:00)
[2022-05-13] MEDS: METOPROLOL TARTRATE 25 MG TABLET PO SCH ×2 (08:58→21:50)
[2022-05-13] MEDS: AMLODIPINE BESYLATE 10 MG TABLET GT SCH (08:59)
[2022-05-13] MEDS: ENOXAPARIN SODIUM 30 MG/0.3 ML DISP.SYRIN SQ SCH (09:01)
[2022-05-13] MEDS: THERAHONEY GEL 1.5 OZ TUBE TP SCH (09:17)
[2022-05-13] MEDS: DAKINS QUARTER STRENGTH (0.125%) 480 ML BOTTLE TOP SCH (09:17)
[2022-05-13] MEDS: VANCOMYCIN 500 MG in IV D5W 100 ML IV SCH ×2 (11:10→22:39)
[2022-05-13 12:00] VITALS: BP 100/56
[2022-05-13 16:00] VITALS: BP 103/49
--- NOTE | 2022-05-13 18:25 | NUR ---
RN NOTE PT RECEIVED IN BED, WITH O2 VIA NC @2L. PT RESPONSIVE. GT IN PLACE WITH FEEDING GLUCERNA 1.2 @ 70/HR. ASPIRATION PREC MAINTAINED. WITH IV ACCESS ON ALEXSANDER MIDLINE. SAFETY MEASURES FOLLOWED. DUE MEDICATIONS GIVEN. AM/PM CARE DONE.V/S STABLE. WILL CONTINUE TO MONITOR.
--- NOTE | 2022-05-13 19:00 | NUR ---
RECEIVED REPORT FROM ELIZABETH CORTEZ.
[2022-05-13 20:00] VITALS: BP 146/57
[2022-05-13] MEDS: MUPIROCIN OINT 2% 22 GM TUBE NS SCH (21:49)
[2022-05-14] VITALS (11 sets, daily range): BP systolic 114–152; BP diastolic 44–86
[2022-05-14] MEDS: IPRATROPIUM NEB FS 0.5 MG/2.5 ML AMPUL.NEB NEB SCH ×5 (04:03→20:02)
[2022-05-14] MEDS: IV D5/ 0.9% NACL 1,000 ML IV PRN ×2 (04:45→17:31)
[2022-05-14] MEDS: MEROPENEM 500 MG in IV NS 0.9% 50 ML IV SCH ×3 (05:15→21:41)
[2022-05-14] MEDS: BLOOD SUGAR DIAGNOSTIC 1 EACH STRIP IN SCH ×3 (05:24→17:30)
[2022-05-14 08:05] LABS: CALCIUM, SERUM 8.8 mg/dL (8.5-10.1); CREATININE 0.8 mg/dL (0.6-1.3); MAGNESIUM 1.9 mg/dL (1.8-2.4); PHOSPHORUS 3.5 mg/dL (2.5-4.9); POTASSIUM 4.1 mmol/L (3.5-5.1)
[2022-05-14 08:09] LABS: BASOPHILS % (AUTO) 0.2 % (0.0-2.0); EOSINOPHILS % (AUTO) 0.4 % (0.0-6.0); HEMATOCRIT 22 % (39-51); LYMPHOCYTES # (AUTO) 1.7 K/uL (0.8-4.8); LYMPHOCYTES % (AUTO) 10.1 % (20.0-44.0); MEAN CORPUSCULAR HGB CONC 31 g/dl (31.0-36.0); MEAN CORPUSCULAR VOLUME 86 fL (80-96); MONOCYTES # (AUTO) 0.7 K/uL (0.1-1.30); MONOCYTES % (AUTO) 4.2 % (2.0-12.0); NEUTROPHILS # (AUTO) 14.6 K/uL (1.8-8.9); NEUTROPHILS % (AUTO) 85.1 % (43.0-81.0); PLATELET COUNT (AUTO) 739 K/uL (150-450); RED BLOOD CELL COUNT(AUTO) 2.52 MIL/uL (4.5-6.0); WHITE BLOOD COUNT (AUTO) 17.2 K/uL (4.3-11.0)
[2022-05-14 08:16] LABS: HEMOGLOBIN 6.7 g/dL (13.5-17.5)
[2022-05-14] MEDS: GLUCERNA 1.2 1,000 ML BOTTLE NG PRN (08:37)
[2022-05-14] MEDS: ENOXAPARIN SODIUM 30 MG/0.3 ML DISP.SYRIN SQ SCH (09:00)
[2022-05-14] MEDS: DAKINS QUARTER STRENGTH (0.125%) 480 ML BOTTLE TOP SCH (09:00)
[2022-05-14] MEDS: PANTOPRAZOLE 40 MG/PACK PACK GT SCH (10:19)
[2022-05-14] MEDS: ACIDOPHILUS/BULGARICUS 1 EACH TAB.CHEW GT SCH (10:19)
[2022-05-14] MEDS: MULTIVIT W/MINERALS 1 TAB TABLET GT SCH (10:19)
[2022-05-14] MEDS: hydrALAZINE HCL 50 MG TABLET GT SCH ×3 (10:20→17:30)
[2022-05-14] MEDS: CHOLECALCIFEROL 1,000 UNIT TABLET (VIT D3) GT SCH (10:21)
[2022-05-14] MEDS: METOPROLOL TARTRATE 25 MG TABLET PO SCH ×2 (10:21→21:42)
[2022-05-14] MEDS: FLUCONAZOLE (100 MG) 100 MG TABLET PO SCH (10:21)
[2022-05-14] MEDS: PROSOURCE / PROSTAT (PYXIS) 30 ML UDC GT SCH ×2 (10:22→17:30)
[2022-05-14] MEDS: ASCORBIC ACID 500 MG TABLET GT SCH (10:22)
[2022-05-14] MEDS: AMLODIPINE BESYLATE 10 MG TABLET GT SCH (10:22)
[2022-05-14] MEDS: ASPIRIN 81 MG TAB.CHEW GT SCH (10:23)
[2022-05-14] MEDS: MUPIROCIN OINT 2% 22 GM TUBE NS SCH ×2 (10:29→21:42)
[2022-05-14] MEDS: THERAHONEY GEL 1.5 OZ TUBE TP SCH (10:31)
[2022-05-14] MEDS: VANCOMYCIN 500 MG in IV D5W 100 ML IV SCH (11:10)
--- NOTE | 2022-05-14 11:36 | NUR ---
DR PEREZ WAS NOTIFIED REGARDING MORNING LAB RESULTS AND ALSO HGB=6.7. AWAITING MD RESPONSE. CHARGE NURSE-SHANAE SAENZ.
[2022-05-14 11:56] LABS: EOSINOPHILS % (MANUAL) 1 % (0-4); LYMPHOCYTES % (MANUAL) 8 % (16-48); MONOCYTES % (MANUAL) 2 % (0-11.0); NEUTROPHILS % (MANUAL) 89 (42-76)
--- NOTE | 2022-05-14 19:30 | NUR ---
RN OPENING NOTE PT AWAKE BUT NONVERBAL. PT ON RA AND TOLERATING WELL. RESPIRATIONS EVEN AND UNLABORED. SKIN IS PINK AND DRY. SR ON THEATRICAL DRESSER. WOUNDS NOTED ON SACRUM, BILAT HIPS AND ANKLES. DELA CRUZ CLEAN AND INTACT. GTUBE FEEDING IN PROGRESS AT 70 ML/HR X20 HRS. ALEXSANDER MIDLINE INTACT AND RUNNING D5NS AT 100 ML/HR. SAFETY PRECAUTIONS IN PLACE. SOFT MITTEN APPLIED TO R HAND. BED LOCKED AND AT LOWEST LEVEL. X2 RAILS UP AND CALL LIGHT WITHIN REACH.
[2022-05-14] MEDS: ACETAMINOPHEN 650 MG/20.3 ML UDC PEG PRN (23:18)
--- NOTE | 2022-05-14 23:26 | NUR ---
RN NOTE PT GIVEN 650 MG OF LIQUID TYLENOL VIA GTUBE FOR TEMP OF 100.9 POST BLOOD TRANSFUSION. NO SIGNS OF ITCHING, HIVES, OR RESPIRATORY DISTRESS.
[2022-05-15] MEDS: IPRATROPIUM NEB FS 0.5 MG/2.5 ML AMPUL.NEB NEB SCH ×7 (00:07→23:32)
[2022-05-15] MEDS: VANCOMYCIN 500 MG in IV D5W 100 ML IV SCH (00:32)
[2022-05-15] MEDS: BLOOD SUGAR DIAGNOSTIC 1 EACH STRIP IN SCH ×4 (00:47→17:37)
[2022-05-15] MEDS: INSULIN REGULAR, HUMAN 100 UNIT/ML 3 ML VIAL SQ PRN ×3 (00:47→17:37)
--- NOTE | 2022-05-15 02:15 | NUR ---
RN NOTE PT'S TEMP HAS RESOLVED AND IS NOW 97.2.
[2022-05-15 04:00] VITALS: BP 98/67
[2022-05-15] MEDS: MEROPENEM 500 MG in IV NS 0.9% 50 ML IV SCH ×3 (05:25→20:49)
--- NOTE | 2022-05-15 06:07 | NUR ---
RN CLOSING NOTE PT AWAKE BUT REMAINS NONVERBAL. SKIN IS WARM AND DRY. RESPIRATIONS EVEN AND UNLABORED ON RA. GTUBE FEEDING PAUSED AT 0400. ALEXSANDER MIDLINE INFUSING D5NS AT 100 ML/HR. NO ACUTE SIGNS OF DISTRESS. SAFETY PRECAUTIONS IN PLACE. MITTEN APPLIED TO R HAND. BED LOCKED AND AT LOWEST LEVEL. X2 RAILS UP AND CALL LIGHT WITHIN REACH.
[2022-05-15 06:15] LABS: BASOPHILS # (AUTO) 0.1 K/uL (0.0-0.2); BASOPHILS % (AUTO) 0.3 % (0.0-2.0); EOSINOPHILS % (AUTO) 0.5 % (0.0-6.0); HEMATOCRIT 26 % (39-51); HEMOGLOBIN 8.2 g/dL (13.5-17.5); LYMPHOCYTES # (AUTO) 2.1 K/uL (0.8-4.8); LYMPHOCYTES % (AUTO) 10.4 % (20.0-44.0); MEAN CORPUSCULAR HGB CONC 32 g/dl (31.0-36.0); MEAN CORPUSCULAR VOLUME 86 fL (80-96); MONOCYTES # (AUTO) 0.9 K/uL (0.1-1.30); MONOCYTES % (AUTO) 4.5 % (2.0-12.0); NEUTROPHILS # (AUTO) 16.8 K/uL (1.8-8.9); NEUTROPHILS % (AUTO) 84.3 % (43.0-81.0); PLATELET COUNT (AUTO) 691 K/uL (150-450); RED BLOOD CELL COUNT(AUTO) 2.99 MIL/uL (4.5-6.0)
[2022-05-15 06:22] LABS: CALCIUM, SERUM 8.9 mg/dL (8.5-10.1); CREATININE 0.7 mg/dL (0.6-1.3); MAGNESIUM 1.8 mg/dL (1.8-2.4); PHOSPHORUS 3.2 mg/dL (2.5-4.9); POTASSIUM 4.2 mmol/L (3.5-5.1)
--- NOTE | 2022-05-15 07:46 | NUR ---
RN NOTE PT RECEIVED IN BED, IN ROOM AIR, NOT IN DISTRESS.. PT RESPONSIVE. GT IN PLACE WITH FEEDING GLUCERNA 1.2 @ 70/HR. ASPIRATION PREC MAINTAINED. IV ACCESS ON ALEXSANDER MIDLINE WITH IVF D5NS@100CC/HR. .POST BLOOD TRANSFUSION. SAFETY MEASURES FOLLOWED. WILL CONTINUE TO MONITOR.
[2022-05-15 08:00] VITALS: BP 149/60
[2022-05-15] MEDS: ASCORBIC ACID 500 MG TABLET GT SCH (08:16)
[2022-05-15] MEDS: METOPROLOL TARTRATE 25 MG TABLET PO SCH ×2 (08:17→20:49)
[2022-05-15] MEDS: FLUCONAZOLE (100 MG) 100 MG TABLET PO SCH (08:17)
[2022-05-15] MEDS: hydrALAZINE HCL 50 MG TABLET GT SCH ×3 (08:17→17:36)
[2022-05-15] MEDS: AMLODIPINE BESYLATE 10 MG TABLET GT SCH (08:18)
[2022-05-15] MEDS: MULTIVIT W/MINERALS 1 TAB TABLET GT SCH (08:18)
[2022-05-15] MEDS: PANTOPRAZOLE 40 MG/PACK PACK GT SCH (08:18)
[2022-05-15] MEDS: CHOLECALCIFEROL 1,000 UNIT TABLET (VIT D3) GT SCH (08:18)
[2022-05-15] MEDS: ACIDOPHILUS/BULGARICUS 1 EACH TAB.CHEW GT SCH (08:18)
[2022-05-15] MEDS: ASPIRIN 81 MG TAB.CHEW GT SCH (08:19)
[2022-05-15] MEDS: MUPIROCIN OINT 2% 22 GM TUBE NS SCH ×2 (08:21→20:49)
[2022-05-15] MEDS: DAKINS QUARTER STRENGTH (0.125%) 480 ML BOTTLE TOP SCH (08:22)
[2022-05-15] MEDS: THERAHONEY GEL 1.5 OZ TUBE TP SCH (08:22)
[2022-05-15] MEDS: IV D5W 1,000 ML IV SCH ×2 (08:26→20:49)
[2022-05-15 08:28] LABS: LYMPHOCYTES % (MANUAL) 14 % (16-48); MONOCYTES % (MANUAL) 4 % (0-11.0); NEUTROPHILS % (MANUAL) 82 (42-76)
[2022-05-15] MEDS: PROSOURCE / PROSTAT (PYXIS) 30 ML UDC GT SCH ×2 (09:42→17:36)
[2022-05-15] MEDS: GLUCERNA 1.2 1,000 ML BOTTLE NG PRN (12:46)
[2022-05-15] MEDS: ENOXAPARIN SODIUM 30 MG/0.3 ML DISP.SYRIN SQ SCH (13:12)
--- NOTE | 2022-05-15 16:35 | NUR ---
GAVE REPORT TO 3W RN FOR CARLOS. PT TRANSPORTED TO RM [id number]. NOT IN DISTRESS. IN ROOM AIR.
--- NOTE | 2022-05-15 18:52 | NUR ---
RN CLOSING NOTE PATIENT IN BED ASLEEP, NO SIGNS OF ACUTE DISTRESS NOTED. ON ROOM AIR, TOLERATING WELL, NO SOB NOTED, BREATHING EVEN AND UNLABORED. WITH G-TUBE INTACT AND PATENT, GLUCERNA 1.2 @ 70 ML/HR RUNNING. F/C INTACT, DRAINING MOISES COLORED URINE. RIGHT SOFT MITTENS IN PLACE. NO BEHAVIORAL PROBLEMS NOTED. WITH LEFT UPPER ARM MIDLINE INTACT AND PATENT WITH D5NS @ 100 ML/HR INFUSING WELL. SAFETY MEASURE IN PLACE. BED IN LOWEST AND LOCKED POSITION. SIDE RAILS UP X4, CALL LIGHT PLACED WITHIN EASY REACH. WILL ENDORSE TO NEXT SHIFT FOR CONTINUITY OF CARE.
[2022-05-15 20:00] VITALS: BP 122/62
--- NOTE | 2022-05-15 20:20 | NUR ---
MS DIEGO OPENING NOTE PATIENT IN BED ASLEEP, NO SIGNS OF ACUTE DISTRESS NOTED. ON ROOM AIR, TOLERATING WELL, NO SOB NOTED, BREATHING EVEN AND UNLABORED. WITH G-TUBE INTACT AND PATENT, GLUCERNA 1.2 @ 70 ML/HR RUNNING. F/C INTACT, DRAINING MOISES COLORED URINE. RIGHT SOFT MITTENS IN PLACE. NO BEHAVIORAL PROBLEMS NOTED. WITH LEFT UPPER ARM MIDLINE INTACT AND PATENT WITH D5NS @ 100 ML/HR INFUSING WELL. SAFETY MEASURE IN PLACE. BED IN LOWEST AND LOCKED POSITION. SIDE RAILS UP X4, CALL LIGHT PLACED WITHIN EASY REACH. WILL CONTINUE TO MONITOR. Addendum: 05/15/22 at 2152 by MAUDE ARIAS RN G-TUBE PLACEMENT CHECKED VIA AUSCULTATION. DUE MEDS GIVEN.
[2022-05-15] MEDS: VANCOMYCIN HCL 0.75 GM in IV D5W 250 ML IV SCH (22:10)
[2022-05-16] MEDS: BLOOD SUGAR DIAGNOSTIC 1 EACH STRIP IN SCH ×4 (00:11→17:57)
[2022-05-16] MEDS: IPRATROPIUM NEB FS 0.5 MG/2.5 ML AMPUL.NEB NEB SCH ×6 (03:30→23:43)
[2022-05-16] MEDS: MEROPENEM 500 MG in IV NS 0.9% 50 ML IV SCH ×3 (05:33→20:55)
--- NOTE | 2022-05-16 06:44 | NUR ---
MS RN CLOSING NOTES PATIENT IN BED ASLEEP, NO SIGNS OF ACUTE DISTRESS NOTED. ON ROOM AIR, TOLERATING WELL, NO SOB NOTED, BREATHING EVEN AND UNLABORED. WITH G-TUBE INTACT AND PATENT, GLUCERNA 1.2 @ 70 ML/HR - FEEDING OFF AT 0400. F/C INTACT, DRAINING MOISES COLORED URINE. RIGHT HAND SOFT MITTENS IN PLACE. NO BEHAVIORAL PROBLEMS NOTED. WITH LEFT UPPER ARM MIDLINE INTACT AND PATENT WITH D5NS @ 100 ML/HR INFUSING WELL. DUE MEDS GIVEN. WOUND CARE DONE ORDERED. SAFETY MEASURE IN PLACE. BED IN LOWEST AND LOCKED POSITION. SIDE RAILS UP X4, CALL LIGHT PLACED WITHIN EASY REACH. WILL ENDORSE TO NEXT SHIFT FOR CARLOS.
[2022-05-16 06:48] LABS: CALCIUM, SERUM 8.9 mg/dL (8.5-10.1); CREATININE 0.7 mg/dL (0.6-1.3); MAGNESIUM 1.8 mg/dL (1.8-2.4); PHOSPHORUS 3.3 mg/dL (2.5-4.9); POTASSIUM 3.8 mmol/L (3.5-5.1)
[2022-05-16 06:50] LABS: BASOPHILS # (AUTO) 0.1 K/uL (0.0-0.2); BASOPHILS % (AUTO) 0.4 % (0.0-2.0); EOSINOPHILS % (AUTO) 1.6 % (0.0-6.0); HEMATOCRIT 26 % (39-51); HEMOGLOBIN 8.3 g/dL (13.5-17.5); LYMPHOCYTES % (AUTO) 9.9 % (20.0-44.0); MEAN CORPUSCULAR HGB CONC 31 g/dl (31.0-36.0); MEAN CORPUSCULAR VOLUME 86 fL (80-96); MONOCYTES % (AUTO) 5.1 % (2.0-12.0); NEUTROPHILS # (AUTO) 16.8 K/uL (1.8-8.9); PLATELET COUNT (AUTO) 695 K/uL (150-450); RED BLOOD CELL COUNT(AUTO) 3.07 MIL/uL (4.5-6.0); WHITE BLOOD COUNT (AUTO) 20.2 K/uL (4.3-11.0)
[2022-05-16 08:00] VITALS: BP 141/86
[2022-05-16] MEDS: MUPIROCIN OINT 2% 22 GM TUBE NS SCH ×2 (09:00→21:55)
[2022-05-16] MEDS: DAKINS QUARTER STRENGTH (0.125%) 480 ML BOTTLE TOP SCH (09:00)
[2022-05-16] MEDS: THERAHONEY GEL 1.5 OZ TUBE TP SCH (09:00)
[2022-05-16] MEDS: ENOXAPARIN SODIUM 30 MG/0.3 ML DISP.SYRIN SQ SCH (09:48)
[2022-05-16] MEDS: hydrALAZINE HCL 50 MG TABLET GT SCH ×3 (09:49→18:03)
[2022-05-16] MEDS: ASPIRIN 81 MG TAB.CHEW GT SCH (09:49)
[2022-05-16] MEDS: MULTIVIT W/MINERALS 1 TAB TABLET GT SCH (09:49)
[2022-05-16] MEDS: FLUCONAZOLE (100 MG) 100 MG TABLET PO SCH (09:49)
[2022-05-16] MEDS: ACIDOPHILUS/BULGARICUS 1 EACH TAB.CHEW GT SCH (09:49)
[2022-05-16] MEDS: METOPROLOL TARTRATE 25 MG TABLET PO SCH ×2 (09:50→21:54)
[2022-05-16] MEDS: ASCORBIC ACID 500 MG TABLET GT SCH (09:50)
[2022-05-16] MEDS: AMLODIPINE BESYLATE 10 MG TABLET GT SCH (09:51)
[2022-05-16] MEDS: PROSOURCE / PROSTAT (PYXIS) 30 ML UDC GT SCH ×2 (10:00→17:56)
[2022-05-16] MEDS: PANTOPRAZOLE 40 MG/PACK PACK GT SCH (10:00)
[2022-05-16] MEDS: CHOLECALCIFEROL 1,000 UNIT TABLET (VIT D3) GT SCH (10:00)
[2022-05-16] MEDS: IV D5W 1,000 ML IV SCH (10:40)
[2022-05-16 13:19] LABS: BAND % (MANUAL) 2 % (0.0-5.0); LYMPHOCYTES % (MANUAL) 7 % (16-48); MONOCYTES % (MANUAL) 4 % (0-11.0); NEUTROPHILS % (MANUAL) 87 (42-76)
[2022-05-16 18:00] VITALS: BP 117/66
--- NOTE | 2022-05-16 19:50 | NUR ---
RN OPENING NOTE RECEIVED PATIENT IN BED; AWAKE, NONVERBAL. ON ROOM AIR; TOLERATING WELL. BREATHING EVEN AND UNLABORED. NOT IN ANY FORM OF RESPIRATORY DISTRESS. WITH G-TUBE IN PLACE. ON GLUCERNA 1.2 @ 70 ML/HR RUNNING. WITH DELA CRUZ CATH; PATENT AND INTACT DRAINING TO MOISES COLORED URINE. WITH RIGHT SOFT MITTENS IN PLACE. WITH LEFT UPPER ARM MIDLINE INTACT AND PATENT WITH D5NS @ 100 ML/HR; FLUSHES WELL. SAFETY MEASURES IMPLEMENTED: BED IN LOWEST LOCKED POSITION, SIDE RAILS UP X 4, CALL LIGHT AND TABLE WITHIN REACH. WILL CONTINUE TO MONITOR.
[2022-05-16 20:38] VITALS: BP 141/58
[2022-05-16] MEDS: VANCOMYCIN HCL 0.75 GM in IV D5W 250 ML IV SCH (21:51)
[2022-05-16] MEDS: ACETAMINOPHEN 650 MG/20.3 ML UDC PEG PRN (21:58)
[2022-05-17] MEDS: BLOOD SUGAR DIAGNOSTIC 1 EACH STRIP IN SCH ×4 (00:15→18:29)
[2022-05-17] MEDS: IV D5W 1,000 ML IV SCH ×2 (00:20→13:20)
[2022-05-17] MEDS: INSULIN REGULAR, HUMAN 100 UNIT/ML 3 ML VIAL SQ PRN (00:55)
[2022-05-17] MEDS: IPRATROPIUM NEB FS 0.5 MG/2.5 ML AMPUL.NEB NEB SCH ×6 (04:21→22:59)
[2022-05-17] MEDS: GLUCERNA 1.2 1,000 ML BOTTLE NG PRN (04:48)
[2022-05-17] MEDS: MEROPENEM 500 MG in IV NS 0.9% 50 ML IV SCH ×3 (04:48→20:24)
--- NOTE | 2022-05-17 07:40 | NUR ---
RN CLOSING NOTE PATIENT IN BED; AWAKE, NONVERBAL. STABLE ON ROOM AIR. IN NO ACUTE DISTRESS. WITH G-TUBE IN PLACE. ON GLUCERNA 1.2 @ 70 ML/HR RUNNING. WITH DELA CRUZ CATH; PATENT AND INTACT DRAINING TO MOISES COLORED URINE. WITH RIGHT SOFT MITTENS IN PLACE. WITH LEFT UPPER ARM MIDLINE INTACT AND PATENT WITH D5NS @ 100 ML/HR; FLUSHES WELL. SAFETY MEASURES IMPLEMENTED: BED IN LOWEST LOCKED POSITION, SIDE RAILS UP X 4, CALL LIGHT AND TABLE WITHIN REACH. ENDORSED TO MORNING SHIFT FOR CARLOS.
[2022-05-17 07:57] LABS: CALCIUM, SERUM 8.5 mg/dL (8.5-10.1); CREATININE 0.7 mg/dL (0.6-1.3); PHOSPHORUS 3.7 mg/dL (2.5-4.9); POTASSIUM 3.6 mmol/L (3.5-5.1)
[2022-05-17 08:00] VITALS: BP 106/65
[2022-05-17] MEDS: DAKINS QUARTER STRENGTH (0.125%) 480 ML BOTTLE TOP SCH (09:00)
[2022-05-17] MEDS: AMLODIPINE BESYLATE 10 MG TABLET GT SCH (09:00)
[2022-05-17] MEDS: THERAHONEY GEL 1.5 OZ TUBE TP SCH (09:00)
[2022-05-17] MEDS: hydrALAZINE HCL 50 MG TABLET GT SCH ×3 (09:00→17:39)
[2022-05-17] MEDS: MUPIROCIN OINT 2% 22 GM TUBE NS SCH ×2 (09:00→21:23)
[2022-05-17] MEDS: PROSOURCE / PROSTAT (PYXIS) 30 ML UDC GT SCH ×2 (09:00→17:41)
[2022-05-17 09:02] LABS: BASOPHILS # (AUTO) 0.1 K/uL (0.0-0.2); BASOPHILS % (AUTO) 0.3 % (0.0-2.0); EOSINOPHILS % (AUTO) 0.8 % (0.0-6.0); HEMATOCRIT 30 % (39-51); HEMOGLOBIN 8.8 g/dL (13.5-17.5); LYMPHOCYTES # (AUTO) 1.8 K/uL (0.8-4.8); LYMPHOCYTES % (AUTO) 9.8 % (20.0-44.0); MEAN CORPUSCULAR HGB CONC 30 g/dl (31.0-36.0); MEAN CORPUSCULAR VOLUME 90 fL (80-96); MONOCYTES % (AUTO) 5.5 % (2.0-12.0); NEUTROPHILS # (AUTO) 15.8 K/uL (1.8-8.9); NEUTROPHILS % (AUTO) 83.6 % (43.0-81.0); PLATELET COUNT (AUTO) 620 K/uL (150-450); RED BLOOD CELL COUNT(AUTO) 3.28 MIL/uL (4.5-6.0); WHITE BLOOD COUNT (AUTO) 18.9 K/uL (4.3-11.0)
[2022-05-17] MEDS: FLUCONAZOLE (100 MG) 100 MG TABLET PO SCH (09:59)
[2022-05-17] MEDS: ASCORBIC ACID 500 MG TABLET GT SCH (09:59)
[2022-05-17] MEDS: ACIDOPHILUS/BULGARICUS 1 EACH TAB.CHEW GT SCH (09:59)
[2022-05-17] MEDS: CHOLECALCIFEROL 1,000 UNIT TABLET (VIT D3) GT SCH (09:59)
[2022-05-17] MEDS: ASPIRIN 81 MG TAB.CHEW GT SCH (09:59)
[2022-05-17] MEDS: MULTIVIT W/MINERALS 1 TAB TABLET GT SCH (09:59)
[2022-05-17] MEDS: PANTOPRAZOLE 40 MG/PACK PACK GT SCH (10:00)
[2022-05-17] MEDS: METOPROLOL TARTRATE 25 MG TABLET PO SCH ×2 (10:01→20:59)
[2022-05-17] MEDS: ENOXAPARIN SODIUM 30 MG/0.3 ML DISP.SYRIN SQ SCH (10:04)
--- NOTE | 2022-05-17 19:30 | NUR ---
MS RN OPENING NOTE RECEIVED PATIENT AWAKE IN BED. NO SIGNS OF ACUTE DISTRESS NOTED. ON ROOM AIR, TOLERATING WELL, NO SOB NOTED, BREATHING EVEN AND UNLABORED. G-TUBE INTACT AND PATENT, CHECKED PLACEMENT, INTACT AND PATENT. NO RESIDUAL NOTED. GLUCERNA 1.2 @ 70 ML/HR RUNNING. F/C INTACT, DRAINING YELLOW COLORED URINE. RIGHT SOFT MITTENS IN PLACE. WITH LEFT UPPER ARM MIDLINE INTACT AND PATENT WITH D5NS @ 75 ML/HR INFUSING WELL. ALL SAFETY MEASURE IN PLACE. BED IN LOWEST AND LOCKED POSITION. SIDE RAILS UP X4, CALL LIGHT PLACED WITHIN EASY REACH. WILL CONTINUE TO MONITOR.
[2022-05-17 20:46] VITALS: BP 122/62
[2022-05-17] MEDS: ACETAMINOPHEN 650 MG/20.3 ML UDC PEG PRN (20:58)
[2022-05-17 22:01] LABS: BAND % (MANUAL) 1 % (0.0-5.0); LYMPHOCYTES % (MANUAL) 13 % (16-48); MONOCYTES % (MANUAL) 3 % (0-11.0); NEUTROPHILS % (MANUAL) 83 (42-76)
[2022-05-17] MEDS: VANCOMYCIN HCL 0.75 GM in IV D5W 250 ML IV SCH (22:09)
[2022-05-18] MEDS: BLOOD SUGAR DIAGNOSTIC 1 EACH STRIP IN SCH ×4 (00:03→17:21)
[2022-05-18] MEDS: IPRATROPIUM NEB FS 0.5 MG/2.5 ML AMPUL.NEB NEB SCH ×5 (03:25→19:57)
[2022-05-18] MEDS: IV D5W 1,000 ML IV SCH ×2 (03:39→17:53)
[2022-05-18] MEDS: GLUCERNA 1.2 1,000 ML BOTTLE NG PRN (03:45)
[2022-05-18] MEDS: MEROPENEM 500 MG in IV NS 0.9% 50 ML IV SCH ×3 (04:16→20:14)
[2022-05-18 06:23] LABS: BASOPHILS # (AUTO) 0.1 K/uL (0.0-0.2); BASOPHILS % (AUTO) 0.3 % (0.0-2.0); EOSINOPHILS % (AUTO) 1.3 % (0.0-6.0); HEMATOCRIT 28 % (39-51); HEMOGLOBIN 8.7 g/dL (13.5-17.5); LYMPHOCYTES # (AUTO) 1.7 K/uL (0.8-4.8); MEAN CORPUSCULAR HGB CONC 31 g/dl (31.0-36.0); MEAN CORPUSCULAR VOLUME 86 fL (80-96); MONOCYTES # (AUTO) 0.9 K/uL (0.1-1.30); MONOCYTES % (AUTO) 4.3 % (2.0-12.0); NEUTROPHILS # (AUTO) 18.5 K/uL (1.8-8.9); NEUTROPHILS % (AUTO) 86.1 % (43.0-81.0); PLATELET COUNT (AUTO) 630 K/uL (150-450); RED BLOOD CELL COUNT(AUTO) 3.23 MIL/uL (4.5-6.0); WHITE BLOOD COUNT (AUTO) 21.6 K/uL (4.3-11.0)
[2022-05-18 06:36] LABS: CALCIUM, SERUM 8.3 mg/dL (8.5-10.1); CARBON DIOXIDE 24 mmol/L (21-32); CHLORIDE 105 mmol/L (98-107); CREATININE 0.7 mg/dL (0.6-1.3); GLUCOSE 90 mg/dL (74-106); PHOSPHORUS 3.5 mg/dL (2.5-4.9); POTASSIUM 3.7 mmol/L (3.5-5.1); SODIUM SERUM 137 mmol/L (136-145); UREA NITROGEN, BLOOD 27 mg/dL (7-18)
--- NOTE | 2022-05-18 06:43 | NUR ---
MS RN CLOSING NOTE PATIENT AWAKE IN BED. NO SIGNS OF ACUTE DISTRESS NOTED. ON ROOM AIR, TOLERATING WELL, NO SOB NOTED, BREATHING EVEN AND UNLABORED. G-TUBE INTACT AND PATENT, CHECKED PLACEMENT. NO RESIDUAL NOTED. GLUCERNA 1.2 @ 70 ML/HR RUNNING. F/C INTACT, DRAINING YELLOW COLORED URINE. URINE OUTPUT NOTED 800 ML.RIGHT SOFT MITTENS IN PLACE. WITH LEFT UPPER ARM MIDLINE INTACT AND PATENT WITH D5NS @ 75 ML/HR INFUSING WELL.ALL DUE MEDS GIVEN ORDERED. ALL SAFETY MEASURE IN PLACE. BED IN LOWEST AND LOCKED POSITION. HOB ELEVATED FOR ASPIRATION PRECAUTION. SIDE RAILS UP X4, CALL LIGHT PLACED WITHIN EASY REACH. WILL ENDORSE FOR CALROS.
--- NOTE | 2022-05-18 07:15 | NUR ---
MS RN OPENING NOTE RECEIVED PATIENT AWAKE IN BED. NO SIGNS OF ACUTE DISTRESS NOTED. PATIENT AWAKE BUT NOT ORIENTED WITH SOME RESTLESSNESS. ON ROOM AIR, TOLERATING WELL, NO SOB NOTED, BREATHING EVEN AND UNLABORED. G-TUBE INTACT AND PATENT, CHECKED PLACEMENT, INTACT AND PATENT. NO RESIDUAL NOTED. GLUCERNA 1.2 @ 70 ML/HR RUNNING. F/C INTACT, DRAINING YELLOW COLORED URINE. RIGHT HAND SOFT MITTENS IN PLACE. WITH LEFT UPPER ARM MIDLINE INTACT AND PATENT WITH D5W @ 75 ML/HR INFUSING WELL. ALL SAFETY MEASURE IN PLACE. BED IN LOWEST AND LOCKED POSITION. SIDE RAILS UP X4, CALL LIGHT PLACED WITHIN EASY REACH. WILL CONTINUE WITH PLAN OF CARE.
[2022-05-18 08:45] VITALS: BP 146/80
[2022-05-18] MEDS: PANTOPRAZOLE 40 MG/PACK PACK GT SCH (08:51)
[2022-05-18] MEDS: CHOLECALCIFEROL 1,000 UNIT TABLET (VIT D3) GT SCH (08:52)
[2022-05-18] MEDS: ASCORBIC ACID 500 MG TABLET GT SCH (08:52)
[2022-05-18] MEDS: hydrALAZINE HCL 50 MG TABLET GT SCH ×3 (08:52→17:20)
[2022-05-18] MEDS: MULTIVIT W/MINERALS 1 TAB TABLET GT SCH (08:52)
[2022-05-18] MEDS: ASPIRIN 81 MG TAB.CHEW GT SCH (08:52)
[2022-05-18] MEDS: METOPROLOL TARTRATE 25 MG TABLET PO SCH ×2 (08:53→22:05)
[2022-05-18] MEDS: AMLODIPINE BESYLATE 10 MG TABLET GT SCH (08:53)
[2022-05-18] MEDS: ACIDOPHILUS/BULGARICUS 1 EACH TAB.CHEW GT SCH (08:54)
[2022-05-18] MEDS: FLUCONAZOLE (100 MG) 100 MG TABLET PO SCH (08:54)
[2022-05-18] MEDS: ENOXAPARIN SODIUM 30 MG/0.3 ML DISP.SYRIN SQ SCH (08:58)
[2022-05-18] MEDS: PROSOURCE / PROSTAT (PYXIS) 30 ML UDC GT SCH ×2 (09:00→17:21)
[2022-05-18] MEDS: MUPIROCIN OINT 2% 22 GM TUBE NS SCH ×2 (09:17→20:14)
[2022-05-18] MEDS: DAKINS QUARTER STRENGTH (0.125%) 480 ML BOTTLE TOP SCH (12:36)
[2022-05-18] MEDS: THERAHONEY GEL 1.5 OZ TUBE TP SCH (12:38)
[2022-05-18 16:22] VITALS: BP 132/62
--- NOTE | 2022-05-18 19:01 | NUR ---
MS RN CLOSING NOTE PATIENT AWAKE IN BED. NO SIGNS OF ACUTE DISTRESS NOTED. PATIENT AWAKE BUT NOT ORIENTED WITH SOME RESTLESSNESS. ON ROOM AIR, TOLERATING WELL, NO SOB NOTED, BREATHING EVEN AND UNLABORED. G-TUBE INTACT AND PATENT, CHECKED PLACEMENT, INTACT AND PATENT. NO RESIDUAL NOTED. GLUCERNA 1.2 @ 70 ML/HR RUNNING. F/C INTACT, DRAINING YELLOW COLORED URINE. RIGHT HAND SOFT MITTENS IN PLACE. WITH LEFT UPPER ARM MIDLINE INTACT AND PATENT WITH D5W @ 75 ML/HR INFUSING WELL. ALL SAFETY MEASURE IN PLACE. BED IN LOWEST AND LOCKED POSITION. SIDE RAILS UP X4, CALL LIGHT PLACED WITHIN EASY REACH. ENDORSED TO NEXT SHIFT FOR CONTINUITY OF CARE.
--- NOTE | 2022-05-18 19:43 | NUR ---
RN OPENING NOTES RECEIVED PT IN BED, AWAKE, EYES OPEN. AOx3, ABLE TO MAKE NEEDS KNOWN. ON RA AND TOLERATING WELL. NO SOB NOTED. NO S/SX OF RESPIRATORY DISTRESS NOTED. IV ACCESS IN ALEXSANDER MIDLINE #18G RUNNING D5W @ 70 ML/HR. SAFETY PRECAUTIONS IN PLACE: BED IN LOWEST, LOCKED POSITION, SIDERAILS UPx2, AND BRAKES ON. TABLE4 AND CALL LIGHT WITHIN REACH. ALL NEEDS MET AT THIS TIME. Addendum: 05/19/22 at 0737 by JAMES NOGUERA RN PT NOT AOx3.
[2022-05-18 20:00] VITALS: BP 134/53
[2022-05-18] MEDS: VANCOMYCIN HCL 0.75 GM in IV D5W 250 ML IV SCH (22:05)
[2022-05-19] MEDS: IPRATROPIUM NEB FS 0.5 MG/2.5 ML AMPUL.NEB NEB SCH ×7 (00:02→22:48)
[2022-05-19] MEDS: BLOOD SUGAR DIAGNOSTIC 1 EACH STRIP IN SCH ×4 (00:20→17:53)
[2022-05-19] MEDS: MEROPENEM 500 MG in IV NS 0.9% 50 ML IV SCH ×3 (05:15→20:37)
[2022-05-19] MEDS: GLUCERNA 1.2 1,000 ML BOTTLE NG PRN (05:17)
[2022-05-19] MEDS: IV D5W 1,000 ML IV SCH ×2 (05:17→17:07)
[2022-05-19] MEDS: INSULIN REGULAR, HUMAN 100 UNIT/ML 3 ML VIAL SQ PRN ×2 (05:42→11:52)
[2022-05-19 06:47] LABS: CALCIUM, SERUM 8.6 mg/dL (8.5-10.1); CREATININE 0.7 mg/dL (0.6-1.3); POTASSIUM 3.8 mmol/L (3.5-5.1)
--- NOTE | 2022-05-19 07:27 | NUR ---
RN CLOSING NOTES PT IN BED, AWAKE, EYES OPEN. MUMBLES WORDS. ON NC 2LPM AND TOLERATING WELL. NO SOB NOTED. NO S/SX OF RESPIRATORY DISTRESS NOTED. IV ACCESS IN ALEXSANDER MIDLINE #18G RUNNING D5W @ 70 ML/HR. ALL ORDERS CARRIED OUT. ALL NEEDS MET. PT KEPT CLEAN AND DRY. SAFETY PRECAUTIONS IN PLACE: BED IN LOWEST, LOCKED POSITION, SIDERAILS UPx2, AND BRAKES ON. TABLE AND CALL LIGHT WITHIN REACH. WILL ENDORSE TO ONCOMING SHIFT FOR CARLOS.
--- NOTE | 2022-05-19 07:29 | NUR ---
MS RN OPENING NOTES PATIENT LAYING IN BED, OBTUNDED, TOLERATING WELL ON 2 LPM O2 VIA CANNULA WITH NO S/S RESPIRATORY DISTRESS. NO COMPLAINTS OF PAIN OR DISCOMFORT AT THIS TIME. ALEXSANDER MIDLINE # 18 G CLEAN, INTACT, INFUSING D5W @ 70 ML/HR. GLUCERNA 1.2 INFUSING VIA G-TUBE @ 70 ML/HR. DELA CRUZ CATHETER IN PLACE DRAINING CLEAR YELLOW URINE TO GRAVITY. SAFETY MEASURES IN PLACE: BED IN LOWEST LOCKED POSITION, SIDE RAILS UP X 2, CALL LIGHT WITHIN REACH. WILL CONTINUE TO MONITOR.
[2022-05-19 08:00] VITALS: BP 133/105
[2022-05-19 08:16] LABS: MAGNESIUM 2.1 mg/dL (1.8-2.4)
[2022-05-19 08:58] LABS: BASOPHILS # (AUTO) 0.1 K/uL (0.0-0.2); BASOPHILS % (AUTO) 0.4 % (0.0-2.0); EOSINOPHILS % (AUTO) 0.4 % (0.0-6.0); HEMATOCRIT 27 % (39-51); HEMOGLOBIN 8.3 g/dL (13.5-17.5); LYMPHOCYTES # (AUTO) 1.6 K/uL (0.8-4.8); LYMPHOCYTES % (AUTO) 5.6 % (20.0-44.0); MEAN CORPUSCULAR HGB CONC 31 g/dl (31.0-36.0); MEAN CORPUSCULAR VOLUME 85 fL (80-96); MONOCYTES % (AUTO) 3.4 % (2.0-12.0); NEUTROPHILS # (AUTO) 25.4 K/uL (1.8-8.9); NEUTROPHILS % (AUTO) 90.2 % (43.0-81.0); PLATELET COUNT (AUTO) 660 K/uL (150-450); RED BLOOD CELL COUNT(AUTO) 3.14 MIL/uL (4.5-6.0); WHITE BLOOD COUNT (AUTO) 28.2 K/uL (4.3-11.0)
[2022-05-19] MEDS: PANTOPRAZOLE 40 MG/PACK PACK GT SCH (09:07)
[2022-05-19] MEDS: CHOLECALCIFEROL 1,000 UNIT TABLET (VIT D3) GT SCH (09:07)
[2022-05-19] MEDS: ACIDOPHILUS/BULGARICUS 1 EACH TAB.CHEW GT SCH (09:07)
[2022-05-19] MEDS: hydrALAZINE HCL 50 MG TABLET GT SCH ×4 (09:08→17:06)
[2022-05-19] MEDS: FLUCONAZOLE (100 MG) 100 MG TABLET PO SCH (09:08)
[2022-05-19] MEDS: ASCORBIC ACID 500 MG TABLET GT SCH (09:08)
[2022-05-19] MEDS: ASPIRIN 81 MG TAB.CHEW GT SCH (09:08)
[2022-05-19] MEDS: AMLODIPINE BESYLATE 10 MG TABLET GT SCH (09:08)
[2022-05-19] MEDS: METOPROLOL TARTRATE 25 MG TABLET PO SCH ×2 (09:09→20:38)
[2022-05-19] MEDS: ENOXAPARIN SODIUM 30 MG/0.3 ML DISP.SYRIN SQ SCH (09:10)
[2022-05-19] MEDS: THERAHONEY GEL 1.5 OZ TUBE TP SCH (09:10)
[2022-05-19] MEDS: DAKINS QUARTER STRENGTH (0.125%) 480 ML BOTTLE TOP SCH (09:10)
[2022-05-19] MEDS: MULTIVIT W/MINERALS 1 TAB TABLET GT SCH (09:11)
[2022-05-19] MEDS: MUPIROCIN OINT 2% 22 GM TUBE NS SCH ×2 (09:12→20:38)
[2022-05-19] MEDS: PROSOURCE / PROSTAT (PYXIS) 30 ML UDC GT SCH ×2 (09:13→17:06)
[2022-05-19] MEDS ORDERED: HALOPERIDOL 5 MG TABLET PO PRN (15:00)
--- NOTE | 2022-05-19 19:03 | NUR ---
MS RN CLOSING NOTES PATIENT LAYING IN BED, OBTUNDED, TOLERATING WELL ON 2 LPM O2 VIA CANNULA WITH NO S/S RESPIRATORY DISTRESS. NO COMPLAINTS OF PAIN OR DISCOMFORT AT THIS TIME. ALEXSANDER MIDLINE # 18 G SL CLEAN, INTACT, FLUSHING WELL. JEVITY 1.2 INFUSING VIA G-TUBE @ 70 ML/HR. DELA CRUZ CATHETER IN PLACE DRAINING CLEAR YELLOW URINE TO GRAVITY. SAFETY MEASURES IN PLACE: BED IN LOWEST LOCKED POSITION, SIDE RAILS UP X 2, CALL LIGHT WITHIN REACH. MITTEN ON LEFT HAND FOR PATIENT SAFETY. ALL NEEDS MET. TURNED Q2H. WILL ENDORSE TO MARKET ANALYSIS DIRECTOR FOR CARLOS.
--- NOTE | 2022-05-19 19:37 | NUR ---
RN OPENING NOTES RECEIVED PT IN BED, AWAKE, EYES OPEN. OPENS EYES BUT CONFUSED. ON NC 2LPM AND TOLERATING WELL. NO SOB NOTED. NO S/SX OF RESPIRATORY DISTRESS NOTED. IV ACCESS IN ALEXSANDER MIDLINE #18G. IV IS INTACT, PATENT, AND FLUSHING WELL. SAFETY PRECAUTIONS IN PLACE: BED IN LOWEST, LOCKED POSITION, SIDERAILS UPx2, AND BRAKES ON. TABLE AND CALL LIGHT WITHIN REACH. ALL NEEDS MET AT THIS TIME.
[2022-05-19 20:00] VITALS: BP 145/42
[2022-05-19] MEDS: VANCOMYCIN HCL 0.75 GM in IV D5W 250 ML IV SCH (22:51)
[2022-05-20] MEDS: INSULIN REGULAR, HUMAN 100 UNIT/ML 3 ML VIAL SQ PRN ×3 (00:52→23:54)
[2022-05-20] MEDS: BLOOD SUGAR DIAGNOSTIC 1 EACH STRIP IN SCH ×5 (00:52→23:56)
--- NOTE | 2022-05-20 00:52 | NUR ---
RN NOTES DID NOT ADMINISTER INSULIN BECAUSE BLOOD SUGAR IS BORDERLINE FOR INSULIN ADMINISTRATION AND TUBE FEEDING IS GOING TO BE TURNED OFF FOR 4 HOURS PER SCHEDULE.
[2022-05-20] MEDS: IPRATROPIUM NEB FS 0.5 MG/2.5 ML AMPUL.NEB NEB SCH ×6 (03:52→23:39)
[2022-05-20] MEDS: MEROPENEM 500 MG in IV NS 0.9% 50 ML IV SCH ×3 (05:40→20:47)
[2022-05-20] MEDS: JEVITY 1.2 CAL 1,000 ML BOTTLE GT PRN (05:40)
--- NOTE | 2022-05-20 06:41 | NUR ---
RN CLOSING NOTES PT IN BED, AWAKE, EYES OPEN. OPENS EYES BUT CONFUSED. ON NC 2LPM AND TOLERATING WELL. NO SOB NOTED. NO S/SX OF RESPIRATORY DISTRESS NOTED. IV ACCESS IN ALEXSANDER MIDLINE #18G AND LFA #22G. IV IS INTACT, PATENT, AND FLUSHING WELL. ALL ORDERS CARRIED OUT. ALL NEEDS MET. PT KEPT CLEAN AND DRY. SAFETY PRECAUTIONS IN PLACE: BED IN LOWEST, LOCKED POSITION, SIDERAILS UPx2, AND BRAKES ON. TABLE AND CALL LIGHT WITHIN REACH. WILL ENDORSE TO ONCOMING SHIFT FOR CARLOS.
[2022-05-20 07:00] VITALS: BP 144/68
--- NOTE | 2022-05-20 07:00 | NUR ---
MS RN OPENING NOTES PATIENT LAYING IN BED, EYES OPEN BUT CONFUSED. TOLERATING WELL ON 2 LPM O2 VIA CANNULA WITH NO S/S RESPIRATORY DISTRESS. NO COMPLAINTS OF PAIN OR DISCOMFORT NOTED. ALEXSANDER MIDLINE # 18 G SL AND LFA # 22G SL CLEAN, INTACT, FLUSHING. SAFETY MEASURES IN PLACE: BED IN LOWEST LOCKED POSITION, SIDE RAILS UP X 2, CALL LIGHT WITHIN REACH. WILL CONTINUE TO MONITOR.
[2022-05-20] MEDS: ASPIRIN 81 MG TAB.CHEW GT SCH (08:59)
[2022-05-20] MEDS: CHOLECALCIFEROL 1,000 UNIT TABLET (VIT D3) GT SCH (08:59)
[2022-05-20] MEDS: ACIDOPHILUS/BULGARICUS 1 EACH TAB.CHEW GT SCH (09:00)
[2022-05-20] MEDS: hydrALAZINE HCL 50 MG TABLET GT SCH ×3 (09:00→17:00)
[2022-05-20] MEDS: MULTIVIT W/MINERALS 1 TAB TABLET GT SCH (09:00)
[2022-05-20] MEDS: AMLODIPINE BESYLATE 10 MG TABLET GT SCH (09:00)
[2022-05-20] MEDS: FLUCONAZOLE (100 MG) 100 MG TABLET PO SCH (09:00)
[2022-05-20] MEDS: ASCORBIC ACID 500 MG TABLET GT SCH (09:00)
[2022-05-20] MEDS: METOPROLOL TARTRATE 25 MG TABLET PO SCH ×2 (09:01→21:22)
[2022-05-20] MEDS: PANTOPRAZOLE 40 MG/PACK PACK GT SCH (09:01)
[2022-05-20] MEDS: MUPIROCIN OINT 2% 22 GM TUBE NS SCH ×2 (09:02→21:24)
[2022-05-20] MEDS: THERAHONEY GEL 1.5 OZ TUBE TP SCH (09:02)
[2022-05-20] MEDS: ENOXAPARIN SODIUM 30 MG/0.3 ML DISP.SYRIN SQ SCH (09:03)
[2022-05-20] MEDS: DAKINS QUARTER STRENGTH (0.125%) 480 ML BOTTLE TOP SCH (09:03)
[2022-05-20] MEDS: PROSOURCE / PROSTAT (PYXIS) 30 ML UDC GT SCH ×2 (09:04→17:33)
[2022-05-20 13:45] LABS: CALCIUM, SERUM 8.6 mg/dL (8.5-10.1); CREATININE 0.7 mg/dL (0.6-1.3); MAGNESIUM 2.2 mg/dL (1.8-2.4); PHOSPHORUS 3.4 mg/dL (2.5-4.9); POTASSIUM 4.5 mmol/L (3.5-5.1)
[2022-05-20 14:28] LABS: BASOPHILS % (AUTO) 0.2 % (0.0-2.0); EOSINOPHILS % (AUTO) 0.4 % (0.0-6.0); HEMATOCRIT 25 % (39-51); LYMPHOCYTES # (AUTO) 1.4 K/uL (0.8-4.8); MEAN CORPUSCULAR HGB CONC 32 g/dl (31.0-36.0); MEAN CORPUSCULAR VOLUME 85 fL (80-96); MONOCYTES # (AUTO) 0.8 K/uL (0.1-1.30); MONOCYTES % (AUTO) 4.7 % (2.0-12.0); NEUTROPHILS # (AUTO) 14.6 K/uL (1.8-8.9); NEUTROPHILS % (AUTO) 86.7 % (43.0-81.0); PLATELET COUNT (AUTO) 601 K/uL (150-450); RED BLOOD CELL COUNT(AUTO) 2.96 MIL/uL (4.5-6.0); WHITE BLOOD COUNT (AUTO) 16.9 K/uL (4.3-11.0)
--- NOTE | 2022-05-20 18:56 | NUR ---
MS RN CLOSING NOTES PATIENT LAYING IN BED, EYES OPEN BUT CONFUSED. TOLERATING WELL ON 2 LPM O2 VIA CANNULA WITH NO S/S RESPIRATORY DISTRESS. NO COMPLAINTS OF PAIN OR DISCOMFORT NOTED. ALEXSANDER MIDLINE # 18 G SL AND LFA # 22G SL CLEAN, INTACT, FLUSHING WELL. JEVITY 1.2 INFUSING @ 70 ML/HR VIA G-TUBE. SAFETY MEASURES IN PLACE: BED IN LOWEST LOCKED POSITION, SIDE RAILS UP X 2, CALL LIGHT WITHIN REACH. ALL NEEDS MET. TURNED Q2H. WILL ENDORSE TO ETL TESTER FOR CARLOS.
[2022-05-20 20:00] VITALS: BP 139/48
--- NOTE | 2022-05-20 20:00 | NUR ---
RECEIVED PATIENT IN BED, ALERT/AWAKE, CONFUSED, NON VERBAL, 2LPM VIA NC, NO DISTRESS, RESTLESS, PEG TUBE FEEDING INFUSING, NO ABDOMINAL DISTENTION, TOLERATING WELL, KEPT HOB ELEVATED, DELA CRUZ CATHETER DRAINING, ASPIRATION PRECAUTION, MULTIPLE PRESSURE ULCER, TURNING AND REPOSITIONING, KEPT SAFE, WILL CONTINUE TO MONITOR.
--- NOTE | 2022-05-20 21:50 | NUR ---
VANCO TROUGH AT 2100, 19, NOTIFIED PHARMACY AFTER HOURS, GIVE SAME DOSE OF VANCOMYCIN 0.75 GM
[2022-05-20] MEDS: VANCOMYCIN HCL 0.75 GM in IV D5W 250 ML IV SCH (22:07)
[2022-05-21] MEDS: JEVITY 1.2 CAL 1,000 ML BOTTLE GT PRN (00:02)
[2022-05-21] MEDS: MEROPENEM 500 MG in IV NS 0.9% 50 ML IV SCH ×3 (04:09→20:23)
[2022-05-21] MEDS: IPRATROPIUM NEB FS 0.5 MG/2.5 ML AMPUL.NEB NEB SCH ×6 (04:17→23:37)
[2022-05-21] MEDS: BLOOD SUGAR DIAGNOSTIC 1 EACH STRIP IN SCH ×4 (05:15→23:36)
[2022-05-21] MEDS: INSULIN REGULAR, HUMAN 100 UNIT/ML 3 ML VIAL SQ PRN ×2 (05:15→23:37)
--- NOTE | 2022-05-21 06:24 | NUR ---
ALERT/AWAKE, CONFUSED, NON-VERBAL, COOPERATIVE, STABLE ON 2LPM VIA NC, PEG TUBE FEEDING, JEVITY 1.2 AT 70 ML/HR, NO ABDOMINAL DISTENTION, TOLERATING WELL, DELA CRUZ CATHETER, SACRAL, BILATERAL HIPS WOUNDS, WOUND CARE PERFORMED. PER ID CONTINUE MERREM AND VANCOMYCIN, WOUND CARE, ASPIRATION PRECAUTION.
[2022-05-21 07:00] VITALS: BP 138/61
--- NOTE | 2022-05-21 07:00 | NUR ---
MS RN OPENING NOTES PATIENT LAYING IN BED, ALERT BUT NON-VERBAL, TOLERATING WELL ON 2 LPM O2 VIA CANNULA. NO S/S PAIN OR DISCOMFORT AT THIS TIME. G-TUBE IN PLACE WITH JEVITY INFUSING @ 70 ML/HR, TOLERATING WELL. L FA # 22 SL CLEAN, INTACT, FLUSHING WELL. SAFETY MEASURES IN PLACE: BED IN LOWEST LOCKED POSITION, SIDE RAILS UP X 2, CALL LIGHT WITHIN REACH. WILL CONTINUE TO MONITOR.
[2022-05-21 07:57] LABS: BASOPHILS # (AUTO) 0.1 K/uL (0.0-0.2); BASOPHILS % (AUTO) 0.4 % (0.0-2.0); EOSINOPHILS % (AUTO) 0.4 % (0.0-6.0); HEMATOCRIT 25 % (39-51); HEMOGLOBIN 7.7 g/dL (13.5-17.5); LYMPHOCYTES # (AUTO) 1.7 K/uL (0.8-4.8); LYMPHOCYTES % (AUTO) 7.3 % (20.0-44.0); MEAN CORPUSCULAR HGB CONC 31 g/dl (31.0-36.0); MEAN CORPUSCULAR VOLUME 84 fL (80-96); MONOCYTES # (AUTO) 1.2 K/uL (0.1-1.30); MONOCYTES % (AUTO) 5.4 % (2.0-12.0); NEUTROPHILS # (AUTO) 19.9 K/uL (1.8-8.9); NEUTROPHILS % (AUTO) 86.5 % (43.0-81.0); PLATELET COUNT (AUTO) 661 K/uL (150-450); RED BLOOD CELL COUNT(AUTO) 2.96 MIL/uL (4.5-6.0)
[2022-05-21] MEDS: CHOLECALCIFEROL 1,000 UNIT TABLET (VIT D3) GT SCH (08:22)
[2022-05-21] MEDS: MULTIVIT W/MINERALS 1 TAB TABLET GT SCH (08:23)
[2022-05-21] MEDS: ACIDOPHILUS/BULGARICUS 1 EACH TAB.CHEW GT SCH (08:23)
[2022-05-21] MEDS: METOPROLOL TARTRATE 25 MG TABLET PO SCH ×2 (08:23→20:26)
[2022-05-21] MEDS: AMLODIPINE BESYLATE 10 MG TABLET GT SCH (08:23)
[2022-05-21] MEDS: ASCORBIC ACID 500 MG TABLET GT SCH (08:23)
[2022-05-21] MEDS: ASPIRIN 81 MG TAB.CHEW GT SCH (08:23)
[2022-05-21] MEDS: FLUCONAZOLE (100 MG) 100 MG TABLET PO SCH (08:23)
[2022-05-21] MEDS: DAKINS QUARTER STRENGTH (0.125%) 480 ML BOTTLE TOP SCH (08:24)
[2022-05-21] MEDS: PANTOPRAZOLE 40 MG/PACK PACK GT SCH (08:24)
[2022-05-21] MEDS: THERAHONEY GEL 1.5 OZ TUBE TP SCH (08:25)
[2022-05-21] MEDS: PROSOURCE / PROSTAT (PYXIS) 30 ML UDC GT SCH ×2 (08:26→17:24)
[2022-05-21] MEDS: ENOXAPARIN SODIUM 30 MG/0.3 ML DISP.SYRIN SQ SCH (08:30)
[2022-05-21 08:35] LABS: CALCIUM, SERUM 8.9 mg/dL (8.5-10.1); CREATININE 0.6 mg/dL (0.6-1.3); MAGNESIUM 2.2 mg/dL (1.8-2.4); PHOSPHORUS 3.2 mg/dL (2.5-4.9); POTASSIUM 4.1 mmol/L (3.5-5.1)
[2022-05-21] MEDS: hydrALAZINE HCL 50 MG TABLET GT SCH ×3 (08:47→17:00)
--- NOTE | 2022-05-21 19:00 | NUR ---
MS RN CLOSING NOTES PATIENT LAYING IN BED, ALERT BUT NON-VERBAL, TOLERATING WELL ON 2 LPM O2 VIA CANNULA. NO S/S PAIN OR DISCOMFORT AT THIS TIME. G-TUBE IN PLACE WITH JEVITY INFUSING @ 70 ML/HR, TOLERATING WELL. L FA # 22 SL CLEAN, INTACT, FLUSHING WELL. SAFETY MEASURES IN PLACE: BED IN LOWEST LOCKED POSITION, SIDE RAILS UP X 2, CALL LIGHT WITHIN REACH. ALL NEEDS MET. TURNED Q2H. WILL ENDORSE TO CRANIOLOGIST FOR CARLOS.
--- NOTE | 2022-05-21 19:30 | NUR ---
MS RN OPENING NOTE RECEIVED PT AWAKE IN BED. AWAKE AND CONFUSED AT BASELINE. PT ON O2 @ 2LPM VIA NC, TOLERATING WELL. NO SOB OR S/S OF RESPIRATORY DISTRESS. BREATHING EVEN AND UNLABORED. IV ACCESS LFA 22G AND ALEXSANDER MIDLINE SL, INTACT AND PATENT. WITH DELA CRUZ CATHETER DRAINING URINE BY GRAVITY. WITH GTUBE RUNNING JEVITY 1.2 @ 70 ML/HR, TOLERATING WELL. SAFETY PRECAUTIONS IN PLACE. BED IN LOWEST LOCKED POSITION, HOB ELEVATED, SIDE RAILS UP X3, AND CALL LIGHT AND TABLE WITHIN REACH. ALL NEEDS MET AT THIS TIME.
[2022-05-21 20:00] VITALS: BP 132/49
[2022-05-21] MEDS: VANCOMYCIN HCL 0.75 GM in IV D5W 250 ML IV SCH (22:13)
[2022-05-22] MEDS: IPRATROPIUM NEB FS 0.5 MG/2.5 ML AMPUL.NEB NEB SCH ×6 (04:11→23:10)
[2022-05-22] MEDS: MEROPENEM 500 MG in IV NS 0.9% 50 ML IV SCH ×3 (05:47→21:32)
[2022-05-22] MEDS: BLOOD SUGAR DIAGNOSTIC 1 EACH STRIP IN SCH ×4 (06:17→23:23)
--- NOTE | 2022-05-22 06:28 | NUR ---
MS RN CLOSING NOTE PT AWAKE IN BED. AWAKE AND CONFUSED AT BASELINE. PT ON O2 @ 2LPM VIA NC, TOLERATING WELL. NO SOB OR S/S OF RESPIRATORY DISTRESS. BREATHING EVEN AND UNLABORED. IV ACCESS LFA 22G AND ALEXSANDER MIDLINE SL, INTACT AND PATENT. WITH DELA CRUZ CATHETER DRAINING URINE BY GRAVITY. WITH GTUBE RUNNING JEVITY 1.2 @ 70 ML/HR, TOLERATING WELL. ALL DUE MEDS GIVEN ORDERED. KEPT CLEAN AND DRY. WOUND PHOTOS TAKEN AND TREATMENT DONE ORDERED. SAFETY PRECAUTIONS IN PLACE AT ALL TIMES. BED IN LOWEST LOCKED POSITION, HOB ELEVATED, SIDE RAILS UP X3, AND CALL LIGHT AND TABLE WITHIN REACH. ALL NEEDS MET AT THIS TIME AND WILL ENDORSE TO ONCOMING NURSE FOR CARLOS.
[2022-05-22 06:55] LABS: BASOPHILS # (AUTO) 0.1 K/uL (0.0-0.2); BASOPHILS % (AUTO) 0.4 % (0.0-2.0); EOSINOPHILS % (AUTO) 0.1 % (0.0-6.0); HEMATOCRIT 24 % (39-51); HEMOGLOBIN 7.7 g/dL (13.5-17.5); LYMPHOCYTES # (AUTO) 1.5 K/uL (0.8-4.8); LYMPHOCYTES % (AUTO) 4.7 % (20.0-44.0); MEAN CORPUSCULAR HGB CONC 32 g/dl (31.0-36.0); MEAN CORPUSCULAR VOLUME 85 fL (80-96); MONOCYTES # (AUTO) 1.1 K/uL (0.1-1.30); MONOCYTES % (AUTO) 3.7 % (2.0-12.0); NEUTROPHILS % (AUTO) 91.1 % (43.0-81.0); PLATELET COUNT (AUTO) 702 K/uL (150-450); RED BLOOD CELL COUNT(AUTO) 2.86 MIL/uL (4.5-6.0)
[2022-05-22 07:00] VITALS: BP 135/75
[2022-05-22 07:02] LABS: CALCIUM, SERUM 9.2 mg/dL (8.5-10.1); CREATININE 0.7 mg/dL (0.6-1.3); MAGNESIUM 2.3 mg/dL (1.8-2.4); PHOSPHORUS 3.8 mg/dL (2.5-4.9); POTASSIUM 3.9 mmol/L (3.5-5.1)
[2022-05-22 07:11] LABS: WHITE BLOOD COUNT (AUTO) 30.8 K/uL (4.3-11.0)
--- NOTE | 2022-05-22 07:25 | NUR ---
OPHTHALMIC TECHNOLOGIST OPENING NOTES: RECEIVED PATIENT AWAKE IN BED IN NO ACUTE SIGNS OF DISTRESS, HOB ELEVATED. PT IS NON-VERBAL, OPEN EYES TO STIMULI, NO S/S PAIN OR ANY DISCOMFORTS OBSERVED AT THIS TIME. ON O2 @ 2LPM VIA NC, TOLERATING WELL, BREATHING EVEN AND UNLABORED. DELA CRUZ CATHETER IN PLACE AND DRAINING CLEAR YELLOW COLORED URINE VIA GRAVITY. IV ACCESS ON RFA G#22 AND ALEXSANDER MIDLINE G#18 INTACT, PATENT AND FLUSHES WELL. SAFETY MEASURES IN PLACE: BED LOCKED AND IN LOWEST POSITION, SIDE RAILS UP X 3, CALL LIGHT WITH IN REACH. WILL CONTINUE TO MONITOR. Addendum: 05/22/22 at 1449 by KIA LORA RN CORRECTION: PATIENT IS NOT ON TELE-MONITOR BUT MED-SURG
--- NOTE | 2022-05-22 08:00 | NUR ---
RN NOTES REPORTED THIS MORNING THAT PT HAS CRITICAL HIGH WBC 30.8. MICAH GIBBS MADE AWARE.
[2022-05-22] MEDS: CHOLECALCIFEROL 1,000 UNIT TABLET (VIT D3) GT SCH (08:21)
[2022-05-22] MEDS: PANTOPRAZOLE 40 MG/PACK PACK GT SCH (08:21)
[2022-05-22] MEDS: MULTIVIT W/MINERALS 1 TAB TABLET GT SCH (08:21)
[2022-05-22] MEDS: ASPIRIN 81 MG TAB.CHEW GT SCH (08:21)
[2022-05-22] MEDS: FUROSEMIDE 20 MG/2 ML VIAL IV SCH ×2 (08:21→16:20)
[2022-05-22] MEDS: METOPROLOL TARTRATE 25 MG TABLET PO SCH ×2 (08:22→21:00)
[2022-05-22] MEDS: FLUCONAZOLE (100 MG) 100 MG TABLET PO SCH (08:22)
[2022-05-22] MEDS: ASCORBIC ACID 500 MG TABLET GT SCH (08:22)
[2022-05-22] MEDS: AMLODIPINE BESYLATE 10 MG TABLET GT SCH (08:22)
[2022-05-22] MEDS: ACIDOPHILUS/BULGARICUS 1 EACH TAB.CHEW GT SCH (08:22)
[2022-05-22] MEDS: ENOXAPARIN SODIUM 30 MG/0.3 ML DISP.SYRIN SQ SCH (08:24)
[2022-05-22] MEDS: PROSOURCE / PROSTAT (PYXIS) 30 ML UDC GT SCH ×2 (08:25→16:20)
[2022-05-22] MEDS: hydrALAZINE HCL 50 MG TABLET GT SCH ×3 (08:25→16:21)
[2022-05-22] MEDS: DAKINS QUARTER STRENGTH (0.125%) 480 ML BOTTLE TOP SCH (08:26)
[2022-05-22] MEDS: THERAHONEY GEL 1.5 OZ TUBE TP SCH (08:27)
[2022-05-22] MEDS: INSULIN REGULAR, HUMAN 100 UNIT/ML 3 ML VIAL SQ PRN ×3 (12:25→23:29)
[2022-05-22] MEDS: METRONIDAZOLE 500 MG TABLET PO SCH ×2 (13:25→21:36)
[2022-05-22 16:00] VITALS: BP 107/47
--- NOTE | 2022-05-22 16:03 | NUR ---
RN NOTES PT DELA CRUZ CATHETER FR #16 CHANGED PER MD ORDER TO THE SAME SIZE FR #16 W/O PROBLEM. WILL ONTINUE TO MONITOR.
--- NOTE | 2022-05-22 18:33 | NUR ---
MS RN CLOSING NOTES: PATIENT IN BED AWAKE AT THIS TIME AND LYING AT MODERATE HIGH BACKREST POSITION. A/O X1, RESPONSIVE TO TACTILE STIMULI, NON-VERBAL, OPEN EYES TO STIMULI. ON O2 @ 2LPM VIA NC, TOLERATING WELL, BREATHING EVEN AND UNLABORED WITH NO ACUTE DISTRESS NOTED DURING SHIFT. IV ACCESS ON RFA G#22 AND ALEXSANDER MIDLINE G#18 BOTH INTACT, PATENT AND FLUSHES WELL. DELA CRUZ CATHETER IN PLACE AND DRAINING CLEAR YELLOW COLORED URINE VIA GRAVITY, DELA CRUZ CARE DONE. PT TURNED AND REPOSITIONED Q 2HRS AND PRN. KEPT CLEAN, DRY AND COMFORTABLE. ALL DUE NEEDS AND CARE ANTICIPATED AND MET. ASPIRATION AND ALL SAFETY MEASURES KEPT IN PLACE: BED LOCKED AND IN LOWEST POSITION, SIDE RAILS UP X 3, CALL LIGHT WITH IN REACH. WILL ENDORSE CARLOS TO METAL TUBE CUTTER NURSE.
--- NOTE | 2022-05-22 19:00 | NUR ---
MS RN OPENING NOTE PT IS SITTING IN BED WITH HIS EYES WIDE OPENED. HE IS AWAKE AND CONFUSED IS HIS BASELINE. PATIENT IS NON-VERBAL. HE IS ON 2LPM O2 VIA NC, TOLERATING WELL. NO SOB OR S/S OF RESPIRATORY DISTRESS. BREATHING EVEN AND UNLABORED. IV ACCESS L FA 22G AND ALEXSANDER MIDLINE SL, FLUSHED WITH NS. INTACT AND PATENT. PATIENT HAS DELA CRUZ CATHETER DRAINING URINE FREELY BY GRAVITY. HE HAS G-TUBE , PLACEMENT IS CHECKED. PATENT AND INTACT. NO RESIDUAL. FLUSHED WITH 30 ML OF WATER. HE HAS FEEDING OF JEVITY 1.2 @ 70 ML/HR, TOLERATING WELL. SAFETY PRECAUTIONS IN PLACE: BED IN LOWEST AND LOCKED POSITION; HOB ELEVATED ABOVE 45 DEGREE DURING FEEDING; SIDE RAILS UP X3, AND CALL LIGHT AND TABLE WITHIN REACH. RESTRAIN WITH MITTEN ON HIS RIGHT HAND DUE TO PATIENT PULLED HIS IV AND G-TUBE. ASSESSED THE PATIENT'S CIRCULATION OF THE RESTRAINED HAND, WNL. NO ISSUES. WILL CONTINUE MONITOR THE PATIENT'S CONDITION AND PROVIDE THE CARE PATIENT NEEDS.
--- NOTE | 2022-05-22 21:37 | NUR ---
MS RN NOTE METOPROLOL TARTRATE 25MG WAS HELD DUE TO PATIENT'S DIASTOLIC PRESSURE IS BELOW 60. VA: BP IS 140/55; HR IS 90 /MIN.
[2022-05-22] MEDS: VANCOMYCIN HCL 0.75 GM in IV D5W 250 ML IV SCH (22:39)
[2022-05-22] MEDS: JEVITY 1.2 CAL 1,000 ML BOTTLE GT PRN (23:35)
[2022-05-23] MEDS: IPRATROPIUM NEB FS 0.5 MG/2.5 ML AMPUL.NEB NEB SCH ×6 (04:03→23:58)
[2022-05-23] MEDS: MEROPENEM 500 MG in IV NS 0.9% 50 ML IV SCH ×2 (04:16→12:29)
[2022-05-23] MEDS: METRONIDAZOLE 500 MG TABLET PO SCH ×3 (04:18→21:10)
[2022-05-23] MEDS: BLOOD SUGAR DIAGNOSTIC 1 EACH STRIP IN SCH ×3 (05:12→17:53)
[2022-05-23 07:16] LABS: CALCIUM, SERUM 9.3 mg/dL (8.5-10.1); CREATININE 0.8 mg/dL (0.6-1.3); POTASSIUM 3.9 mmol/L (3.5-5.1)
--- NOTE | 2022-05-23 07:25 | NUR ---
MS RN OPENING NOTES: PATIENT RECEIVED AWAKE IN BED IN NO ACUTE SIGNS OF DISTRESS. HOB ELEVATED. PT IS NON-VERBAL, OPEN EYES TO STIMULI, NO S/S PAIN OR ANY DISCOMFORTS OBSERVED AT THIS TIME. ON O2 @ 2LPM VIA NC, TOLERATING WELL, BREATHING EVEN AND UNLABORED. IV ACCESS ON RFA G#22 AND ALEXSANDER MIDLINE G#18 INTACT, PATENT AND FLUSHES WELL. DELA CRUZ CATHETER IN PLACE AND DRAINING CLEAR YELLOW COLORED URINE VIA GRAVITY. SAFETY MEASURES IN PLACE: BED LOCKED AND IN LOWEST POSITION, SIDE RAILS UP X 3, CALL LIGHT WITH IN REACH. WILL CONTINUE TO MONITOR PT.
--- NOTE | 2022-05-23 07:30 | NUR ---
MS RN CLOSING NOTE PT IS SITTING IN BED WITH HIS EYES WIDE OPENED. HE IS AWAKE AND CONFUSED. HE IS ON 2LPM O2 VIA NC, TOLERATING WELL. NO SOB OR S/S OF RESPIRATORY DISTRESS. BREATHING EVEN AND UNLABORED. IV ACCESS L FA 22G AND ALEXSANDER MIDLINE SL, FLUSHED WITH NS. INTACT AND PATENT. PATIENT HAS DELA CRUZ CATHETER DRAINING URINE FREELY BY GRAVITY. HIS G-TUBE IS PATENT AND INTACT, RUNNING JEVITY 1.2 @ 70 ML/HR, TOLERATING WELL. SAFETY PRECAUTIONS IN PLACE: BED IN LOWEST AND LOCKED POSITION; HOB ELEVATED ABOVE 45 DEGREE DURING FEEDING; SIDE RAILS UP X3, AND CALL LIGHT AND TABLE WITHIN REACH. RESTRAIN WITH MITTEN ON HIS RIGHT HAND DUE TO PATIENT PULLED HIS IV AND G-TUBE. ASSESSED THE PATIENT'S CIRCULATION OF THE RESTRAINED HAND, WNL. NO ISSUES. WILL ENDORSE NEXT SHIFT NURSE FOR CONTINUE PATIENT CARE.
[2022-05-23 08:00] VITALS: BP 131/95
[2022-05-23] MEDS: FUROSEMIDE 20 MG/2 ML VIAL IV SCH ×2 (08:42→16:23)
[2022-05-23] MEDS: CHOLECALCIFEROL 1,000 UNIT TABLET (VIT D3) GT SCH (08:42)
[2022-05-23] MEDS: FLUCONAZOLE (100 MG) 100 MG TABLET PO SCH (08:42)
[2022-05-23] MEDS: ASPIRIN 81 MG TAB.CHEW GT SCH (08:42)
[2022-05-23] MEDS: MULTIVIT W/MINERALS 1 TAB TABLET GT SCH (08:42)
[2022-05-23] MEDS: METOPROLOL TARTRATE 25 MG TABLET PO SCH ×2 (08:43→21:00)
[2022-05-23] MEDS: hydrALAZINE HCL 50 MG TABLET GT SCH ×3 (08:43→16:25)
[2022-05-23] MEDS: AMLODIPINE BESYLATE 10 MG TABLET GT SCH (08:43)
[2022-05-23] MEDS: ACIDOPHILUS/BULGARICUS 1 EACH TAB.CHEW GT SCH (08:43)
[2022-05-23] MEDS: PROSOURCE / PROSTAT (PYXIS) 30 ML UDC GT SCH ×2 (08:44→16:23)
[2022-05-23] MEDS: PANTOPRAZOLE 40 MG/PACK PACK GT SCH (08:45)
[2022-05-23] MEDS: DAKINS QUARTER STRENGTH (0.125%) 480 ML BOTTLE TOP SCH (08:45)
[2022-05-23] MEDS: ASCORBIC ACID 500 MG TABLET GT SCH (08:45)
[2022-05-23] MEDS: THERAHONEY GEL 1.5 OZ TUBE TP SCH (08:46)
[2022-05-23] MEDS: ENOXAPARIN SODIUM 30 MG/0.3 ML DISP.SYRIN SQ SCH (08:48)
[2022-05-23] MEDS: INSULIN REGULAR, HUMAN 100 UNIT/ML 3 ML VIAL SQ PRN ×2 (11:35→17:54)
[2022-05-23 12:00] VITALS: BP 126/52
--- NOTE | 2022-05-23 14:36 | NUR ---
RN NOTES PT TURNED AND REPOSITIONED Q 2HRS. ORAL CARE DONE NEEDED. WILL CONTINUE TO MONITOR
[2022-05-23 16:00] VITALS: BP 133/62
[2022-05-23] MEDS ORDERED: GENTAMICIN 320 MG in IV D5W 100 ML IV SCH (18:00)
--- NOTE | 2022-05-23 18:38 | NUR ---
MS RN CLOSING NOTES: PATIENT IN BED ASLEEP AT THIS TIME, EASILY AROUSABLE TO STIMULI. HOB ELEVATED. A/O X1, RESPONSIVE TO TACTILE STIMULI, NON-VERBAL, OPEN EYES. MAINTAINED ON O2 @ 2LPM VIA NC, TOLERATING WELL, BREATHING EVEN AND UNLABORED WITH NO ACUTE DISTRESS NOTED DURING SHIFT. IV ACCESS ON RFA G#22 AND ALEXSANDER MIDLINE G#18 BOTH INTACT, PATENT AND FLUSHES WELL. DELA CRUZ CATHETER IN PLACE AND DRAINING CLEAR YELLOW COLORED URINE VIA GRAVITY, DELA CRUZ CARE DONE. PT TURNED AND REPOSITIONED Q 2HRS AND PRN. KEPT CLEAN, DRY AND COMFORTABLE. ALL DUE NEEDS AND CARE ANTICIPATED AND MET. ASPIRATION AND ALL SAFETY MEASURES KEPT IN PLACE: BED LOCKED AND IN LOWEST POSITION, SIDE RAILS UP X 3, CALL LIGHT WITH IN REACH. WILL ENDORSE CARLOS TO COUNSELOR MARRIAGE AND FAMILY NURSE.
--- NOTE | 2022-05-23 19:30 | NUR ---
RN OPENING NOTE PATIENT IN BED, EYES CLOSED. PATIENT OPENS EYES WITH VERBAL AND TOUCH STIMULI. PATIENT MAKES SOUNDS. PATIENT ON 2LPM VIA NC, TOLERATING WELL, NO SOB NOTED. PATIENT HAS A G TUBE, TUBE FEEDING RUNNING AT 70 ML/HR, TOLERATING WELL, NO RESIDUAL. HE DOES NOT SEEM TO BE IN PAIN VIA FLACC. SAFETY MEASURES IN PLACE: BED LOCKED AND IN LOWEST POSITION, CALL LIGHT WITHIN REACH, SIDE RAILS UP. HOB ELEVATED. WILL MONITOR PATIENT CLOSELY.
[2022-05-23 20:49] VITALS: BP 104/46
[2022-05-23] MEDS: NEOMY SULF/BACITRAC ZN/POLY 15 GM TUBE TP SCH (21:01)
[2022-05-23] MEDS: JEVITY 1.2 CAL 1,000 ML BOTTLE GT PRN (21:04)
[2022-05-23] MEDS: VANCOMYCIN HCL 0.75 GM in IV D5W 250 ML IV SCH (22:00)
--- NOTE | 2022-05-23 22:39 | NUR ---
VANCO TROUGH LEVEL 21, VANCO DOSE HELD PER PARAMETER
[2022-05-24] MEDS: BLOOD SUGAR DIAGNOSTIC 1 EACH STRIP IN SCH ×5 (00:11→23:55)
[2022-05-24] MEDS: INSULIN REGULAR, HUMAN 100 UNIT/ML 3 ML VIAL SQ PRN ×2 (00:13→19:18)
[2022-05-24] MEDS: IPRATROPIUM NEB FS 0.5 MG/2.5 ML AMPUL.NEB NEB SCH ×6 (04:52→22:52)
[2022-05-24] MEDS: METRONIDAZOLE 500 MG TABLET PO SCH ×3 (05:30→20:53)
[2022-05-24 06:05] LABS: BASOPHILS # (AUTO) 0.1 K/uL (0.0-0.2); BASOPHILS % (AUTO) 0.4 % (0.0-2.0); EOSINOPHILS % (AUTO) 0.2 % (0.0-6.0); HEMATOCRIT 27 % (39-51); HEMOGLOBIN 8.2 g/dL (13.5-17.5); LYMPHOCYTES # (AUTO) 2.6 K/uL (0.8-4.8); LYMPHOCYTES % (AUTO) 9.5 % (20.0-44.0); MEAN CORPUSCULAR HGB CONC 31 g/dl (31.0-36.0); MEAN CORPUSCULAR VOLUME 86 fL (80-96); MONOCYTES # (AUTO) 1.4 K/uL (0.1-1.30); MONOCYTES % (AUTO) 5.1 % (2.0-12.0); NEUTROPHILS # (AUTO) 23.4 K/uL (1.8-8.9); NEUTROPHILS % (AUTO) 84.8 % (43.0-81.0); PLATELET COUNT (AUTO) 894 K/uL (150-450); RED BLOOD CELL COUNT(AUTO) 3.11 MIL/uL (4.5-6.0); WHITE BLOOD COUNT (AUTO) 27.6 K/uL (4.3-11.0)
[2022-05-24 06:55] LABS: CALCIUM, SERUM 9.5 mg/dL (8.5-10.1); CARBON DIOXIDE 24 mmol/L (21-32); CHLORIDE 111 mmol/L (98-107); CREATININE 0.9 mg/dL (0.6-1.3); GLUCOSE 112 mg/dL (74-106); POTASSIUM 3.9 mmol/L (3.5-5.1); SODIUM SERUM 148 mmol/L (136-145); UREA NITROGEN, BLOOD 62 mg/dL (7-18)
--- NOTE | 2022-05-24 07:29 | NUR ---
RN CLOSING NOTE PATIENT NOT IN ANY APPARENT DISTRESS. TOLERATING 2 LPM VIA NASAL CANNULA. R HAND MITTENS REMAINS IN PLACE, NO INJURIES OBTAINED DURING THE SHIFT. TF TURNED OFF AT 0100 AND TURNED BACK ON AT 0500, TOLERATED FEEDING WELL. ALL NEEDS MET AND ATTENDED. ALL ORDERS CARRIED OUT. WILL ENDORSE TO DAY SHIFT NURSE FOR CARLOS.
[2022-05-24 07:42] LABS: GENTAMICIN,TROUGH 7.1 ug/ml (0.2-2.0)
[2022-05-24 08:00] VITALS: BP 147/60
[2022-05-24] MEDS: PANTOPRAZOLE 40 MG/PACK PACK GT SCH (08:36)
[2022-05-24] MEDS: ENOXAPARIN SODIUM 30 MG/0.3 ML DISP.SYRIN SQ SCH (08:37)
[2022-05-24] MEDS: ASPIRIN 81 MG TAB.CHEW GT SCH (08:37)
[2022-05-24] MEDS: CHOLECALCIFEROL 1,000 UNIT TABLET (VIT D3) GT SCH (08:37)
[2022-05-24] MEDS: AMLODIPINE BESYLATE 10 MG TABLET GT SCH (08:38)
[2022-05-24] MEDS: METOPROLOL TARTRATE 25 MG TABLET PO SCH ×2 (08:38→20:46)
[2022-05-24] MEDS: FLUCONAZOLE (100 MG) 100 MG TABLET PO SCH (08:39)
[2022-05-24] MEDS: ACIDOPHILUS/BULGARICUS 1 EACH TAB.CHEW GT SCH (08:39)
[2022-05-24] MEDS: hydrALAZINE HCL 50 MG TABLET GT SCH ×3 (08:39→17:23)
[2022-05-24] MEDS: ASCORBIC ACID 500 MG TABLET GT SCH (08:40)
[2022-05-24] MEDS: MULTIVIT W/MINERALS 1 TAB TABLET GT SCH (08:40)
[2022-05-24] MEDS: PROSOURCE / PROSTAT (PYXIS) 30 ML UDC GT SCH ×2 (08:43→17:23)
[2022-05-24] MEDS: NEOMY SULF/BACITRAC ZN/POLY 15 GM TUBE TP SCH (09:00)
[2022-05-24] MEDS: THERAHONEY GEL 1.5 OZ TUBE TP SCH (09:00)
[2022-05-24] MEDS: DAKINS QUARTER STRENGTH (0.125%) 480 ML BOTTLE TOP SCH (09:00)
[2022-05-24 12:00] VITALS: BP 107/55
[2022-05-24 16:00] VITALS: BP 143/72
[2022-05-24] MEDS: ACETAMINOPHEN 650 MG/20.3 ML UDC PEG PRN (17:34)
--- NOTE | 2022-05-24 19:30 | NUR ---
MS RN OPENING NOTE RECEIVED PT AWAKE IN BED. A/O X1, NONVERBAL. PT ON O2 @ 2LPM VIA NC, TOLERATING WELL. NO SOB OR S/S OF RESPIRATORY DISTRESS. BREATHING EVEN AND UNLABORED. IV ACCESS ALEXSANDER MIDLINE AND LFA 22G SL, INTACT AND PATENT. WITH GTUBE RUNNING JEVITY 1.2 @ 70 ML/HR, TOLERATING WELL. WITH R HAND MITTEN, RELEASED AND CIRCULATION CHECKED. WITH DELA CRUZ CATHETER DRAINING URINE BY GRAVITY. SAFETY PRECAUTIONS IN PLACE. BED IN LOWEST LOCKED POSITION, HOB ELEVATED, SIDE RAILS UP X3, AND CALL LIGHT AND TABLE WITHIN REACH. ALL NEEDS MET AT THIS TIME.
[2022-05-25] MEDS: IPRATROPIUM NEB FS 0.5 MG/2.5 ML AMPUL.NEB NEB SCH ×5 (03:57→19:30)
[2022-05-25] MEDS: METRONIDAZOLE 500 MG TABLET PO SCH (05:01)
[2022-05-25] MEDS: BLOOD SUGAR DIAGNOSTIC 1 EACH STRIP IN SCH ×4 (05:18→23:46)
[2022-05-25 06:04] LABS: ALBUMIN 1.7 g/dL (3.4-5.0); BILIRUBIN,TOTAL 0.4 mg/dL (0.2-1.0); CALCIUM, SERUM 9.4 mg/dL (8.5-10.1); CREATININE 0.9 mg/dL (0.6-1.3); MAGNESIUM 2.5 mg/dL (1.8-2.4); PHOSPHORUS 4.3 mg/dL (2.5-4.9); POTASSIUM 3.7 mmol/L (3.5-5.1); TOTAL PROTEIN, SERUM 6.8 g/dL (6.4-8.2)
--- NOTE | 2022-05-25 06:37 | NUR ---
MS RN CLOSING NOTE PT AWAKE IN BED. A/O X1, NONVERBAL. PT ON O2 @ 4LPM VIA NC, TOLERATING WELL. NO SOB OR S/S OF RESPIRATORY DISTRESS. BREATHING EVEN AND UNLABORED. IV ACCESS ALEXSANDER MIDLINE AND LFA 22G SL, INTACT AND PATENT. WITH GTUBE RUNNING JEVITY 1.2 @ 70 ML/HR, TOLERATING WELL. WITH R HAND MITTEN, RELEASED AND CIRCULATION CHECKED Q2H. WITH DELA CRUZ CATHETER DRAINING URINE BY GRAVITY, DRAINED 600 CC THIS SHIFT. TURNED AND REPOSITIONED Q2H. WOUND TREATMENT DONE ORDERED. KEPT CLEAN AND DRY. ALL DUE MEDS GIVEN ORDERED. SAFETY PRECAUTIONS IN PLACE AT ALL TIMES. BED IN LOWEST LOCKED POSITION, HOB ELEVATED, SIDE RAILS UP X3, AND CALL LIGHT AND TABLE WITHIN REACH. ALL NEEDS MET AT THIS TIME AND WILL ENDORSE TO ONCOMING NURSE FOR CARLOS.
[2022-05-25 07:55] LABS: BASOPHILS # (AUTO) 0.1 K/uL (0.0-0.2); BASOPHILS % (AUTO) 0.3 % (0.0-2.0); EOSINOPHILS % (AUTO) 0.1 % (0.0-6.0); HEMATOCRIT 25 % (39-51); HEMOGLOBIN 7.4 g/dL (13.5-17.5); LYMPHOCYTES # (AUTO) 1.5 K/uL (0.8-4.8); LYMPHOCYTES % (AUTO) 4.9 % (20.0-44.0); MEAN CORPUSCULAR HGB CONC 30 g/dl (31.0-36.0); MEAN CORPUSCULAR VOLUME 87 fL (80-96); MONOCYTES # (AUTO) 1.1 K/uL (0.1-1.30); MONOCYTES % (AUTO) 3.5 % (2.0-12.0); NEUTROPHILS # (AUTO) 28.7 K/uL (1.8-8.9); NEUTROPHILS % (AUTO) 91.2 % (43.0-81.0); PLATELET COUNT (AUTO) 871 K/uL (150-450); RED BLOOD CELL COUNT(AUTO) 2.81 MIL/uL (4.5-6.0)
[2022-05-25 08:09] VITALS: BP 129/73
[2022-05-25 08:10] LABS: WHITE BLOOD COUNT (AUTO) 31.4 K/uL (4.3-11.0)
[2022-05-25] MEDS: THERAHONEY GEL 1.5 OZ TUBE TP SCH (09:00)
[2022-05-25] MEDS: hydrALAZINE HCL 50 MG TABLET GT SCH ×3 (09:00→17:00)
[2022-05-25] MEDS: ACIDOPHILUS/BULGARICUS 1 EACH TAB.CHEW GT SCH (09:28)
[2022-05-25] MEDS: PROSOURCE / PROSTAT (PYXIS) 30 ML UDC GT SCH ×2 (09:31→18:19)
[2022-05-25] MEDS: MULTIVIT W/MINERALS 1 TAB TABLET GT SCH (09:32)
[2022-05-25] MEDS: ASPIRIN 81 MG TAB.CHEW GT SCH (09:32)
[2022-05-25] MEDS: ASCORBIC ACID 500 MG TABLET GT SCH (09:32)
[2022-05-25] MEDS: AMLODIPINE BESYLATE 10 MG TABLET GT SCH (09:33)
[2022-05-25] MEDS: METOPROLOL TARTRATE 25 MG TABLET PO SCH ×2 (09:33→21:00)
[2022-05-25] MEDS: CHOLECALCIFEROL 1,000 UNIT TABLET (VIT D3) GT SCH (09:34)
[2022-05-25] MEDS: PANTOPRAZOLE 40 MG/PACK PACK GT SCH (09:34)
[2022-05-25] MEDS: ENOXAPARIN SODIUM 30 MG/0.3 ML DISP.SYRIN SQ SCH (09:35)
[2022-05-25] MEDS: NEOMY SULF/BACITRAC ZN/POLY 15 GM TUBE TP SCH (12:42)
[2022-05-25] MEDS: DAKINS QUARTER STRENGTH (0.125%) 480 ML BOTTLE TOP SCH (12:42)
[2022-05-25] MEDS ORDERED: MEROPENEM 500 MG in IV NS 0.9% 50 ML IV SCH (13:00)
[2022-05-25] MEDS: MEROPENEM 1 G in IV NS 0.9% 100 ML IV SCH ×2 (13:03→21:27)
[2022-05-25 13:47] VITALS: BP 118/43
[2022-05-25 15:45] VITALS: BP 114/58
[2022-05-25 17:56] LABS: BAND % (MANUAL) 2 % (0.0-5.0); LYMPHOCYTES % (MANUAL) 6 % (16-48); MONOCYTES % (MANUAL) 7 % (0-11.0); NEUTROPHILS % (MANUAL) 85 (42-76)
[2022-05-25] MEDS: GENTAMICIN 320 MG in IV D5W 100 ML IV SCH (18:19)
[2022-05-25 18:21] VITALS: BP 111/49
[2022-05-25 20:00] VITALS: BP 111/48
[2022-05-25] MEDS: DOXYCYCLINE HYCLATE (100 MG) 100 MG TABLET PO SCH (21:27)
[2022-05-25] MEDS: INSULIN REGULAR, HUMAN 100 UNIT/ML 3 ML VIAL SQ PRN (23:48)
[2022-05-25] MEDS: JEVITY 1.2 CAL 1,000 ML BOTTLE GT PRN (23:50)
[2022-05-26] MEDS: IPRATROPIUM NEB FS 0.5 MG/2.5 ML AMPUL.NEB NEB SCH ×6 (00:26→20:24)
[2022-05-26] MEDS: BLOOD SUGAR DIAGNOSTIC 1 EACH STRIP IN SCH ×3 (05:18→17:18)
--- NOTE | 2022-05-26 06:30 | NUR ---
MS RN CLOSING NOTE PT AWAKE IN BED. A/O X1, NONVERBAL. PT ON O2 @ 4LPM VIA NC, TOLERATING WELL. NO SOB OR S/S OF RESPIRATORY DISTRESS. BREATHING EVEN AND UNLABORED. IV ACCESS ALEXSANDER MIDLINE, INTACT AND PATENT. WITH GTUBE RUNNING JEVITY 1.2 @ 70 ML/HR, TOLERATING WELL. WITH R HAND MITTEN, RELEASED AND CIRCULATION CHECKED Q2H. WITH DELA CRUZ CATHETER DRAINING URINE BY GRAVITY, DRAINED 350 CC THIS SHIFT. TURNED AND REPOSITIONED Q2H. WOUND TREATMENT DONE ORDERED. KEPT CLEAN AND DRY. ALL DUE MEDS GIVEN ORDERED. SAFETY PRECAUTIONS IN PLACE AT ALL TIMES. BED IN LOWEST LOCKED POSITION, HOB ELEVATED, SIDE RAILS UP X3, AND CALL LIGHT AND TABLE WITHIN REACH. ALL NEEDS MET AT THIS TIME AND WILL ENDORSE TO ONCOMING NURSE FOR CARLOS.
[2022-05-26 07:11] LABS: CALCIUM, SERUM 9.9 mg/dL (8.5-10.1); CARBON DIOXIDE 26 mmol/L (21-32); CHLORIDE 123 mmol/L (98-107); CREATININE 1.1 mg/dL (0.6-1.3); GLUCOSE 111 mg/dL (74-106); POTASSIUM 4.1 mmol/L (3.5-5.1)
[2022-05-26 07:20] LABS: SODIUM SERUM 160 mmol/L (136-145); UREA NITROGEN, BLOOD 97 mg/dL (7-18)
--- NOTE | 2022-05-26 07:44 | NUR ---
MS RN NOTES: ALERTED MD OF CRITICAL LAB VALUES Na+ = 160, BUN = 97 1030- FOLLOW UP WITH CLINICAL APPLICATIONS SPECIALIST 1130- FOLLOW UP WITH MD
--- NOTE | 2022-05-26 07:45 | NUR ---
MS RN OPENING NOTES: RECEIVED PT AWAKE IN BED. A/O X1, NONVERBAL. PT ON O2 @ 4LPM VIA NC, TOLERATING WELL. NO SOB OR S/S OF RESPIRATORY DISTRESS. BREATHING EVEN AND UNLABORED. IV ACCESS ALEXSANDER MIDLINE, INTACT AND PATENT. WITH GTUBE RUNNING JEVITY 1.2 @ 70 ML/HR, TOLERATING WELL. WITH R HAND MITTEN, RELEASED AND CIRCULATION AND SKIN CHECKED, NO ISSUES NOTED. DELA CRUZ CATHETER DRAINING URINE BY GRAVITY. SAFETY PRECAUTIONS IN PLACE AT ALL TIMES. BED IN LOWEST LOCKED POSITION, HOB ELEVATED, SIDE RAILS UP X3, AND CALL LIGHT AND TABLE WITHIN REACH, WILL CONT WITH PLAN OF CARE.
[2022-05-26 08:32] VITALS: BP 123/46
[2022-05-26] MEDS: hydrALAZINE HCL 50 MG TABLET GT SCH ×3 (09:00→16:35)
[2022-05-26] MEDS: AMLODIPINE BESYLATE 10 MG TABLET GT SCH (09:00)
[2022-05-26] MEDS: PROSOURCE / PROSTAT (PYXIS) 30 ML UDC GT SCH ×2 (09:00→16:34)
[2022-05-26] MEDS: CHOLECALCIFEROL 1,000 UNIT TABLET (VIT D3) GT SCH (09:01)
[2022-05-26] MEDS: DOXYCYCLINE HYCLATE (100 MG) 100 MG TABLET PO SCH ×2 (09:01→21:34)
[2022-05-26] MEDS: METOPROLOL TARTRATE 25 MG TABLET PO SCH ×2 (09:01→21:00)
[2022-05-26] MEDS: ACIDOPHILUS/BULGARICUS 1 EACH TAB.CHEW GT SCH (09:01)
[2022-05-26] MEDS: PANTOPRAZOLE 40 MG/PACK PACK GT SCH (09:01)
[2022-05-26] MEDS: ASCORBIC ACID 500 MG TABLET GT SCH (09:02)
[2022-05-26] MEDS: MULTIVIT W/MINERALS 1 TAB TABLET GT SCH (09:02)
[2022-05-26] MEDS: ASPIRIN 81 MG TAB.CHEW GT SCH (09:02)
[2022-05-26] MEDS: ENOXAPARIN SODIUM 30 MG/0.3 ML DISP.SYRIN SQ SCH (09:06)
[2022-05-26] MEDS: DAKINS QUARTER STRENGTH (0.125%) 480 ML BOTTLE TOP SCH (10:07)
[2022-05-26] MEDS: NEOMY SULF/BACITRAC ZN/POLY 15 GM TUBE TP SCH (10:07)
[2022-05-26] MEDS: THERAHONEY GEL 1.5 OZ TUBE TP SCH (10:09)
[2022-05-26] MEDS: MEROPENEM 1 G in IV NS 0.9% 100 ML IV SCH ×2 (10:15→21:34)
[2022-05-26] MEDS: INSULIN REGULAR, HUMAN 100 UNIT/ML 3 ML VIAL SQ PRN ×2 (11:50→17:24)
[2022-05-26 12:00] LABS: BASOPHILS # (AUTO) 0.1 K/uL (0.0-0.2); BASOPHILS % (AUTO) 0.6 % (0.0-2.0); EOSINOPHILS % (AUTO) 0.3 % (0.0-6.0); HEMATOCRIT 25 % (39-51); HEMOGLOBIN 7.3 g/dL (13.5-17.5); LYMPHOCYTES # (AUTO) 2.4 K/uL (0.8-4.8); LYMPHOCYTES % (AUTO) 11.2 % (20.0-44.0); MEAN CORPUSCULAR HGB CONC 29 g/dl (31.0-36.0); MEAN CORPUSCULAR VOLUME 90 fL (80-96); MONOCYTES % (AUTO) 4.8 % (2.0-12.0); NEUTROPHILS # (AUTO) 18.2 K/uL (1.8-8.9); NEUTROPHILS % (AUTO) 83.1 % (43.0-81.0); PLATELET COUNT (AUTO) 778 K/uL (150-450); RED BLOOD CELL COUNT(AUTO) 2.77 MIL/uL (4.5-6.0); WHITE BLOOD COUNT (AUTO) 21.9 K/uL (4.3-11.0)
[2022-05-26] MEDS ORDERED: IV 1/2NS 1000 ML 1,000 ML IV PRN (13:30)
[2022-05-26 16:30] VITALS: BP 122/42
[2022-05-26] MEDS: IV 1/2NS 1000 ML 1,000 ML IV SCH (18:47)
--- NOTE | 2022-05-26 20:02 | NUR ---
RN OPENING NOTE PATIENT AWAKE IN BED. NON-VERBAL. NO S/S OF DISTRESS, BREATHING WITHOUT DIFFICULTY ON 4L NC. LFA #22 SL INTACT AND PATENT; ALEXSANDER MIDLINE #18 SL INTACT AND PATENT. JEVITY 1.2 @70ML/HR. TUBE INTACT W/ NO SIGNS OF DISLODGMENT. SAFETY MEASURES IN PLACE: BED LOCKED AND AT LOWEST POSITION, RAILS UP X2, CALL MATHIS WITHIN REACH. WILL CONTINUE TO MONITOR PATIENT.
[2022-05-26 20:04] VITALS: BP 109/48
[2022-05-27] MEDS: IPRATROPIUM NEB FS 0.5 MG/2.5 ML AMPUL.NEB NEB SCH ×7 (00:24→23:24)
[2022-05-27] MEDS: INSULIN REGULAR, HUMAN 100 UNIT/ML 3 ML VIAL SQ PRN ×3 (00:45→17:26)
[2022-05-27] MEDS: BLOOD SUGAR DIAGNOSTIC 1 EACH STRIP IN SCH ×5 (00:45→23:19)
[2022-05-27] MEDS: JEVITY 1.2 CAL 1,000 ML BOTTLE GT PRN (05:19)
--- NOTE | 2022-05-27 06:53 | NUR ---
RN NOTE PATIENT ASLEEP IN BED. A/OX NON-VERBAL. NO S/S OF DISTRESS, BREATHING WITHOUT DIFFICULTY ON 4L NC. LFA #22 SL INTACT AND PATENT; ALEXSANDER MIDLINE #18 INTACT AND PATENT W/ 1/2NS @75ML/HR. JEVITY 1.2 @70ML/HR. SAFETY MEASURES IN PLACE: BED LOCKED AND AT LOWEST POSITION, RAILS UP X2, CALL MATHIS WITHIN REACH. WILL ENDORSE TO NEXT SHIFT FOR CARLOS.
[2022-05-27 06:55] LABS: ALBUMIN 1.6 g/dL (3.4-5.0); BILIRUBIN,TOTAL 0.3 mg/dL (0.2-1.0); CALCIUM, SERUM 9.5 mg/dL (8.5-10.1); CREATININE 1.1 mg/dL (0.6-1.3); MAGNESIUM 2.5 mg/dL (1.8-2.4); PHOSPHORUS 4.3 mg/dL (2.5-4.9); POTASSIUM 3.8 mmol/L (3.5-5.1); TOTAL PROTEIN, SERUM 6.6 g/dL (6.4-8.2)
[2022-05-27 06:56] LABS: BASOPHILS # (AUTO) 0.1 K/uL (0.0-0.2); BASOPHILS % (AUTO) 0.4 % (0.0-2.0); EOSINOPHILS % (AUTO) 0.9 % (0.0-6.0); HEMATOCRIT 23 % (39-51); LYMPHOCYTES # (AUTO) 1.7 K/uL (0.8-4.8); LYMPHOCYTES % (AUTO) 8.5 % (20.0-44.0); MEAN CORPUSCULAR HGB CONC 30 g/dl (31.0-36.0); MEAN CORPUSCULAR VOLUME 87 fL (80-96); MONOCYTES # (AUTO) 0.9 K/uL (0.1-1.30); MONOCYTES % (AUTO) 4.6 % (2.0-12.0); NEUTROPHILS # (AUTO) 16.7 K/uL (1.8-8.9); NEUTROPHILS % (AUTO) 85.6 % (43.0-81.0); PLATELET COUNT (AUTO) 779 K/uL (150-450); RED BLOOD CELL COUNT(AUTO) 2.65 MIL/uL (4.5-6.0); WHITE BLOOD COUNT (AUTO) 19.5 K/uL (4.3-11.0)
[2022-05-27] MEDS: IV 1/2NS 1000 ML 1,000 ML IV SCH ×2 (06:57→21:00)
--- NOTE | 2022-05-27 07:38 | NUR ---
MS RN OPENING NOTE RECEIVED PATIENT ASLEEP IN BED. NON-VERBAL. NO SOB OR DISTRESS NOTED WITH 4L NC. AND TOLERATED WELL , NO S/S OF PAIN AND DISCOMFORT NOTED , LFA #22 SL INTACT AND PATENT; ALEXSANDER MIDLINE #18 SL INTACT AND PATENT. JEVITY 1.2 @70ML/HR. TUBE INTACT W/ NO SIGNS OF DISLODGMENT. SAFETY MEASURES IN PLACE: BED LOCKED AND AT LOWEST POSITION, SIDERAILS UP X2, CALL MATHIS WITHIN REACH. WILL CONTINUE TO MONITOR PATIENT.
[2022-05-27] MEDS: ASPIRIN 81 MG TAB.CHEW GT SCH (08:57)
[2022-05-27] MEDS: DOXYCYCLINE HYCLATE (100 MG) 100 MG TABLET PO SCH ×2 (08:57→20:21)
[2022-05-27] MEDS: PANTOPRAZOLE 40 MG/PACK PACK GT SCH (08:57)
[2022-05-27] MEDS: ACIDOPHILUS/BULGARICUS 1 EACH TAB.CHEW GT SCH (08:57)
[2022-05-27] MEDS: ASCORBIC ACID 500 MG TABLET GT SCH (08:57)
[2022-05-27] MEDS: MULTIVIT W/MINERALS 1 TAB TABLET GT SCH (08:57)
[2022-05-27] MEDS: AMLODIPINE BESYLATE 10 MG TABLET GT SCH (08:59)
[2022-05-27] MEDS: CHOLECALCIFEROL 1,000 UNIT TABLET (VIT D3) GT SCH (08:59)
[2022-05-27] MEDS: METOPROLOL TARTRATE 25 MG TABLET PO SCH ×2 (08:59→20:23)
[2022-05-27] MEDS: hydrALAZINE HCL 50 MG TABLET GT SCH ×3 (08:59→17:26)
[2022-05-27] MEDS: NEOMY SULF/BACITRAC ZN/POLY 15 GM TUBE TP SCH (09:01)
[2022-05-27] MEDS: DAKINS QUARTER STRENGTH (0.125%) 480 ML BOTTLE TOP SCH (09:02)
[2022-05-27] MEDS: PROSOURCE / PROSTAT (PYXIS) 30 ML UDC GT SCH ×2 (09:05→17:26)
[2022-05-27] MEDS: ENOXAPARIN SODIUM 30 MG/0.3 ML DISP.SYRIN SQ SCH (09:13)
[2022-05-27] MEDS: MEROPENEM 1 G in IV NS 0.9% 100 ML IV SCH ×2 (09:27→20:28)
[2022-05-27] MEDS: THERAHONEY GEL 1.5 OZ TUBE TP SCH (11:51)
[2022-05-27 15:13] VITALS: BP 108/59
[2022-05-27 15:28] VITALS: BP 116/51
[2022-05-27 15:58] VITALS: BP 120/53
[2022-05-27 16:58] VITALS: BP 137/68
[2022-05-27] MEDS: GENTAMICIN 320 MG in IV D5W 100 ML IV SCH (17:27)
[2022-05-27 17:56] VITALS: BP 124/55
[2022-05-27 17:56] LABS: BAND % (MANUAL) 1 % (0.0-5.0); EOSINOPHILS % (MANUAL) 3 % (0-4); LYMPHOCYTES % (MANUAL) 7 % (16-48); MONOCYTES % (MANUAL) 3 % (0-11.0); NEUTROPHILS % (MANUAL) 86 (42-76)
--- NOTE | 2022-05-27 18:35 | NUR ---
MS RN CLOSING NOTE PATIENT IN BED AWAKE . NON-VERBAL. NO SOB OR DISTRESS NOTED WITH 4L NC. AND TOLERATED WELL , NO S/S OF PAIN AND DISCOMFORT NOTED , ALL DUE MEDS ORDERED , NOTED WITH HGB OF 7 AND SEEN BY MD AND WITH ORDER F BLOOD TRANSFUSION OF RBC , BLOOD TRANSFUSION DONE AND REACTION NOTED AND TOLERATED WELL , LFA #22 SL INTACT AND PATENT; ALEXSANDER MIDLINE #18 SL INTACT AND PATENT. JEVITY 1.2 @70ML/HR. TUBE INTACT W/ NO SIGNS OF DISLODGMENT. SAFETY MEASURES IN PLACE: BED LOCKED AND AT LOWEST POSITION, SIDERAILS UP X2, CALL MATHIS WITHIN REACH. ENDORSED TO THE NEXT SHIFT .
--- NOTE | 2022-05-27 19:34 | NUR ---
MS RN OPENING NOTE; RECEIVED PATIENT IN BED AWAKE WITH EYES CLOSED,NON-VERBAL.BUT EASY TO AROUSED,WITH 4L VIA NC TOLERATED WELL,SATING 98%,NO SIGN SOB/DISTRESS NOTED,NO SIGN OF PAIN/DISCOMFORT AT THIS TIME,IV ACCESS ON LFA #22 SL INTACT AND PATENT; ALEXSANDER MIDLINE #18 SL INTACT AND PATENT. JEVITY 1.2 @70ML/HR RASHEL WELL,NO RESIDUAL NOTED,SAFETY MEASURES IN PLACE: BED LOCKED AND AT LOWEST POSITION, SIDERAILS UP X2, CALL MATHIS WITHIN REACH.WILL CONTINUE TO MONITOR.
[2022-05-27 20:00] VITALS: BP 121/45
[2022-05-28] MEDS: IPRATROPIUM NEB FS 0.5 MG/2.5 ML AMPUL.NEB NEB SCH ×5 (02:46→20:08)
[2022-05-28] MEDS: BLOOD SUGAR DIAGNOSTIC 1 EACH STRIP IN SCH ×4 (05:38→23:41)
[2022-05-28 05:58] LABS: CALCIUM, SERUM 9.3 mg/dL (8.5-10.1); POTASSIUM 3.8 mmol/L (3.5-5.1)
--- NOTE | 2022-05-28 06:20 | NUR ---
MS RN CLOSING NOTE; PATIENT IN BED AWAKE WITH EYES CLOSED,NON-VERBAL.BUT EASY TO AROUSED,WITH 4L VIA NC TOLERATED WELL,SATING 97.6%,NO SIGN SOB/DISTRESS NOTED,NO SIGN OF PAIN/DISCOMFORT DURING SHIFT,ALL NEEDS ATTENDED,DUE MEDS GIVEN ORDER,IV ACCESS ON LFA #22 SL INTACT AND PATENT; ALEXSANDER MIDLINE #18 SL INTACT AND PATENT. JEVITY 1.2 @70ML/HR RASHEL WELL,NO RESIDUAL NOTED,SAFETY MEASURES IN PLACE: BED LOCKED AND AT LOWEST POSITION, SIDERAILS UP X2, CALL MATHIS WITHIN REACH.WILL ENDORSED TO NEXT SHIFT..
[2022-05-28 08:19] VITALS: BP 127/52
[2022-05-28] MEDS: ACIDOPHILUS/BULGARICUS 1 EACH TAB.CHEW GT SCH (08:39)
[2022-05-28] MEDS: MULTIVIT W/MINERALS 1 TAB TABLET GT SCH (08:39)
[2022-05-28] MEDS: PANTOPRAZOLE 40 MG/PACK PACK GT SCH (08:39)
[2022-05-28] MEDS: CHOLECALCIFEROL 1,000 UNIT TABLET (VIT D3) GT SCH (08:40)
[2022-05-28] MEDS: hydrALAZINE HCL 50 MG TABLET GT SCH ×3 (08:40→17:13)
[2022-05-28] MEDS: DOXYCYCLINE HYCLATE (100 MG) 100 MG TABLET PO SCH ×2 (08:40→20:25)
[2022-05-28] MEDS: ASCORBIC ACID 500 MG TABLET GT SCH (08:40)
[2022-05-28] MEDS: ASPIRIN 81 MG TAB.CHEW GT SCH (08:41)
[2022-05-28] MEDS: AMLODIPINE BESYLATE 10 MG TABLET GT SCH (08:41)
[2022-05-28] MEDS: METOPROLOL TARTRATE 25 MG TABLET PO SCH ×2 (08:42→20:25)
[2022-05-28] MEDS: ENOXAPARIN SODIUM 30 MG/0.3 ML DISP.SYRIN SQ SCH (08:44)
[2022-05-28] MEDS: DAKINS QUARTER STRENGTH (0.125%) 480 ML BOTTLE TOP SCH (08:47)
[2022-05-28] MEDS: THERAHONEY GEL 1.5 OZ TUBE TP SCH (08:47)
[2022-05-28] MEDS: PROSOURCE / PROSTAT (PYXIS) 30 ML UDC GT SCH ×2 (08:47→17:13)
[2022-05-28] MEDS: NEOMY SULF/BACITRAC ZN/POLY 15 GM TUBE TP SCH (08:47)
[2022-05-28] MEDS: MEROPENEM 1 G in IV NS 0.9% 100 ML IV SCH ×2 (09:35→20:25)
[2022-05-28] MEDS: IV 1/2NS 1000 ML 1,000 ML IV SCH (11:20)
[2022-05-28 16:22] VITALS: BP 109/62
--- NOTE | 2022-05-28 19:27 | NUR ---
MS RN CLOSING NOTE PATIENT IN BED AWAKE . NON-VERBAL. NO SOB OR DISTRESS NOTED WITH 4L NC. AND TOLERATED WELL , NO S/S OF PAIN AND DISCOMFORT NOTED , ALL DUE MEDS ORDERED , DRESSING CHANGED , LFA #22 SL INTACT AND PATENT; ALEXSANDER MIDLINE #18 SL INTACT AND PATENT. JEVITY 1.2 @70ML/HR. TUBE INTACT W/ NO SIGNS OF DISLODGMENT. SAFETY MEASURES IN PLACE: BED LOCKED AND AT LOWEST POSITION, SIDERAILS UP X2, CALL MATHIS WITHIN REACH. ENDORSED TO THE NEXT SHIFT .
--- NOTE | 2022-05-28 19:30 | NUR ---
MS RN OPENING NOTE; RECEIVED PATIENT IN BED AWAKE WITH EYES CLOSED,NON-VERBAL. EASY TO AROUSED,WITH 4L VIA NASAL CANNULA TOLERATED WEL,NO SIGN SOB/DISTRESS NOTED,NO SIGN OF PAIN/DISCOMFORT AT THIS TIME, NO FACIAL GRIMACING NOTED.IV ACCESS ON LFA #22 SL INTACT AND PATENT; ALEXSANDER MIDLINE #18 SL INTACT AND PATENT. JEVITY 1.2 @70ML/HR TOLERATING WELL,NO RESIDUAL NOTED, ALL SAFETY MEASURES IN PLACE: BED LOCKED AND AT LOWEST POSITION, SIDERAILS UP X2, CALL MATHIS WITHIN REACH.WILL CONTINUE TO MONITOR CLOSELY.
[2022-05-28 20:00] VITALS: BP 119/50
[2022-05-29] MEDS: IPRATROPIUM NEB FS 0.5 MG/2.5 ML AMPUL.NEB NEB SCH ×7 (00:53→23:19)
[2022-05-29] MEDS: IV 1/2NS 1000 ML 1,000 ML IV SCH ×2 (00:58→16:26)
[2022-05-29] MEDS: JEVITY 1.2 CAL 1,000 ML BOTTLE GT PRN (03:13)
[2022-05-29] MEDS: BLOOD SUGAR DIAGNOSTIC 1 EACH STRIP IN SCH ×4 (05:55→23:48)
[2022-05-29] MEDS ORDERED: GENTAMICIN 280 MG in IV D5W 100 ML IV SCH (06:00)
[2022-05-29 06:31] LABS: CALCIUM, SERUM 9.2 mg/dL (8.5-10.1); CREATININE 0.9 mg/dL (0.6-1.3)
--- NOTE | 2022-05-29 06:35 | NUR ---
MS RN CLOSING NOTE; PATIENT IN BED AWAKE WITH EYES CLOSED,NON-VERBAL. EASY TO AROUSED,WITH 4L VIA NASAL CANNULA TOLERATED WELL,NO SOB NOTED,NO DISCOMFORT AND PAIN NOTED AT THIS TIME, NO FACIAL GRIMACING NOTED.IV ACCESS ON LFA #22 SL INTACT AND PATENT; ALEXSANDER MIDLINE #18 SL INTACT AND PATENT. JEVITY 1.2 @70ML/HR TOLERATING WELL,NO RESIDUAL NOTED, ALL DUE MEDS GIVEN ORDERED AWAITING FOR GENTAMICIN TROUGH AND PHARMACY DELIVERY OF THE MEDICATION.ALL SAFETY MEASURES IN PLACE: BED LOCKED AND AT LOWEST POSITION, SIDERAILS UP X2, CALL MATHIS WITHIN REACH. HOB ELEVATED FOR ASPIRATION PRECAUTION.WILL ENDORSE FOR CARLOS.
[2022-05-29 06:37] LABS: BILIRUBIN,TOTAL 0.3 mg/dL (0.2-1.0); TOTAL PROTEIN, SERUM 6.4 g/dL (6.4-8.2)
[2022-05-29 07:00] VITALS: BP 123/52
[2022-05-29 07:23] LABS: BASOPHILS # (AUTO) 0.1 K/uL (0.0-0.2); BASOPHILS % (AUTO) 0.7 % (0.0-2.0); EOSINOPHILS % (AUTO) 3.2 % (0.0-6.0); HEMATOCRIT 26 % (39-51); HEMOGLOBIN 8.3 g/dL (13.5-17.5); LYMPHOCYTES # (AUTO) 1.7 K/uL (0.8-4.8); LYMPHOCYTES % (AUTO) 11.2 % (20.0-44.0); MEAN CORPUSCULAR HGB CONC 32 g/dl (31.0-36.0); MEAN CORPUSCULAR VOLUME 84 fL (80-96); MONOCYTES # (AUTO) 0.8 K/uL (0.1-1.30); MONOCYTES % (AUTO) 4.9 % (2.0-12.0); NEUTROPHILS # (AUTO) 12.4 K/uL (1.8-8.9); PLATELET COUNT (AUTO) 652 K/uL (150-450); RED BLOOD CELL COUNT(AUTO) 3.13 MIL/uL (4.5-6.0); WHITE BLOOD COUNT (AUTO) 15.5 K/uL (4.3-11.0)
--- NOTE | 2022-05-29 07:24 | NUR ---
MS RN OPENING NOTE RECEIVED PATIENT ASLEEP IN BED. NON-VERBAL. NO SOB OR DISTRESS NOTED WITH 4L NC. AND TOLERATED WELL , NO S/S OF PAIN AND DISCOMFORT NOTED , LFA #22 SL INTACT AND PATENT; ALEXSANDER MIDLINE #18 INTACT AND PATENT WITH 1/2 NS @75 ML /HOUR . JEVITY 1.2 @70ML/HR. TUBE INTACT W/ NO SIGNS OF DISLODGMENT. SAFETY MEASURES IN PLACE: BED LOCKED AND AT LOWEST POSITION, SIDERAILS UP X2, CALL MATHIS WITHIN REACH. WILL CONTINUE TO MONITOR PATIENT.
[2022-05-29 07:35] LABS: GENTAMICIN,TROUGH 0.6 ug/ml (0.2-2.0)
[2022-05-29 07:46] LABS: ALBUMIN 1.5 g/dL (3.4-5.0)
--- NOTE | 2022-05-29 08:13 | NUR ---
RN NOTES GENTAMYCIN IV DELIVERED FROM PHARMACY
[2022-05-29] MEDS: ACIDOPHILUS/BULGARICUS 1 EACH TAB.CHEW GT SCH (08:56)
[2022-05-29] MEDS: MULTIVIT W/MINERALS 1 TAB TABLET GT SCH (08:56)
[2022-05-29] MEDS: ASPIRIN 81 MG TAB.CHEW GT SCH (08:56)
[2022-05-29] MEDS: PANTOPRAZOLE 40 MG/PACK PACK GT SCH (08:56)
[2022-05-29] MEDS: CHOLECALCIFEROL 1,000 UNIT TABLET (VIT D3) GT SCH (08:57)
[2022-05-29] MEDS: DOXYCYCLINE HYCLATE (100 MG) 100 MG TABLET PO SCH ×2 (08:57→20:19)
[2022-05-29] MEDS: ASCORBIC ACID 500 MG TABLET GT SCH (08:57)
[2022-05-29] MEDS: AMLODIPINE BESYLATE 10 MG TABLET GT SCH (08:58)
[2022-05-29] MEDS: PROSOURCE / PROSTAT (PYXIS) 30 ML UDC GT SCH ×2 (08:59→17:26)
[2022-05-29] MEDS: hydrALAZINE HCL 50 MG TABLET GT SCH ×3 (08:59→17:00)
[2022-05-29] MEDS: METOPROLOL TARTRATE 25 MG TABLET PO SCH ×2 (09:00→20:18)
[2022-05-29] MEDS: ENOXAPARIN SODIUM 30 MG/0.3 ML DISP.SYRIN SQ SCH (09:02)
[2022-05-29] MEDS: THERAHONEY GEL 1.5 OZ TUBE TP SCH (09:04)
[2022-05-29] MEDS: DAKINS QUARTER STRENGTH (0.125%) 480 ML BOTTLE TOP SCH (09:04)
[2022-05-29] MEDS: NEOMY SULF/BACITRAC ZN/POLY 15 GM TUBE TP SCH (09:04)
[2022-05-29] MEDS: MEROPENEM 1 G in IV NS 0.9% 100 ML IV SCH ×2 (09:10→20:18)
[2022-05-29] MEDS: INSULIN REGULAR, HUMAN 100 UNIT/ML 3 ML VIAL SQ PRN ×2 (14:32→23:49)
[2022-05-29] MEDS: ACETAMINOPHEN 650 MG/20.3 ML UDC PEG PRN (15:17)
--- NOTE | 2022-05-29 15:31 | NUR ---
MS CEO NOTES PATIENT WAS SEEN BY MD AND WITH ORDER FOR DISCHARGE SNF AND PATIENT IS MEDICALLY STABLE TO TRANSFER TO LOWER LEVEL OF CARE , DISCHARGE PAPERS WERE PREPARED AND TMS WAS PREPARED AND SIGNED BY MD , REPORT GIVEN TO FACILITY AND SPOKE WITH JACKIE Chao LVN , REGARDING IV ATB TO CONTINUE X 2WEEKS PER INFECTIOUS MD ORDERED, NO BELONGINGS UPON ADMISSION AND PT UNABLE TO SIGN AND SIGNED AND WITNESS WITH 2 NURSES , ALSO DISCHARGE INSTRUCTIONS FORM WAS SIGNED BY TO NURSES , NO S/S OF DISCOMFORT NOTED , ALL DUE MEDS ORDERED GIVEN , AMBULANCE PERSONNEL WAS GIVEN REPORT AND KRISHAN COOPER AT BEDSIDE DURING THE TRANSFER .
[2022-05-29 16:00] VITALS: BP 130/50
--- NOTE | 2022-05-29 16:00 | NUR ---
RN NOTES DISCHARGE WAS CANCELLED PATIENT IS DESATURATING AND PATIENT HAS LOW BLOOD PRESSURE , FAMILY IS CONSIDERING HOSPICE
--- NOTE | 2022-05-29 17:34 | NUR ---
RN NOTES HYDRALAZINE NOT GIVEN BP IS 90/50 [facility] AWARE
--- NOTE | 2022-05-29 19:30 | NUR ---
MS RN CLOSING NOTE PATIENT IN BED AWAKE . NON-VERBAL. NO SOB OR DISTRESS NOTED WITH 4L NC. AND TOLERATED WELL , NO S/S OF PAIN AND DISCOMFORT NOTED , ALL DUE MEDS ORDERED ,WOUND DRESSING CHANGED DONE , LFA #22 SL INTACT AND PATENT; ALEXSANDER MIDLINE #18 SL INTACT AND PATENT WITH 1/2 NS @75 ML /HOUR .RIGHT SOFT HAND MITTENS ON AND NO S/S OF SKIN BREAKDOWN , JEVITY 1.2 @70ML/HR. TUBE INTACT W/ NO SIGNS OF DISLODGMENT. SAFETY MEASURES IN PLACE: BED LOCKED AND AT LOWEST POSITION, SIDERAILS UP X2, CALL MATHIS WITHIN REACH. ENDORSED TO THE NEXT SHIFT .
--- NOTE | 2022-05-29 19:47 | NUR ---
MS RN OPENING NOTE PATIENT IN BED AWAKE,NON-VERBAL. NO SOB OR DISTRESS NOTED WITH 4L NC. AND TOLERATED WELL , NO S/S OF PAIN AND DISCOMFORT NOTED, LFA #22 SL INTACT AND PATENT; ALEXSANDER MIDLINE #18 SL INTACT AND PATENT WITH 1/2 NS @75 ML /HOUR .RIGHT SOFT HAND MITTENS ON AND NO S/S OF SKIN BREAKDOWN , JEVITY 1.2 @70ML/HR. TUBE INTACT W/ NO SIGNS OF DISLODGMENT. SAFETY MEASURES IN PLACE: BED LOCKED AND AT LOWEST POSITION, SIDERAILS UP X2, CALL MATHIS WITHIN REACH.
[2022-05-29 20:00] VITALS: BP 155/72
--- NOTE | 2022-05-29 21:47 | NUR ---
DIEGO NOTE PT O2 TITRATED DOWN TO 4L TOLERATING WELL O2 AT 96-97%. BREATHING TREATMENT ADMINISTERED. Addendum: 05/29/22 at 2149 by MIA KING RN DISREGARD NOTE NOT CORRECT
[2022-05-30] MEDS: IV 1/2NS 1000 ML 1,000 ML IV SCH ×2 (01:48→17:10)
[2022-05-30] MEDS: IPRATROPIUM NEB FS 0.5 MG/2.5 ML AMPUL.NEB NEB SCH ×6 (03:18→23:06)
[2022-05-30] MEDS: BLOOD SUGAR DIAGNOSTIC 1 EACH STRIP IN SCH ×4 (05:47→23:46)
[2022-05-30] MEDS: INSULIN REGULAR, HUMAN 100 UNIT/ML 3 ML VIAL SQ PRN ×2 (05:48→23:45)
--- NOTE | 2022-05-30 06:07 | NUR ---
MS RN NOTE PATIENT IN BED AWAKE,NON-VERBAL. NO SOB OR DISTRESS NOTED WITH 4L NC. AND TOLERATED WELL , NO S/S OF PAIN AND DISCOMFORT NOTED, LFA #22 SL INTACT AND PATENT; ALEXSANDER MIDLINE #18 SL INTACT AND PATENT WITH 1/2 NS @75 ML /HOUR .RIGHT SOFT HAND MITTENS ON AND NO S/S OF SKIN BREAKDOWN , JEVITY 1.2 @70ML/HR. TUBE INTACT W/ NO SIGNS OF DISLODGMENT. RUNNING AT THIS TIME. SAFETY MEASURES IN PLACE: BED LOCKED AND AT LOWEST POSITION, SIDERAILS UP X2, CALL MATHIS WITHIN REACH.
[2022-05-30 06:32] LABS: CALCIUM, SERUM 9.3 mg/dL (8.5-10.1); CREATININE 0.9 mg/dL (0.6-1.3); POTASSIUM 3.5 mmol/L (3.5-5.1)
[2022-05-30 07:00] VITALS: BP 124/48
[2022-05-30] MEDS: METOPROLOL TARTRATE 25 MG TABLET PO SCH ×2 (08:47→20:47)
[2022-05-30] MEDS: ASCORBIC ACID 500 MG TABLET GT SCH (08:48)
[2022-05-30] MEDS: CHOLECALCIFEROL 1,000 UNIT TABLET (VIT D3) GT SCH (08:48)
[2022-05-30] MEDS: ACIDOPHILUS/BULGARICUS 1 EACH TAB.CHEW GT SCH (08:48)
[2022-05-30] MEDS: MULTIVIT W/MINERALS 1 TAB TABLET GT SCH (08:48)
[2022-05-30] MEDS: PANTOPRAZOLE 40 MG/PACK PACK GT SCH (08:48)
[2022-05-30] MEDS: hydrALAZINE HCL 50 MG TABLET GT SCH ×3 (08:48→17:00)
[2022-05-30] MEDS: DOXYCYCLINE HYCLATE (100 MG) 100 MG TABLET PO SCH ×2 (08:49→20:47)
[2022-05-30] MEDS: ASPIRIN 81 MG TAB.CHEW GT SCH (08:49)
[2022-05-30] MEDS: AMLODIPINE BESYLATE 10 MG TABLET GT SCH (08:49)
[2022-05-30] MEDS: PROSOURCE / PROSTAT (PYXIS) 30 ML UDC GT SCH ×2 (08:50→17:01)
[2022-05-30] MEDS: THERAHONEY GEL 1.5 OZ TUBE TP SCH (08:50)
[2022-05-30] MEDS: DAKINS QUARTER STRENGTH (0.125%) 480 ML BOTTLE TOP SCH (08:50)
[2022-05-30] MEDS: NEOMY SULF/BACITRAC ZN/POLY 15 GM TUBE TP SCH (08:50)
[2022-05-30] MEDS: MEROPENEM 1 G in IV NS 0.9% 100 ML IV SCH ×2 (08:54→20:47)
[2022-05-30] MEDS: ENOXAPARIN SODIUM 30 MG/0.3 ML DISP.SYRIN SQ SCH (08:59)
[2022-05-30 16:00] VITALS: BP 116/48
--- NOTE | 2022-05-30 16:58 | NUR ---
RN NOTE PATIENT WILL BE TRANSFER TOMORROW MORNING. THE SON JABARI CELL NUMBER: STATED THAT HE WANT TO BE CONTACTED BEFORE HIS DAD AROS TAYLAAN'S TRANSFER. HE STATED THAT HE WANT TO BE HERE BEFORE HIS DAD'S DISCHARGE.
[2022-05-30] MEDS: JEVITY 1.2 CAL 1,000 ML BOTTLE GT PRN (17:19)
--- NOTE | 2022-05-30 19:12 | NUR ---
MS RN CLOSING NOT PATIENT IN BED, NON-VERBAL. EASY TO AROUSED,WITH 4L VIA NASAL CANNULA TOLERATED WELL,NO SOB NOTED,NO DISCOMFORT AND PAIN NOTED AT THIS TIME, NO FACIAL GRIMACING NOTED.IV ACCESS ON LFA #22 SL INTACT AND PATENT; ALEXSANDER MIDLINE #18 SL INTACT AND PATENT. JEVITY 1.2 @70ML/HR TOLERATING WELL,NO RESIDUAL NOTED, ALL DUE MEDS GIVEN ORDERED. ALL SAFETY MEASURES IN PLACE: BED LOCKED AND AT LOWEST POSITION, SIDERAILS UP X2, CALL MATHIS WITHIN REACH. HOB ELEVATED FOR ASPIRATION PRECAUTION.WILL ENDORSE TO THE SEWING MACHINE REPAIRER HELPER NURSE FOR CARLOS.
--- NOTE | 2022-05-30 19:46 | NUR ---
MS RN OPENING NOTE PATIENT IN BED, NON-VERBAL. EASY TO AROUSED,WITH 4L VIA NASAL CANNULA TOLERATED WELL,NO SOB NOTED,NO DISCOMFORT AND PAIN NOTED AT THIS TIME, NO FACIAL GRIMACING NOTED.IV ACCESS ON LFA #22 SL INTACT AND PATENT; ALEXSANDER MIDLINE #18 SL INTACT AND PATENT. JEVITY 1.2 @70ML/HR TOLERATING WELL,NO RESIDUAL NOTED.ALL SAFETY MEASURES IN PLACE: BED LOCKED AND AT LOWEST POSITION, SIDERAILS UP X2, CALL MATHIS WITHIN REACH. HOB ELEVATED FOR ASPIRATION PRECAUTION.
[2022-05-30 20:28] VITALS: BP 136/54
[2022-05-31] MEDS: IPRATROPIUM NEB FS 0.5 MG/2.5 ML AMPUL.NEB NEB SCH ×3 (03:53→11:30)
[2022-05-31] MEDS: IV 1/2NS 1000 ML 1,000 ML IV SCH (06:05)
[2022-05-31] MEDS: BLOOD SUGAR DIAGNOSTIC 1 EACH STRIP IN SCH ×2 (06:05→12:50)
[2022-05-31] MEDS: INSULIN REGULAR, HUMAN 100 UNIT/ML 3 ML VIAL SQ PRN (06:06)
--- NOTE | 2022-05-31 07:04 | NUR ---
MS RN OPENING NOTES RECEIVED PATIENT SLEEPING IN BED, ON 4L VIA NC. NO S/S OF RESPIRATORY DISTRESS. PATIENT IS NON-VERBAL. NO S/S OF PAIN OR DISCOMFORT NOTED. IV ACCESS ALEXSANDER MIDLINE RUNNING 1/2 NS @75 ML/HR. INTACT AND PATNET. PATIENT HAS MITTEN ON R HAND, SKIN AND CIRCULATION WNL. PATIENT ON TUBE FEEDING JEVITY 1.2 70 ML/HR. TOLERATING WELL. PATIENT HAS FC DRAINING YELLOW URINE. SKIN ISSUES: BILATERAL HIP WOUNDS, SACRUM WOUND, BILATERAL HEEL WOUNDS. DRESSINGS IN PLACE. SAFETY MEASURES IN PLACE: BED LOCKED AND IN LOWEST POSITION, HOB ELEVATED, SIDE RAILS UP x3, BED ALARM ON, CALL LIGHT WITHIN REACH. WILL CONTINUE TO MONITOR.
[2022-05-31 07:44] LABS: CALCIUM, SERUM 8.9 mg/dL (8.5-10.1); CARBON DIOXIDE 22 mmol/L (21-32); CHLORIDE 119 mmol/L (98-107); CREATININE 0.9 mg/dL (0.6-1.3); GLUCOSE 121 mg/dL (74-106); POTASSIUM 3.4 mmol/L (3.5-5.1); SODIUM SERUM 151 mmol/L (136-145); UREA NITROGEN, BLOOD 37 mg/dL (7-18)
[2022-05-31 08:00] VITALS: BP 131/52
[2022-05-31] MEDS ORDERED: GENTAMICIN 280 MG in IV D5W 100 ML IV SCH (08:00)
[2022-05-31] MEDS: ASCORBIC ACID 500 MG TABLET GT SCH (08:55)
[2022-05-31] MEDS: PANTOPRAZOLE 40 MG/PACK PACK GT SCH (08:55)
[2022-05-31] MEDS: PROSOURCE / PROSTAT (PYXIS) 30 ML UDC GT SCH (08:55)
[2022-05-31] MEDS: ACIDOPHILUS/BULGARICUS 1 EACH TAB.CHEW GT SCH (08:55)
[2022-05-31] MEDS: CHOLECALCIFEROL 1,000 UNIT TABLET (VIT D3) GT SCH (08:55)
[2022-05-31] MEDS: ASPIRIN 81 MG TAB.CHEW GT SCH (08:55)
[2022-05-31] MEDS: MULTIVIT W/MINERALS 1 TAB TABLET GT SCH (08:55)
[2022-05-31] MEDS: DOXYCYCLINE HYCLATE (100 MG) 100 MG TABLET PO SCH (08:55)
[2022-05-31 08:56] VITALS: BP 131/52
[2022-05-31] MEDS: hydrALAZINE HCL 50 MG TABLET GT SCH (08:56)
[2022-05-31] MEDS: METOPROLOL TARTRATE 25 MG TABLET PO SCH (08:56)
[2022-05-31] MEDS: AMLODIPINE BESYLATE 10 MG TABLET GT SCH (08:56)
[2022-05-31] MEDS: ENOXAPARIN SODIUM 30 MG/0.3 ML DISP.SYRIN SQ SCH (08:58)
[2022-05-31] MEDS: DAKINS QUARTER STRENGTH (0.125%) 480 ML BOTTLE TOP SCH (08:59)
[2022-05-31] MEDS: NEOMY SULF/BACITRAC ZN/POLY 15 GM TUBE TP SCH (08:59)
[2022-05-31] MEDS: THERAHONEY GEL 1.5 OZ TUBE TP SCH (09:00)
[2022-05-31] MEDS: MEROPENEM 1 G in IV NS 0.9% 100 ML IV SCH (09:46)
[2022-05-31] MEDS ORDERED: POTASSIUM CHLORIDE 20 MEQ POWDER PACKET PO ONE (10:00)
--- NOTE | 2022-05-31 13:15 | NUR ---
MARINE ENGINE MACHINIST NOTES PATIENT D/C TO SNF, REPORT GIVEN TO DIEGO ZAIDI. PATIENT V/S STABLE, NON-VERBAL. ON 5L VIA NC, NO S/S OF RESPIRATORY DISTRESS. MIDLINE AND DELA CRUZ LEFT INTACT FOR FACILITY. PATIENT UNABLE TO SIGN, ALL FORMS SIGNED AND FILED INTO CHART. HEALTH TEACHINGS EXPLAINED TO FAMILY. PATIENT SKIN ISSUES PHOTOS TAKEN AND FILED INTO CHART. PATIENT HAD BOWEL MOVEMENT BEFORE LEAVING UNIT. PATIENT LEFT UNIT @12:47 ACCOMPANIED BY TWO automotive internet sales manager AND FAMILY. CHARGE NURSE AND MD AWARE OF DISCHARGE.
== END 2022-05-31 12:55 | disposition hospice, home (50) | DRG 871 ==
LOC: ER 10:50 → TELE-TD 15:04 → TELE1 05-13 13:06 → MEDSG1 05-14 13:55 → MED 05-15 14:42
PROVIDERS: ADMIT Nurse Practitioner Family; ATTEND Nurse Practitioner Family
PROC: 5A09357 Assistance with Respiratory Ventilation, Less than 24 Consecutive Hours, Continuous Positive Airway Pressure (ICD-10-PCS; principal; 2022-05-11)
PROC: 05H633Z Insertion of Infusion Device into Left Subclavian Vein, Percutaneous Approach (ICD-10-PCS; 2022-05-12)
PROC: B547ZZA Ultrasonography of Left Subclavian Vein, Guidance (ICD-10-PCS; 2022-05-12)
PROC: 30233N1 Transfusion of Nonautologous Red Blood Cells into Peripheral Vein, Percutaneous Approach (ICD-10-PCS; 2022-05-14)
PROC: 05H633Z Insertion of Infusion Device into Left Subclavian Vein, Percutaneous Approach (ICD-10-PCS; 2022-05-26)
PROC: B547ZZA Ultrasonography of Left Subclavian Vein, Guidance (ICD-10-PCS; 2022-05-26)
DX: A41.9 Sepsis, unspecified organism (principal); G93.41 Metabolic encephalopathy; L89.154 Pressure ulcer of sacral region, stage 4; L89.514 Pressure ulcer of right ankle, stage 4; J96.01 Acute respiratory failure with hypoxia; J69.0 Pneumonitis due to inhalation of food and vomit; D68.59 Other primary thrombophilia; E87.1 Hypo-osmolality and hyponatremia; E46 Unspecified protein-calorie malnutrition; N39.0 Urinary tract infection, site not specified; N17.9 Acute kidney failure, unspecified; D63.8 Anemia in other chronic diseases classified elsewhere; D75.839 Thrombocytosis, unspecified; E11.22 Type 2 diabetes mellitus with diabetic chronic kidney disease; E78.5 Hyperlipidemia, unspecified; E86.0 Dehydration; N18.9 Chronic kidney disease, unspecified; R62.7 Adult failure to thrive; Z66 Do not resuscitate; Z87.442 Personal history of urinary calculi; Z79.82 Long term (current) use of aspirin; Z20.822 Contact with and (suspected) exposure to COVID-19; R74.01 Elevation of levels of liver transaminase levels; Z93.1 Gastrostomy status; Z68.20 Body mass index [BMI] 20.0-20.9, adult; R13.10 Dysphagia, unspecified; I48.91 Unspecified atrial fibrillation; L89.220 Pressure ulcer of left hip, unstageable; L89.210 Pressure ulcer of right hip, unstageable; L89.526 Pressure-induced deep tissue damage of left ankle; L89.626 Pressure-induced deep tissue damage of left heel; R65.20 Severe sepsis without septic shock; D50.9 Iron deficiency anemia, unspecified; F03.90 Unspecified dementia, unspecified severity, without behavioral disturbance, psychotic disturbance, mood disturbance, and anxiety; I12.9 Hypertensive chronic kidney disease with stage 1 through stage 4 chronic kidney disease, or unspecified chronic kidney disease; Z79.4 Long term (current) use of insulin; Z86.16 Personal history of COVID-19
CPT/HCPCS: 31720; 36410; 36415; 36600; 71045-TC; 80048-TC; 80053-TC; 80076-TC; 80170-TC; 80202-TC; 81001; 82803-TC; 82962-TC; 83605-TC; 83735-TC; 84100-TC; 84484-TC; 85025-TC; 85730-TC; 86850-TC; 87040-TC; 87081-TC; 87086-TC; 92526; 92611-TC; 94799-TC; 99082-TC; A4217; A6253; A6403; C9803; G0378; J0456; J0696; J1580; J1650; J1815; J1940; J2185; J3260; J3370; J3490; J7030; J7040; J7042; J7050; J7060; J7070; P9016